=== PATIENT | male | born 1980 | race Caucasian/White ===

== ENCOUNTER 2021-04-11 18:30 | Inpatient (IN) | payer OTHER, MEDICAID, SELFPAY ==
--- NOTE | ~2021-04-11 | XR_ITS ---
XR chest 2V DATE: 04/11/2021 19:12 INDICATION: Lightheadedness. Dehydration. Weakness. TECHNIQUE: PA and lateral views COMPARISON: 08/11/2015 2 view chest FINDINGS: Normal heart size. No hilar or mediastinal enlargement. No pulmonary infiltrate or consolid ation, pleural effusion or pulmonary vascular congestion or pneumothorax. No active cardiopulmonary d isease IMPRESSION: No active cardiopulmonary disease Reviewed, dictated and finalized at location A.
--- NOTE | ~2021-04-11 | US_ITS ---
US renal BI DATE: 04/12/2021 08:21 INDICATION: Acute kidney insufficiency. Right flank pain. TECHNIQUE: Real-time imaging of kidneys and urinary bladder COMPARISON: None FINDINGS: Examination is limited by body habitus. Right kidney measures approximately 11.5 cm length, left kidney 10.2 cm length. No obvious renal mass lesion or hydronephrosis is detected. There is diffuse bladder wall thickening. IMPRESSION: Limited examination; no obvious renal mass lesion or evidence of hydronephrosis Reviewed, dictated and finalized at Location [facility]. Reviewed, dictated and finalized at location A. IMPRESSION: Limited examination; no obvious renal mass lesion or evidence of hy dronephrosis
--- NOTE | ~2021-04-11 | CT_ITS ---
EXAMINATION: CT abdomen pelvis wo con DATE: 04/12/2021 11:55 INDICATION: Right flank pain. TECHNIQUE: Computed tomography (CT) of the abdomen and pelvis was performed without intravenous contr ast. Automated exposure control and iterative reconstruction technique were employed. The dose-length product was 1586.52 mGy-cm. COMPARISON: Ultrasound kidneys 04/12/2021 FINDINGS: The visualized portions of the lung bases demonstrate mild atelectasis. No pleural effusion . The heart size is normal. No pericardial effusion. There is diffuse hepatic steatosis. The gallblad nely is contracted. The spleen, pancreas, adrenal glands, and kidneys are normal. There is no urolithi asis. There are no dilated loops of bowel. The appendix is normal. There are no pathologically enlarg ed lymph nodes. There is no free intraperitoneal fluid. There is mild thoracic spondylosis and modera te lumbar spondylosis. IMPRESSION: 1. No etiology for the patient's symptoms. 2. Diffuse hepatic steatosis. Reviewed, dictated and finalized at location A.
[2021-04-11 18:56] VITALS: BP 154/94; PULSE 85; RESP 16; TEMP 36.2; O2SAT 97
--- NOTE | 2021-04-11 19:00 | ECG_ITS ---
Measurements Intervals [facility] Rate: 81 P: 3 GA: 148 QRS: 43 QRSD: 104 T: 102 QT: 389 QTc: 454 Interpretive Statements SINUS RHYTHM BORDERLINE R WAVE PROGRESSION, ANTERIOR LEADS BORDERLINE T WAVE ABNORMALITY- HIGH LATERAL LEADS BORDERLINE ECG Electronically Signed On 04-11-2021 20:45:14 CDT by Simone Robles D.O.
[2021-04-11 19:16] LABS: Basophils Absolute Auto 0.1 K/mm3 (0.0-0.1); Basophils Percent Auto 0.4 % (0.2-1.2); Eosinophils Absolute Auto 0.1 K/mm3 (0-0.3); Eosinophils Percent Auto 1.2 % (0-4.4); Hematocrit 50.9 % (42.0-52.0); Hemoglobin 16.7 g/dL (14.0-18.0); Immature Granulocyte Absolute 0.04 K/mm3 (0.00-0.031); Immature Granulocyte Percent A 0.4 % (0-0.5); Lymphocytes Absolute Auto 1.92 K/mm3 (0.9-3.2); Lymphocytes Percent Auto 16.9 % (18.3-44.2); Mean Corpuscular HGB Conc 32.8 g/dl (32-36); Mean Corpuscular Hemoglobin 28.4 pg (26-34); Mean Corpuscular Volume 86.6 fl (80-100); Mean Platelet Volume 10.6 fl (7.4-10.4); Monocytes Absolute Auto 1.3 K/mm3 (0.1-0.6); Neutrophils Percent Auto 70.1 % (45.5-73.1); Platelet Count Result 268 k/mm3 (150-375); Red Blood Count 5.88 M/mm3 (4.6-6.20); Red Cell Distribution Width 14.8 % (11.5-14.5); White Blood Count 11.4 K/mm3 (4.5-10.0)
[2021-04-11 19:27] LABS: Alanine Aminotransferase 35 U/L (4-50); Albumin Level 4.9 g/dL (3.5-5.1); Alkaline Phosphatase 109 U/L (38-126); Anion Gap 14 mmol/L (8-16); Aspartate Amino Transferase 41 U/L (17-59); Blood Urea Nitrogen 31 mg/dL (9-20); Calcium 9.9 mg/dL (8.4-10.2); Carbon Dioxide 23 mmol/L (22-30); Chloride 95 mmol/L (98-107); Estimated CRCL calculation 37 ml/min; Estimated Glomerular Filt Rate 16; Glucose 100 mg/dL (65-110); Potassium 3.8 mmol/L (3.4-5.0); Sodium 132 mmol/L (137-145)
[2021-04-11 20:56] LABS: Creatine Kinase 264 U/L (55-170)
[2021-04-11 22:27] VITALS: BP 159/92; PULSE 83; RESP 16; O2SAT 97
[2021-04-11] MEDS: SODIUM CHLORIDE 0.9% IV 1,000 ML 999 ML IV CONT (23:07)
--- NOTE | 2021-04-11 23:12 | PC.NURSE ---
asked pt if he would be able to give us a urine sample. pt states he is unable to go at this time and will try and go after the IV fluids are in. pt refusing straight catheter.
[2021-04-11 23:14] VITALS: BP 157/92; PULSE 85; RESP 22; O2SAT 98
--- NOTE | 2021-04-11 23:18 | ED.GENADULT ---
HPI - General Adult General Chief complaint: Recheck/Abnormal Lab/Rx Stated complaint: lightheaded, cramping Time Seen by Provider: 04/11/21 22:26 History of Present Illness HPI narrative: Patient is a 40-year-old male who presents ER with muscle cramping and lightheadedness. It occurred after working outside for prolonged period and feeling hot. Reports has been making urine looks dark. Had similar symptoms several years ago and was found to be in kidney failure. Reports to his knowledge she has normal renal function and has never seen a political science research assistant. He does have history of rheumatoid arthritis which has been treated with methotrexate injections however he is not taking injection for over 6 months. Related Data Home Medications Medication Instructions Recorded Confirmed No Home Medications 04/11/21 04/11/21 Allergies Allergy/AdvReac Type Severity Reaction Status Date / Time codeine Allergy Intermediate Rash Verified 04/12/21 02:10 Review of Systems Review of Systems: All systems reviewed & are unremarkable except as noted in HPI and below Constitutional: Constitutional: Denies chills, Reports fatigue and Denies fever(s) ENT: Denies nasal congestion and Denies sore throat Cardiovascular: Cardiovascular: Denies chest pain, Denies rapid heart rate and Denies radiating jaw, neck or arm pain Respiratory: Respiratory: Denies cough, Denies dyspnea and Denies wheezing Gastrointestinal: Gastrointestinal: Denies abdominal pain, Denies nausea and Denies vomiting Musculoskeletal: Musculoskeletal: Reports myalgias and Reports muscle cramps Neurologic: Denies syncope, Denies focal weakness and Denies numbness PMFSH Past Medical History Medical History (Updated 04/12/21 @ 05:59 by Getachew Vuong MD) Hypertension Rheumatoid arthritis Surgical History Surgical History (Updated 04/12/21 @ 05:58 by Getachew Vuong MD) No pertinent past surgical history Family History Family History (Updated 04/12/21 @ 01:50 by Radha Foster RN) Mother Diabetes mellitus Congestive heart failure Acute myocardial infarction Father Diabetes mellitus Social History Social History Alcohol intake: current Drinks per week: 1 Substance use: current Substance use type: marijuana Gender identity (if verbalized by the patient): Male Spiritual care concerns: No Exam Narrative: GENERAL: Well-appearing, well-nourished, and in no acute distress. HEAD: Normocephalic, atraumatic. CHEST: Clear to auscultation. No respiratory distress. HEART: Regular rate and rhythm. Normal peripheral pulses. ABDOMEN: Soft, nontender, nondistended. EXTREMITIES: Normal range of motion. No edema. SKIN: Warm, dry, no rash. NEURO: Alert and oriented x3. PSYCH: Normal mood and affect. Course Course Emergency Course: Admit to hospitalist service for hydration and further evaluation of renal failure. Patient's history makes this appear to be acute but there is possibility that he has some chronic disease. Previous creatinine in 2018 was normal. Vital Signs Vital signs: Vital Signs Temperature 97.1 F L 04/11/21 18:56 Pulse Rate 85 04/11/21 18:56 Respiratory Rate 16 04/11/21 18:56 Blood Pressure 154/94 H 04/11/21 18:56 Pulse Oximetry 97 04/11/21 18:56 Temperature 98.6 F 04/12/21 02:13 Pulse Rate 71 04/12/21 02:13 Respiratory Rate 18 04/12/21 02:13 Blood Pressure 161/62 H 04/12/21 02:13 Pulse Oximetry 93 04/12/21 02:13 Medical Decision Making Vital Signs Vital Signs: Vital Signs Temperature 97.1 F L 04/11/21 18:56 Pulse Rate 85 04/11/21 18:56 Respiratory Rate 16 04/11/21 18:56 Blood Pressure 154/94 H 04/11/21 18:56 Pulse Oximetry 97 04/11/21 18:56 Temperature 98.6 F 04/12/21 02:13 Pulse Rate 71 04/12/21 02:13 Respiratory Rate 18 04/12/21 02:13 Blood Pressure 161/62 H 04/12/21 02:13 Pulse Oximetry 93 04/12/21 02:13 Lab Data Result diag
[2021-04-12] VITALS (8 sets, daily range): BP systolic 145–183; BP diastolic 62–92; PULSE 71–76; RESP 18–20; TEMP 36.7–37.2; O2SAT 93–98; BMI 38.0
[2021-04-12 00:26] LABS: Add Urine Microscopic? YES; Appearance Urine Clear (Clear); Bilirubin Urine Negative (Negative); Blood Urine Negative (Negative); Color Urine Yellow (Yellow); Glucose Urine UA Negative (Negative); Ketones Urine Trace mg/dL (Negative); Leukocyte Esterase Ur Negative LEU/UL (Negative); Nitrate Urine Negative (Negative); Protein Urine 1+ mg/dL (Negative); Specific Grav Ur 1.015 (1.001-1.035); Urobilinogen Urine Negative mg/dL (<2.0); WBC Urine 0-3 /hpf
--- NOTE | 2021-04-12 01:09 | PC.NURSE ---
This patient, Brennan Rivera, was admitted to [facility] Surg Room 331-02. Patient/family oriented to hospital policies and general routines including ID bracelet, bed and alarms, visiting hours, pain management, procedures, bathroom and other care routines, personal items, smoking policy, room service/diet, and visiting hours. Information on how to activate the Rapid Response Team has been discussed. Patient/Family are encouraged to report perceived risks to care and to ask questions if they do not understand what they are told or what they should do.
--- NOTE | 2021-04-12 01:23 | ADMGEN ---
This patient, Brennan Rivera, was admitted to [facility] Surg Room 331-02 @0100 Patient/family oriented to hospital policies and general routines including ID bracelet, bed and alarms, visiting hours, pain management, procedures, bathroom and other care routines, personal items, smoking policy, room service/diet, and visiting hours. Information on how to activate the Rapid Response Team has been discussed. Patient/Family are encouraged to report perceived risks to care and to ask questions if they do not understand what they are told or what they should do.
[2021-04-12] MEDS: LACTATED RINGERS 1,000 ML 125 ML IV CONT ×2 (02:03→23:24)
--- NOTE | 2021-04-12 02:43 | PM.IMHP ---
H&P: HPI History of Present Illness Date/Time: 04/12/21 02:43 Chief Complaint: DECREASED URINE OUTPUT Narrative: THIS IS A 40-YEAR-OLD MALE WITH NO SIGNIFICANT PAST MEDICAL HISTORY HE SMOKES 2 PACKS OF CIGARETTES DAILY. PATIENT PRESENTED TO EMERGENCY ROOM DUE TO INCREASED THIRST GOAL PAIN DOWN PLAIN WATER DECREASED URINE OUTPUT AND SINCLAIR YELLOW URINE SOME DISCOMFORT IN THE LOWER ABDOMEN AREA WELL. HE HAS BEEN HIS USUAL STATE OF HEALTH UP UNTIL YESTERDAY IN THE MORNING WHEN THIS ALL STARTED, DENIES ANY FEVERS ANY CHILLS ANY RIGORS ANY NAUSEA, VOMITING DIARRHEA, ABDOMINAL PAIN, SHORTNESS OF BREATH, COUGH SPUTUM PRODUCTION, HEMOPTYSIS, NO RECURRENT SINUS INFECTIONS NO HEMATURIA, NO BACK PAIN. PRELIMINARY WORKUP WAS SIGNIFICANT FOR A CREATININE OF 4.1 A BUN OF 31 AND SODIUM OF 132 AND CHLORIDE OF 95. PATIENT DENIES THE USE OF ANY MEDICATIONS WELL. Review of Systems Review of Systems: INCREASED THIRST DECREASED URINE OUTPUT Constitutional: Constitutional: Denies chills, Denies fatigue, Denies fever(s) and Denies malaise Eyes: Eyes: Denies change in vision ENT: Denies dysphagia, Denies otalgia, Denies epistaxis, Denies nasal congestion, Denies nasal discharge, Denies nasal obstruction and Denies odynophagia Cardiovascular: Cardiovascular: Denies irregular heart rhythm, Denies radiating jaw, neck or arm pain, Denies palpitations, Denies dyspnea and Denies dyspnea on exertion Respiratory: Respiratory: Denies cough Gastrointestinal: Gastrointestinal: Denies abdominal pain, Denies diarrhea, Denies nausea and Denies vomiting Genitourinary: Genitourinary: Denies hematuria and Denies flank pain Comments: DECREASED URINE OUTPUT Musculoskeletal: Musculoskeletal: Denies back pain and Denies muscle cramps Integumentary/Breasts: Skin/Breast: Reports system reviewed and no additional complaints, except as docu Neurologic: Reports system reviewed and no additional complaints, except as documented Psychiatric: Psychiatric: Reports no additional psychiatric complaints Endocrine: Endocrine: Reports polydipsia Hematologic/Lymphatic: Hematologic/Lymphatic: Reports no additional hematologic/lymphatic complaints Allergic/Immunologic: Allergic/Immunologic: Reports no additional allergic/immunologic complaints [facility] Family History Family History (Updated 04/12/21 @ 01:50 by Radha Foster RN) Mother Diabetes mellitus Congestive heart failure Acute myocardial infarction Father Diabetes mellitus Social History Social History Alcohol intake: current Drinks per week: 1 Substance use: current Substance use type: marijuana Gender identity (if verbalized by the patient): Male Spiritual care concerns: No Meds Home Medications and Allergies Home Medications Medication Instructions Recorded Confirmed Type No Home Medications 04/11/21 04/11/21 History Allergies Allergy/AdvReac Type Severity Reaction Status Date / Time codeine Allergy Intermediate Rash Verified 04/12/21 02:10 Vital Signs Vital Signs - 24 hr 04/11/21 18:56 04/11/21 22:27 04/11/21 23:14 Temperature 97.1 F L Pulse Rate 85 83 85 Respiratory Rate 16 16 22 H Blood Pressure 154/94 H 159/92 H 157/92 H Pulse Oximetry 97 97 98 04/12/21 00:53 04/12/21 02:13 Temperature 98.6 F Pulse Rate 76 71 Respiratory Rate 20 18 Blood Pressure 183/92 H 161/62 H Pulse Oximetry 98 93 Exam Narrative: [facility] Const: General: cooperative, comfortable, no acute distress, well developed, alert, awake and other (WELL-APPEARING) Nutritional Appearance: average body habitus Orientation/consciousness: patient oriented x3 HENMT: Head: normal to inspection, normocephalic and atraumatic Ears: hearing grossly normal bilaterally General nose exam: Normal external nose present Face and sinus: normal facial exam Mouth: Yes Normal oral and palatal mucosa present Eyes: General: appearance normal, both eyes and all related structures Al
[2021-04-12 06:41] LABS: Creatinine Urine 89.5 mg/dL
[2021-04-12 06:42] LABS: Sodium Urine Random 7 meq/L
--- NOTE | 2021-04-12 08:01 | PM.IMPN ---
Progress Note: A&P Assessment and Plan (1) MARYAN (acute kidney injury): Code(s): N17.9 - Acute kidney failure, unspecified Status: Acute Assessment and Plan: Likely due to dehydration and working outside. CK normal -continue IV fluids -He has a hx of MARYAN due to dehydration and diuretics in the past -patient is urinating more than he has been outpatient but continues to be dark. He is able to collect and save all of his urine. No need for Dias catheter at this time but will order accurate I&Os. He is able to efficiently measure his urine. -patient has no urinary symptoms or concerns for STIs -UA not suspicious for UTI or renal stone. Urine sodium is low -suspect due to dehydration but patient does have RA, cannot exclude autoimmune disease but appears less likely -he is currently getting a renal ultrasound today, will await results -nephrology has been consulted -recheck bmp at 12 (2) Tobacco dependence: Code(s): F17.200 - Nicotine dependence, unspecified, uncomplicated Status: Acute Assessment and Plan: Nicotine patch as needed (3) Hypertension: Code(s): I10 - Essential (primary) hypertension Status: Acute Assessment and Plan: Patient states he has a history of hypertension but his doctor took him off his medications because it had improved -will monitor trends, may need additional medication -will do hydralazine p.r.n. Time Spent With Patient Time with patient: 25 - 35 minutes Subjective Date/time seen: 04/12/21 08:01 Interval history: Pt is a 40-year-old male here for acute renal failure. Patient was seen today and states he continues to have right flank pain which has actually improved since admission. He is still thirsty but not as thirsty as he was. He is urinating more but states it is still dark. He has no dysuria, hematuria, or concern for STIs. He states that he has been working out in the heat and feels like he may be dehydrated. He says he has a history of renal failure 2 years ago when he was placed on a diuretic. This resolved on its own after stopping the diuretic. He has a history of blood pressure but his doctor said his blood pressure has been better and took him off his blood pressure medications entirely. He also has rheumatoid arthritis which he stopped taking his own medication for unclear reasons. He still has joint pain occasionally. He states he does not do any drugs except occasionally smokes weed and occasionally drinks alcohol but he has not drink alcohol very recently. He has been having chills but no fevers, chest pain, shortness of breath, nausea or vomiting. Review of Systems Review of Systems: All systems reviewed & are unremarkable except as noted in HPI and below Exam Narrative: General: Well developed well nourished patient in NAD HEENT: normocephalic Neck: supple Neuro: Alert and oriented x4 CV:RRR Resp:CTA Abd: Soft, non distended. No pain to palpation. Positive bowel sounds. CVA tenderness to the right flank Extremities: No swelling, erythema, or pain to palpation. Objective Data Vital Signs Vital Signs: Vital Signs - 24 hr 04/11/21 18:56 04/11/21 22:27 04/11/21 23:14 Temperature 97.1 F L Pulse Rate 85 83 85 Respiratory Rate 16 16 22 H Blood Pressure 154/94 H 159/92 H 157/92 H Pulse Oximetry 97 97 98 04/12/21 00:53 04/12/21 02:13 04/12/21 06:00 Temperature 98.6 F 98.1 F Pulse Rate 76 71 74 Respiratory Rate 20 18 18 Blood Pressure 183/92 H 161/62 H 145/71 H Pulse Oximetry 98 93 97 Intake/Output Intake/Output: Intake & Output 04/09/21 04/10/21 04/11/21 04/12/21 23:59 23:59 23:59 23:59 Intake Total 1200 Output Total 400 Balance 800 Meds/Results Medications: Active Medications Generic Name Dose Route Start Last Admin Trade Name Freq PRN Reason Stop Dose Admin Acetaminophen 650 mg 04/11/21 22:38 Acetaminophen 325 Mg Tablet PO Q4H PRN Mild Pa
--- NOTE | 2021-04-12 12:15 | PM.CNNEP ---
Assessment and Plan Assessment and plan (1) MARYAN (acute kidney injury): Code(s): N17.9 - Acute kidney failure, unspecified Status: Acute Assessment and Plan: Brennan has acute kidney injury. He had a renal ultrasound which was unremarkable. His urinalysis shows a little bit of protein but is otherwise bland. Most likely he has dehydration. Will check urine electrolytes. The patient also has rheumatoid arthritis and so could have some collagen vascular disease in the kidneys as he is already has 1 autoimmune disease he is therefore at risk for having a 2nd. Although he does not have much blood in his urine. Rhabdomyolysis could be doing this as well but usually 1 would have blood in the urine. I doubt if he has allergic interstitial nephritis because he is not on any medications at home. Obstruction is always a possibility but this was ruled out by review the ultrasound. Will continue IV fluids for now and repeat a creatinine today and tomorrow. (2) Hypertension: Code(s): I10 - Essential (primary) hypertension Status: Acute Assessment and Plan: His blood pressure is high. He has obesity and sleep apnea and he smokes so 3 risk factors for hypertension exist. I agree with amlodipine for now. Depending on how much protein he has we might want to switch over to an Erasmo inhibitor once his creatinine comes down to normal or at least a baseline.. (3) Tobacco dependence: Code(s): F17.200 - Nicotine dependence, unspecified, uncomplicated Status: Acute Assessment and Plan: I encouraged him to stop smoking. (4) Obstructive sleep apnea: Code(s): G47.33 - Obstructive sleep apnea (adult) (pediatric) Status: Acute Assessment and Plan: The patient has sleep apnea by a prior test. He should see pulmonary as an outpatient. (5) Rheumatoid arthritis: Code(s): M06.9 - Rheumatoid arthritis, unspecified Status: Acute Assessment and Plan: Will check serology. History of Present Illness Reason for Consult Consult date: 04/12/21 Chief Complaint Chief complaint: MARYAN, Dehydration History of Present Illness Narrative: Brennan is a very pleasant 40-year-old gentleman who has obstructive sleep apnea, rheumatoid arthritis, obesity, tobacco use, and a prior history of acute kidney failure. The patient says that he has been eating and drinking okay, however he has been out in the hot sun doing his job and also mowing the lawn yesterday. Yesterday while mowing the lawn he became lightheaded so went to the ER. He was checked in and evaluated. He was found to have high blood pressure. His felt to be mildly dehydrated. His creatinine was elevated. He was given IV fluids and admitted. There were no labs this morning. The patient says he had an episode just like this about 2 years ago. He went to [facility] in [facility]. He received IV fluids and he says his kidney numbers got better. The patient does have rheumatoid arthritis and sees a doctor about this once a year. The doctor does check labs. He does not know if he actually checked a creatinine but he was never told that he had any chronic issues with his kidneys. He had a sleep test done about 2 years ago and they told him he needed a CPAP machine. However there is some issue with his residence and he was unable to get 1. Now he has insurance and he wants to get 1. He smokes about 2 packs a day. He rarely drinks alcohol Review of Systems Constitutional: Constitutional: Reports no additional constitutional complaints Eyes: Eyes: Reports no additional eye complaints ENT: Reports system reviewed and no additional complaints, except as documented Cardiovascular: Cardiovascular: Reports no additional cardiovascular complaints Respiratory: Respiratory: Reports no additional respiratory complaints Gastrointestinal: Gastrointestinal: Reports no additional gastrointestinal complai
[2021-04-12 13:07] LABS: Anion Gap 9 mmol/L (8-16); Blood Urea Nitrogen 31 mg/dL (9-20); Calcium 9.1 mg/dL (8.4-10.2); Carbon Dioxide 29 mmol/L (22-30); Chloride 99 mmol/L (98-107); Estimated CRCL calculation 56 ml/min; Estimated Glomerular Filt Rate 29; Glucose 112 mg/dL (65-110); Sodium 137 mmol/L (137-145)
[2021-04-12 13:08] LABS: Anion Gap 9 mmol/L (8-16); Blood Urea Nitrogen 33 mg/dL (9-20); Carbon Dioxide 30 mmol/L (22-30); Chloride 98 mmol/L (98-107); Creatine Kinase 127 U/L (55-170); Estimated CRCL calculation 56 ml/min; Estimated Glomerular Filt Rate 29; Glucose 103 mg/dL (65-110); Sodium 137 mmol/L (137-145)
[2021-04-12 13:12] LABS: Erythrocyte Sedimentation Rate 18 mm/hr (0-20)
[2021-04-12 13:14] LABS: Complement C3 117 mg/dL (88-165); Rheumatoid Factor 15.9 IU/ML (<12)
[2021-04-12 15:54] LABS: Creatinine Urine 76.3 mg/dL; Total Protein Urine Random 20 mg/dL; Ur Ttl Prot Creatinine Ratio 0.26 mg/mg (0-0.20)
[2021-04-12] MEDS: hydrALAZINE HCL 20 MG/ML VIAL 10 MG IV PUSH (16:09)
[2021-04-12 16:18] LABS: Sodium Urine Random 10 meq/L
[2021-04-13 06:00] VITALS: BP 170/100; PULSE 66; RESP 18; TEMP 36.8; O2SAT 97
[2021-04-13] MEDS: hydrALAZINE HCL 20 MG/ML VIAL 10 MG IV PUSH ×3 (06:18→21:49)
[2021-04-13 06:59] LABS: Hematocrit 46.9 % (42.0-52.0); Hemoglobin 14.8 g/dL (14.0-18.0); Mean Corpuscular HGB Conc 31.6 g/dl (32-36); Mean Corpuscular Hemoglobin 27.5 pg (26-34); Mean Platelet Volume 11.3 fl (7.4-10.4); Platelet Count Result 218 k/mm3 (150-375); Red Blood Count 5.39 M/mm3 (4.6-6.20); Red Cell Distribution Width 14.4 % (11.5-14.5); White Blood Count 6.5 K/mm3 (4.5-10.0)
[2021-04-13 07:18] LABS: Albumin Level 3.6 g/dL (3.5-5.1); Anion Gap 6 mmol/L (8-16); Blood Urea Nitrogen 20 mg/dL (9-20); Calcium 8.9 mg/dL (8.4-10.2); Carbon Dioxide 28 mmol/L (22-30); Chloride 102 mmol/L (98-107); Estimated CRCL calculation 82 ml/min; Estimated Glomerular Filt Rate 45; Glucose 91 mg/dL (65-110); Phosphorus 3.6 mg/dL (2.5-4.5); Sodium 136 mmol/L (137-145)
[2021-04-13 08:00] VITALS: BP 169/81
--- NOTE | 2021-04-13 08:58 | PM.PNNEP ---
Progress Note: A&P Assessment and Plan (1) MARYAN (acute kidney injury): Code(s): N17.9 - Acute kidney failure, unspecified Status: Acute Assessment and Plan: Brennan has acute kidney injury. He had a renal ultrasound which was unremarkable. His urinalysis shows a little bit of protein but is otherwise bland. Urine electrolytes are pre renal Most likely he has dehydration. His creatinine has improved. He does have some proteinuria. This may be from the sleep apnea or hypertension or obesity. He is also getting serology and immunofixation. (2) Hypertension: Code(s): I10 - Essential (primary) hypertension Status: Acute Assessment and Plan: His blood pressure is high. He has obesity and sleep apnea and he smokes so 3 risk factors for hypertension exist. I agree with amlodipine for now. Once the creatinine is down consider adding an ARASELI-inhibitor (3) Tobacco dependence: Code(s): F17.200 - Nicotine dependence, unspecified, uncomplicated Status: Acute Assessment and Plan: I encouraged him to stop smoking. (4) Obstructive sleep apnea: Code(s): G47.33 - Obstructive sleep apnea (adult) (pediatric) Status: Acute Assessment and Plan: The patient has sleep apnea by a prior test. He should see pulmonary as an outpatient. (5) Rheumatoid arthritis: Code(s): M06.9 - Rheumatoid arthritis, unspecified Status: Acute Assessment and Plan: Rheumatoid factor is slightly high. Subjective Date/time seen: 04/13/21 08:58 Interval history: Patient is feeling better. He did not sleep all night could he could not turn the light up. I showed him how. He is eating pretty well. Review of Systems Cardiovascular: Cardiovascular: Reports no additional cardiovascular complaints Respiratory: Respiratory: Reports no additional respiratory complaints Gastrointestinal: Gastrointestinal: Reports no additional gastrointestinal complaints Genitourinary: Genitourinary: Reports no additional male genitourinary complaints Exam Narrative: WDWN in NAD skin no rash head ncat lungs clear cor reg no rub abd BS+ nontender and soft ext no edema. Objective Data Vital Signs Vital Signs: Vital Signs - 24 hr 04/12/21 14:00 04/12/21 16:06 04/12/21 17:15 Temperature 36.7 C Pulse Rate 73 Respiratory Rate 18 Blood Pressure 169/83 H 175/88 H 168/80 H Pulse Oximetry 94 04/12/21 18:01 04/12/21 22:00 04/13/21 06:00 Temperature 37.2 C 36.8 C Pulse Rate 73 66 Respiratory Rate 18 18 Blood Pressure 161/83 H 170/100 H Pulse Oximetry 94 94 97 Intake/Output Intake/Output: Intake & Output 04/10/21 04/11/21 04/12/21 04/13/21 23:59 23:59 23:59 23:59 Intake Total 4930 550 Output Total 2350 Balance 2580 550 Meds/Results Medications: Active Medications Generic Name Dose Route Start Last Admin Trade Name Freq PRN Reason Stop Dose Admin Acetaminophen 650 mg 04/12/21 08:14 Acetaminophen 325 Mg Tablet PO Q4H PRN Pain or Fever Amlodipine Besylate 5 mg 04/13/21 09:00 Amlodipine Besylate 5 Mg Tablet PO QAM LESLI Hydralazine HCl 10 mg 04/12/21 08:10 04/13/21 06:18 Hydralazine Hcl 20 Mg/Ml Vial IV PUSH 10 mg Q8H PRN Administration Blood Pressure - High JON=565 Lactated Ringer's 1,000 mls @ 125 mls/hr 04/11/21 22:45 04/12/21 23:24 Lr - Lactated Ringers Iv IV CONT 125 mls/hr .Q8H LESLI Administration Nicotine 1 patch 04/12/21 07:44 Nicotine (*Pbkc) 21 Mg Patch TRANSDERM QAM PRN smoking cravings Ondansetron HCl 4 mg 04/11/21 22:38 Ondansetron Inj 4 Mg/2 Ml Vial IV PUSH Q4H PRN Nausea Radiology Results: ITS Impressions Chest X-Ray 04/11/21 19:15 IMPRESSION: No active cardiopulmonary disease Renal Ultrasound 04/12/21 09:41 IMPRESSION: Limited examination; no obvious renal mass lesion or evidence of hydronephrosis
[2021-04-13] MEDS: amLODIPine BESYLATE 5 MG TABLET PO (09:11)
[2021-04-13] MEDS: LACTATED RINGERS 1,000 ML 125 ML IV CONT ×2 (10:58→23:03)
--- NOTE | 2021-04-13 12:27 | PM.IMPN ---
Progress Note: A&P Assessment and Plan (1) MARYAN (acute kidney injury): Code(s): N17.9 - Acute kidney failure, unspecified Status: Acute Assessment and Plan: Likely due to dehydration - CK normal -continue IV fluids - further workup pending per Dr. Castillo -He has a hx of MARYAN due to dehydration and diuretics in the past -patient is urinating more than he has been outpatient but continues to be dark. He is able to collect and save all of his urine. No need for Dias catheter at this time - positive 2580 fluid balance yesterday -patient has no urinary symptoms or concerns for STIs -UA not suspicious for UTI or renal stone. Urine sodium is low -suspect due to dehydration but patient does have RA, cannot exclude autoimmune disease but appears less likely (2) Tobacco dependence: Code(s): F17.200 - Nicotine dependence, unspecified, uncomplicated Status: Acute Assessment and Plan: Nicotine patch as needed (3) Hypertension: Code(s): I10 - Essential (primary) hypertension Status: Acute Assessment and Plan: last blood pressure 169/81 - Patient has been running high, I spoke with him about this and we are going to start amlodipine - will likely add Erasmo/ ARB once renal fx has improved -Patient states he has a history of hypertension but his doctor took him off his medications because it had improved -Continue hydralazine p.r.n. (4) Rheumatoid arthritis: Code(s): M06.9 - Rheumatoid arthritis, unspecified Status: Acute Assessment and Plan: Pt has a hx of this but took himself off his medication -will need to follow up with a bottom cager to avoid future destruction of his joints -Rheumatoid factor positive Subjective Date/time seen: 04/13/21 12:27 Interval history: Pt is a 40-year-old male here for acute renal failure. Patient was seen today and is doing okay. He does have some pain to his right flank but other than that, does not have any complaints. He did not sleep well overnight due to the inability to turn off his lights. he denies chest pain, shortness of breath, fevers, chills, headache, double vision or leg swelling. I spoke to him about his blood pressure and the plan for that. Exam Narrative: General: Well developed well nourished patient in NAD HEENT: normocephalic Neck: supple Neuro: Alert and oriented x4 CV:RRR Resp:CTA Abd: Soft, non distended. No pain to palpation. Positive bowel sounds. CVA tenderness to the right flank Extremities: No swelling, erythema, or pain to palpation. Objective Data Vital Signs Vital Signs: Vital Signs - 24 hr 04/12/21 14:00 04/12/21 16:06 04/12/21 17:15 Temperature 98.1 F Pulse Rate 73 Respiratory Rate 18 Blood Pressure 169/83 H 175/88 H 168/80 H Pulse Oximetry 94 04/12/21 18:01 04/12/21 22:00 04/13/21 06:00 Temperature 98.9 F 98.2 F Pulse Rate 73 66 Respiratory Rate 18 18 Blood Pressure 161/83 H 170/100 H Pulse Oximetry 94 94 97 04/13/21 08:00 Temperature Pulse Rate Respiratory Rate Blood Pressure 169/81 H Pulse Oximetry Intake/Output Intake/Output: Intake & Output 04/10/21 04/11/21 04/12/21 04/13/21 23:59 23:59 23:59 23:59 Intake Total 4930 1790 Output Total 2350 Balance 2580 1790 Meds/Results Medications: Active Medications Generic Name Dose Route Start Last Admin Trade Name Freq PRN Reason Stop Dose Admin Acetaminophen 650 mg 04/12/21 08:14 Acetaminophen 325 Mg Tablet PO Q4H PRN Pain or Fever Amlodipine Besylate 5 mg 04/13/21 09:00 04/13/21 09:11 Amlodipine Besylate 5 Mg Tablet PO 5 mg QAM LESLI Administration Hydralazine HCl 10 mg 04/12/21 08:10 04/13/21 06:18 Hydralazine Hcl 20 Mg/Ml Vial IV PUSH 10 mg Q8H PRN Administration Blood Pressure - High XFO=[id number] Lactated Ringer's 1,000 mls @ 125 mls/hr 04/11/21 22:45 04/13/21 10:58 Lr - Lactated Ringers Iv IV CONT
[2021-04-13 14:00] VITALS: BP 172/85; PULSE 69; RESP 18; TEMP 37; O2SAT 95
[2021-04-13 15:59] VITALS: BP 184/95
[2021-04-13 22:00] VITALS: BP 191/107; PULSE 80; RESP 18; TEMP 36.7; O2SAT 99
[2021-04-14] MEDS: hydrALAZINE HCL 20 MG/ML VIAL 10 MG IV PUSH (05:56)
[2021-04-14 06:00] VITALS: BP 180/107; PULSE 90; RESP 18; TEMP 36; O2SAT 98
[2021-04-14 07:35] LABS: Albumin Level 3.8 g/dL (3.5-5.1); Anion Gap 7 mmol/L (8-16); Blood Urea Nitrogen 12 mg/dL (9-20); Calcium 9.1 mg/dL (8.4-10.2); Carbon Dioxide 25 mmol/L (22-30); Chloride 104 mmol/L (98-107); Estimated CRCL calculation 106 ml/min; Estimated Glomerular Filt Rate > 60; Glucose 89 mg/dL (65-110); Potassium 4.5 mmol/L (3.4-5.0); Sodium 136 mmol/L (137-145)
--- NOTE | 2021-04-14 08:23 | PC.NURSE ---
Patient had asymptomatic HTN with SBP in the 180's and 90's. Dr. Victor Manuel chung'd one dose of hydrazine early, bringing SBP down to 160's. A second dose was given after morning VS. BP's still not well controlled though improved with hydralazine.
[2021-04-14] MEDS: lisinopriL 20 MG TABLET PO (09:35)
[2021-04-14] MEDS: amLODIPine BESYLATE 5 MG TABLET PO (09:35)
[2021-04-14 10:52] VITALS: BP 158/87
--- NOTE | 2021-04-14 14:14 | PM.DS ---
DS: Admitting Diagnosis Admitting Diagnosis maryan, uncontrolled htn DS: Discharge Diagnosis Discharge Diagnosis (1) MARYAN (acute kidney injury): Code(s): N17.9 - Acute kidney failure, unspecified Status: Acute Assessment and Plan: Resolved, likely due to dehydration - CK normal - repeat bmp in one week and f/u with Dr. jovel -He has a hx of MARYAN due to dehydration and diuretics in the past -patient has no urinary symptoms or concerns for STIs -UA not suspicious for UTI or renal stone. Urine sodium is low -suspect due to dehydration but patient does have RA, cannot exclude autoimmune disease but appears less likely (2) Tobacco dependence: Code(s): F17.200 - Nicotine dependence, unspecified, uncomplicated Status: Acute Assessment and Plan: educated on smoking cessation (3) Hypertension: Code(s): I10 - Essential (primary) hypertension Status: Acute Assessment and Plan: last blood pressure 158/87, improved with medication changes and stopping ivf. -Was as high as 191/107 with no evidence of end organ damage or symptoms -Pt staretd on amlodapine and lisinopril and plans to f/u with a pcp for recheck and he understands these may need to be adjusted further to prevent kidney and heart failure. -Patient states he has a history of hypertension but his doctor took him off his medications because it had improved (4) Rheumatoid arthritis: Code(s): M06.9 - Rheumatoid arthritis, unspecified Status: Acute Assessment and Plan: Pt has a hx of this but took himself off his medication -will need to follow up with a learning disabilities specialist to avoid future destruction of his joints -Rheumatoid factor positive DS: Summary Hospital Course Hospital Course: DOS 04/14/21 Patient is a 40-year-old male with untreated sleep apnea and rheumatoid arthritis who presented emergency room for also cramping, lightheadedness and decreased urine output. He was found to be in kidney failure with a creatinine of 4.1. UA did not show any sign of infection neither did the abdominal pelvis CT. Patient was admitted to the hospital service and started on IV fluids. He improved gradually with IV fluids for many days and creatinine had normalized the day of discharge. He continued to have uncontrolled hypertension. Patient stated he had a history of this and was taken off his medications. Amlodipine and lisinopril was started and the day of discharge his blood pressure was 158/87. This was down from 190 systolic. He understands that he needs to get his blood pressure under control to avoid strokes, heart disease and kidney disease. He does not have a primary care physician but is going to find 1 so he can follow-up with them to get a recheck. I also recommended that he follow-up with a learning disabilities specialist since he has known rheumatoid arthritis and the sequela of untreated RA can be debilitating. He also needs a sleep study outpatient as he has a history of sleep apnea that is untreated. Day of discharge he was feeling back to his baseline and ready to go. He was educated about the worrisome signs and symptoms to come back to emergency room for and was discharged stable condition Status at Discharge Functional status at discharge: independent ambulation Overall status at discharge: patient is back to baseline Time Spent with Patient Time attestation: Total time spent providing and/or coordinating discharge services:36 min Exam Narrative: General: Well developed well nourished patient in NAD HEENT: normocephalic Neck: supple Neuro: Alert and oriented x4 CV:RRR Resp:CTA Abd: Soft, non distended. No pain to palpation. Positive bowel sounds. CVA tenderness to the right flank Extremities: No swelling, erythema, or pain to palpation. DS: Data Data Completed and Pending Labs on day of discharge: Labs from last 24 hours 04/14/21 04/13/21 06:22 17:54 Sodium 136 L Potassium
[2021-04-16 00:14] LABS: Kappa\\Lambda Light Chains 1.03 (0.26-1.65); Lambda Light Chain 29.4 mg/L (5.7-26.3)
[2021-04-17 12:24] LABS: Complement Total CH50 >60 U/mL (31-60)
[2021-04-17 22:03] LABS: Creat 24 Hr 1.19 g/24 h (0.50-2.15); Measured Kappa Chains 1.05 mg/dL (<2.00); Measured Lambda Chains <1.00 mg/dL (<2.00); Pro/Creat Ratio 174 mg/g creat (<=114); Total Kappa Chains 16.8 mg/24 h
== END 2021-04-14 15:20 | disposition home or self-care (01) | DRG 684 ==
LOC: ANHED 22:46 → ANH3MEDSUR 04-12 06:51
PROVIDERS: Emergency Medicine; Internal Medicine Nephrology; Physician Assistant; Admitting Provider Internal Medicine; Emergency Provider Emergency Medicine; Visit Provider Physician Assistant
DX: N17.9 Acute kidney failure, unspecified (principal); M06.9 Rheumatoid arthritis, unspecified; I10 Essential (primary) hypertension; F12.90 Cannabis use, unspecified, uncomplicated; F17.210 Nicotine dependence, cigarettes, uncomplicated; E86.0 Dehydration; E66.9 Obesity, unspecified; Z68.38 Body mass index [BMI] 38.0-38.9, adult; G47.33 Obstructive sleep apnea (adult) (pediatric)
CPT/HCPCS: 36415; 71046; 74176; 76775; 80048; 80053; 80069; 81001; 82550; 82570; 83883; 84156; 84300; 85025; 85027; 85652; 86038; 86160; 86162; 86334; 86335; 86430; 93005; 96361; 96374; 99285; A9270; G0378; J0360; J7030; J7120

== ENCOUNTER 2022-01-20 18:24 | Observation (INO) | payer OTHER, SELFPAY ==
--- NOTE | ~2022-01-20 | CT_ITS ---
EXAMINATION: CT abdomen pelvis wo con DATE: 01/20/2022 20:09 INDICATION: Right flank pain TECHNIQUE: Computed tomography (CT) of the abdomen and pelvis was performed without intravenous contr ast. The dose-length product (DLP) was 1671.62 mGy-cm. Automated exposure control and iterative recon struction technique were employed. COMPARISON: 04/12/2021 FINDINGS: The lung bases are clear. The heart size is normal. The liver, spleen, pancreas, gallbladde r, and adrenal glands are normal. The kidneys are unremarkable. No stones are identified in the kidne ys, ureters, or bladder. There is no hydronephrosis or hydroureter. No pathologically enlarged abdomi nal or pelvic lymph nodes are identified. There is no free intraperitoneal gas or evidence of bowel o bstruction. There is moderate lumbar spondylosis at L4-5. The appendix is normal. IMPRESSION: 1. No CT correlate for the patient's symptoms. Reviewed, dictated and finalized at location F.
[2022-01-20 18:39] VITALS: BP 125/95; PULSE 86; RESP 18; TEMP 36.5; O2SAT 97
[2022-01-20 18:50] LABS: Basophils Absolute Auto 0.1 K/mm3 (0.0-0.1); Basophils Percent Auto 0.4 % (0.2-1.2); Eosinophils Absolute Auto 0.1 K/mm3 (0-0.3); Eosinophils Percent Auto 0.4 % (0-4.4); Hematocrit 46.9 % (42.0-52.0); Hemoglobin 15.8 g/dL (14.0-18.0); Immature Granulocyte Absolute 0.05 K/mm3 (0.00-0.031); Immature Granulocyte Percent A 0.4 % (0-0.5); Lymphocytes Absolute Auto 1.84 K/mm3 (0.9-3.2); Lymphocytes Percent Auto 13.7 % (18.3-44.2); Mean Corpuscular HGB Conc 33.7 g/dl (32-36); Mean Corpuscular Hemoglobin 28.5 pg (26-34); Mean Corpuscular Volume 84.5 fl (80-100); Mean Platelet Volume 9.9 fl (7.4-10.4); Monocytes Absolute Auto 1.1 K/mm3 (0.1-0.6); Monocytes Percent Auto 8.4 % (2.6-8.5); Neutrophils Absolute Auto 10.3 K/mm3 (1.3-6.7); Neutrophils Percent Auto 76.7 % (45.5-73.1); Platelet Count Result 299 k/mm3 (150-375); Red Blood Count 5.55 M/mm3 (4.6-6.20); Red Cell Distribution Width 14.5 % (11.5-14.5); White Blood Count 13.5 K/mm3 (4.5-10.0)
[2022-01-20 19:04] LABS: Alanine Aminotransferase 31 U/L (6-50); Alkaline Phosphatase 108 U/L (38-126); Anion Gap 13 mmol/L (8-16); Aspartate Amino Transferase 34 U/L (17-59); Bilirubin,Total 1.4 mg/dL (0.2-1.3); Blood Urea Nitrogen 42 mg/dL (9-20); Calcium 9.7 mg/dL (8.4-10.2); Carbon Dioxide 22 mmol/L (22-30); Chloride 99 mmol/L (98-107); Estimated CRCL calculation 39 ml/min; Estimated Glomerular Filt Rate 17; Glucose 94 mg/dL (65-110); Lipase 93 U/L (23-300); Potassium 4.6 mmol/L (3.4-5.0); Sodium 134 mmol/L (137-145)
[2022-01-20 19:10] VITALS: BP 127/67; PULSE 86; RESP 18; TEMP 36.9; O2SAT 98
[2022-01-20 20:12] LABS: Creatine Kinase 146 U/L (55-170)
[2022-01-20] MEDS: SODIUM CHLORIDE 0.9% IV 1,000 ML 999 ML IV CONT ×2 (20:22→22:50)
[2022-01-20 20:38] LABS: Appearance Urine Slightly Cloudy (Clear); Bilirubin Urine 2+ (Negative); Blood Urine Negative (Negative); Color Urine Yellow (Yellow); Glucose Urine UA Negative (Negative); Ketones Urine 1+ mg/dL (Negative); Leukocyte Esterase Ur Negative LEU/UL (Negative); Nitrate Urine Negative (Negative); Protein Urine 2+ mg/dL (Negative); Specific Grav Ur >= 1.030 (1.001-1.035); Urobilinogen Urine 0.2 mg/dL (<2.0); pH Urine 5.5 (5.0-9.0)
[2022-01-20 20:44] LABS: Add Urine Microscopic? YES; Bacteria Urine Trace /hpf; Mucus Urine Heavy /lpf; RBC Urine 0-2 /hpf (0-2); Squamous Epithelial Cell Urine Occasional /hpf (Few)
--- NOTE | 2022-01-20 21:09 | ED.GENADULT ---
HPI - General Adult General Chief complaint: Back Pain/Injury Stated complaint: right flank pain Time Seen by Provider: 01/20/22 19:43 History of Present Illness HPI narrative: Patient is a 41-year-old male who presents ER with concerns for renal failure. Reports similar symptoms about a year ago. Reports today he began feeling excessively thirsty and had low output urine that was dark. He has been having some right flank pain associated with this. No radiation. No nausea or vomiting or sweats. Denies prolonged exposure outside to the heat. Reports he was trying to mow his lawn today when he noticed he is feeling unwell. 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 Patient has history of rheumatoid arthritis was not taking the medication in a year. Related Data Home Medications Medication Instructions Recorded Confirmed No Home Medications 01/21/22 01/21/22 Allergies Allergy/AdvReac Type Severity Reaction Status Date / Time codeine Allergy Intermediate Rash Verified 01/20/22 18:43 Review of Systems Review of Systems: All systems reviewed & are unremarkable except as noted in HPI and below Constitutional: Constitutional: Denies chills, Reports fatigue and Denies fever(s) ENT: Denies nasal congestion and Denies sore throat Cardiovascular: Cardiovascular: Denies chest pain, Denies rapid heart rate and Denies radiating jaw, neck or arm pain Respiratory: Respiratory: Denies cough and Denies dyspnea Gastrointestinal: Gastrointestinal: Denies abdominal pain, Reports diarrhea (X3 today), Denies nausea and Denies vomiting Genitourinary: Genitourinary: Denies hematuria, Reports oliguria and Denies urinary frequency Comments: Flank pain Musculoskeletal: Musculoskeletal: Denies myalgias, Denies arthralgias and Denies joint swelling [facility] Past Medical History Medical History (Updated 01/21/22 @ 06:41 by Getachew Vuong MD) Hypertension Obstructive sleep apnea Rheumatoid arthritis Rheumatoid arthritis Surgical History Surgical History No pertinent past surgical history Family History Family History Mother Diabetes mellitus Congestive heart failure Acute myocardial infarction Father Diabetes mellitus Social History Social History Smoking packs per day: 1 Smoking cigarettes per day: 20.0 Smoking status: Current every day smoker Alcohol intake: never Drinks per week: 1 Substance use: current Substance use type: marijuana Other substance usage details: 1-2 GRAMS PER WEEK Gender identity (if verbalized by the patient): Male Spiritual care concerns: No Exam Narrative: GENERAL: Well-appearing, well-nourished, and in no acute distress. HEAD: Normocephalic, atraumatic. EYES: PERRL and EOMI. ENT: Mucous membranes moist. CHEST: Clear to auscultation. No respiratory distress. HEART: Regular rate and rhythm. Normal peripheral pulses. EXTREMITIES: Normal range of motion. No edema. SKIN: Warm, dry, mild sunburn of the face and arms. NEURO: Alert and oriented x3. PSYCH: Normal mood and affect. Course Course Emergency Course: Admit to hospitalist service. Will give 2 L bolus and then run fluid continuously. Vital Signs Vital signs: Vital Signs Temperature 97.7 F 01/20/22 18:39 Pulse Rate 86 01/20/22 18:39 Respiratory Rate 18 01/20/22 18:39 Blood Pressure 125/95 H 01/20/22 18:39 Pulse Oximetry 97 01/20/22 18:39 Oxygen Delivery Room Air 01/20/22 18:39 Temperature 98.2 F 01/21/22 03:37 Pulse Rate 65 01/21/22 03:37 Respiratory Rate 18 01/21/22 03:37 Blood Pressure 145/75 H 01/21/22 03:37 Pulse Oximetry 93 01/21/22 04:56 Oxygen Delivery Room Air 01/21/22 04:56 Medical Decision Making Vital Signs Vital Signs: Vital Si
[2022-01-20 23:37] VITALS: BP 125/78; PULSE 87; RESP 18; O2SAT 99
--- NOTE | 2022-01-20 23:55 | ADMGEN ---
This patient, Brennan Rivera, was admitted to Medical Room 261-01. Patient/family oriented to hospital policies and general routines including ID bracelet, bed and alarms, visiting hours, pain management, procedures, bathroom and other care routines, personal items, smoking policy, room service/diet, and visiting hours. Information on how to activate the Rapid Response Team has been discussed. Patient/Family are encouraged to report perceived risks to care and to ask questions if they do not understand what they are told or what they should do.
[2022-01-20 23:57] VITALS: BP 150/78; PULSE 74; RESP 22; TEMP 37; O2SAT 94; BMI 39.5
[2022-01-20 23:58] VITALS: BP 150/78; PULSE 74; RESP 22; TEMP 37; O2SAT 94
[2022-01-21] VITALS (9 sets, daily range): BP systolic 142–174; BP diastolic 68–88; PULSE 63–65; RESP 14–20; TEMP 36.3–36.8; O2SAT 93–98
[2022-01-21] MEDS: SODIUM CHLORIDE 0.9% IV 1,000 ML 150 ML IV CONT ×3 (00:08→16:22)
--- NOTE | 2022-01-21 09:08 | PM.IMHP ---
H&P: HPI History of Present Illness Date/Time: 01/21/22 09:08 Chief Complaint: low urine output , dark urine Narrative: 41-year-old male with rheumatoid arthritis, diet-controlled hypertension, morbid obesity, obstructive sleep apnea, and tobacco dependence presents to the hospital with chief complaint of poor urine output despite drinking large quantities of water and dark appearing urine. Patient states that he has had 2 prior episodes of renal failure both of which presented with symptoms like this. While he was out mowing his lawn he realized that he was no longer producing significant amount of urine and sought medical attention. In the ER he is found to be in MARYAN and his admission is recommended for further workup and treatment. 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 Review of Systems Review of Systems: All systems reviewed & are unremarkable except as noted in HPI and below PMFSH Past Medical History Medical History Hypertension Obstructive sleep apnea Rheumatoid arthritis Rheumatoid arthritis Surgical History Surgical History No pertinent past surgical history Family History Family History Mother Diabetes mellitus Congestive heart failure Acute myocardial infarction Father Diabetes mellitus Social History Social History Smoking packs per day: 1 Smoking cigarettes per day: 20.0 Smoking status: Current every day smoker Alcohol intake: never Drinks per week: 1 Substance use: current Substance use type: marijuana Other substance usage details: 1-2 GRAMS PER WEEK Gender identity (if verbalized by the patient): Male Spiritual care concerns: No Meds Home Medications and Allergies Home Medications Medication Instructions Recorded Confirmed Type No Home Medications 01/21/22 01/21/22 History Allergies Allergy/AdvReac Type Severity Reaction Status Date / Time codeine Allergy Intermediate Rash Verified 01/20/22 18:43 Vital Signs Vital Signs - 24 hr 01/20/22 18:39 01/20/22 19:10 01/20/22 23:37 Temperature 97.7 F 98.5 F Pulse Rate 86 86 87 Respiratory Rate 18 18 18 Blood Pressure 125/95 H 127/67 125/78 Pulse Oximetry 97 98 99 Oxygen Delivery Room Air 01/21/22 00:02 01/20/22 23:57 01/20/22 23:58 Temperature 98.6 F 98.6 F Pulse Rate 74 74 Respiratory Rate 22 H 22 H Blood Pressure 150/78 H 150/78 H Pulse Oximetry 94 94 Oxygen Delivery Room Air 01/21/22 03:37 01/21/22 04:56 Temperature 98.2 F Pulse Rate 65 Respiratory Rate 18 Blood Pressure 145/75 H Pulse Oximetry 93 93 Oxygen Delivery Room Air Exam Const: General: comfortable and no acute distress HENMT: General nose exam: Normal nares present Mouth: Yes moist mucous membranes Eyes: General: appearance normal, both eyes and all related structures Neck: Neck: supple and no JVD Resp: Effort & Inspection: normal respiratory effort Auscultation: clear to auscultation bilaterally Cardio: Rate: regular rate Rhythm: regular rhythm GI: Inspection: non-distended GI Palp: Yes Soft to palpation and No Tenderness to palpation present (GI) Auscultation: normal bowel sounds Skin: General skin exam: normal color, no rashes or lesions noted and no erythema Neuro: Speech: normal speech Motor exam (neuro): Normal motor muscle tone present throughout and abnormal movements noted Extrem: General: normal to inspection and no edema Psych: Mental Status: mental status grossly normal Affect: normal affect H&P: Results Labs Labs: Short CBC 01/20/22 Range/Units 18:46 WBC 13.5 H (4.5-10.0) K/mm3 Hgb 15.8 (14.0-18.0) g/d
[2022-01-21 09:58] LABS: Basophils Percent Auto 0.8 % (0.2-1.2); Eosinophils Absolute Auto 0.2 K/mm3 (0-0.3); Hematocrit 44.1 % (42.0-52.0); Immature Granulocyte Absolute 0.01 K/mm3 (0.00-0.031); Immature Granulocyte Percent A 0.2 % (0-0.5); Lymphocytes Absolute Auto 1.41 K/mm3 (0.9-3.2); Lymphocytes Percent Auto 29.6 % (18.3-44.2); Mean Corpuscular HGB Conc 31.7 g/dl (32-36); Mean Corpuscular Hemoglobin 28.1 pg (26-34); Mean Corpuscular Volume 88.6 fl (80-100); Mean Platelet Volume 10.5 fl (7.4-10.4); Monocytes Absolute Auto 0.6 K/mm3 (0.1-0.6); Neutrophils Absolute Auto 2.5 K/mm3 (1.3-6.7); Neutrophils Percent Auto 52.4 % (45.5-73.1); Platelet Count Result 227 k/mm3 (150-375); Red Blood Count 4.98 M/mm3 (4.6-6.20); Red Cell Distribution Width 14.6 % (11.5-14.5); White Blood Count 4.8 K/mm3 (4.5-10.0)
[2022-01-21 10:09] LABS: Alanine Aminotransferase 23 U/L (6-50); Albumin Level 3.9 g/dL (3.5-5.1); Alkaline Phosphatase 79 U/L (38-126); Anion Gap 8 mmol/L (8-16); Aspartate Amino Transferase 24 U/L (17-59); Bilirubin,Total 0.6 mg/dL (0.2-1.3); Blood Urea Nitrogen 42 mg/dL (9-20); Calcium 8.2 mg/dL (8.4-10.2); Carbon Dioxide 25 mmol/L (22-30); Chloride 104 mmol/L (98-107); Estimated CRCL calculation 53 ml/min; Estimated Glomerular Filt Rate 26; Glucose 124 mg/dL (65-110); Magnesium 2.3 mg/dL (1.6-2.3); Phosphorus 4.6 mg/dL (2.5-4.5); Potassium 4.2 mmol/L (3.4-5.0); Sodium 137 mmol/L (137-145)
[2022-01-21 10:13] LABS: Amphetamine Screen Urine Negative (Negative); Barbiturate Screen Urine Negative (Negative); Benzodiazepines Screen Urine Negative (Negative); Cannabinoid Screen Urine Positive (Negative); Cocaine Screen Urine Positive (Negative); Methadone Screen Urine Negative (Negative); Opiate Screen Urine Negative (Negative); Phencyclidine Screen Urine Negative (Negative)
--- NOTE | 2022-01-21 10:37 | PC.NURSE ---
sbp 153, prn hydralazine ordered. Pt refused med and stated that he wanted me to recheck bp. Bp recheck 142/72 so no hydralazibe given
--- NOTE | 2022-01-21 13:28 | PM.CNNEP ---
Assessment and Plan Assessment and plan (1) MARYAN (acute kidney injury): Code(s): N17.9 - Acute kidney failure, unspecified Status: Acute Assessment and Plan: improvement already noted by AM labs suspicion falls on volume depletion given improvement with just IVF resuscitation would hold off on exhaustive work-up unless renal function worsens follow trend of repeat labs and UOP (2) Hypertension: Code(s): I10 - Essential (primary) hypertension Status: Acute Assessment and Plan: reasonable control follow trend of hemodynamics Will continue to follow. History of Present Illness Reason for Consult Consult date: 02/15/22 Reason for consult: acute renal failure Chief Complaint Chief complaint: right flank pain History of Present Illness Narrative: The patient is a 41-year-old male with a past medical history as outlined below who presented to [facility] Emergency room for further evaluation of poor urine output. According to the patient, he has been drinking large quantities of water and only producing very little dark appearing urine. He also reports at least two previous episodes of acute kidney injury/acute renal failure and both of these instances occurred with almost the same presentation. He reports moaning his lawn in the hot weather and when he noted the decline in his urine output, he started increasing his oral fluid intake but became concerned that he was not urinating very well and hence his presentation to the emergency room. Workup and evaluation in the emergency room demonstrated the patient to be hemodynamically stable but routine blood test did indeed demonstrate acute kidney injury/ acute renal failure. Given his previous episodes of acute kidney injury in the past in context with a constellation of symptoms as above, it was recommended hospital admission for IV fluid resuscitation as apparently his acute kidney injury/ acute renal failure in the past seem to resolve with just IV fluid hydration. Renal consultation was requested due to his acute kidney injury/acute renal failure. 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 Currently, at the time my visit, he already states he feels somewhat better and he has noted an increase in his urine output with IV fluids. Review of Systems Review of Systems: As per HPI. [facility] Past Medical History Medical History Hypertension Obstructive sleep apnea Rheumatoid arthritis Rheumatoid arthritis Surgical History Surgical History No pertinent past surgical history Family History Family History Mother Diabetes mellitus Congestive heart failure Acute myocardial infarction Father Diabetes mellitus Social History Social History Smoking packs per day: 1 Smoking cigarettes per day: 20.0 Smoking status: Current every day smoker Alcohol intake: never Drinks per week: 1 Substance use: current Substance use type: marijuana Other substance usage details: 1-2 GRAMS PER WEEK Gender identity (if verbalized by the patient): Male Spiritual care concerns: No Meds Home Medications and Allergies Home Medications Medication Instructions Recorded Confirmed Type No Home Medications 01/21/22 01/21/22 History Allergies Allergy/AdvReac Type Severity Reaction Status Date / Time codeine Allergy I
--- NOTE | 2022-01-21 14:57 | PC.NURSE ---
Dr Enciso notified of pt refusing heparin subq and hydralazine
[2022-01-21 20:11] LABS: Creatinine Urine 45.9 mg/dL; Sodium Urine Random 29 meq/L; Total Protein Urine Random 15 mg/dL; Ur Ttl Prot Creatinine Ratio 0.33 mg/mg (0-0.20)
[2022-01-21 21:14] LABS: Hemoglobin A1C 5.7 % (<5.7)
--- NOTE | 2022-01-21 21:58 | PC.NURSE ---
PT CONTINUES TO REFUSE MEDICATIONS. STATED THE IMPORTANCE OF TAKING THE HEPARIN AND HYDRALAZINE AND PT STILL REFUSED.
[2022-01-22 05:28] VITALS: BP 168/93; PULSE 68; RESP 16; TEMP 36.8; O2SAT 94
[2022-01-22 05:53] LABS: Basophils Percent Auto 0.4 % (0.2-1.2); Eosinophils Absolute Auto 0.3 K/mm3 (0-0.3); Eosinophils Percent Auto 4.2 % (0-4.4); Hematocrit 44.7 % (42.0-52.0); Hemoglobin 14.1 g/dL (14.0-18.0); Immature Granulocyte Absolute 0.02 K/mm3 (0.00-0.031); Immature Granulocyte Percent A 0.3 % (0-0.5); Lymphocytes Absolute Auto 1.74 K/mm3 (0.9-3.2); Lymphocytes Percent Auto 24.5 % (18.3-44.2); Mean Corpuscular HGB Conc 31.5 g/dl (32-36); Mean Corpuscular Hemoglobin 28.2 pg (26-34); Mean Corpuscular Volume 89.4 fl (80-100); Mean Platelet Volume 10.4 fl (7.4-10.4); Monocytes Absolute Auto 0.9 K/mm3 (0.1-0.6); Monocytes Percent Auto 13.1 % (2.6-8.5); Neutrophils Absolute Auto 4.1 K/mm3 (1.3-6.7); Neutrophils Percent Auto 57.5 % (45.5-73.1); Platelet Count Result 235 k/mm3 (150-375); Red Cell Distribution Width 14.4 % (11.5-14.5); White Blood Count 7.1 K/mm3 (4.5-10.0)
[2022-01-22] MEDS: SODIUM CHLORIDE 0.9% IV 1,000 ML 150 ML IV CONT (05:54)
[2022-01-22 06:12] LABS: Albumin Level 3.8 g/dL (3.5-5.1); Anion Gap 3 mmol/L (8-16); Blood Urea Nitrogen 27 mg/dL (9-20); Calcium 8.3 mg/dL (8.4-10.2); Carbon Dioxide 27 mmol/L (22-30); Chloride 110 mmol/L (98-107); Creatine Kinase 55 U/L (55-170); Estimated CRCL calculation 74 ml/min; Estimated Glomerular Filt Rate 39; Glucose 93 mg/dL (65-110); Phosphorus 3.3 mg/dL (2.5-4.5); Potassium 4.6 mmol/L (3.4-5.0); Sodium 140 mmol/L (137-145)
--- NOTE | 2022-01-22 13:48 | PM.DS ---
DS: Admitting Diagnosis Discharge Date 01/22/22 Admitting Diagnosis (1) Obesity (BMI 35.0-39.9 without comorbidity): ?Code(s): E66.9 - Obesity, unspecified ?Status:?Acute (2) MARYAN (acute kidney injury): ?Code(s): N17.9 - Acute kidney failure, unspecified ?Status:?Acute (3) Tobacco dependence: ?Code(s): F17.200 - Nicotine dependence, unspecified, uncomplicated ?Status:?Acute (4) Hypertension: ?Code(s): I10 - Essential (primary) hypertension ?Status:?Acute (5) Obstructive sleep apnea: ?Code(s): G47.33 - Obstructive sleep apnea (adult) (pediatric) ?Status:?Acute (6) Rheumatoid arthritis: ?Code(s): M06.9 - Rheumatoid arthritis, unspecified ?Status:?Acute DS: Summary Hospital Course Reason for hospitalization: low urine output , dark urine Hospital Course: 41 yo M admitted w 3rd? episode of MARYAN in 3 yrs MARYAN HTN RA obesity KALLI Marijuana /Tob use Additional Plan 01/21/22 -admit to med surg -cont home meds -hydralazine for BP PRN -defer further maryan workup to nephro -c/s Nephrology -VTEP heparin 01/22/22 Urinary tox screen is positive for marijuana and cocaine Renal function is improving down trending creatinine currently 1.9 Patient states that he is unable to stay in the hospital due to a new job that he needs to go to an interview for and financial necessity. He is advised that he is still in what we consider renal failure and that he should not leave the hospital. Unfortunately, he is decided to leave against medical advice knowing that he has risk to and worsening renal function. Status at Discharge Functional status at discharge: independent ambulation Time Spent with Patient Time attestation: Total time spent providing and/or coordinating discharge services: Exam Narrative: Const:?? General: comfortab le and no acute di stress agitated HENMT:?? General nose exam: Normal nares pres ent? Mouth: Yes mo ist mucous membran es Eyes:?? General: appearanc e normal, both eye s and all related structures Neck:?? Neck: supple and n o JVD GI:?? Inspection: non-di stended? Skin:?? General skin exam: normal color, no rashes or lesions noted and no eryth willis Neuro:?? Speech: normal spe ech? Motor exam (n euro): Normal brian r muscle tone pres ent throughout and abnormal movement s noted Extrem:?? General: normal to inspection and no edema Psych:?? Patient is agita dannielle but polite DS: Data Data Completed and Pending Labs on day of discharge: Labs from last 24 hours 01/22/22 01/22/22 01/21/22 05:33 05:33 18:57 WBC 7.1 RBC 5.00 Hgb 14.1 Hct 44.7 MCV 89.4 MCH 28.2 MCHC 31.5 L RDW 14.4 Plt Count 235 MPV 10.4 Immature Gran % (Auto) 0.3 Neut % (Auto) 57.5 Lymph % (Auto) 24.5 [place] % (Auto) 13.1 H Eos % (Auto) 4.2 Baso % (Auto) 0.4 Lymph # (Auto) 1.74 [place] # (Auto) 0.9 H Eos # (Auto) 0.3 Baso # (Auto) 0.0 Abs Immat Gran (auto) 0.02 Absolute Neuts (auto) 4.1 Absolute Nucleated RBC 0.0 Nucleated RBC % 0.0 Sodium 140 Potassium 4.6 Chloride 110 H Carbon Dioxide 27 Anion Gap 3 L BUN 27 H D Creatinine 1.90 H Estim Creat Clear Calc 74 Estimated GFR 39 L Glucose 93 Hemoglobin A1c Calcium 8.3 L Phosphorus 3.3 Total C
--- NOTE | 2022-01-22 13:50 | PC.NURSE ---
pt left AMA, reviewed risks of leaving and reviewed current plan of care, pt stated he has a job to get to tomorrow and cannot miss it
[2022-01-25 15:03] LABS: Chloride Rand Ur <20 mmol/L (32-290); Creatinine Random Urine 14 mg/dL (20-320)
== END 2022-01-22 13:50 | disposition left against medical advice (07) ==
LOC: ANHED 19:43 → ANH2MED 01-21 00:35
PROVIDERS: Emergency Medicine; Internal Medicine Nephrology; Admitting Provider Internal Medicine; Emergency Provider Emergency Medicine; Visit Provider Hospitalist
DX: N17.9 Acute kidney failure, unspecified (principal); E86.0 Dehydration; M54.9 Dorsalgia, unspecified; I10 Essential (primary) hypertension; G47.33 Obstructive sleep apnea (adult) (pediatric); F17.210 Nicotine dependence, cigarettes, uncomplicated; M06.9 Rheumatoid arthritis, unspecified; E66.9 Obesity, unspecified; Z68.39 Body mass index [BMI] 39.0-39.9, adult; F12.90 Cannabis use, unspecified, uncomplicated; F14.90 Cocaine use, unspecified, uncomplicated; Z91.19 Patient's noncompliance with other medical treatment and regimen
CPT/HCPCS: 36415; 74176; 80053; 80069; 80307; 81001; 81050; 82436; 82550; 82570; 83036; 83690; 83735; 84100; 84156; 84300; 85025; 87086; 96360; 96361; 96374; 99285; G0378; G0379; J0131; J7030

== ENCOUNTER 2022-04-16 10:37 | Emergency (ER) | payer OTHER, SELFPAY ==
--- NOTE | 2022-04-16 10:39 | ED.SKABFB ---
HPI - Skin/Abscess/Foreign Bdy General Chief complaint: Skin/Abscess/Foreign Body Stated complaint: Right foot toe skin issue Time Seen by Provider: 04/16/22 10:39 Source: patient Mode of arrival: ambulatory Limitations: no limitations History of Present Illness HPI narrative: Brennan Rivera is a 41-year-old male who presents to the clinic today with wound on his right great toe. He noticed he had a wound to the bottom of his right great toe a week ago and has been putting hydrogen peroxide on it but it has not been getting better. The wound has been draining small amounts of blood and clear fluid. He states it is not painful or itchy. He denies injuring it or stepping on anything, but was picking a callus and pulled off some skin. He is up-to-date on his tetanus shot. He denies diabetes, but states he does have numbness and tingling in his feet occasionally. Related Data Allergies Allergy/AdvReac Type Severity Reaction Status Date / Time codeine Allergy Intermediate Rash Verified 04/16/22 10:47 Review of Systems Review of Systems: Pertinent positives per HPI. Patient denies any fever, chills, rash, headache, visual changes, dizziness, cough, runny nose, sore throat, shortness of breath, chest pain, palpitations, nausea, vomiting, diarrhea, constipation, abdominal pain, or any urinary issues. [facility] Past Medical History Medical History Hypertension Obstructive sleep apnea Rheumatoid arthritis Rheumatoid arthritis Surgical History Surgical History No pertinent past surgical history Family History Family History Mother Diabetes mellitus Congestive heart failure Acute myocardial infarction Father Diabetes mellitus Social History Social History Smoking packs per day: 1 Smoking cigarettes per day: 20.0 Smoking status: Current every day smoker Alcohol intake: never Drinks per week: 1 Substance use: current Substance use type: marijuana Other substance usage details: 1-2 GRAMS PER WEEK Gender identity (if verbalized by the patient): Male Spiritual care concerns: No Comments At the time of my signature, I reviewed and agree with the nursing past medical, surgical, social, and family history. There is no relevant family history pertinent to the patient complaint. Exam Narrative: General: Well-developed, well nourished, in no apparent distress Head: Normocephalic, atraumatic. Cardio: Regular rate and rhythm, s1 and s2 normal, no murmur appreciated. Resp: Clear to auscultation bilaterally, no rhonchi, rales, wheezing or rubs. Musculoskeletal: No deformity, non-tender to palpation, grossly normal range of motion, muscle strength strong and equal, peripheral pulse strong, no edema, no cyanosis, normal gait and station Skin: Ulceration to a callus on the bottom of his right great toe, tissue surrounding the ulceration is white and callused with areas of erythema at the tip of the great toe, there is no drainage to the wound but there is a small amount of serous fluid on the patient's sock, no odor Course Course Emergency Course: Portions of this record may have been created with voice recognition software. Level of Care: Express Care Visit Vital Signs Vital signs: Vital Signs Temperature 36.5 C 04/16/22 10:45 Pulse Rate 90 04/16/22 10:45 Respiratory Rate 18 04/16/22 10:45 Blood Pressure 138/94 H 04/16/22 10:45 Pulse Oximetry 95 04/16/22 10:45 Oxygen Delivery Room Air 04/16/22 10:45 Temperature 36.5 C 04/16/22 10:45 Pulse Rate 90 04/16/22 10:45 Respiratory Rate 18 04/16/22 10:45 Blood Pressure 138/94 H 04/16/22 10:45 Pulse Oximetry 95 04/16/22 10:45 Oxygen Delivery Room Air 04/16/22 10:45 Vital signs rev
[2022-04-16 10:45] VITALS: BP 138/94; PULSE 90; RESP 18; TEMP 36.5; O2SAT 95
== END 2022-04-16 11:00 | disposition home or self-care (01) ==
PROVIDERS: Emergency Provider Nurse Practitioner Family
DX: L08.9 Local infection of the skin and subcutaneous tissue, unspecified (principal); F17.210 Nicotine dependence, cigarettes, uncomplicated; I10 Essential (primary) hypertension; G47.33 Obstructive sleep apnea (adult) (pediatric); M06.9 Rheumatoid arthritis, unspecified
CPT/HCPCS: 99213; G0463

== ENCOUNTER 2023-08-31 06:50 | Emergency (ER) | payer OTHER, SELFPAY ==
--- NOTE | ~2023-08-31 | XR_ITS ---
Clinical Indication: Back pain, weakness PA and lateral views of the chest: Comparison: 04/11/2021 Findings: The lungs are clear, without evidence of focal consolidation or pleural effusion. Cardiome diastinal silhouette is within normal limits. Bones and soft tissues are unremarkable. Impression: Normal chest. Reviewed, dictated and finalized at [facility]. R [employer] [facility] Impression: Normal chest.
[2023-08-31 07:09] VITALS: BP 180/122; PULSE 87; RESP 17; TEMP 36.6; O2SAT 96
--- NOTE | 2023-08-31 07:32 | WPDEDEXPGENP ---
HPI - General Ped General Chief complaint: Urogenital-Male Stated complaint: fatigue, back pain Time Seen by Provider: 08/31/23 07:13 Source: patient Mode of arrival: ambulatory Limitations: no limitations Nursing Documentation: reviewed/agree History of Present Illness HPI narrative: 43 years old white male drove himself to the emergency room complaining of trouble urinating, feeling that he need to go and urine output is not enough. Patient had history of kidney injury in the past and is concerned about the possibility of dehydration. Patient also complaining of left neck pain, right lower back pain and stiffness of the lower extremities. 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 He denies any fever, chills, nausea, vomiting, respiratory symptoms, or recent trauma. Patient is healthy otherwise, does not take medicine at home. He smokes cigarette drinks occasionally marijuana occasionally. PATIENT BELIEVES THAT HE IS DEHYDRATED Related Data Allergies Allergy/AdvReac Type Severity Reaction Status Date / Time codeine Allergy Intermediate Rash Verified 08/31/23 07:17 Pediatric Review of Systems All systems ED: reviewed and negative except as stated PMFSH Past Medical History Medical History Hypertension Obstructive sleep apnea Rheumatoid arthritis Rheumatoid arthritis Surgical History Surgical History No pertinent past surgical history Family History Family History Mother Diabetes mellitus Congestive heart failure Acute myocardial infarction Father Diabetes mellitus Social History Social History Smoking packs per day: 1 Smoking cigarettes per day: 20.0 Smoking status: Current every day smoker Alcohol intake: never Drinks per week: 1 Substance use: current Substance use type: marijuana Other substance usage details: 1-2 GRAMS PER WEEK Gender identity (if verbalized by the patient): Male Spiritual care concerns: No Pediatric Exam Narrative: Physical exam: General appearance: Well-developed, well-nourished Skin: Normal color Head: Normocephalic, nontraumatic Eyes: Clear conjunctiva ENT: Oropharynx normal, ears normal, nose normal Neck: Supple, nontender Chest and respiratory: Airway patent, no respiratory distress, no accessory muscle use Heart: Regular rate/rhythm Abdomen: Soft, nontender, no organomegaly, quiet bowel sounds Vascular: Normal peripheral pulses, normal capillary refill. Musculoskeletal: Diffuse muscle tenderness of the upper back bilaterally, lower back bilaterally, no bruises, no rash, no deformity slight limited range of motion all over the back Neurologic: Alert and oriented ?3, [employer]IN[employer] CAPTAIN is normal as tested, no gross motor deficit Course Vital Signs Vital signs: Vital Signs Temperature 36.6 C 08/31/23 07:09 Pulse Rate 87 08/31/23 07:09 Respiratory Rate 17 08/31/23 07:09 Blood Pressure 180/122 H 08/31/23 07:09 Pulse Oximetry 96 08/31/23 07:09 Oxygen Delivery Room Air 08/31/23 07:09 Temperature 36.6 C 08/31/23 07:09 Pulse Rate 93 08/31/23 08:57 Respiratory Rate 15 08/31/23 08:57 Blood Pressure 166/112 H 08/31/23 08:57 Pulse Oximetry 95 08/31/23 08:57 Oxygen Delivery Room Air 08/31/23 07:09 Medical Decision Making [place] Narrative Medical decision making narrative: PATIENT PRESENTS WITH LEFT NECK PAIN RIGHT LOWER BACK PAIN, HAD HISTORY OF KIDNEY INJURY, CONCERN ABOUT THE POSSIBILITY OF KIDNEY DAMAGE AGAIN. BEEN DRINKING LOT OF FLUIDS LATELY
[2023-08-31] MEDS: SODIUM CHLORIDE 0.9% IV 1,000 ML 999 ML IV CONT (07:41)
[2023-08-31 07:43] VITALS: BP 168/126; PULSE 89; RESP 17; O2SAT 94
[2023-08-31 07:47] LABS: Basophils Absolute Auto 0.1 K/mm3 (0.0-0.1); Basophils Percent Auto 0.6 % (0.2-1.2); Eosinophils Absolute Auto 0.3 K/mm3 (0-0.3); Eosinophils Percent Auto 3.5 % (0-4.4); Hematocrit 47.8 % (42.0-52.0); Hemoglobin 14.4 g/dL (14.0-18.0); Immature Granulocyte Absolute 0.02 K/mm3 (0.00-0.031); Immature Granulocyte Percent A 0.2 % (0-0.5); Lymphocytes Absolute Auto 1.27 K/mm3 (0.9-3.2); Lymphocytes Percent Auto 15.3 % (18.3-44.2); Mean Corpuscular HGB Conc 30.1 g/dl (32-36); Mean Corpuscular Hemoglobin 26.9 pg (26-34); Mean Corpuscular Volume 89.3 fl (80-100); Mean Platelet Volume 10.3 fl (7.4-10.4); Monocytes Absolute Auto 0.8 K/mm3 (0.1-0.6); Monocytes Percent Auto 10.1 % (2.6-8.5); Neutrophils Absolute Auto 5.8 K/mm3 (1.3-6.7); Neutrophils Percent Auto 70.3 % (45.5-73.1); Platelet Count Result 285 k/mm3 (150-375); Red Blood Count 5.35 M/mm3 (4.6-6.20); Red Cell Distribution Width 15.1 % (11.5-14.5); White Blood Count 8.3 K/mm3 (4.5-10.0)
[2023-08-31 07:57] LABS: Alanine Aminotransferase 22 U/L (6-50); Albumin Level 3.9 g/dL (3.5-5.1); Alkaline Phosphatase 81 U/L (38-126); Anion Gap 8 mmol/L (8-16); Aspartate Amino Transferase 22 U/L (17-59); Bilirubin,Total 1.1 mg/dL (0.2-1.3); Blood Urea Nitrogen 25 mg/dL (9-20); Carbon Dioxide 27 mmol/L (22-30); Chloride 103 mmol/L (98-107); Estimated CRCL calculation 96 ml/min; Estimated Glomerular Filt Rate 55; Glucose 96 mg/dL (65-110); Potassium 4.5 mmol/L (3.4-5.0); Sodium 138 mmol/L (137-145)
[2023-08-31 08:23] LABS: Influenza A QL RT-PCR Negative (Negative); Influenza B QL RT-PCR Negative (Negative); RSV RNA, RT-PCR Negative (Negative); SARS-CoV-2 RNA PCR Negative (Negative)
[2023-08-31 08:57] VITALS: BP 166/112; PULSE 93; RESP 15; O2SAT 95
[2023-08-31 09:12] LABS: Appearance Urine Clear (Clear); Bacteria Urine None Seen /hpf; Bilirubin Urine Negative (Negative); Blood Urine Negative (Negative); Color Urine Yellow (Yellow); Glucose Urine UA Negative (Negative); Ketones Urine Negative (Negative); Leukocyte Esterase Ur Negative LEU/UL (Negative); Nitrate Urine Negative (Negative); Non Pathogenic Casts 0-2; Protein Urine 2+ mg/dL (Negative); RBC Urine 0-2 /hpf (0-2); Specific Grav Ur 1.015 (1.001-1.035); Squamous Epithelial Cell Urine None seen /hpf (Few); Urobilinogen Urine 0.2 mg/dL (<2.0); WBC Urine 0-5 /hpf; pH Urine 5.5 (5.0-9.0)
[2023-08-31 09:30] LABS: Add Urine Microscopic? YES
== END 2023-08-31 09:55 | disposition home or self-care (01) ==
PROVIDERS: Emergency Provider Emergency Medicine
DX: M54.50 Low back pain, unspecified (principal); Z20.822 Contact with and (suspected) exposure to COVID-19; F17.210 Nicotine dependence, cigarettes, uncomplicated; I10 Essential (primary) hypertension; G47.30 Sleep apnea, unspecified; M06.9 Rheumatoid arthritis, unspecified
CPT/HCPCS: 36415; 71046; 80053; 81001; 85025; 87637; 96360; 99283; J7030

== ENCOUNTER 2023-08-31 16:58 | Emergency (ER) | payer OTHER, SELFPAY ==
[2023-08-31 17:24] VITALS: PULSE 83; RESP 16; TEMP 36.9; O2SAT 95
[2023-08-31 18:23] LABS: Alanine Aminotransferase 23 U/L (6-50); Albumin Level 3.9 g/dL (3.5-5.1); Alkaline Phosphatase 79 U/L (38-126); Anion Gap 7 mmol/L (8-16); Aspartate Amino Transferase 25 U/L (17-59); Bilirubin,Total 0.5 mg/dL (0.2-1.3); Blood Urea Nitrogen 30 mg/dL (9-20); Calcium 8.8 mg/dL (8.4-10.2); Carbon Dioxide 31 mmol/L (22-30); Chloride 104 mmol/L (98-107); Estimated Glomerular Filt Rate 51; Ethanol < 10 mg/dL (<10); Glucose 98 mg/dL (65-110); Potassium 4.6 mmol/L (3.4-5.0); Sodium 142 mmol/L (137-145)
[2023-08-31 18:27] LABS: Basophils Absolute Auto 0.1 K/mm3 (0.0-0.1); Basophils Percent Auto 0.7 % (0.2-1.2); Eosinophils Absolute Auto 0.3 K/mm3 (0-0.3); Eosinophils Percent Auto 3.9 % (0-4.4); Hematocrit 49.5 % (42.0-52.0); Hemoglobin 14.9 g/dL (14.0-18.0); Immature Granulocyte Absolute 0.02 K/mm3 (0.00-0.031); Immature Granulocyte Percent A 0.2 % (0-0.5); Lymphocytes Absolute Auto 1.77 K/mm3 (0.9-3.2); Lymphocytes Percent Auto 20.3 % (18.3-44.2); Mean Corpuscular HGB Conc 30.1 g/dl (32-36); Mean Corpuscular Hemoglobin 26.8 pg (26-34); Mean Corpuscular Volume 89.2 fl (80-100); Mean Platelet Volume 10.5 fl (7.4-10.4); Neutrophils Absolute Auto 5.6 K/mm3 (1.3-6.7); Neutrophils Percent Auto 63.9 % (45.5-73.1); Platelet Count Result 298 k/mm3 (150-375); Red Blood Count 5.55 M/mm3 (4.6-6.20); Red Cell Distribution Width 15.1 % (11.5-14.5); White Blood Count 8.7 K/mm3 (4.5-10.0)
[2023-08-31 18:51] LABS: Influenza A QL RT-PCR Negative (Negative); Influenza B QL RT-PCR Negative (Negative); RSV RNA, RT-PCR Negative (Negative); SARS-CoV-2 RNA PCR Negative (Negative)
--- NOTE | 2023-08-31 19:03 | ED.PSYCH ---
HPI - Psych General Chief Complaint: Psychiatric Symptoms Stated Complaint: anxiety? Time Seen by Provider: 08/31/23 18:11 Source: patient Mode of arrival: ambulatory Limitations: no limitations History of Present Illness HPI Narrative: This is a 43 year old male that presents to the ER for worsening depression. Reports he has had some depression and anxiety that has been building up. Reports he does not feel suicidal, but would not be mad if he was hit by a car. Reports he has no diagnosis of depression or anxiety and does not take any medications. Reports no previous psychiatric hospitalizations. Denies homicidal ideation or hallucinations. Related Data Allergies Allergy/AdvReac Type Severity Reaction Status Date / Time codeine Allergy Intermediate Rash Verified 08/31/23 16:58 Review of Systems Review of Systems: CONSTITUTIONAL: Denies fever PSYCHIATRIC: Reports anxiety and depression. All systems reviewed & are unremarkable except as noted in HPI and below PMFSH Past Medical History Medical History Hypertension Obstructive sleep apnea Rheumatoid arthritis Rheumatoid arthritis Surgical History Surgical History No pertinent past surgical history Family History Family History Mother Diabetes mellitus Congestive heart failure Acute myocardial infarction Father Diabetes mellitus Social History Social History Smoking packs per day: 1 Smoking cigarettes per day: 20.0 Smoking status: Current every day smoker Alcohol intake: never Drinks per week: 1 Substance use: current Substance use type: marijuana Other substance usage details: 1-2 GRAMS PER WEEK Gender identity (if verbalized by the patient): Male Spiritual care concerns: No Exam Narrative: GENERAL: Well-appearing, well-nourished, and in no acute distress. HEAD: Normocephalic, atraumatic. EYES: EOMI. CHEST: No respiratory distress. HEART: Regular rate EXTREMITIES: Normal range of motion. No edema. SKIN: Warm, dry, no rash. NEURO: No focal deficits. Alert and oriented x3. PSYCH: Flat mood and affect Course Course Emergency Course: 19:00 Patient medically cleared for evaluation by crisis Consultations Consultation #1: Patient has been given resources by crisis and has safety plan in place Date: 08/31/23 Vital Signs Vital signs: Vital Signs Temperature 98.5 F 08/31/23 17:24 Pulse Rate 83 08/31/23 17:24 Respiratory Rate 16 08/31/23 17:24 Pulse Oximetry 95 08/31/23 17:24 Oxygen Delivery Room Air 08/31/23 17:24 Temperature 98.5 F 08/31/23 17:24 Pulse Rate 83 08/31/23 17:24 Respiratory Rate 16 08/31/23 17:24 Blood Pressure 144/89 H 08/31/23 19:08 Pulse Oximetry 95 08/31/23 17:24 Oxygen Delivery Room Air 08/31/23 17:24 MDM - Psych MDM Narrative Medical decision making narrative: Patient presents to the emergency department for worsening depression and anxiety. He has no thoughts of harming himself. No previous attempts at self harm. He has protective factors in his son. CBC without concerning findings. Metabolic panel with kidney function that appears to be around his baseline. TSH is normal. Influenza and COVID screens are negative. Drug screen is positive for cocaine. Alcohol level is negative. Patient was medically cleared for evaluation by crisis. Patient has been given resources by crisis and has safety plan in place. He was given warnings to return to the ER Differential Diagnosis Differential diagnosis: Likely suicidal ideation, depression, drug-induced psychotic disorder and acute anxiety Lab Data Attestation: I reviewed the patient's lab results. 08/31/23 18:00 08/31/23 18:00 Labs: Lab Results 08/31/23 08/31/23 Range/U
[2023-08-31 19:08] VITALS: BP 144/89
[2023-08-31 20:09] LABS: Amphetamine Screen Urine Negative (Negative); Barbiturate Screen Urine Negative (Negative); Benzodiazepines Screen Urine Negative (Negative); Cannabinoid Screen Urine Negative (Negative); Cocaine Screen Urine Positive (Negative); Methadone Screen Urine Negative (Negative); Opiate Screen Urine Negative (Negative); Phencyclidine Screen Urine Negative (Negative)
[2023-08-31 21:11] VITALS: BP 142/89; PULSE 82; RESP 16; O2SAT 96
== END 2023-08-31 21:12 | disposition home or self-care (01) ==
PROVIDERS: Emergency Medicine; Emergency Provider Physician Assistant
DX: F32.A Depression, unspecified (principal); I10 Essential (primary) hypertension; G47.30 Sleep apnea, unspecified; M06.9 Rheumatoid arthritis, unspecified; Z20.822 Contact with and (suspected) exposure to COVID-19
CPT/HCPCS: 36415; 71046; 80053; 80307; 81001; 84443; 85025; 87637; 96360; 99284; J7030

== ENCOUNTER 2024-08-24 04:25 | Inpatient (IN) | payer OTHER, SELFPAY ==
[2024-08-24] VITALS (15 sets, daily range): BP systolic 119–185; BP diastolic 86–118; PULSE 90–107; RESP 18–24; TEMP 36.7–37.8; O2SAT 90–99; BMI 40.7
--- NOTE | ~2024-08-24 | XR_ITS ---
CHEST RADIOGRAPH CLINICAL HISTORY: shortness of breath . COMPARISON: 08/28/2024 at 20 2:00 AM TECHNIQUE: Single portable view of the chest. FINDINGS The cardiomediastinal silhouette is unremarkable. Increased interstitial markings are identified bilaterally, findings suggesting mild pulmonary vascul ar congestion. The lungs are otherwise clear. IMPRESSION: Mild pulmonary vascular congestion, without focal infiltrate or effusion. Reviewed, dictated and finalized at location A. ING EDUCATION CONSULTANT
--- NOTE | ~2024-08-24 | CT_ITS ---
T CTA chest abdomen pelvis Ordering provider: Feliberto Pope History: . SOB, HTN . Comparison: None. Technique: CT angiogram chest, abdomen and pelvis was performed following timed intravenous injection of contrast. Thin slice axial images and reformatted coronal images were obtained. Three dimensional reformatted images of the chest were also obtained using a [facility] workstation. Radiation reduction technique utilized. The dose-length product was 2152.98 mGy-cm. 100 mL Omnipaque 350 was given IV. FINDINGS: CHEST: --THORACIC AORTA: Mild atheromatous disease. No aneurysm, dissection or mediastinal hematoma. Ascendi ng aorta measures 4.1 cm. --GREAT VESSELS: Normal as visualized. --PULMONARY ARTERIES: No pulmonary embolus. --VISUALIZED THORACIC INLET: Normal. --MEDIASTINUM: Coronary arteries: Mild atheromatous disease. Heart/other: The heart is moderately enlarged. Lymph nodes: mediastinal lymphadenopathy. The largest lymph node measures 2.3 cm. Right hilar adenop athy measuring 1.9 cm... --LUNGS: Atelectatic changes in the right lung base medially. Nodule seen in the left lower lobe area measurin g 1.3 cm. 3 months follow-up CT is advised. No pulmonary masses. No effusions. No pneumothorax. --MUSCULOSKELETAL: Superficial soft tissues: The superficial soft tissues are normal. Bones: Age appropriate degenerative changes of the spine. ABDOMEN/PELVIS: --MUSCULOSKELETAL: Bones: Age appropriate degenerative changes of the spine. Bilateral sacroiliitis. Bilateral hip osteo arthritic changes. Superficial soft tissues: The superficial soft tissues are normal. --UPPER ABDOMINAL ORGANS: Liver: Normal. Gallbladder: Normal. Spleen: Splenomegaly. Stomach/duodenum: Normal. Pancreas: Normal. Adrenals: Normal. Kidneys: Left kidney lobation. Hypodensity in the right kidney midpole most likely a cyst. Bila teral perinephric fat stranding. --PELVIC ORGANS: The bladder is underfilled with slightly thickened wall. No bladder stones. --BOWEL AND MESENTERY: Colon: No evidence of diverticulitis. Fecal material is seen in the colon suggestive of constipation. Normal appendix. Small Bowel: Normal. No obstruction. Peritoneum/mesentery: No free air or free fluid. No mesenteric lymphadenopathy. --RETROPERITONEUM: No retroperitoneal lymphadenopathy. --ARTERIES: ABDOMINAL AORTA: Mild atheromatous disease. No aneurysm or dissection. The distal abdominal aorta m easures 2.6 cm. RENAL ARTERIES: Normal. CELIAC AXIS: Normal. SMA: Normal. MERI: Normal. ILIAC AND VISUALIZED FEMORAL ARTERIES: Slightly dilated measuring 2 cm bilaterally. MESENTERIC ARTERIES: Normal. IMPRESSION: CHEST: 1. Minimal atelectasis versus pneumonia in the right lung base medially. 2. Nodule in the left lung base measuring 1.2 cm. 3 months follow-up CT is advised. 3. No evidence of aneurysm, dissection or pulmonary embolism. Ascending aorta measures 4.1 cm. 4. Cardiomegaly. 5. Mediastinal lymphadenopathy. ABDOMEN/PELVIS: 1. No evidence of dissection or aneurysm. 2. Slightly dilated common iliac arteries measuring 2 cm bilaterally. Distal aorta measures 2.6 cm. 3. Slight splenomegaly. 4. Constipation. 5. Underfilled urinary bladder with thickened wall. Evaluation for cystitis advised. Reviewed, dictated and finalized at location A. UCT DEVELOPMENT IMPRESSION: CHEST: 1. Minimal atelectasis versus pneumonia in the right lung base medially. 2. Nodule in the left lung base measuring 1.2 cm. 3 months follow-up CT is adv ised. 3. No evidence of aneurysm, dissection or pulmonary embolism. Ascending aorta measures 4.1 cm. 4. Cardiomegaly. 5. Mediastinal lymphadenopathy. ABDOMEN/PELVIS: 1. No evidence of dissection or aneurysm. 2. Slightly dilated common iliac arteries measuring 2 cm bilaterally. Distal a octavia measures 2.6 cm. 3. Slight splenomegaly. 4. Constipation. 5. Underfilled urinary bladder with thickened wall. Evaluation for cystitis ad vised.
--- NOTE | ~2024-08-24 | CT_ITS ---
EXAMINATION: CT brain wo con DATE: 08/28/2024 15:09 INDICATION: Hypertensive urgency. Shortness of breath. TECHNIQUE: Computed tomography (CT) of the head was performed without intravenous contrast. The mA wa s adjusted according to patient size. Iterative reconstruction technique was employed. The dose-lengt h product was 681.00 mGy-cm. COMPARISON: Head CT 12/06/2009 FINDINGS: There is no intracranial hemorrhage, acute infarction, or abnormal intracranial mass lesion . The ventricles are normal in size. There is mucosal thickening in the paranasal sinuses. The orbits are normal. The mastoid air cells are normal. IMPRESSION: 1. Normal brain. Reviewed, dictated and finalized at location A. ISSIONER OF INTERNAL REVENUE IMPRESSION: 1. Normal brain.
--- NOTE | ~2024-08-24 | XR_ITS ---
EXAMINATION: XR toe 1st RT min 2V DATE: 08/24/2024 08:00 INDICATION: Right great toe wound. TECHNIQUE: 4 views of right great toe were obtained. COMPARISON: None. FINDINGS: There is an ulcer at the medial plantar aspect of the great toe. There are erosions of base of first distal phalanx and head of first proximal phalanx with pathologic fractures, consistent wit h osteomyelitis and septic arthritis. There is mild osteoarthritis of first metatarsophalangeal joint . IMPRESSION: 1. Osteomyelitis and septic arthritis at first interphalangeal joint. Reviewed, dictated and finalized at location [] ATION PROTECTION TECHNICIAN
--- NOTE | ~2024-08-24 | XR_ITS ---
XR chest 2V 08/24/2024 08:43 Indication: Hypoxia Procedure: 2 view chest Comparison: 07/01/2024 Findings: Cardiomegaly. No focal air space disease, pulmonary edema, pleural effusion or suspected pn eumothorax. Impression: 1: No acute cardiopulmonary disease. Reviewed, dictated and finalized at location A. ISTICS PROFESSOR Impression: 1: No acute cardiopulmonary disease.
--- NOTE | ~2024-08-24 | CT_ITS ---
EXAMINATION: CTA chest PE protocol DATE: 08/24/2024 10:44 INDICATION: Hypoxia. TECHNIQUE: Computed tomography angiography (CTA) of the chest was performed with 100 mL Omnipaque-350 intravenous contrast timed to evaluate the pulmonary arteries. Coronal maximum intensity projection 3D-reconstructions were created by the technologist. Automated exposure control and iterative reconst ruction technique were employed. The dose-length product was 1213.62 mGy-cm. COMPARISON: CT abdomen and pelvis 01/20/2022 FINDINGS: The lungs demonstrate mild atelectasis. A calcified left lung nodule is consistent with old granulomatous disease. There is mild mediastinal and bilateral hilar lymphadenopathy. Cardiomegaly i s noted. No pericardial effusion. There is bilateral gynecomastia. There is a 1.8 cm nodule in right thyroid lobe. There is no pulmonary embolus. There is mild chronic height loss of many vertebral bodi es. There is mild thoracic spondylosis. IMPRESSION: 1. No pulmonary embolus. Sensitivity is moderately decreased by motion artifact. 2. Mild mediastinal and bilateral hilar lymphadenopathy. The differential diagnosis includes reactive lymphadenopathy (including sarcoid) and less likely malignancy such as lymphoma. 3. Cardiomegaly. 4. Right thyroid nodule. Consider thyroid ultrasound for risk stratification. Reviewed, dictated and finalized at location A. RAFT INSTRUMENT REPAIRER IMPRESSION: 1. No pulmonary embolus. Sensitivity is moderately decreased by motion artifact . 2. Mild mediastinal and bilateral hilar lymphadenopathy. The differential diagn osis includes reactive lymphadenopathy (including sarcoid) and less likely terri gnancy such as lymphoma. 3. Cardiomegaly. 4. Right thyroid nodule. Consider thyroid ultrasound for risk stratification.
--- NOTE | ~2024-08-24 | XR_ITS ---
Portable chest x-ray Comparison: 08/24/2024 Clinical History: Hypertensive urgency Findings: Lungs are clear, without focal consolidation or pleural effusion. Cardiomediastinal silho uette is stable. Bones and soft tissues are unremarkable. Impression: Clear lungs. Reviewed, dictated and finalized at location . NG OR REGISTRY CLERK Impression: Clear lungs.
--- NOTE | 2024-08-24 07:54 | PC.NURSE ---
Patient's oxygen was 83% on room air while he was sleeping. Patient states he does have sleep apnea, but does not wear a cpap at home as prescribed by doctor. patient also states he smoke 2 packs a day . Patient placed on 4L NC and the bed sat up. Patient's oxygen up to 96% while awake and 93% while sleeping.
[2024-08-24 08:01] LABS: Basophils Percent Auto 0.4 % (0.2-1.2); Eosinophils Absolute Auto 0.1 K/mm3 (0-0.3); Eosinophils Percent Auto 1.2 % (0-4.4); Hemoglobin 13.3 g/dL (14.0-18.0); Immature Granulocyte Absolute 0.02 K/mm3 (0.00-0.031); Immature Granulocyte Percent A 0.2 % (0-0.5); Lymphocytes Absolute Auto 1.38 K/mm3 (0.9-3.2); Lymphocytes Percent Auto 14.6 % (18.3-44.2); Mean Corpuscular HGB Conc 30.2 g/dl (32-36); Mean Corpuscular Hemoglobin 25.3 pg (26-34); Mean Corpuscular Volume 83.8 fl (80-100); Mean Platelet Volume 10.6 fl (7.4-10.4); Monocytes Absolute Auto 0.9 K/mm3 (0.1-0.6); Monocytes Percent Auto 9.2 % (2.6-8.5); Neutrophils Absolute Auto 7.1 K/mm3 (1.3-6.7); Neutrophils Percent Auto 74.4 % (45.5-73.1); Platelet Count Result 306 k/mm3 (150-375); Red Blood Count 5.25 M/mm3 (4.6-6.20); Red Cell Distribution Width 15.6 % (11.5-14.5); White Blood Count 9.5 K/mm3 (4.5-10.0)
[2024-08-24 08:08] LABS: Lactic Acid Reflex 1.2 mmol/L (0.7-2.0)
[2024-08-24 08:13] LABS: Alanine Aminotransferase 20 U/L (6-50); Albumin Level 3.8 g/dL (3.5-5.1); Alkaline Phosphatase 90 U/L (38-126); Anion Gap 5 mmol/L (4-12); Aspartate Amino Transferase 19 U/L (17-59); Bilirubin,Total 1.1 mg/dL (0.2-1.3); Blood Urea Nitrogen 27 mg/dL (9-20); Calcium 9.1 mg/dL (8.4-10.2); Carbon Dioxide 27 mmol/L (22-30); Chloride 104 mmol/L (98-107); Estimated CRCL calculation 70 ml/min; Estimated Glomerular Filt Rate 36; Glucose 106 mg/dL (65-110); Potassium 4.4 mmol/L (3.4-5.0); Sodium 136 mmol/L (137-145)
--- NOTE | 2024-08-24 08:13 | ED.EXTPRO ---
HPI - Extremity Problem General Chief complaint: Extremity Problem,Nontraumatic Stated complaint: toe infection Time Seen by Provider: 08/24/24 07:44 Source: patient Mode of arrival: ambulatory Limitations: no limitations History of Present Illness HPI Narrative: Patient presents with complaint of a toe infection of his right great toe for approximately 1 month. He states he was told he had osteomyelitis and received 1 dose of IV antibiotics at an urgent care but did not subsequently follow-up. He states his pain is 4.5/10 in severity. He denies any fevers. No history of diabetes mellitus. He does not wear oxygen at home. He denies taking any pain medicines at home. He does list an allergy to codeine however he states he has successfully received other opiate medications without incident. Related Data Allergies Allergy/AdvReac Type Severity Reaction Status Date / Time codeine Allergy Intermediate Rash Verified 08/24/24 14:18 [facility] Past Medical History Medical History (Updated 08/24/24 @ 14:30 by Kathleen Gandhi APRN) Type II diabetes mellitus CHF (congestive heart failure) Rheumatoid arthritis Obstructive sleep apnea Rheumatoid arthritis Hypertension Surgical History Surgical History No pertinent past surgical history Family History Family History (Updated 08/24/24 @ 14:20 by ZARA Márquez) Mother Acute myocardial infarction Congestive heart failure Other Diabetes mellitus Social History Social History Smoking packs per day: 2 Smoking cigarettes per day: 40.0 Smoking status: Current every day smoker Alcohol intake: never Drinks per week: 1 Substance use: current Substance use type: marijuana Other substance usage details: 1-2 GRAMS PER WEEK Do You Feel Safe in your Home?: Yes Lack of Transportation: No Lack of Food: Never True Current Housing: I Have Housing Concerned About Future Housing: No Difficulty Paying Gas/Electric Bills: No Difficulty Paying for Meds: YES Currently Unemployed: No Education: High School Diploma/GED Difficulty w/ Childcare or Family Care: No Gender identity (if verbalized by the patient): Male Spiritual care concerns: No Exam Narrative: GENERAL: well-nourished, and in no acute distress. HEAD: Normocephalic, atraumatic. EYES: Non injected, non icteric ENT: Nares clear, no rhinorrhea or epistaxis. NECK: Supple. CHEST: Speaking in full sentences. No respiratory distress. Nasal cannula in place HEART: Tachycardic rate and rhythm. ABDOMEN: Obese but Soft, nondistended. EXTREMITIES: Normal range of motion. Erythema and edema of the right great toe with additional erythema, though less appreciable, radiating proximally in a nondescript pattern. Strong palpable DP pulse. SKIN: Warm, dry. Ulcerated lesion/wound at right great toe that is draining. Probes deeply. NEURO: No focal deficits. Alert and oriented x3. Somnolent and sluggish initially but protecting airway and resting comfortably. PSYCH: Congruent mood and affect. Course Vital Signs Vital signs: Vital Signs Temperature 98.8 F 08/24/24 04:29 Pulse Rate 107 H 08/24/24 04:29 Respiratory Rate 18 08/24/24 04:29 Blood Pressure 185/112 H 08/24/24 04:29 Pulse Oximetry 94 08/24/24 04:29 Oxygen Delivery Room Air 08/24/24 04:29 Temperature 99.1 F 08/25/24 03:48 Pulse Rate 108 H 08/25/24 06:00 Respiratory Rate 24 H 08/25/24 04:00 Blood Pressure 150/103 H 08/25/24 03:48 Pulse Oximetry 90 08/25/24 04:00 Oxygen Delivery Nasal Cannula 08/25/24 04:00 Oxygen Flow Rate 2 08/25/24 04:00 MDM - Extremity (Nontraumatic) MDM Narrative Medical decision making narrative: Patient presents with concern for toe infection. He states approximately 1 month ago he was told he had osteomyelitis but he saved 1 dose of what he reports to be IV antibiotics at an urgent care and did not follow-up. In the emergency department he is afebrile with vital signs notable for tachycardia, hypertension, and borderline/hypoxia initially on room air but with improvement on nasal cannula. Wound culture obtained. Patient's creatinine has been variable from between 1 and 2 to 4 thus 2.0 today appears baseline and consistent with CKD. He has an elevated dimer >1 thus cannot apply YEARS criteria and will proceed with CT imaging. This is negative for PE. Patient's chest x-ray is read as no acute cardiopulmonary disease however on my independent interpretation there is cardiomegaly with pulmonary edema and his BNP is elevated suggestive of acute heart failure. Patient is agitated, requesting food stating that he is starving because he has only had M&Ms this morning. I did tell him at this time that he is NPO but as soon as I got a definitive word from surgery regarding the timing of possible intervention I would let him know. I did reiterate the gravity of his condition. Dr. Jernigan is consulted and I did first discuss with GANG PUSHER Leila who came to the ED to evaluate the patient. Broad-spectrum IV antibiotics were initiated and patient will likely go to the operating room tomorrow and thus can eat today and be made NPO at midnight. Patient to be admitted to the on-call hospitalist given his other co-morbidities. Discussed in person with Dr Dunbar and admission orders placed including for echocardiogram. == Critical Care: 1 or more vital organ systems impaired with a probability of life or limb-threatening deterioration in the patient's condition requiring frequent personal assessment and manipulation of the patient's condition. This included time spent evaluating the patient, speaking with patient, reviewing/interpreting laboratory/imaging studies, discussing the case with consultants or admitting teams, retrieving data and reviewing charts, monitoring for decompensation or improvement, documenting the visit, and performing bundled procedures exclusive of separately billed procedures. Differential Diagnosis Differential diagnosis: Likely cellulitis and other (osteomyelitis; diabetic wound, gout; intoxication; metabolic derangements; pneumonia; PE; acute viral syndrome; KALLI) Lab Data Attestation: I reviewed the patient's lab results. 08/25/24 05:05 08/25/24 05:05 Labs: Lab Results 08/24/24 08/24/24 08/24/24 Range/Units 07:50 08:22 08:53 WBC 9.5 (4.5-10.0) K/mm3 RBC 5.25 (4.6-6.20) M/mm3 Hgb 13.3 L (14.0-18.0) g/dL Hct 44.0 (42.0-52.0) % MCV 83.8 (80-100) fl MCH 25.3 L (26-34) pg MCHC 30.2 L (32-36) g/dl RDW 15.6 H (11.5-14.5) % Plt Count 306 (150-375) k/mm3 MPV 10.6 H (7.4-10.4) fl Immature Gran % (Auto) 0.2 (0-0.5) % Neut % (Auto) 74.4 H (45.5-73.1) % Lymph % (Auto) 14.6 L (18.3-44.2) % [place] % (Auto) 9.2 H (2.6-8.5) % Eos % (Auto) 1.2 (0-4.4) % Baso % (Auto) 0.4 (0.2-1.2) % Lymph # (Auto) 1.38 (0.9-3.2) K/mm3 [place] # (Auto) 0.9 H (0.1-0.6) K/mm3 Eos # (Auto) 0.1 (0-0.3) K/mm3 Baso # (Auto) 0.0 (0.0-0.1) K/mm3 Abs Immat Gran (auto) 0.02 (0.00-0.031) K/mm3 Absolute Neuts (auto) 7.1 H (1.3-6.7) K/mm3 Absolute Nucleated RBC 0.000 (0.0-0.012) K/mm3 Nucleated RBC % 0.0 (0.0-0.2) % ESR 57 H (0-20) mm/hr D-Dimer 1.24 H (<0.48) ug/mL Sodium 136 L (137-145) mmol/L Potassium 4.4 (3.4-5.0) mmol/L Chloride 104 (98-107) mmol/L Carbon Dioxide 27 (22-30) mmol/L Anion Gap 5 (4-12) mmol/L BUN 27 H (9-20) mg/dL Creatinine 2.00 H (0.7-1.3) mg/dL Estim Creat Clear Calc 70 ml/min Estimated GFR 36 L (59 - ) Glucose 106 (65-110) mg/dL Lactic Acid 1.2 (0.7-2.0) mmol/L Uric Acid 8.4 (3.5-8.5) mg/dL Calcium 9.1 (8.4-10.2) mg/dL Total Bilirubin 1.1 (0.2-1.3) mg/dL AST 19 (17-59) U/L ALT 20 (6-50) U/L Alkaline Phosphatase 90 (38-126) U/L Troponin I 0.230 H* (0.000-0.034) ng/mL C-Reactive Protein 3.8 H (<1.0) mg/dL NT-Pro-B Natriuret Pep 53642 H (19.9-100) pg/mL Total Protein 7.0 (6.3-8.2) g/dL Albumin 3.8 (3.5-5.1) g/dL Triglycerides 103 (<150) mg/dL Cholesterol 131 (0-200) mg/dL LDL Cholesterol Direct 78 mg/dL HDL Direct 19 mg/dL TSH 0.776 (0.465-4.680) uIU/mL Free T4 1.55 (0.78-2.19) ng/dL Free T3 pg/mL Pending Ethyl Alcohol < 10 (<10) mg/dL Influenza A (RT-PCR) Negative (Negative) Influenza B (RT-PCR) Negative (Negative) RSV (RT-PCR) Negative (Negative) SARS-CoV-2 RNA (RT-PCR) Negative (Negative) ABG Data ABG results: 08/24/24 09:10 Puncture Site Right radial ABG pH 7.362 ABG pCO2 46.5 H ABG pO2 105.0 H ABG PO2/FiO2 Ratio 2.92 ABG HCO3 25.8 ABG O2 Saturation 97.6 ABG O2 Content 18.2 ABG Base Excess 0.0 A-a Gradient 97.7 Oxyhemoglobin 91.8 Total Hemoglobin 14.0 O2 Delivery Device Nasal cannula O2 Liters/Min 4.0 FiO2 36 Attestation: I personally reviewed and interpreted this ABG as follows: Interpretation: Primary respiratory acidosis with secondary metabolic alkalosis Imaging Data Attestation: I personally reviewed and interpreted this imaging study as follows: My impression: on my independent interpretation there is cardiomegaly with pulmonary edema Radiologist's impression: Impressions Toe X-Ray 08/24/24 08:02 IMPRESSION: 1. Osteomyelitis and septic arthritis at first interphalangeal joint. Chest X-Ray 08/24/24 08:47 Impression: 1: No acute cardiopulmonary disease. Chest CTA 08/24/24 10:44 IMPRESSION: 1. No pulmonary embolus. Sensitivity is moderately decreased by motion artifact. 2. Mild mediastinal and bilateral hilar lymphadenopathy. The differential diagnosis includes reactive lymphadenopathy (including sarcoid) and less likely malignancy such as lymphoma. 3. Cardiomegaly. 4. Right thyroid nodule. Consider thyroid ultrasound for risk stratification. ECG Data EKG #1: Attestation EKG: I personally reviewed and interpreted this ECG as follows: ECG completion date: 08/24/24 ECG completion time: 10:28 Interpretation: Normal sinus rhythm at a rate of 86 beats per minute. [place] interval 197. QRS 117. QT/QTC 388/431. Incomplete RBBB given QRS less [id number]; RSR' M-shaped pattern in V1-V3; wide, slurred S wave in lateral leads (I, aVL, V5-6). Left anterior fascicular block with rS complexes in leads II, III, aVF (small R waves, deep S waves), slight qR complexes in lead I , avL (small Q waves and tall R waves) and left axis deviation with Leads II, III and aVF negative and leads I and aVL positive. 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
[2024-08-24 08:56] LABS: CRP 3.8 mg/dL (<1.0)
[2024-08-24 09:07] LABS: Uric Acid 8.4 mg/dL (3.5-8.5)
[2024-08-24 09:07] LABS: Ethanol < 10 mg/dL (<10)
[2024-08-24 09:16] LABS: Alveolar/Arterial O2 Gradient 97.7 mmHg; Fractional Inspired Oxygen 36 %; HCO3 ABG 25.8 mEq/l (22.0-26.0); Oxygen Content ABG 18.2 %vol (16.0-22.0); Oxygen Saturation ABG 97.6 % (95.0-100.0); Oxyhemoglobin 91.8 % THb (90.0-100.0); PCO2 ABG 46.5 mmHg (35.0-45.0); PO2 FiO2 Ratio Arterial Blood 2.92 %; pH ABG 7.362 (7.350-7.450)
[2024-08-24 09:17] LABS: Device NASAL CANNULA; Modified Allen's Test Pass; Site Drawn RIGHT RADIAL
[2024-08-24 09:18] LABS: NT Pro B Type Natriuretic Pept 20500 pg/mL (19.9-100)
[2024-08-24] MEDS: CEFEPIME 1 GM/NS 50 ML 1 GM/50 ML BAG IVPB (09:19)
[2024-08-24] MEDS: HYDROcodone/acetaminophen (*CRX) 5-325 MG TABLET 1 TAB PO (09:20)
[2024-08-24 09:27] LABS: D Dimer 1.24 ug/mL (<0.48); Erythrocyte Sedimentation Rate 57 mm/hr (0-20)
[2024-08-24 09:38] LABS: Influenza A QL RT-PCR Negative (Negative); Influenza B QL RT-PCR Negative (Negative); RSV RNA, RT-PCR Negative (Negative); SARS-CoV-2 RNA PCR Negative (Negative)
[2024-08-24] MEDS: VANCOMYCIN 1,250 MG/NS 250 ML 1,250 MG/250 ML BAG 166.67 MG IVPB ×2 (10:04→11:54)
--- NOTE | 2024-08-24 10:12 | ECG_ITS ---
Test Date: 2024-08-24 10:28:43 Measurements Intervals [place] Rate: 86 P: 43 NV: 197 QRS: -59 QRSD: 117 T: 86 QT: 388 QTc: 465 Interpretive Statements SINUS RHYTHM POSSIBLE LEFT ATRIAL ENLARGEMENT [-0.1mV P WAVE IN V1/V2] INCOMPLETE RIGHT BUNDLE BRANCH BLOCK [90+ ms QRS DURATION, TERMINAL R IN V1/V2, 40+ ms S IN I/aVL/V4/V5/V6] LEFT ANTERIOR FASCICULAR BLOCK [QRS AXIS <= -45, QR IN I, RS IN II] No previous ECG available for comparison Electronically Signed On 08-28-2024 14:20:14 BLOOD [employer]OR UNIT ASSISTANT by Romel Tripp M.D.
--- NOTE | 2024-08-24 10:41 | P.CONGS_ITS ---
Assessment and Plan Assessment and plan (1) Osteomyelitis of great toe of right foot: Code(s): M86.9 - Osteomyelitis, unspecified Status: Acute Assessment and Plan: Patient presents with symptoms of swelling and redness from his right great toe for over a month. He was evaluated in [place] for this same issue about a month ago and refused surgical management at that time. It sounds like he had evidence of osteomyelitis and left without further treatment. He now has evidence of osteomyelitis and septic arthritis of the 1st interphalangeal joint on plain films. Discussed treatment options with long-term IV antibiotics for 6 weeks versus operative management with right 1st toe amputation. We discussed the details, risks, and benefits of both options. The patient requested to have more time to think about his decision and was unable to clarify his wishes. He is mostly concerned with recovery and time off of work unpaid. At this time, we would recommend continuing IV antibiotics and initiating local wound care. This will also allow time for further cardiac workup given his hypoxia and heart failure. I also recommended that he be heel-touch weight bearing when transferring or ambulating. Will continue to follow along. (2) Septic arthritis of interphalangeal joint of toe of right foot: Code(s): M00.9 - Pyogenic arthritis, unspecified Status: Acute Assessment and Plan: Continue IV antibiotics. See plan above. (3) Acute heart failure: Code(s): I50.9 - Heart failure, unspecified Status: Acute Assessment and Plan: Patient has been noncompliant with cardiac treatment for the past year after being diagnosed with heart failure. Now presenting with hypoxia and BNP over 20,000. Further cardiac workup pending, echo ordered. (4) Elevated troponin: Code(s): R79.89 - Other specified abnormal findings of blood chemistry Status: Acute (5) Hypertension: Code(s): I10 - Essential (primary) hypertension Status: Chronic (6) MARYAN (acute kidney injury): Code(s): N17.9 - Acute kidney failure, unspecified Status: Acute Assessment and Plan: Creatinine 2.0 on admission. Could be acute on chronic, but he definitely has had previous episodes of MARYAN and was evaluated by Nephrology. He has multiple risk factors for CKD. Management per Hospitalist. (7) Tobacco dependence: Code(s): F17.200 - Nicotine dependence, unspecified, uncomplicated Status: Chronic Assessment and Plan: Patient admits to being a 2 PPD smoker, encouraged cessation. (8) Obstructive sleep apnea: Code(s): G47.33 - Obstructive sleep apnea (adult) (pediatric) Status: Chronic (9) Obesity, morbid, BMI 40.0-49.9: Code(s): E66.01 - Morbid (severe) obesity due to excess calories Status: Acute Plan I have discussed the patient's case and plan of care with Dr. Jernigan. Thank you for allowing us to see the patient in consultation and we will continue to follow along with you. History of Present Illness Consult details Consult date: 08/24/24 Reason for consult: other (Right great toe infection) Requesting physician: Louise Huerta MD Narrative: This is a 44-year-old male with PMH of hypertension, KALLI, CHF, depression/anxiety, and tobacco abuse, who we have been asked to see in surgical consultation for a right great toe infection. He denies history of diabetes and he does not have an hgb A1C in our records since 2021. He resides locally as well as in [place], where he travels for work, where he has received recent care of his right great toe. He reports having an infection in the same toe about 1 year ago and was treated with antibiotics at [facility]. At that time, he was sent home on oral antibiotics and this improved. He then noticed redness and swelling of his right great toe over a month ago after being on his feet at work in [place]. He went to a hospital there and was given antibiotics and was recommended to have a right great toe amputation at that time. He refused and apparently left the hospital without any further treatment. Since then, he states his toe has been red and swollen. He has a draining wound on the medial aspect of the toe. He states he has put off being seen for this issue further. He came into the ED today for evaluation of the toe infection. Labs show a WBC count of 9.5, lactic acid 1.2, CRP 3.8, BNP 20,500, BUN 27, and creatinine 2.0. In review of his EMR, he has had previous episodes of MARYAN and possibly some chronic renal failure. Toe x-rays show osteomyelitis and septic arthritis at first interphalangeal joint. He is now seen in the ER for surgical evaluation. He was also found to be hypoxic in the ER and is now requiring 4 liters of O2. He does not appear to have labored breathing or respiratory distress on my evaluation. He is undergoing further workup in the ER for the hypoxia. He is a 2 PPD smoker for many years. Denies previous diagnosis of COPD or chronic O2 use. About a year ago however, he was also diagnosed with what sounds like CHF with possible EF of 40% while admitted in [place]. He reports being started on cardiac medications, which he stopped taking for the past year due to the cost. 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 Review of Systems 2 Review of Systems: All systems reviewed & are unremarkable except as noted in HPI and below PMFSH Past Medical History Medical History CHF (congestive heart failure) Rheumatoid arthritis Obstructive sleep apnea Rheumatoid arthritis Hypertension Surgical History Surgical History No pertinent past surgical history Family History Family History Mother Diabetes mellitus Congestive heart failure Acute myocardial infarction Father Diabetes mellitus Social History Social History Smoking packs per day: 1 Smoking cigarettes per day: 20.0 Smoking status: Current every day smoker Alcohol intake: never Drinks per week: 1 Substance use: current Substance use type: marijuana Other substance usage details: 1-2 GRAMS PER WEEK Gender identity (if verbalized by the patient): Male Spiritual care concerns: No Meds Home Medications and Allergies Home Medications ?Medication ?Instructions ?Recorded ?Confirmed ?Type doxycycline hyclate 100 mg capsule 100 mg PO BID 10 days #20 caps 04/16/22 Rx cyclobenzaprine 10 mg tablet 10 mg PO TID PRN muscle spasm #20 08/31/23 Rx tabs Allergies Allergy/AdvReac Type Severity Reaction Status Date / Time codeine Allergy Intermediate Rash Verified 08/24/24 07:20 Vital Signs Vital Signs - 24 hr 08/24/24 04:29 08/24/24 07:46 08/24/24 07:54 Temperature 98.8 F Pulse Rate 107 H 94 Respiratory Rate 18 22 H Blood Pressure 185/112 H 169/108 H Pulse Oximetry 94 98 96 Oxygen Delivery Room Air Nasal Cannula Oxygen Flow Rate 4 08/24/24 08:34 08/24/24 10:02 Temperature Pulse Rate 98 94 Respiratory Rate 18 22 H Blood Pressure 161/101 H 137/96 H Pulse Oximetry 99 97 Oxygen Delivery Oxygen Flow Rate Exam 2 Const: General: comfortable and no acute distress Nutritional Appearance: o bese Orientation/consciousness: patient oriented x3 HENMT: Head: normocephalic and atraumatic Ears: hearing grossly normal bilaterally Eyes: General: appearance normal, both eyes and all related structures P upils: Equal, round and reactive pupils present Neck: Neck: normal visual inspection and full ROM Resp: Effort & Inspection: no respiratory distress Auscultation: clear to auscultation bilaterally Cardio: Rate: regular rate Rhythm: regular rhythm Heart sounds: S1 normal heart sound present and S2 normal heart sound present Peripheral pulses: Peripheral pulses 2+ throughout GI: Inspection: non-distended GI Palp: Yes Soft to palpation, No Tenderness to palpation present (GI) and No Guarding due to palpation present (GI) A uscultation: normal bowel sounds Skin: General skin exam: normal color Neuro: General: moves all extremities and no focal motor deficits Speech: n ormal speech Motor exam (neuro): 5/5 motor strength present throughout Extrem: Right upper extremity: normal to inspection Left upper extremity: n ormal to inspection Left lower extremity: normal to inspection Other: Right great toe with diffuse erythema and edema primarily localized to the toe but with slight extension of mild erythema to the dorsal foot. There is a 1 x 1 cm open wound to the medial aspect of the the great toe that probes to bone at the level of the PIP joint. Slight foul odor and scant cloudy drainage from the wound. He is able to wiggle his toes. Right pedal pulse is strong and palpable. Unable to definitively palpate PT pulse on the right. Psych: Mental Status: mental status grossly normal Attitude: cooperative Insight: Fair insight present (Psych) Judgement: Fair judgement present (Psych) Results Labs 08/24/24 07:50 08/24/24 07:50 Labs: Abnormal lab results 08/24/24 08/24/24 Range/Units 07:50 09:10 Hgb 13.3 L (14.0-18.0) g/dL MCH 25.3 L (26-34) pg MCHC 30.2 L (32-36) g/dl RDW 15.6 H (11.5-14.5) % MPV 10.6 H (7.4-10.4) fl Neut % (Auto) 74.4 H (45.5-73.1) % Lymph % (Auto) 14.6 L (18.3-44.2) % [place] % (Auto) 9.2 H (2.6-8.5) % [place] # (Auto) 0.9 H (0.1-0.6) K/mm3 Absolute Neuts (auto) 7.1 H (1.3-6.7) K/mm3 ESR 57 H (0-20) mm/hr D-Dimer 1.24 H (<0.48) ug/mL ABG pCO2 46.5 H (35.0-45.0) mmHg ABG pO2 105.0 H (80.0-100.0) mmHg Sodium 136 L (137-145) mmol/L BUN 27 H (9-20) mg/dL Creatinine 2.00 H (0.7-1.3) mg/dL Estimated GFR 36 L (59 - ) C-Reactive Protein 3.8 H (<1.0) mg/dL NT-Pro-B Natriuret Pep 48719 H (19.9-100) pg/mL Diabetes panel 08/24/24 Range/Units 07:50 Sodium 136 L (137-145) mmol/L Potassium 4.4 (3.4-5.0) mmol/L Chloride 104 (98-107) mmol/L Carbon Dioxide 27 (22-30) mmol/L BUN 27 H (9-20) mg/dL Creatinine 2.00 H (0.7-1.3) mg/dL Glucose 106 (65-110) mg/dL Calcium 9.1 (8.4-10.2) mg/dL AST 19 (17-59) U/L ALT 20 (6-50) U/L Alkaline Phosphatase 90 (38-126) U/L Total Protein 7.0 (6.3-8.2) g/dL Albumin 3.8 (3.5-5.1) g/dL Calcium panel 08/24/24 Range/Units 07:50 Calcium 9.1 (8.4-10.2) mg/dL Albumin 3.8 (3.5-5.1) g/dL Pituitary panel 08/24/24 Range/Units 07:50 Sodium 136 L (137-145) mmol/L Potassium 4.4 (3.4-5.0) mmol/L Chloride 104 (98-107) mmol/L Carbon Dioxide 27 (22-30) mmol/L BUN 27 H (9-20) mg/dL Creatinine 2.00 H (0.7-1.3) mg/dL Glucose 106 (65-110) mg/dL Calcium 9.1 (8.4-10.2) mg/dL Adrenal panel 08/24/24 Range/Units 07:50 Sodium 136 L (137-145) mmol/L Potassium 4.4 (3.4-5.0) mmol/L Chloride 104 (98-107) mmol/L Carbon Dioxide 27 (22-30) mmol/L BUN 27 H (9-20) mg/dL Creatinine 2.00 H (0.7-1.3) mg/dL Glucose 106 (65-110) mg/dL Calcium 9.1 (8.4-10.2) mg/dL Total Bilirubin 1.1 (0.2-1.3) mg/dL AST 19 (17-59) U/L ALT 20 (6-50) U/L Alkaline Phosphatase 90 (38-126) U/L Total Protein 7.0 (6.3-8.2) g/dL Albumin 3.8 (3.5-5.1) g/dL All other labs normal. Imaging Additional studies: ITS Impressions Toe X-Ray 08/24/24 08:02 IMPRESSION: 1. Osteomyelitis and septic arthritis at first interphalangeal joint. Chest X-Ray 08/24/24 08:47 Impression: 1: No acute cardiopulmonary disease. Chest CTA 08/24/24 10:44 IMPRESSION: 1. No pulmonary embolus. Sensitivity is moderately decreased by motion artifact. 2. Mild mediastinal and bilateral hilar lymphadenopathy. The differential diagnosis includes reactive lymphadenopathy (including sarcoid) and less likely malignancy such as lymphoma. 3. Cardiomegaly. 4. Right thyroid nodule. Consider thyroid ultrasound for risk stratification.
--- NOTE | 2024-08-24 11:35 | PC.NURSE ---
Patient sleeping - having to be encouraged to keep is nasal cannula on when woken. IVF infusing left arm- site without redness or swelling. Patient encouraged to keep O2 sat monitor on. Placed on nuclear monitoring technician.
--- NOTE | 2024-08-24 11:51 | P.HP_ITS ---
H&P: HPI History of Present Illness Date/Time: 08/24/24 11:51 Chief Complaint: right great toe infection Narrative: This is a 44 year old male with a significant past medical history of hypertension, KALLI, CHF, CKD, depression, anxiety, Rheumatid arthritis, tobacco abuse 2-pack-per day who presented for evaluation of his right great toe infection and acute respiratory failure with hypoxia. Patient states that he has had ongoing wound to his right great toe for about a month now. He was initially seen at a hospital in [place] who offered him amputation of the first toe however he refused at that time. He likely had osteomyelitis at that time. At this time, he denies any fever, chills, nausea, vomiting, diarrhea, abdominal pain, chest pain. He reports SOB with exertion. He does not wear any oxygen at baseline. He states that he had an Echo done in [place] which shown 40% EF however he is not taking medications for this or following a heart healthy diet. He denies being diabetic. He states that he can not afford medications and has no medical insurance at this time. 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 Work up in the hospital includes a toe x-ray that shown osteomyelitis and septic arthritis at first IP joint. Chest x-ray was negative. Chest CT was negative for pulmonary embolus, mild mediastinal and bilateral hilar lymphadenopathy, cardiomegaly, right thyroid nodule. Initial labs shown a WBC 9.5, Hgb 13.3, ESR 57, D-dimer 1.24, Na+ 136, creatinine 2.00, eGFR 36, troponin 0.230, CRP 3.8, proBNP 75298. Respiratory panel was negative for Influenza A and B, RSV, COVID. Blood and wound cultures pending. EKG showing NSR with a rate of 87, incomplete right BBB, QTc 465. Patient was given pain medication, Cefepime, and Vancomycin while in the ER. He was then transitioned to Rocephin and Vancomycin considering his MARYAN. General surgery was consulted and patient was given the option of amputation versus keno terminal operator antibiotics. He wants time to consider the options. He is being admitted in this setting for possible surgery and IV antibiotics. Review of Systems Review of Systems: All systems reviewed & are unremarkable except as noted in HPI and below Constitutional: Constitutional: Reports as per HPI and Reports no additional constitutional complaints Eyes: Eyes: Reports as per HPI and Reports no additional eye complaints ENT: Reports system reviewed and no additional complaints, except as documented and Reports as per HPI Cardiovascular: Cardiovascular: Reports as per HPI and Reports no additional cardiovascular complaints Respiratory: Respiratory: Reports as per HPI and Reports no additional respiratory complaints Gastrointestinal: Gastrointestinal: Reports as per HPI and Reports no additional gastrointestinal complaints Genitourinary: Genitourinary: Reports no additional male genitourinary complaints and Reports as per HPI Musculoskeletal: Musculoskeletal: Reports no additional musculoskeletal complaints and Reports as per HPI Integumentary/Breasts: Skin/Breast: Reports system reviewed and no additional complaints, except as docu and Reports as per HPI Neurologic: Reports system reviewed and no additional complaints, except as documented and Reports as per HPI Psychiatric: Psychiatric: Reports no additional psychiatric complaints and Reports as per HPI [facility] Past Medical History Medical History (Updated 08/24/24 @ 14:30 by Kathleen Gandhi APRN) Type II diabetes mellitus CHF (congestive heart failure) Rheumatoid arthritis Obstructive sleep apnea Rheumatoid arthritis Hypertension Surgical History Surgical History No pertinent past surgical history Family History Family History Mother Acute myocardial infarction Congestive heart failure Other Diabetes mellitus Social History Social History Smoking packs per day: 1 Smoking cigarettes per day: 20.0 Smoking status: Current every day smoker Alcohol intake: never Drinks per week: 1 Substance use: current Substance use type: marijuana Other substance usage details: 1-2 GRAMS PER WEEK Gender identity (if verbalized by the patient): Male Spiritual care concerns: No Meds Home Medications and Allergies Home Medications ?Medication ?Instructions ?Recorded ?Confirmed ?Type doxycycline hyclate 100 mg capsule 100 mg PO BID 10 days #20 caps 04/16/22 Rx cyclobenzaprine 10 mg tablet 10 mg PO TID PRN muscle spasm #20 08/31/23 Rx tabs Allergies Allergy/AdvReac Type Severity Reaction Status Date / Time codeine Allergy Intermediate Rash Verified 08/24/24 14:18 Vital Signs Vital Signs - 24 hr 08/24/24 04:29 08/24/24 07:46 08/24/24 07:54 Temperature 98.8 F Pulse Rate 107 H 94 Respiratory Rate 18 22 H Blood Pressure 185/112 H 169/108 H Pulse Oximetry 94 98 96 Oxygen Delivery Room Air Nasal Cannula Oxygen Flow Rate 4 08/24/24 08:34 08/24/24 10:02 08/24/24 11:34 Temperature Pulse Rate 98 94 Respiratory Rate 18 22 H Blood Pressure 161/101 H 137/96 H Pulse Oximetry 99 97 94 Oxygen Delivery Nasal Cannula Oxygen Flow Rate 2 Exam Narrative: General: In no acute distress, well nourished Head: atraumatic, no encephalopathy Eyes: PERRLA, sclera clear ENT: moist mucous membranes, nasal passages clear Neck: supple, no JVD, no adenopathy, trachea midline Cardiac: Normal S1 and S2. RRR, No murmur, gallops or friction rubs, peripheral pulses intact. Respiratory: Lungs course to auscultation, no adventitious lung sounds, currently on room air, non-productive cough, SOB with exertion Gastrointestinal: soft, non-distended, non-tender, normoactive bowel sounds. : voiding without difficulty. Extremities: moves all extremities well, mild edema BLE, good ROM, strength 5/5 Skin: Right great toe with wound that measures 1cm x1cm that probes to the bone at the level of the PIP joint, foul purulent drainage noted. Errythema and swelling noted to the right great toe extending to the ankle. Clean dressing in place. Neuro: Alert and oriented x4, cranial nerves intact, no neuro deficits. Psych: normal mood, normal affect, interactive H&P: Results Labs Labs: Short CBC 08/24/24 Range/Units 07:50 WBC 9.5 (4.5-10.0) K/mm3 Hgb 13.3 L (14.0-18.0) g/dL Hct 44.0 (42.0-52.0) % Plt Count 306 (150-375) k/mm3 BMP 08/24/24 07:50 Sodium 136 L Potassium 4.4 Chloride 104 Carbon Dioxide 27 BUN 27 H Creatinine 2.00 H Glucose 106 Calcium 9.1 Cardiac Enzymes 08/24/24 Range/Units 07:50 Troponin I 0.230 H* (0.000-0.034) ng/mL Liver Function 08/24/24 Range/Units 07:50 Total Bilirubin 1.1 (0.2-1.3) mg/dL AST 19 (17-59) U/L ALT 20 (6-50) U/L Alkaline Phosphatase 90 (38-126) U/L Albumin 3.8 (3.5-5.1) g/dL Imaging toe x-ray: Radiologist's impression: EXAMINATION: XR toe 1st RT min 2V DATE: 08/24/2024 08:00 INDICATION: Right great toe wound. TECHNIQUE: 4 views of right great toe were obtained. COMPARISON: None. FINDINGS: There is an ulcer at the medial plantar aspect of the great toe. There are erosions of base of first distal phalanx and head of first proximal phalanx with pathologic fractures, consistent with osteomyelitis and septic arthritis. There is mild osteoarthritis of first metatarsophalangeal joint. IMPRESSION: 1. Osteomyelitis and septic arthritis at first interphalangeal joint. Reviewed, dictated and finalized at location [] TATION INSPECTOR Please be advised this is a medical document. It is intended for rtbc-se-[id number] communication. It is written in medical language and may contain unfamiliar abbreviations or verbiage. Medical documents are intended to carry relevant information, facts as evident, and the clinical opinion of the practitioner at the time of the encounter. This report may have been done utilizing a voice recognition system. Attempts have been made to correct errors. However, there may be uncorrected grammatical, spelling, and recognition errors present. The file time of this note does not necessarily represent the time the patient was seen. Dictated By: Dhiraj Miranda MD 08/24/24 0802 Signed By: <Electronically signed by Dhiraj Miranda MD in [place]> Chest x-ray: Radiologist's impression: XR chest 2V 08/24/2024 08:43 Indication: Hypoxia Procedure: 2 view chest Comparison: 07/01/2024 Findings: Cardiomegaly. No focal air space disease, pulmonary edema, pleural effusion or suspected pneumothorax. Impression: 1: No acute cardiopulmonary disease. Reviewed, dictated and finalized at location A. TATION INSPECTOR Please be advised this is a medical document. It is intended for [id number] communication. It is written in medical language and may contain unfamiliar abbreviations or verbiage. Medical documents are intended to carry relevant information, facts as evident, and the clinical opinion of the practitioner at the time of the encounter. This report may have been done utilizing a voice recognition system. Attempts have been made to correct errors. However, there may be uncorrected grammatical, spelling, and recognition errors present. The file time of this note does not necessarily represent the time the patient was seen. Dictated By: Corey Randall MD 08/24/24 0847 Signed By: <Electronically signed by Corey Randall MD in [place]> [place] CTA: Radiologist's impression: EXAMINATION: CTA chest PE protocol DATE: 08/24/2024 10:44 INDICATION: Hypoxia. TECHNIQUE: Computed tomography angiography (CTA) of the chest was performed with 100 mL Omnipaque-350 intravenous contrast timed to evaluate the pulmonary arteries. Coronal maximum intensity projection 3D-reconstructions were created by the technologist. Automated exposure control and iterative reconstruction technique were employed. The dose-length product was 1213.62 mGy-cm. COMPARISON: CT abdomen and pelvis 01/20/2022 FINDINGS: The lungs demonstrate mild atelectasis. A calcified left lung nodule is consistent with old granulomatous disease. There is mild mediastinal and bilateral hilar lymphadenopathy. Cardiomegaly is noted. No pericardial effusion. There is bilateral gynecomastia. There is a 1.8 cm nodule in right thyroid lobe. There is no pulmonary embolus. There is mild chronic height loss of many vertebral bodies. There is mild thoracic spondylosis. IMPRESSION: 1. No pulmonary embolus. Sensitivity is moderately decreased by motion artifact. 2. Mild mediastinal and bilateral hilar lymphadenopathy. The differential diagnosis includes reactive lymphadenopathy (including sarcoid) and less likely malignancy such as lymphoma. 3. Cardiomegaly. 4. Right thyroid nodule. Consider thyroid ultrasound for risk stratification. Reviewed, dictated and finalized at location A. TATION INSPECTOR Please be advised this is a medical document. It is intended for [id number]-se-[id number] communication. It is written in medical language and may contain unfamiliar abbreviations or verbiage. Medical documents are intended to carry relevant information, facts as evident, and the clinical opinion of the practitioner at the time of the encounter. This report may have been done utilizing a voice recognition system. Attempts have been made to correct errors. However, there may be uncorrected grammatical, spelling, and recognition errors present. The file time of this note does not necessarily represent the time the patient was seen. Dictated By: Dhiraj Miranda MD 08/24/24 1044 Signed By: <Electronically signed by Dhiraj Miranda MD in [place]> Assessment and Plan Assessment and plan (1) Acute respiratory failure with hypoxia: Code(s): J96.01 - Acute respiratory failure with hypoxia Status: Acute Assessment and Plan: Likely secondary to acute CHF exacerbation due to non adherence to home medications * Currently on 4L NC * Wean for O2 saturation greater than 92% * ? underlying COPD component as he is a 2 pack per day smoker * CXR was negative for any acute cardiopulmonary disease * Respiratory panel was negative for Influenza A and B, RSV, COVID * Chest CTA shown Cardiomegaly * ProBNP 00479 * ABG shown pH 7.362, pCO2 46.5, pO2 105, Bicarb 25.8 on 4L NC (2) Osteomyelitis of great toe of right foot: Code(s): M86.9 - Osteomyelitis, unspecified Status: Acute Assessment and Plan: * Right great toe x-ray showing osteomyelitis and septic arthritis at 1st IP joint * Patient was given vancomycin and cefepime while in the ED, then transition to vancomycin and Rocephin 2 g * General surgery consulted and patient was presented surgical versus nonsurgical treatment. Patient currently wants time to think about his options. * Wound nurse consult * White blood cell count 9.5 on arrival, CRP 3.8, ESR 57--continue to trend * Wound and blood cultures were obtained and pending * New diagnosis of type II DM this admission, Hgb A1C 6.0 (3) Septic arthritis of interphalangeal joint of toe of right foot: Code(s): M00.9 - Pyogenic arthritis, unspecified Status: Acute Assessment and Plan: see above (4) CHF (congestive heart failure): Code(s): I50.9 - Heart failure, unspecified Status: Acute Assessment and Plan: * ProBNP 19113 * Not currently on any medications at home * Cardiology consulted * Will get Echocardiogram today * CXR was negative * CTA of chest shown cardiomegaly (5) Elevated troponin: Code(s): R79.89 - Other specified abnormal findings of blood chemistry Status: Acute Assessment and Plan: * Troponin 0.230>0.216 * Likely demand ischemia * Will get cardiology consult * EKG showing NSR with left atrial enlargement, incomplete right BBB with a rate of 86, QTc 465 (6) Type II diabetes mellitus: Code(s): E11.9 - Type 2 diabetes mellitus without complications Status: Acute Assessment and Plan: New diagnosis * Hgb A1C 6.0 * Blood sugars ranging 93-106 * Accu checks AC/HS * high dose SSI ordered * hypoglycemic protocol in place * Diabetic diet ordered * early childhood special educator consult * Dietitian 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 * eGFR 51-55 baseline * Continue to trend * Avoid nephrotoxic medications and testing with IV contrast (8) Right thyroid nodule: Code(s): E04.1 - Nontoxic single thyroid nodule Status: Acute Assessment and Plan: * Chest CTA shown right thyroid nodule * Will check TSH, Free T3 and Free T4 today * May need thyroid US with biopsy (9) Elevated d-dimer: Code(s): R79.89 - Other specified abnormal findings of blood chemistry Status: Acute Assessment and Plan: * D- dimer 1.24 * CTA of chest was negative for PE, mild mediastinal and bilateral hilar lymphadenopathy, cardiomegaly, right thyroid nodule. * CXR- was negative (10) Hypertension: Code(s): I10 - Essential (primary) hypertension Status: Chronic Assessment and Plan: * Blood pressure ranging 137/96-180/122 * Currently not taking any medications at home * Will start Losartan 50 mg daily (11) Rheumatoid arthritis: Code(s): M06.9 - Rheumatoid arthritis, unspecified Status: Chronic Assessment and Plan: of note * Not on any medications currently (12) Tobacco dependence: Code(s): F17.200 - Nicotine dependence, unspecified, uncomplicated Status: Chronic Assessment and Plan: * Smokes 2 packs per day, current every day user * Educate on smoking cessation * Educate on smoking and delayed wound healing * Nicotine patch ordered Quality VTE Prophylaxis VTE prophylaxis: mechanical ordered Hospitalist MIPS Advance Care Plan I have confirmed that the patient's Advanced Care Plan is present, code status is documented, or surrogate decision maker is listed in patient medical record.: Yes Medication Reconciliation I have utilized all available resources to obtain, update and review the patients current medications (includes all prescriptions, OTC, herbals, cannabis, and nutritional supplements).: Yes
[2024-08-24] MEDS: ASPIRIN 81 MG CHEWABLE TABLET 324 MG PO (11:55)
[2024-08-24 12:12] LABS: Troponin I 0.216 ng/mL (0.000-0.034)
[2024-08-24] MEDS: LOSARTAN POTASSIUM 50 MG TABLET PO (12:45)
[2024-08-24 12:52] LABS: Free T4 Free Thyroxine 1.55 ng/dL (0.78-2.19)
[2024-08-24 12:56] LABS: Cholesterol 131 mg/dL (0-200); HDL Direct 19 mg/dL; Triglycerides 103 mg/dL (<150)
--- NOTE | 2024-08-24 12:57 | PC.NURSE ---
Patient gotten off stretcher without assist-continues to insist that he does not have to urinate. Stretcher traded out for hospital bed-dry dressing applied to left great toe. Patient back to bed without assist -call avila in reach
[2024-08-24 13:07] LABS: LDL Cholesterol Direct 78 mg/dL; Thyroid Stimulating Hormone 0.776 uIU/mL (0.465-4.680)
[2024-08-24] MEDS: cefTRIAXone 2 GM/NS 100 ML 2 GM/100 ML BAG IVPB (13:43)
--- NOTE | 2024-08-24 13:58 | ADMGEN ---
This patient, Brennan Rivera, was admitted to IMU Room 211-01. Patient/family oriented to hospital policies and general routines including ID bracelet, bed and alarms, visiting hours, pain management, procedures, bathroom and other care routines, personal items, smoking policy, room service/diet, and visiting hours. Information on how to activate the Rapid Response Team has been discussed. Patient/Family are encouraged to report perceived risks to care and to ask questions if they do not understand what they are told or what they should do.
[2024-08-24] MEDS: SILVER SULFADIAZINE 1% CR 50 GM JAR (*BKC) 1 APPLIC TOPICAL (14:47)
[2024-08-24] MEDS: FUROSEMIDE INJ 40 MG/4 ML VIAL IV PUSH ×2 (14:47→17:22)
--- NOTE | 2024-08-24 15:07 | PCWOUND ---
WOCN NOTE Received referral for diabetic foot ulcer. Patient already seen by General Surgery and wound care orders have been placed. No need for regasification plant operator to see patient.
[2024-08-24 18:55] LABS: Glucose Point of Care 132 mg/dl (65-105)
[2024-08-24 20:10] LABS: Glucose Point of Care 134 mg/dl (65-105)
[2024-08-25] VITALS (27 sets, daily range): BP systolic 94–164; BP diastolic 62–114; PULSE 68–108; RESP 18–26; TEMP 36.1–37.3; O2SAT 90–100; BMI 40.7
--- NOTE | 2024-08-25 | ECHO_ITS ---
Patient Info Name: Brennan Rivera Age: 44 years : 1980 Gender: Male Ht: 76 in Wt: 343 lbs BSA: 2.95 m2 HR: 108 bpm BP: 150 / 103 mmHg Heart Rhythm: Sinus Rhythm Technical Quality: Fair Exam Date: 08/25/2024 9:36 AM Exam Location: Echo Lab Patient Status: Outpatient Admit Date: 08/24/2024 Staff Ordering Physician: Louise Huerta MD [facility] Resident: Carmelita Forbes RDCS Attending Provider: Jad Dunbar MD Referring Physician: Bradley YOON; Exam Type: CA echo dop color flow w con Study Info Indications - new onset heat failure Contrast/Agitated Saline Contrast/Ag. Saline: Definity Amount: 3.00 ml Administered By: Carmelita Forbes RDCS Existing IV Access: Yes IV Access Condition: patent with no signs of infiltration Summary 1. Left ventricular chamber dimension is enlarged. 2. Left ventricular systolic function is severely reduced, estimated at 25-30%. 3. There is mildly increased left ventricular wall thickness. 4. Left ventricular wall motion shows global hypokinesis. 5. The left ventricular diastolic function is grade II diastolic dysfunction. 6. Right ventricular chamber dimension is normal. 7. Right ventricular systolic function is normal. Left Ventricle Left ventricular chamber dimension is enlarged. Left ventricular systolic function is severely reduced, estimated at 25-30%. There is mildly increased left ventricular wall thickness. Left ventricular wall motion shows global hypokinesis. The left ventricular diastolic function is grade II diastolic dysfunction. Right Ventricle Right ventricular chamber dimension is normal. Right ventricular systolic function is normal. Left Atria Left atrial chamber dimension is enlarged. Right Atria Right atrial chamber dimension is enlarged. Aortic Valve The aortic valve is trileaflet. There is no aortic valve sclerosis. There is no aortic valve stenosis. There is trace aortic valve regurgitation. Pulmonic Valve The pulmonic valve is normal. There is no pulmonic valve stenosis. There is no pulmonic regurgitation. Mitral Valve The mitral valve has normal leaflets. There is no mitral valve stenosis. Mitral regurgitation not seen in the images obtained. Tricuspid Valve The tricuspid valve leaflets are normal. There is no significant tricuspid valve stenosis. Tricuspid regurgitation not seen i the images obtained. Pericardium/Pleural The pericardium appears normal. There is no pericardial effusion. Inferior Vena Cava Normal inferior vena cava with >50% collapse upon inspiration consistent with Empty right atrial pressure, Empty. Aorta The aortic root size at the sinus of Valsalva is normal. The prox ascending aorta size is normal. Left Ventricular Outflow Tract Name Value Normal LVOT 2D LVOT Diameter 2.59 cm LVOT Doppler LVOT Peak Gradient 1 mmHg LVOT Mean Gradient 1 mmHg LVOT VTI 8.95 cm LVOT VTI/AV VTI Ratio 0.49 LVOT Stroke Volume 47.26 ml LVOT CO 4.45 l/min LVOT CI 1.51 L/min/m2 Pulmonic Valve Name Value Normal RVOT Doppler RVOT Peak Gradient 1 mmHg PV Doppler PV Peak Gradient 3 mmHg Mitral Valve Name Value Normal MV Doppler MV Decel Rapides 398.95 cm/s2 MV PHT 0 s MV Area (PHT) 4.41 cm2 4.00-5.00 MV Diastolic Function MV E Peak Velocity 68.66 cm/s MV A Peak Velocity 29.61 cm/s MV E/A 2.32 MV Decel Time 0 s MV Annular TDI MV E/e' (Septal) 13.17 <=8.00 MV E/e' (Lateral) 10.48 <=8.00 MV E/e' (Average) 11.82 Aorta Name Value Normal Ascending Aorta Ao Root Diameter (MM) 4.50 cm Ao Root Diam Index (MM) 1.52 cm/m2 Aortic Valve Name Value Normal AV Doppler AV Peak Velocity 115.72 cm/s AV Peak Gradient 5 mmHg AV Mean Gradient 3 mmHg AV VTI 18.26 cm AV Area (Cont Eq VTI) 2.59 cm2 >=3.00 AV Area (Cont Eq Juan) 2.78 cm2 AV Regurgitation 2D LVOT Area 5.28 cm2 Ventricles Name Value Normal LV Dimensions 2D/MM IVS Diastolic Thickness (2D) 1.15 cm 0.60-1.00 LVID Diastole (2D) 6.53 cm 4.20-5.80 LVIW Diastolic Thickness (2D) 1.24 cm 0.60-1.00 LVID Systole (2D) 5.74 cm 2.50-4.00 LVOT Diameter 2.59 cm LV Mass (2D Cubed) 359.99 g 88.00-224.00 LV Mass Index (2D Cubed) 0.01 g/cm2 0.00-0.01 Relative Wall Thickness (2D) 0.38 LV Fractional Shortening/Ejection Fraction 2D/MM LV Fractional Shortening (2D) 12 % 25-43 LV EF (2D Teicholz) 26 % 52-72 LV Diastolic Volume (4C MOD) 117.52 ml LV EF (4C MOD) 20 % LV Diastolic Volume (2C MOD) 135.86 ml LV EF (2C MOD) 16 % LV Diastolic Volume (BP MOD) 132.31 ml 62.00-150.00 LV Diastolic Volume Index (BP MOD) 0.04 l/m2 0.03-0.07 LV Systolic Volume (BP MOD) 105.67 ml 21.00-61.00 LV Systolic Volume Index (BP MOD) 0.04 l/m2 0.01-0.03 LV EF (BP MOD) 20 % 52-72 LV Diastolic Length (4C) 8.20 cm LV Systolic Length (4C) 8.16 cm LV Stroke Volume (4C MOD) 24.08 ml Atria Name Value Normal LA Dimensions LA Dimension (MM) 5.53 cm 3.00-4.10 LA Volume (4C A-L) 81.40 ml LA Volume (BP A-L) 87.47 ml RA Dimensions RA Area (4C) 22.39 cm2 <=18.00 Report Signatures
[2024-08-25] MEDS: VANCOMYCIN 1,500 MG/NS 500 ML 1,500 MG/500 ML BAG 250 MG IVPB ×2 (04:04→16:09)
[2024-08-25] MEDS: HYDROcodone/acetaminophen (*CRX) 5-325 MG TABLET 1 TAB PO (04:05)
[2024-08-25 05:31] LABS: Basophils Absolute Auto 0.1 K/mm3 (0.0-0.1); Basophils Percent Auto 0.5 % (0.2-1.2); Eosinophils Absolute Auto 0.4 K/mm3 (0-0.3); Eosinophils Percent Auto 4.2 % (0-4.4); Hemoglobin 13.4 g/dL (14.0-18.0); Immature Granulocyte Absolute 0.03 K/mm3 (0.00-0.031); Immature Granulocyte Percent A 0.3 % (0-0.5); Lymphocytes Absolute Auto 0.97 K/mm3 (0.9-3.2); Lymphocytes Percent Auto 10.6 % (18.3-44.2); Mean Corpuscular HGB Conc 30.5 g/dl (32-36); Mean Corpuscular Hemoglobin 25.3 pg (26-34); Mean Corpuscular Volume 83.2 fl (80-100); Mean Platelet Volume 10.4 fl (7.4-10.4); Monocytes Absolute Auto 0.9 K/mm3 (0.1-0.6); Monocytes Percent Auto 10.3 % (2.6-8.5); Neutrophils Absolute Auto 6.7 K/mm3 (1.3-6.7); Neutrophils Percent Auto 74.1 % (45.5-73.1); Platelet Count Result 287 k/mm3 (150-375); Red Blood Count 5.29 M/mm3 (4.6-6.20); Red Cell Distribution Width 15.6 % (11.5-14.5); White Blood Count 9.1 K/mm3 (4.5-10.0)
[2024-08-25 05:44] LABS: Alanine Aminotransferase 22 U/L (6-50); Albumin Level 3.5 g/dL (3.5-5.1); Alkaline Phosphatase 82 U/L (38-126); Anion Gap 1 mmol/L (4-12); Aspartate Amino Transferase 20 U/L (17-59); Bilirubin,Total 0.5 mg/dL (0.2-1.3); Blood Urea Nitrogen 32 mg/dL (9-20); CRP 4.2 mg/dL (<1.0); Calcium 8.4 mg/dL (8.4-10.2); Carbon Dioxide 31 mmol/L (22-30); Chloride 106 mmol/L (98-107); Estimated CRCL calculation 81 ml/min; Estimated Glomerular Filt Rate 44; Glucose 116 mg/dL (65-110); Magnesium 1.9 mg/dL (1.6-2.3); Sodium 138 mmol/L (137-145)
[2024-08-25 08:14] LABS: Glucose Point of Care 131 mg/dl (65-105)
[2024-08-25] MEDS: LOSARTAN POTASSIUM 50 MG TABLET PO (08:55)
[2024-08-25] MEDS: FUROSEMIDE INJ 40 MG/4 ML VIAL IV PUSH ×2 (08:55→16:32)
[2024-08-25 09:37] LABS: Erythrocyte Sedimentation Rate 7 mm/hr (0-20)
[2024-08-25] MEDS: PERFLUTREN LIPID MICROSPHERES 1.5 ML VIAL DILUTED TO 10 ML TOTAL VOLUME IV PUSH (10:03)
[2024-08-25] MEDS: METOPROLOL SUCCINATE EXT REL 50 MG TABCR PO ×2 (11:21→16:32)
[2024-08-25] MEDS: SILVER SULFADIAZINE 1% CR 50 GM JAR (*BKC) 1 APPLIC TOPICAL (11:22)
--- NOTE | 2024-08-25 11:33 | P.PNIM_ITS ---
Progress Note: A&P Assessment and Plan (1) Acute respiratory failure with hypoxia: Code(s): J96.01 - Acute respiratory failure with hypoxia Status: Acute Assessment and Plan: Likely secondary to acute CHF exacerbation due to non adherence to home medications * Currently on 4L NC * Wean for O2 saturation greater than 92% * ? underlying COPD component as he is a 2 pack per day smoker * CXR was negative for any acute cardiopulmonary disease * Respiratory panel was negative for Influenza A and B, RSV, COVID * Chest CTA shown Cardiomegaly * ProBNP * ABG shown pH 7.362, pCO2 46.5, pO2 105, Bicarb 25.8 on 4L NC 08/25 * Currently on room air, in no acute respiratory distress (2) Osteomyelitis of great toe of right foot: Code(s): M86.9 - Osteomyelitis, unspecified Status: Acute Assessment and Plan: * Right great toe x-ray showing osteomyelitis and septic arthritis at 1st IP joint * Patient was given vancomycin and cefepime while in the ED, then transition to vancomycin and Rocephin 2 g * General surgery consulted and patient was presented surgical versus non surgical treatment. Patient currently wants time to think about his options. * Wound nurse consult * White blood cell count 9.5 on arrival, CRP 3.8, ESR 57--continue to trend * Wound and blood cultures were obtained and pending * New diagnosis of type II DM this admission, Hgb A1C 6.0 08/25 * Continue NPO status * Plan for amputation of right great toe today with General surgery * WBC 9.1 * Continue Vancomycin and Ancef (3) Septic arthritis of interphalangeal joint of toe of right foot: Code(s): M00.9 - Pyogenic arthritis, unspecified Status: Acute Assessment and Plan: see above (4) CHF (congestive heart failure): Code(s): I50.9 - Heart failure, unspecified Status: Acute Assessment and Plan: * ProBNP * Not currently on any medications at home * Cardiology consulted * Will get Echocardiogram today * CXR was negative * CTA of chest shown cardiomegaly 08/25 * Echo ordered * Cardiology consulted will await their recommendations considering his medical non-compliance * Continue IV lasix and Losartan (5) Elevated troponin: Code(s): R79.89 - Other specified abnormal findings of blood chemistry Status: Acute Assessment and Plan: * Troponin 0.230>0.216 * Likely demand ischemia * Will get cardiology consult * EKG showing NSR with left atrial enlargement, incomplete right BBB with a rate of 86, QTc 465 (6) Type II diabetes mellitus: Code(s): E11.9 - Type 2 diabetes mellitus without complications Status: Acute Assessment and Plan: New diagnosis * Hgb A1C 6.0 * Blood sugars ranging 93-106 * Accu checks AC/HS * high dose SSI ordered * hypoglycemic protocol in place * Diabetic diet ordered * breastfeeding educator consult * Dietitian 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 * eGFR 51-55 baseline * Continue to trend * Avoid nephrotoxic medications and testing with IV contrast 1/3 * Creatinine 1.70--improving * Continue to trend (8) Right thyroid nodule: Code(s): E04.1 - Nontoxic single thyroid nodule Status: Acute Assessment and Plan: * Chest CTA shown right thyroid nodule * Will check TSH, Free T3 and Free T4 today * May need thyroid US with biopsy on an outpatient basis (9) Elevated d-dimer: Code(s): R79.89 - Other specified abnormal findings of blood chemistry Status: Acute Assessment and Plan: * D- dimer 1.24 * CTA of chest was negative for PE, mild mediastinal and bilateral hilar lymphadenopathy, cardiomegaly, right thyroid nodule. * CXR- was negative (10) Hypertension: Code(s): I10 - Essential (primary) hypertension Status: Chronic Assessment and Plan: * Blood pressure ranging 137/96-180/122 * Currently not taking any medications at home * Continue Losartan 50 mg daily (11) Rheumatoid arthritis: Code(s): M06.9 - Rheumatoid arthritis, unspecified Status: Chronic Assessment and Plan: of note * Not on any medications currently (12) Tobacco dependence: Code(s): F17.200 - Nicotine dependence, unspecified, uncomplicated Status: Chronic Assessment and Plan: * Smokes 2 packs per day, current every day user * Educate on smoking cessation * Educate on smoking and delayed wound healing * Nicotine patch ordered Time Spent With Patient Time with patient: 15 - 25 minutes Subjective Date/time seen: 08/25/24 11:33 Interval history: Interval history: This is a 44 year old male with a significant past medical history of hypertension, KALLI, CHF, CKD, depression, anxiety, Rheumatid arthritis, tobacco abuse 2-pack-per day who presented for evaluation of his right great toe infection and acute respiratory failure with hypoxia. Patient states that he has had ongoing wound to his right great toe for about a month now. He was initially seen at a hospital in [place] who offered him amputation of the first toe however he refused at that time. He likely had osteomyelitis at that time. At this time, he denies any fever, chills, nausea, vomiting, diarrhea, abdominal pain, chest pain. He reports SOB with exertion. He does not wear any oxygen at baseline. He states that he had an Echo done in [place] which shown 40% EF however he is not taking medications for this or following a heart healthy diet. He denies being diabetic. He states that he can not afford medications and has no medical insurance at this time. 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 Work up in the hospital includes a toe x-ray that shown osteomye litis and septic arthritis at first IP joint. Chest x-ray was negative. Chest CT was negative for pulmonary embolus, mild mediastinal and bilateral hilar lymphadenopathy, cardiomegaly, right thyroid nodule. Initial labs shown a WBC 9.5, Hgb 13.3, ESR 57, D-dimer 1.24, Na+ 136, creatinine 2.00, eGFR 36, troponin 0.230, CRP 3.8, proBNP 63055. Respiratory panel was negative for Influenza A and B, RSV, COVID. Blood and wound cultures pending. EKG showing NSR with a rate of 87, incomplete right BBB, QTc 465. Patient was given pain medication, Cefepime, and Vancomycin while in the ER. He was then transitioned to Rocephin and Vancomycin considering his MARYAN. General surgery was consulted and patient was given the option of amputation versus intermodal customer service antibiotics. He wants time to consider the options. He is being admitted in this setting for possible surgery and IV antibiotics. Subjective: Patient denies any new complaints today. Labs reviewed. Review of Systems Review of Systems: All systems reviewed & are unremarkable except as noted in HPI and below Constitutional: Constitutional: Reports as per HPI and Reports no additional constitutional complaints Eyes: Eyes: Reports as per HPI and Reports no additional eye complaints ENT: Reports system reviewed and no additional complaints, except as documented and Reports as per HPI Cardiovascular: Cardiovascular: Reports as per HPI and Reports no additional cardiovascular complaints Respiratory: Respiratory: Reports as per HPI and Reports no additional respiratory complaints Gastrointestinal: Gastrointestinal: Reports as per HPI and Reports no additional gastrointestinal complaints Genitourinary: Genitourinary: Reports no additional male genitourinary complaints and Reports as per HPI Musculoskeletal: Musculoskeletal: Reports no additional musculoskeletal complaints and Reports as per HPI Integumentary/Breasts: Skin/Breast: Reports system reviewed and no additional complaints, except as docu and Reports as per HPI Neurologic: Reports system reviewed and no additional complaints, except as documented and Reports as per HPI Psychiatric: Psychiatric: Reports no additional psychiatric complaints and Reports as per HPI Exam Narrative: General: In no acute distress, well nourished Cardiac: Normal S1 and S2. RRR, No murmur, gallops or friction rubs, peripheral pulses intact. Respiratory: Mild wheezing noted bilaterally, no other adventitious lung sounds, currently on room air, non-productive cough, SOB with exertion Gastrointestinal: soft, non-distended, non-tender, normoactive bowel sounds. : voiding without difficulty. Skin: Right great toe with wound that measures 1cm x1cm that probes to the bone at the level of the PIP joint, foul purulent drainage noted. Erythema and swelling noted to the right great toe extending to the ankle. Clean dressing in place. Neuro: Alert and oriented x4 Objective Data Vital Signs Vital Signs: Vital Signs - 24 hr 08/24/24 11:34 08/24/24 12:02 08/24/24 12:41 Temperature Pulse Rate 90 97 Respiratory Rate 22 H 21 H Blood Pressure 159/118 H Pulse Oximetry 94 Oxygen Delivery Nasal Cannula Oxygen Flow Rate 2 08/24/24 14:16 08/24/24 16:00 08/24/24 16:00 Temperature 98.2 F 98.1 F Pulse Rate 91 92 90 Respiratory Rate 18 20 Blood Pressure 143/86 H 119/86 Pulse Oximetry 96 96 Oxygen Delivery Oxygen Flow Rate 08/24/24 18:00 08/24/24 20:00 08/24/24 20:00 Temperature 100.0 F H Pulse Rate 94 97 98 Respiratory Rate 24 H Blood Pressure 144/98 H Pulse Oximetry 97 Oxygen Delivery Oxygen Flow Rate 08/24/24 20:00 08/24/24 22:00 08/24/24 23:36 Temperature 99.9 F H Pulse Rate 99 96 99 Respiratory Rate 24 H 24 H Blood Pressure 158/96 H Pulse Oximetry 90 90 Oxygen Delivery Room Air Oxygen Flow Rate 08/25/24 00:00 08/25/24 00:00 08/25/24 02:00 Temperature Pulse Rate 99 99 96 Respiratory Rate 24 H Blood Pressure Pulse Oximetry 90 Oxygen Delivery Nasal Cannula Oxygen Flow Rate 2 08/25/24 03:48 08/25/24 03:48 08/25/24 04:00 Temperature 99.1 F Pulse Rate 91 100 Respiratory Rate 26 H Blood Pressure 151/101 H 150/103 H Pulse Oximetry 95 Oxygen Delivery Oxygen Flow Rate 08/25/24 04:00 08/25/24 06:00 08/25/24 07:28 Temperature 97.5 F L Pulse Rate 100 108 H 98 Respiratory Rate 24 H 24 H Blood Pressure 164/105 H Pulse Oximetry 90 96 Oxygen Delivery Nasal Cannula Oxygen Flow Rate 2 08/25/24 11:20 08/25/24 11:21 Temperature 98.0 F Pulse Rate 90 89 Respiratory Rate 24 H Blood Pressure 157/114 H Pulse Oximetry 94 Oxygen Delivery Oxygen Flow Rate Intake/Output Intake/Output: Intake & Output 08/22/24 08/23/24 08/24/24 08/25/24 23:59 23:59 23:59 23:59 Intake Total 2680 1100 Output Total 800 Balance 1880 1100 Meds/Results Medications: Active Medications Generic Name Dose Route Start Last Admin Trade Name Freq PRN Reason Stop Dose Admin Acetaminophen 650 mg 08/24/24 11:29 Acetaminophen 325 Mg Tablet PO Q4H PRN Mild Pain (1-3) or Fever Hydrocodone Bitart/Acetaminophen 1 tab 08/24/24 11:29 08/25/24 04:05 Hydrocodone/Acetaminophen (*Crx) 5-325 Mg Tablet PO 1 tab Q4H PRN Administration Pain Rated 4-6 Dextrose 12.5 gm 08/24/24 14:28 Dextrose 50% 25 Gm/50 Ml Syringe IV PUSH PRN PRN Hypoglycemia Protocol Furosemide 40 mg 08/24/24 14:20 08/25/24 08:55 Furosemide Inj 40 Mg/4 Ml Vial IV PUSH 40 mg BID LESLI Administration Glucagon 1 mg 08/24/24 14:28 Glucagon For Inj 1 Mg Vial IM PRN PRN Hypoglycemia Protocol Glucose 15 gm 08/24/24 14:28 Glucose Oral Gel 15 Gm Of Glucse In 37.5 Gm Tube PO PRN PRN Hypoglycemia Protocol Dextrose 1,000 mls @ 100 mls/hr 08/24/24 14:28 Dextrose 5% 1,000 Ml IVPB PRN PRN Hypoglycemia Protocol Vancomycin HCl 1,500 mg in 500 mls @ 250 mls/hr 08/25/24 16:00 Vancomycin 1,500 Mg/Ns 500 Ml IVPB Q12H LESLI Insulin Aspart 4 - 8 units 08/24/24 17:00 08/25/24 11:18 Insulin Aspart (*Bkc) 100 Units/Ml SUB-Q Not Given TIDWM LESLI Protocol Insulin Aspart 2 - 4 units 08/24/24 21:00 08/24/24 21:13 Insulin Aspart (*Bkc) 100 Units/Ml SUB-Q Not Given HS LESLI Protocol Losartan Potassium 50 mg 08/24/24 12:25 08/25/24 08:55 Losartan Potassium 50 Mg Tablet PO 50 mg DAILY LESLI Administration Metoprolol Succinate 50 mg 08/25/24 09:45 08/25/24 11:21 Metoprolol Succinate Ext Rel 50 Mg Tabcr PO 50 mg BID LESLI Administration Morphine Sulfate 2 mg 08/24/24 12:48 Morphine Sulfate (*Crx) 2 Mg/Ml Inj IV PUSH Q4H PRN Pain Rated 7-10 Nicotine 1 patch 08/25/24 09:00 08/25/24 11:00 Nicotine (*Pbkc) 21 Mg Patch TRANSDERM Not Given DAILY LESLI Ondansetron HCl 4 mg 08/24/24 11:29 Ondansetron Inj 4 Mg/2 Ml Vial IV PUSH Q4H PRN Nausea Perflutren Lipid Microsphere 0 ml 08/24/24 11:29 Perflutren Lipid Microspheres 1.5 Ml Vial Diluted To 10 Ml Total Volume IV PUSH 08/27/24 11:29 ONCE PRN adequate visualization Protocol Silver Sulfadiazine 1 applic 08/24/24 15:00 08/25/24 11:22 Silver Sulfadiazine 1% Cr 50 Gm Jar (*Bkc) TOPICAL 1 applic DAILY LESLI Administration Radiology Results: ITS Impressions Toe X-Ray 08/24/24 08:02 IMPRESSION: 1. Osteomyelitis and septic arthritis at first interphalangeal joint. Chest X-Ray 08/24/24 08:47 Impression: 1: No acute cardiopulmonary disease. Chest CTA 08/24/24 10:44 IMPRESSION: 1. No pulmonary embolus. Sensitivity is moderately decreased by motion artifact. 2. Mild mediastinal and bilateral hilar lymphadenopathy. The differential diagnosis includes reactive lymphadenopathy (including sarcoid) and less likely malignancy such as lymphoma. 3. Cardiomegaly. 4. Right thyroid nodule. Consider thyroid ultrasound for risk stratification. Labs Labs: Laboratory Results - last 24 hr 08/24/24 08/24/24 08/24/24 07:50 11:37 16:23 WBC RBC Hgb Hct MCV MCH MCHC RDW Plt Count MPV Immature Gran % (Auto) Neut % (Auto) Lymph % (Auto) Walker % (Auto) Eos % (Auto) Baso % (Auto) Lymph # (Auto) Walker # (Auto) Eos # (Auto) Baso # (Auto) Abs Immat Gran (auto) Absolute Neuts (auto) Absolute Nucleated RBC Nucleated RBC % ESR Sodium Potassium Chloride Carbon Dioxide Anion Gap BUN Creatinine Estim Creat Clear Calc Estimated GFR Glucose POC Capillary Glucose 132 H Hemoglobin A1c 6.0 H Calcium Magnesium Total Bilirubin AST ALT Alkaline Phosphatase Troponin I 0.216 H* C-Reactive Protein Total Protein Albumin Triglycerides 103 Cholesterol 131 LDL Cholesterol Direct 78 HDL Direct 19 TSH 0.776 Free T4 1.55 08/24/24 08/25/24 08/25/24 19:49 05:05 07:31 WBC 9.1 RBC 5.29 Hgb 13.4 L Hct 44.0 MCV 83.2 MCH 25.3 L MCHC 30.5 L RDW 15.6 H Plt Count 287 MPV 10.4 Immature Gran % (Auto) 0.3 Neut % (Auto) 74.1 H Lymph % (Auto) 10.6 L Walker % (Auto) 10.3 H Eos % (Auto) 4.2 Baso % (Auto) 0.5 Lymph # (Auto) 0.97 Walker # (Auto) 0.9 H Eos # (Auto) 0.4 H Baso # (Auto) 0.1 Abs Immat Gran (auto) 0.03 Absolute Neuts (auto) 6.7 Absolute Nucleated RBC 0.000 Nucleated RBC % 0.0 ESR 7 Sodium 138 Potassium 4.0 Chloride 106 Carbon Dioxide 31 H Anion Gap 1 L BUN 32 H Creatinine 1.70 H Estim Creat Clear Calc 81 Estimated GFR 44 L Glucose 116 H POC Capillary Glucose 134 H 131 H Hemoglobin A1c Calcium 8.4 Magnesium 1.9 Total Bilirubin 0.5 AST 20 ALT 22 Alkaline Phosphatase 82 Troponin I C-Reactive Protein 4.2 H Total Protein 7.0 Albumin 3.5 Triglycerides Cholesterol LDL Cholesterol Direct HDL Direct TSH Free T4 Quality VTE Prophylaxis VTE prophylaxis: mechanical ordered
[2024-08-25 11:52] LABS: Glucose Point of Care 121 mg/dl (65-105)
[2024-08-25 12:20] LABS: Glucose Point of Care 98 mg/dl (65-105)
--- NOTE | 2024-08-25 12:49 | IVDEFINITY ---
Prior to administration of IV Definity the patient was educated on the risks and benefits of the imaging enhancing agent including potential adverse side effects. The patient verbalized understanding. Allergies were verified. No exclusion criteria were identified and at least one of the following inclusion criteria were met: 1) physician request, 2) patient technically difficult to image (per the [place] [employer] of Echocardiography guidelines of two or more segments not discernable within the apical view), or 3) questionable left ventricular function. ?
--- NOTE | 2024-08-25 12:53 | WPDHPUPDATE1 ---
History and Physical Update Update Date/Time: 08/25/24 12:53 History and Physical has been reviewed, including an updated exam of the patient. There are NO changes in the patient's condition. Risks, benefits, and alternatives have been discussed and questions answered. Patient agrees to proceed with procedure. After discussion with patient, including postop care, risk for progression of infection, usually recovery, he agrees to proceed with right great toe amputation.
--- NOTE | 2024-08-25 12:54 | P.PNAN_ITS ---
Anes - Initial Pre Proc Eval Procedure: Operation Date: 08/25/24 14:00 Proposed Procedures p Right Great Toe Amputation - Fredi Jernigan MD Date/Time: 08/25/24 12:54 Surgeon: Stanley Dunbar MD Pre Op Diagnosis: Osteomyelitis/Septic Arthritis/NSTEMI/New Onset He Patient Data Age: 44 Gender: M Height: 1.96 m Weight: 155.9 kg Last Vital Signs Temp 36.1 C L 08/25/24 12:10 Pulse 76 08/25/24 12:10 Resp 20 08/25/24 12:10 BP 156/109 H 08/25/24 12:10 Pulse Ox 93 08/25/24 12:10 O2 Del Method Room Air 08/25/24 12:10 O2 Flow Rate 2 08/25/24 04:00 Allergies Allergy/AdvReac Type Severity Reaction Status Date / Time codeine Allergy Intermediate Rash Verified 08/25/24 12:23 Home Medications ?Medication ?Instructions ?Recorded ?Confirmed ?Type doxycycline hyclate 100 mg capsule 100 mg PO BID 10 days #20 caps 04/16/22 08/24/24 Rx cyclobenzaprine 10 mg tablet 10 mg PO TID PRN muscle spasm #20 08/31/23 08/24/24 Rx tabs Laboratory Tests 08/24/24 08/24/24 08/24/24 07:50 08:22 16:23 WBC RBC Hgb Hct MCV MCH MCHC RDW Plt Count MPV Immature Gran % (Auto) Neut % (Auto) Lymph % (Auto) [place] % (Auto) Eos % (Auto) Baso % (Auto) Lymph # (Auto) [place] # (Auto) Eos # (Auto) Baso # (Auto) Abs Immat Gran (auto) Absolute Neuts (auto) Absolute Nucleated RBC Nucleated RBC % ESR Sodium Potassium Chloride Carbon Dioxide Anion Gap BUN Creatinine Estim Creat Clear Calc Estimated GFR Glucose POC Capillary Glucose 132 H mg/dl (65-105) Calcium Magnesium Total Bilirubin AST ALT Alkaline Phosphatase C-Reactive Protein Total Protein Albumin Triglycerides 103 mg/dL (<150) Cholesterol 131 mg/dL (0-200) LDL Cholesterol Direct 78 mg/dL HDL Direct 19 mg/dL TSH 0.776 uIU/mL (0.465-4.680) Urine Opiates Screen Pending Urine Methadone Screen Pending Ur Barbiturates Screen Pending Ur Phencyclidine Scrn Pending Ur Amphetamine Screen Pending U Benzodiazepines Scrn Pending Urine Cocaine Screen Pending U Cannabinoids Screen Pending 08/24/24 08/25/24 08/25/24 19:49 05:05 07:31 WBC 9.1 K/mm3 (4.5-10.0) RBC 5.29 M/mm3 (4.6-6.20) Hgb 13.4 L g/dL (14.0-18.0) Hct 44.0 % (42.0-52.0) MCV 83.2 fl (80-100) MCH 25.3 L pg (26-34) MCHC 30.5 L g/dl (32-36) RDW 15.6 H % (11.5-14.5) Plt Count 287 k/mm3 (150-375) MPV 10.4 fl (7.4-10.4) Immature Gran % (Auto) 0.3 % (0-0.5) Neut % (Auto) 74.1 H % (45.5-73.1) Lymph % (Auto) 10.6 L % (18.3-44.2) [place] % (Auto) 10.3 H % (2.6-8.5) Eos % (Auto) 4.2 % (0-4.4) Baso % (Auto) 0.5 % (0.2-1.2) Lymph # (Auto) 0.97 K/mm3 (0.9-3.2) [place] # (Auto) 0.9 H K/mm3 (0.1-0.6) Eos # (Auto) 0.4 H K/mm3 (0-0.3) Baso # (Auto) 0.1 K/mm3 (0.0-0.1) Abs Immat Gran (auto) 0.03 K/mm3 (0.00-0.031) Absolute Neuts (auto) 6.7 K/mm3 (1.3-6.7) Absolute Nucleated RBC 0.000 K/mm3 (0.0-0.012) Nucleated RBC % 0.0 % (0.0-0.2) ESR 7 mm/hr (0-20) Sodium 138 mmol/L (137-145) Potassium 4.0 mmol/L (3.4-5.0) Chloride 106 mmol/L (98-107) Carbon Dioxide 31 H mmol/L (22-30) Anion Gap 1 L mmol/L (4-12) BUN 32 H mg/dL (9-20) Creatinine 1.70 H mg/dL (0.7-1.3) Estim Creat Clear Calc 81 ml/min Estimated GFR 44 L (59 - ) Glucose 116 H mg/dL (65-110) POC Capillary Glucose 134 H mg/dl 131 H mg/dl (65-105) (65-105) Calcium 8.4 mg/dL (8.4-10.2) Magnesium 1.9 mg/dL (1.6-2.3) Total Bilirubin 0.5 mg/dL (0.2-1.3) AST 20 U/L (17-59) ALT 22 U/L (6-50) Alkaline Phosphatase 82 U/L (38-126) C-Reactive Protein 4.2 H mg/dL (<1.0) Total Protein 7.0 g/dL (6.3-8.2) Albumin 3.5 g/dL (3.5-5.1) Triglycerides Cholesterol LDL Cholesterol Direct HDL Direct TSH Urine Opiates Screen Urine Methadone Screen Ur Barbiturates Screen Ur Phencyclidine Scrn Ur Amphetamine Screen U Benzodiazepines Scrn Urine Cocaine Screen U Cannabinoids Screen 08/25/24 08/25/24 11:27 12:18 WBC RBC Hgb Hct MCV MCH MCHC RDW Plt Count MPV Immature Gran % (Auto) Neut % (Auto) Lymph % (Auto) [place] % (Auto) Eos % (Auto) Baso % (Auto) Lymph # (Auto) [place] # (Auto) Eos # (Auto) Baso # (Auto) Abs Immat Gran (auto) Absolute Neuts (auto) Absolute Nucleated RBC Nucleated RBC % ESR Sodium Potassium Chloride Carbon Dioxide Anion Gap BUN Creatinine Estim Creat Clear Calc Estimated GFR Glucose POC Capillary Glucose 121 H mg/dl 98 mg/dl (65-105) (65-105) Calcium Magnesium Total Bilirubin AST ALT Alkaline Phosphatase C-Reactive Protein Total Protein Albumin Triglycerides Cholesterol LDL Cholesterol Direct HDL Direct TSH Urine Opiates Screen Urine Methadone Screen Ur Barbiturates Screen Ur Phencyclidine Scrn Ur Amphetamine Screen U Benzodiazepines Scrn Urine Cocaine Screen U Cannabinoids Screen Patient hx anesthesia problems: none Family hx anesthesia problems: none Results Review: All pre-operative results and documents have been reviewed as part of the pre- operative evaluation. REPLACED BY [facility] Past Medical History Medical History (Updated 08/25/24 @ 13:00 by Sandoval Monte DO) Type II diabetes mellitus CHF (congestive heart failure) EF 40% Rheumatoid arthritis Obstructive sleep apnea Rheumatoid arthritis Hypertension Surgical History Surgical History No pertinent past surgical history Family History Family History (Updated 08/24/24 @ 14:20 by ZARA Márquez) Mother Acute myocardial infarction Congestive heart failure Other Diabetes mellitus Social History Social History Smoking packs per day: 2 Smoking cigarettes per day: 40.0 Smoking status: Current every day smoker Alcohol intake: never Drinks per week: 1 Substance use: current Substance use type: marijuana Other substance usage details: 1-2 GRAMS PER WEEK Do You Feel Safe in your Home?: Yes Lack of Transportation: No Lack of Food: Never True Current Housing: I Have Housing Concerned About Future Housing: No Difficulty Paying Gas/Electric Bills: No Difficulty Paying for Meds: YES Currently Unemployed: No Education: High School Diploma/GED Difficulty w/ Childcare or Family Care: No Gender identity (if verbalized by the patient): Male Spiritual care concerns: No Anes - Eval Final PreProcedure Day of Procedure 08/25/24 12:54 Patient weight: morbidly obese Heart: regular rate and rhythm Lungs: clear to auscultation Airway: Mallampati scale class III Neurological: alert and oriented Last oral intake: >/= 8 hours ASA classification: IV Emergent: yes Anesthetic plan: proceed Anesthesia type and monitoring: general LMA and standard monitoring Results Review: All pre-operative results and documents have been reviewed as part of the pre- operative evaluation. Informed Consent: The patient's anesthetic plan and its attendant risks and benefits were dis cussed with the patient/family/POA. Questions were solicited and answers provided to the satisfaction of the patient/family/POA.
[2024-08-25] MEDS: LACTATED RINGERS 1,000 ML 30 ML IV CONT ×2 (13:02→14:28)
[2024-08-25] MEDS: ceFAZolin 3 GM/D5W 100 ML 100 ML IVPB (13:13)
[2024-08-25] MEDS: LIDOCAINE 1% LOCAL INJ 20 ML VIAL 10 ML INFILTRATE (13:50)
--- NOTE | 2024-08-25 13:52 | SUR.OPER ---
Aerobic, anaerobic and gram stain of right great toe sent with CALLIE Peters and received by Danny.
[2024-08-25 14:34] LABS: Glucose Point of Care 106 mg/dl (65-105)
--- NOTE | 2024-08-25 14:45 | W.PM.PROC2 ---
Procedure Note - Detailed Date of Procedure 08/25/24 Pre-op Diagnosis Osteomyelitis right great toe Post-op Diagnosis Same Procedure Performed Right 1st toe transmetatarsal amputation Surgeon Fredi Jernigan MD Loss Prevention Officer Carrie Funez [facility] Anesthesia General (LMA) and Local Indications Patient has a draining ulcer at the interphalangeal joint anteromedially on his right great toe. This ulcer is draining purulent fluid and probes to bone. Plain films are also consistent with osteomyelitis of the interphalangeal joint. After discussion, patient has agreed to proceed today with right great toe amputation. Findings Arthritic right great toe with ulcer and purulence as described above. Blood supply appeared to be quite good. Description of Procedure Patient was is marked in the preoperative holding area. He was taken to the operating room and induced into general anesthesia per LMA. The right lower leg including the foot and toes were prepped and draped. I used a culture swab and acquired purulent fluid from the toe ulcer to send for Gram stain, aerobic and anaerobic culture. I infiltrated local using a proximal digital block on the great toe. I then made an anterior posterior for proximal flap incision that extended medially towards the distal metatarsal. Cautery was used for hemostasis. Sharp dissection was used to carry through the tendinous structure was and down to the metatarsal phalangeal joint. I then used a periosteal elevator and some additional sharp dissection to free the proximal phalanx and remainder of the great toe. This was set off as a specimen. Cautery was used for hemostasis. I then extended the medial incision a bit more proximal. We used the periosteal elevator to expose the distal metatarsal. I used a bone cutter to divide the distal metatarsal from the shaft. Once this was removed, I used cautery to achieve good hemostasis of the wound. We then irrigated the wound thoroughly with saline. I trimmed some of the skin edges and removed some additional tendinous structures particularly in the posterior flap. Both the great toe and the distal metatarsal were sent as 1 specimen. I then closed the amputation wound with interrupted 3-0 Vicryl suture. The sutures were started in the depth of the wound and proceeded to superficial subcutaneous and some subcuticular interrupted suture. The skin was loosely closed in this fashion. We then cleaned the foot and dressed the wound with Xeroform gauze, fluffs, and Kerlix roll. Patient was then awakened and taken to recovery in good condition. Sponge and needle counts were correct x2. Estimated Blood Loss -30 Urine Output 800 Drains No Packing No Pathology Yes (Right great toe with distal metatarsal) Complications None Condition Stable Disposition PACU [facility] Billing Surgery - Charge Forward: Surgery Billing (Right great toe transmetatarsal amputation)
--- NOTE | 2024-08-25 14:55 | P.PNGS_ITS ---
Progress Note: A&P Assessment and Plan (1) Osteomyelitis of great toe of right foot: Code(s): M86.9 - Osteomyelitis, unspecified Status: Acute Assessment and Plan: After lengthy discussion, patient has decided that he would prefer to go ahead with right great toe amputation. This is primarily to treat the infection and avoid more proximal spread of the infection to his foot and lower leg. I discussed the procedure with him including the length of the surgery, the length of recovery, the time off work, the general activity after surgery. All questions were answered. He wishes to proceed. (2) Tobacco dependence: Code(s): F17.200 - Nicotine dependence, unspecified, uncomplicated Status: Chronic Assessment and Plan: Increases surgical risk of infection and poor healing Subjective Subjective Date/Time Seen: 08/25/24 14:55 Patient reports: no new complaints, voiding w/o difficulty and afebrile Review of Systems Review of Systems: All systems reviewed & are unremarkable except as noted in HPI and below (HPI) Exam Const: General: alert, awake, anxious, poor hygiene and obese Extrem: Right lower extremity: foot (Interphalangeal ulcer right great toe, probes to bone) Details: edema, vascular exam Details: dorsalis pedis pulse present, posterior tibial pulse present and normal capillary refill and other (Purulent fluid draining right great toe ulcer); no tenderness, no ecchymosis and no crepitus Objective Data Vital Signs Vital Signs: Vital Signs - 24 hr 08/24/24 16:00 08/24/24 16:00 08/24/24 18:00 Temperature 36.7 C Pulse Rate 92 90 94 Respiratory Rate 20 Blood Pressure 119/86 Pulse Oximetry 96 Oxygen Delivery Oxygen Flow Rate 08/24/24 20:00 08/24/24 20:00 08/24/24 20:00 Temperature 37.8 C H Pulse Rate 97 98 99 Respiratory Rate 24 H 24 H Blood Pressure 144/98 H Pulse Oximetry 97 90 Oxygen Delivery Room Air Oxygen Flow Rate 08/24/24 22:00 08/24/24 23:36 08/25/24 00:00 Temperature 37.7 C H Pulse Rate 96 99 99 Respiratory Rate 24 H Blood Pressure 158/96 H Pulse Oximetry 90 Oxygen Delivery Oxygen Flow Rate 08/25/24 00:00 08/25/24 02:00 08/25/24 03:48 Temperature 37.3 C Pulse Rate 99 96 91 Respiratory Rate 24 H 26 H Blood Pressure 151/101 H Pulse Oximetry 90 95 Oxygen Delivery Nasal Cannula Oxygen Flow Rate 2 08/25/24 03:48 08/25/24 04:00 08/25/24 04:00 Temperature Pulse Rate 100 100 Respiratory Rate 24 H Blood Pressure 150/103 H Pulse Oximetry 90 Oxygen Delivery Nasal Cannula Oxygen Flow Rate 2 08/25/24 06:00 08/25/24 07:28 08/25/24 11:20 Temperature 36.4 C L 36.7 C Pulse Rate 108 H 98 90 Respiratory Rate 24 H 24 H Blood Pressure 164/105 H 157/114 H Pulse Oximetry 96 94 Oxygen Delivery Oxygen Flow Rate 08/25/24 11:21 08/25/24 12:10 08/25/24 14:28 Temperature 36.1 C L 36.4 C L Pulse Rate 89 76 68 Respiratory Rate 20 19 Blood Pressure 156/109 H 94/62 L Pulse Oximetry 93 95 Oxygen Delivery Room Air Simple Face Mask Oxygen Flow Rate 8 08/25/24 14:43 08/25/24 14:45 Temperature Pulse Rate 81 81 Respiratory Rate 18 19 Blood Pressure 127/82 129/83 Pulse Oximetry 95 95 Oxygen Delivery Simple Face Mask Simple Face Mask Oxygen Flow Rate 8 8 Intake/Output Intake/Output: Intake & Output 08/22/24 08/23/24 08/24/24 08/25/24 23:59 23:59 23:59 23:59 Intake Total 2680 1143 Output Total 800 800 Balance 1880 343 Meds/Results Medications: Active Medications Generic Name Dose Route Start Last Admin Trade Name Freq PRN Reason Stop Dose Admin Acetaminophen 500 mg 08/25/24 14:48 Acetaminophen 500 Mg Tablet PO Q6H PRN Pain Rated 1-3 Hydrocodone Bitart/Acetaminophen 1 tab 08/25/24 14:48 Hydrocodone/Acetaminophen (*Crx) 7.5-325 Mg Tablet PO Q4H PRN Pain Rated 7-10 Dextrose 12.5 gm 08/24/24 14:28 Dextrose 50% 25 Gm/50 Ml Syringe IV PUSH PRN PRN Hypoglycemia Protocol Enoxaparin Sodium 40 mg 08/26/24 09:00 Enoxaparin 40 Mg/0.4 Ml Syringe SUB-Q DAILY L[facility] Furosemide 40 mg 08/24/24 14:20 08/25/24 08:55 Furosemide Inj 40 Mg/4 Ml Vial IV PUSH 40 mg BID LESLI Administration Glucagon 1 mg 08/24/24 14:28 Glucagon For Inj 1 Mg Vial IM PRN PRN Hypoglycemia Protocol Glucose 15 gm 08/24/24 14:28 Glucose Oral Gel 15 Gm Of Glucse In 37.5 Gm Tube PO PRN PRN Hypoglycemia Protocol Dextrose 1,000 mls @ 100 mls/hr 08/24/24 14:28 Dextrose 5% 1,000 Ml IVPB PRN PRN Hypoglycemia Protocol Vancomycin HCl 1,500 mg in 500 mls @ 250 mls/hr 08/25/24 16:00 Vancomycin 1,500 Mg/Ns 500 Ml IVPB Q12H [facility] Lactated Ringer's 1,000 mls @ 100 mls/hr 08/25/24 14:48 Lr - Lactated Ringers Iv IV CONT 08/26/24 00:47 .Q10H ONE Cefepime HCl 2 gm in 50 mls @ 100 mls/hr 08/25/24 17:00 Maxipime 2 Gm/Ns 50 Ml IVPB Q12H [facility] Insulin Aspart 4 - 8 units 08/24/24 17:00 08/25/24 11:18 Insulin Aspart (*Bkc) 100 Units/Ml SUB-Q Not Given TIDWM [facility] Protocol Insulin Aspart 2 - 4 units 08/24/24 21:00 08/24/24 21:13 Insulin Aspart (*Bkc) 100 Units/Ml SUB-Q Not Given HS [facility] Protocol Losartan Potassium 50 mg 08/24/24 12:25 08/25/24 08:55 Losartan Potassium 50 Mg Tablet PO 50 mg DAILY L[facility] Administration Metoprolol Succinate 50 mg 08/25/24 09:45 08/25/24 11:21 Metoprolol Succinate Ext Rel 50 Mg Tabcr PO 50 mg BID [facility] Administration Morphine Sulfate 1 mg 08/25/24 14:48 Morphine Sulfate (*Crx) 2 Mg/Ml Inj IV PUSH Q2H PRN Breakthrough Pain Rated 4-6 or NPO Morphine Sulfate 2 mg 08/25/24 14:48 Morphine Sulfate (*Crx) 2 Mg/Ml Inj IV PUSH Q2H PRN Breakthrough Pain Rated 7-10 or NPO Naloxone HCl 0.1 mg 08/25/24 14:48 Naloxone Hcl 0.4 Mg/Ml Vial IV PUSH Q2M PRN Opiate Reversal Nicotine 1 patch 08/25/24 09:00 08/25/24 11:00 Nicotine (*Pbkc) 21 Mg Patch TRANSDERM Not Given DAILY [facility] Oxycodone/Acetaminophen 1 tablet 08/25/24 14:48 Oxycodone/Acetaminophen (*Crx) 5-325 Mg Tablet PO Q4H PRN Pain Rated 4-6 Potassium Chloride 20 meq 08/25/24 14:48 Potassium Chloride 20 Meq Er Tablet PO 08/25/24 14:49 ONCE ONE Potassium Chloride 20 meq 08/26/24 08:00 Potassium Chloride 20 Meq Er Tablet PO DAILY@0800 [facility] Radiology Results: ITS Impressions Toe X-Ray 08/24/24 08:02 IMPRESSION: 1. Osteomyelitis and septic arthritis at first interphalangeal joint. Chest X-Ray 08/24/24 08:47 Impression: 1: No acute cardiopulmonary disease. Chest CTA 08/24/24 10:44 IMPRESSION: 1. No pulmonary embolus. Sensitivity is moderately decreased by motion artifact. 2. Mild mediastinal and bilateral hilar lymphadenopathy. The differential diagnosis includes reactive lymphadenopathy (including sarcoid) and less likely malignancy such as lymphoma. 3. Cardiomegaly. 4. Right thyroid nodule. Consider thyroid ultrasound for risk stratification. Labs Labs: Laboratory Results - last 24 hr 08/24/24 08/24/24 08/25/24 16:23 19:49 05:05 WBC 9.1 RBC 5.29 Hgb 13.4 L Hct 44.0 MCV 83.2 MCH 25.3 L MCHC 30.5 L RDW 15.6 H Plt Count 287 MPV 10.4 Immature Gran % (Auto) 0.3 Neut % (Auto) 74.1 H Lymph % (Auto) 10.6 L [place] % (Auto) 10.3 H Eos % (Auto) 4.2 Baso % (Auto) 0.5 Lymph # (Auto) 0.97 [place] # (Auto) 0.9 H Eos # (Auto) 0.4 H Baso # (Auto) 0.1 Abs Immat Gran (auto) 0.03 Absolute Neuts (auto) 6.7 Absolute Nucleated RBC 0.000 Nucleated RBC % 0.0 ESR 7 Sodium 138 Potassium 4.0 Chloride 106 Carbon Dioxide 31 H Anion Gap 1 L BUN 32 H Creatinine 1.70 H Estim Creat Clear Calc 81 Estimated GFR 44 L Glucose 116 H POC Capillary Glucose 132 H 134 H Calcium 8.4 Magnesium 1.9 Total Bilirubin 0.5 AST 20 ALT 22 Alkaline Phosphatase 82 C-Reactive Protein 4.2 H Total Protein 7.0 Albumin 3.5 08/25/24 08/25/24 08/25/24 07:31 11:27 12:18 WBC RBC Hgb Hct MCV MCH MCHC RDW Plt Count MPV Immature Gran % (Auto) Neut % (Auto) Lymph % (Auto) [place] % (Auto) Eos % (Auto) Baso % (Auto) Lymph # (Auto) [place] # (Auto) Eos # (Auto) Baso # (Auto) Abs Immat Gran (auto) Absolute Neuts (auto) Absolute Nucleated RBC Nucleated RBC % ESR Sodium Potassium Chloride Carbon Dioxide Anion Gap BUN Creatinine Estim Creat Clear Calc Estimated GFR Glucose POC Capillary Glucose 131 H 121 H 98 Calcium Magnesium Total Bilirubin AST ALT Alkaline Phosphatase C-Reactive Protein Total Protein Albumin 08/25/24 14:32 WBC RBC Hgb Hct MCV MCH MCHC RDW Plt Count MPV Immature Gran % (Auto) Neut % (Auto) Lymph % (Auto) [place] % (Auto) Eos % (Auto) Baso % (Auto) Lymph # (Auto) [place] # (Auto) Eos # (Auto) Baso # (Auto) Abs Immat Gran (auto) Absolute Neuts (auto) Absolute Nucleated RBC Nucleated RBC % ESR Sodium Potassium Chloride Carbon Dioxide Anion Gap BUN Creatinine Estim Creat Clear Calc Estimated GFR Glucose POC Capillary Glucose 106 H Calcium Magnesium Total Bilirubin AST ALT Alkaline Phosphatase C-Reactive Protein Total Protein Albumin
[2024-08-25] MEDS: CEFEPIME 2 GM/NS 50 ML 2 GM/50 ML BAG IVPB (16:32)
[2024-08-25 16:36] LABS: Glucose Point of Care 134 mg/dl (65-105)
[2024-08-25 16:36] LABS: Glucose Point of Care < 20 mg/dl (65-105)
[2024-08-25] MEDS: POTASSIUM CHLORIDE 20 MEQ ER TABLET PO (16:36)
--- NOTE | 2024-08-25 16:36 | P.CONCA_ITS ---
Assessment and Plan Assessment and plan (1) Osteomyelitis of great toe of right foot: Code(s): M86.9 - Osteomyelitis, unspecified Status: Acute (2) CHF (congestive heart failure): Code(s): I50.9 - Heart failure, unspecified Status: Acute (3) CKD (chronic kidney disease): Code(s): N18.9 - Chronic kidney disease, unspecified Status: Acute Plan 1. Acute on chronic systolic heart failure 2. Hypertension 3. Right osteomyelitis 4. Preop evaluation -will diurese him with Lasix 40 mg b.i.d. -start him on Toprol-XL and losartan. Other medications like carvedilol or ARNI/SGLT2 inhibitors may have a higher co-pay so will not keep him on them -MRA to be added later renal function and potassium levels are low -his RCRI score is 2 which places him at moderate risk for low risk surgery. The amputation to be done under spinal regional anesthesia as well -continue aspirin and statin -echo to evaluate LV function -discussed ischemic evaluation with him, he would prefer to be on guideline directed medical therapy for 3 months and repeat echo and have Bc to low then he will consider ischemic evaluation History of Present Illness History of Present Illness Consult date/time: 08/25/24 16:36 Requesting physician: Louise Huerta MD Reason For Visit: Osteomyelitis/Septic Arthritis/NSTEMI/New Onset He Narrative: This is a 44 year old male with a significant past medical history of hypertension, KALLI, CHF, CKD, depression, anxiety, Rheumatid arthritis, tobacco abuse 2-pack-per day who presented for evaluation of his right great toe infection and acute respiratory failure with hypoxia. Was diagnosed to have systolic heart failure with EF of 40% in [place]. Apparently no ischemic evaluation was done at that time. Did not take guideline directed medical therapy for heart failure because of cost issues. 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 Denies any chest pain occasional shortness of breath on doing this able to do more than 4 Mets Does have dyspnea on moderate to severe exertion would occasionally EKG shows normal sinus rhythm, right bundle branch block Worsening renal function for the past several months current creatinine of 2 Elevated proBNP around 20,000 His positive more than 3 L since admission Review of Systems 2 Review of Systems: All systems reviewed & are unremarkable except as noted in HPI and below (HPI) Constitutional: Constitutional: Reports as per HPI and Reports no additional constitutional complaints Eyes: Eyes: Reports as per HPI and Reports no additional eye complaints ENT: Reports system reviewed and no additional complaints, except as documented and Reports as per HPI Cardiovascular: Cardiovascular: Reports as per HPI and Reports no additional cardiovascular complaints Respiratory: Respiratory: Reports as per HPI and Reports no additional respiratory complaints Gastrointestinal: Gastrointestinal: Reports as per HPI and Reports no additional gastrointestinal complaints Genitourinary: Genitourinary: Reports no additional male genitourinary complaints and Reports as per HPI Musculoskeletal: Musculoskeletal: Reports no additional musculoskeletal complaints and Reports as per HPI Integumentary/Breasts: Skin/Breast: Reports system reviewed and no additional complaints, except as docu and Reports as per HPI Neurologic: Reports system reviewed and no additional complaints, except as documented and Reports as per HPI Psychiatric: Psychiatric: Reports no additional psychiatric complaints and Reports as per HPI [facility] Past Medical History Medical History (Updated 08/25/24 @ 13:00 by Sandoval Monte DO) Type II diabetes mellitus CHF (congestive heart failure) EF 40% Rheumatoid arthritis Obstructive sleep apnea Rheumatoid arthritis Hypertension Surgical History Surgical History No pertinent past surgical history Family History Family History (Updated 08/24/24 @ 14:20 by ZARA Márquez) Mother Acute myocardial infarction Congestive heart failure Other Diabetes mellitus Social History Social History Smoking packs per day: 2 Smoking cigarettes per day: 40.0 Smoking status: Current every day smoker Alcohol intake: never Drinks per week: 1 Substance use: current Substance use type: marijuana Other substance usage details: 1-2 GRAMS PER WEEK Do You Feel Safe in your Home?: Yes Lack of Transportation: No Lack of Food: Never True Current Housing: I Have Housing Concerned About Future Housing: No Difficulty Paying Gas/Electric Bills: No Difficulty Paying for Meds: YES Currently Unemployed: No Education: High School Diploma/GED Difficulty w/ Childcare or Family Care: No Gender identity (if verbalized by the patient): Male Spiritual care concerns: No Meds Home Medications and Allergies Home Medications ?Medication ?Instructions ?Recorded ?Confirmed ?Type doxycycline hyclate 100 mg capsule 100 mg PO BID 10 days #20 caps 04/16/22 08/24/24 Rx cyclobenzaprine 10 mg tablet 10 mg PO TID PRN muscle spasm #20 08/31/23 08/24/24 Rx tabs Allergies Allergy/AdvReac Type Severity Reaction Status Date / Time codeine Allergy Intermediate Rash Verified 08/25/24 12:23 Vital Signs Vital Signs - 24 hr 08/24/24 18:00 08/24/24 20:00 08/24/24 20:00 Temperature 37.8 C H Pulse Rate 94 97 98 Respiratory Rate 24 H Blood Pressure 144/98 H Pulse Oximetry 97 Oxygen Delivery Oxygen Flow Rate 08/24/24 20:00 08/24/24 22:00 08/24/24 23:36 Temperature 37.7 C H Pulse Rate 99 96 99 Respiratory Rate 24 H 24 H Blood Pressure 158/96 H Pulse Oximetry 90 90 Oxygen Delivery Room Air Oxygen Flow Rate 08/25/24 00:00 08/25/24 00:00 08/25/24 02:00 Temperature Pulse Rate 99 99 96 Respiratory Rate 24 H Blood Pressure Pulse Oximetry 90 Oxygen Delivery Nasal Cannula Oxygen Flow Rate 2 08/25/24 03:48 08/25/24 03:48 08/25/24 04:00 Temperature 37.3 C Pulse Rate 91 100 Respiratory Rate 26 H Blood Pressure 151/101 H 150/103 H Pulse Oximetry 95 Oxygen Delivery Oxygen Flow Rate 08/25/24 04:00 08/25/24 06:00 08/25/24 07:28 Temperature 36.4 C L Pulse Rate 100 108 H 98 Respiratory Rate 24 H 24 H Blood Pressure 164/105 H Pulse Oximetry 90 96 Oxygen Delivery Nasal Cannula Oxygen Flow Rate 2 08/25/24 11:20 08/25/24 11:21 08/25/24 12:10 Temperature 36.7 C 36.1 C L Pulse Rate 90 89 76 Respiratory Rate 24 H 20 Blood Pressure 157/114 H 156/109 H Pulse Oximetry 94 93 Oxygen Delivery Room Air Oxygen Flow Rate 08/25/24 14:28 08/25/24 14:43 08/25/24 14:45 Temperature 36.4 C L Pulse Rate 68 81 81 Respiratory Rate 19 18 19 Blood Pressure 94/62 L 127/82 129/83 Pulse Oximetry 95 95 95 Oxygen Delivery Simple Face Mask Simple Face Mask Simple Face Mask Oxygen Flow Rate 8 8 8 08/25/24 15:00 08/25/24 15:12 08/25/24 15:15 Temperature Pulse Rate 76 72 Respiratory Rate 19 19 Blood Pressure 135/85 148/102 H Pulse Oximetry 99 95 99 Oxygen Delivery Simple Face Mask Nasal Cannula Nasal Cannula Oxygen Flow Rate 8 4 4 08/25/24 15:30 08/25/24 15:45 Temperature Pulse Rate 70 71 Respiratory Rate 19 19 Blood Pressure 145/106 H 132/99 H Pulse Oximetry 99 99 Oxygen Delivery Nasal Cannula Nasal Cannula Oxygen Flow Rate 3 3 Exam 2 Narrative: General: In no acute distress, well nourished Cardiac: Normal S1 and S2. RRR, No murmur, gallops or friction rubs, peripheral pulses intact. Respiratory: Mild wheezing noted bilaterally, no other adventitious lung sounds, currently on room air, non-productive cough, SOB with exertion Gastrointestinal: soft, non-distended, non-tender, normoactive bowel sounds. : voiding without difficulty. Skin: Right great toe with wound that measures 1cm x1cm that probes to the bone at the level of the PIP joint, foul purulent drainage noted. Erythema and swelling noted to the right great toe extending to the ankle. Clean dressing in place. Neuro: Alert and oriented x4 Const: General: comfortable, no acute distress, alert, awake, anxious, poor hygiene and obese Nutritional Appearance: obese Orientation/consciousness: patient oriented x3 HENMT: Head: normocephalic and atraumatic Ears: hearing grossly normal bilaterally Eyes: General: appearance normal, both eyes and all related structures P upils: Equal, round and reactive pupils present Neck: Neck: normal visual inspection and full ROM Resp: Effort & Inspection: no respiratory distress Auscultation: clear to auscultation bilaterally Cardio: Rate: regular rate Rhythm: regular rhythm Heart sounds: S1 normal heart sound present and S2 normal heart sound present Peripheral pulses: Peripheral pulses 2+ throughout GI: Inspection: non-distended Auscultation: normal bowel sounds Skin: General skin exam: normal color Neuro: General: patient oriented x3, moves all extremities and no focal motor deficits Cranial nerves: Yes Equal, round and reactive pupils present S peech: normal speech Motor exam (neuro): 5/5 motor strength present throughout Extrem: Right upper extremity: normal to inspection Left upper extremity: n ormal to inspection Right lower extremity: foot (Interphalangeal ulcer right great toe, probes to bone) Details: edema, vascular exam Details: dorsalis pedis pulse present, posterior tibial pulse present and normal capillary refill and other (Purulent fluid draining right great toe ulcer); no tenderness, no ecchymosis and no crepitus Left lower extremity: normal to inspection O ther: Right great toe with diffuse erythema and edema primarily localized to the toe but with slight extension of mild erythema to the dorsal foot. There is a 1 x 1 cm open wound to the medial aspect of the the great toe that probes to bone at the level of the PIP joint. Slight foul odor and scant cloudy drainage from the wound. He is able to wiggle his toes. Right pedal pulse is strong and palpable. Unable to definitively palpate PT pulse on the right. Psych: Mental Status: mental status grossly normal Attitude: cooperative Insight: Fair insight present (Psych) Judgement: Fair judgement present (Psych) Results Labs and Meds 08/25/24 05:05 08/25/24 05:05 Lab results: Cardiac Enzymes 08/25/24 Range/Units 05:05 AST 20 (17-59) U/L CBC 08/25/24 Range/Units 05:05 WBC 9.1 (4.5-10.0) K/mm3 RBC 5.29 (4.6-6.20) M/mm3 Hgb 13.4 L (14.0-18.0) g/dL Hct 44.0 (42.0-52.0) % Plt Count 287 (150-375) k/mm3 Lymph # (Auto) 0.97 (0.9-3.2) K/mm3 Garvin # (Auto) 0.9 H (0.1-0.6) K/mm3 Eos # (Auto) 0.4 H (0-0.3) K/mm3 Baso # (Auto) 0.1 (0.0-0.1) K/mm3 Comprehensive Metabolic Panel 08/25/24 Range/Units 05:05 Sodium 138 (137-145) mmol/L Potassium 4.0 (3.4-5.0) mmol/L Chloride 106 (98-107) mmol/L Carbon Dioxide 31 H (22-30) mmol/L BUN 32 H (9-20) mg/dL Creatinine 1.70 H (0.7-1.3) mg/dL Glucose 116 H (65-110) mg/dL Calcium 8.4 (8.4-10.2) mg/dL AST 20 (17-59) U/L ALT 22 (6-50) U/L Alkaline Phosphatase 82 (38-126) U/L Total Protein 7.0 (6.3-8.2) g/dL Albumin 3.5 (3.5-5.1) g/dL Intake and Output 08/25/24 08/25/24 08/25/24 07:59 15:59 23:59 Intake Total 1100 93 Output Total 800 Balance 1100 -707 Intake: IV 93 Lactated Ringers 1,000 ml @ 30 93 mls/hr IV CONT .Q24H [facility] Rx#: [id number] Oral 1100 Output: Urine 800 Other: Est. Blood Loss Amount -30 Patient Weight 08/25/24 23:59 Weight 155.9 kg
[2024-08-25 20:42] LABS: Glucose Point of Care 214 mg/dl (65-105)
[2024-08-25] MEDS: INSULIN ASPART (*BKC) 100 UNITS/ML SUB-Q (21:06)
[2024-08-25] MEDS: HYDROcodone/acetaminophen (*CRX) 7.5-325 MG TABLET 1 TAB PO (21:06)
[2024-08-26] VITALS (14 sets, daily range): BP systolic 124–144; BP diastolic 71–92; PULSE 71–83; RESP 17–24; TEMP 36.4–36.9; O2SAT 90–97; BMI 40.7
[2024-08-26 03:03] LABS: Basophils Percent Auto 0.3 % (0.2-1.2); Hematocrit 44.2 % (42.0-52.0); Hemoglobin 13.3 g/dL (14.0-18.0); Immature Granulocyte Absolute 0.02 K/mm3 (0.00-0.031); Immature Granulocyte Percent A 0.3 % (0-0.5); Lymphocytes Percent Auto 6.5 % (18.3-44.2); Mean Corpuscular HGB Conc 30.1 g/dl (32-36); Mean Corpuscular Hemoglobin 25.3 pg (26-34); Mean Platelet Volume 10.6 fl (7.4-10.4); Monocytes Absolute Auto 0.4 K/mm3 (0.1-0.6); Monocytes Percent Auto 5.8 % (2.6-8.5); Neutrophils Absolute Auto 6.7 K/mm3 (1.3-6.7); Neutrophils Percent Auto 87.1 % (45.5-73.1); Platelet Count Result 291 k/mm3 (150-375); Red Blood Count 5.26 M/mm3 (4.6-6.20); Red Cell Distribution Width 15.3 % (11.5-14.5); White Blood Count 7.7 K/mm3 (4.5-10.0)
[2024-08-26 03:22] LABS: Vancomycin Trough 16.8 ug/mL (10.0-20.0)
[2024-08-26 03:26] LABS: Alanine Aminotransferase 19 U/L (6-50); Albumin Level 3.3 g/dL (3.5-5.1); Alkaline Phosphatase 75 U/L (38-126); Anion Gap 0 mmol/L (4-12); Aspartate Amino Transferase 19 U/L (17-59); Bilirubin,Total 0.5 mg/dL (0.2-1.3); Blood Urea Nitrogen 29 mg/dL (9-20); CRP 3.7 mg/dL (<1.0); Calcium 8.1 mg/dL (8.4-10.2); Carbon Dioxide 33 mmol/L (22-30); Chloride 102 mmol/L (98-107); Estimated CRCL calculation 92 ml/min; Estimated Glomerular Filt Rate 51; Glucose 146 mg/dL (65-110); Potassium 4.5 mmol/L (3.4-5.0); Sodium 135 mmol/L (137-145)
[2024-08-26 03:28] LABS: T3 Free 3.5 pg/mL (2.3-4.2)
[2024-08-26 03:53] LABS: Erythrocyte Sedimentation Rate 13 mm/hr (0-20)
[2024-08-26] MEDS: VANCOMYCIN 1,500 MG/NS 500 ML 1,500 MG/500 ML BAG 250 MG IVPB (05:10)
[2024-08-26] MEDS: CEFEPIME 2 GM/NS 50 ML 2 GM/50 ML BAG IVPB ×2 (07:12→17:20)
[2024-08-26 08:02] LABS: Glucose Point of Care 194 mg/dl (65-105)
--- NOTE | 2024-08-26 09:46 | P.PNIM_ITS ---
Progress Note: A&P Assessment and Plan (1) Acute respiratory failure with hypoxia: Code(s): J96.01 - Acute respiratory failure with hypoxia Status: Acute Assessment and Plan: Likely secondary to acute CHF exacerbation due to non adherence to home medications * Currently on 4L NC * Wean for O2 saturation greater than 92% * Probable underlying COPD component as he is a 2 pack per day smoker * CXR was negative for any acute cardiopulmonary disease * Respiratory panel was negative for Influenza A and B, RSV, COVID * Chest CTA shown Cardiomegaly * ProBNP * ABG shown pH 7.362, pCO2 46.5, pO2 105, Bicarb 25.8 on 4L NC 08/25 * Requiring CPAP at night due to desaturation, apnea link ordered for 08/26/24 PM. (2) Osteomyelitis of great toe of right foot: Code(s): M86.9 - Osteomyelitis, unspecified Status: Acute Assessment and Plan: * Right great toe x-ray showing osteomyelitis and septic arthritis at 1st IP joint * Patient was given vancomycin and cefepime while in the ED, then transition to vancomycin and Rocephin 2 g * General surgery consulted and patient was presented surgical versus nonsurgical treatment. Patient currently wants time to think about his options. * Wound nurse consult * White blood cell count 9.5 on arrival, CRP 3.8, ESR 57--continue to trend * Wound and blood cultures were obtained and pending * New diagnosis of type II DM this admission, Hgb A1C 6.0 08/25 * Continue NPO status * 08/25/2024 amputation of right great toe * WBC 9.1 * Continue Vancomycin * 08/26/2024 ordered PT/OT (3) Septic arthritis of interphalangeal joint of toe of right foot: Code(s): M00.9 - Pyogenic arthritis, unspecified Status: Acute Assessment and Plan: see above (4) CHF (congestive heart failure): Code(s): I50.9 - Heart failure, unspecified Status: Acute Assessment and Plan: * ProBNP * Not currently on any medications at home * Cardiology consulted * Echo 08/25/2024 * CXR was negative * CTA of chest shown cardiomegaly * Cardiology consulted * Continue IV lasix and Losartan (5) Elevated troponin: Code(s): R79.89 - Other specified abnormal findings of blood chemistry Status: Acute Assessment and Plan: * Troponin 0.230>0.216 * Likely demand ischemia * Will get cardiology consult * EKG showing NSR with left atrial enlargement, incomplete right BBB with a rate of 86, QTc 465 (6) Type II diabetes mellitus: Code(s): E11.9 - Type 2 diabetes mellitus without complications Status: Acute Assessment and Plan: New diagnosis * Hgb A1C 6.0 * Blood sugars ranging 146-214, depending upon snack intake * Accu checks AC/HS * high dose SSI * hypoglycemic protocol * Diabetic diet * 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 * eGFR 51-55 baseline * Continue to trend * Avoid nephrotoxic medications and testing with IV contrast / * 08/26/2024 1.5 * Continue to trend (8) Right thyroid nodule: Code(s): E04.1 - Nontoxic single thyroid nodule Status: Acute Assessment and Plan: * Chest CTA shown right thyroid nodule * Thyroid panel WNL * May need thyroid US with biopsy on an outpatient basis (9) Elevated d-dimer: Code(s): R79.89 - Other specified abnormal findings of blood chemistry Status: Acute Assessment and Plan: * D- dimer 1.24 * CTA of chest was negative for PE, mild mediastinal and bilateral hilar lymphadenopathy, cardiomegaly, right thyroid nodule. * CXR- was negative (10) Hypertension: Code(s): I10 - Essential (primary) hypertension Status: Chronic Assessment and Plan: * Blood pressure 08/26 126/80 * Continue Losartan (11) Rheumatoid arthritis: Code(s): M06.9 - Rheumatoid arthritis, unspecified Status: Chronic Assessment and Plan: * By hx * No obvious signs on exam (12) Tobacco dependence: Code(s): F17.200 - Nicotine dependence, unspecified, uncomplicated Status: Chronic Assessment and Plan: * Smokes 2 packs per day, current every day user * Educate on smoking cessation * Educated 08/26/2024 on smoking and delayed wound healing, premature * Nicotine patch ordered Subjective Date/time seen: 08/26/24 09:46 Interval history: Minimal pain at surgical site of left great toe amputation from 08/25. No chest pain or shortness of breath. Appetite is great. No GI or complaints. Review of Systems Review of Systems: All systems reviewed & are unremarkable except as noted in HPI and below Exam Narrative: HEENT: PERRL, sclerae nonicteric, pharyngeal mucosa pink and intact NECK: No JVD CHEST: Coarse breath sounds without crackles or wheezes. Normal effort. HEART: NL S1/S2, regular, no murmur ABDOMEN: BS+, soft, nontender, no mass, no bruits EXTREMITIES: No cyanosis, edema, or clubbing. Right foot heavily bandaged. NEUROLOGIC: CN intact and symmetric to inspection. MUSCULOSKELETAL: Tone and strength symmetric. PSYCH: Alert. Oriented to person, place, and time. Anxious. Irritable. Objective Data Vital Signs Vital Signs: Vital Signs - 24 hr 08/25/24 10:00 08/25/24 11:20 08/25/24 11:21 Temperature 98.0 F Pulse Rate 79 90 89 Respiratory Rate 24 H Blood Pressure 157/114 H Pulse Oximetry 94 Oxygen Delivery Oxygen Flow Rate 08/25/24 12:10 08/25/24 14:28 08/25/24 14:43 Temperature 97 F L 97.5 F L Pulse Rate 76 68 81 Respiratory Rate 20 19 18 Blood Pressure 156/109 H 94/62 L 127/82 Pulse Oximetry 93 95 95 Oxygen Delivery Room Air Simple Face Mask Simple Face Mask Oxygen Flow Rate 8 8 08/25/24 14:45 08/25/24 15:00 08/25/24 15:12 Temperature Pulse Rate 81 76 Respiratory Rate 19 19 Blood Pressure 129/83 135/85 Pulse Oximetry 95 99 95 Oxygen Delivery Simple Face Mask Simple Face Mask Nasal Cannula Oxygen Flow Rate 8 8 4 08/25/24 15:15 08/25/24 15:30 08/25/24 15:45 Temperature Pulse Rate 72 70 71 Respiratory Rate 19 19 19 Blood Pressure 148/102 H 145/106 H 132/99 H Pulse Oximetry 99 99 99 Oxygen Delivery Nasal Cannula Nasal Cannula Nasal Cannula Oxygen Flow Rate 4 3 3 08/25/24 16:00 08/25/24 16:00 08/25/24 16:32 Temperature 97.5 F L Pulse Rate 69 73 71 Respiratory Rate 20 Blood Pressure 145/100 H Pulse Oximetry 97 Oxygen Delivery Oxygen Flow Rate 08/25/24 16:33 08/25/24 18:00 08/25/24 19:47 Temperature 97.4 F L 98.2 F Pulse Rate 73 72 92 Respiratory Rate 20 20 Blood Pressure 137/101 H 131/82 Pulse Oximetry 100 97 Oxygen Delivery Oxygen Flow Rate 08/25/24 20:00 08/25/24 20:00 08/25/24 22:00 Temperature Pulse Rate 72 77 Respiratory Rate Blood Pressure Pulse Oximetry 97 Oxygen Delivery Nasal Cannula Oxygen Flow Rate 4 08/25/24 22:45 08/26/24 00:00 08/26/24 00:00 Temperature 98.5 F Pulse Rate 71 78 Respiratory Rate 18 20 Blood Pressure 144/89 H Pulse Oximetry 92 90 Oxygen Delivery Autopap CPAP Oxygen Flow Rate 08/26/24 00:00 08/26/24 02:00 08/26/24 04:00 Temperature Pulse Rate 74 72 83 Respiratory Rate Blood Pressure Pulse Oximetry Oxygen Delivery Oxygen Flow Rate 08/26/24 04:00 08/26/24 04:00 08/26/24 06:00 Temperature 98.2 F Pulse Rate 75 80 Respiratory Rate 22 H Blood Pressure 138/74 Pulse Oximetry 95 95 Oxygen Delivery Nasal Cannula Oxygen Flow Rate 2 08/26/24 08:00 08/26/24 08:33 Temperature 97.9 F Pulse Rate 75 Respiratory Rate 24 H 18 Blood Pressure 126/80 Pulse Oximetry 94 Oxygen Delivery Autopap Oxygen Flow Rate Intake/Output Intake/Output: Intake & Output 08/23/24 08/24/24 08/25/24 08/26/24 23:59 23:59 23:59 23:59 Intake Total 2680 2533 2780 Output Total 800 1100 700 Balance 1880 1433 2080 Meds/Results Medications: Active Medications Generic Name Dose Route Start Last Admin Trade Name Freq PRN Reason Stop Dose Admin Acetaminophen 500 mg 08/25/24 14:48 Acetaminophen 500 Mg Tablet PO Q6H PRN Pain Rated 1-3 Hydrocodone Bitart/Acetaminophen 1 tab 08/25/24 14:48 08/25/24 21:06 Hydrocodone/Acetaminophen (*Crx) 7.5-325 Mg Tablet PO 1 tab Q4H PRN Administration Pain Rated 7-10 Dextrose 12.5 gm 08/24/24 14:28 Dextrose 50% 25 Gm/50 Ml Syringe IV PUSH PRN PRN Hypoglycemia Protocol Enoxaparin Sodium 40 mg 08/26/24 09:00 Enoxaparin 40 Mg/0.4 Ml Syringe SUB-Q DAILY [facility] Furosemide 40 mg 08/24/24 14:20 08/25/24 16:32 Furosemide Inj 40 Mg/4 Ml Vial IV PUSH 40 mg BID [facility] Administration Glucagon 1 mg 08/24/24 14:28 Glucagon For Inj 1 Mg Vial IM PRN PRN Hypoglycemia Protocol Glucose 15 gm 08/24/24 14:28 Glucose Oral Gel 15 Gm Of Glucse In 37.5 Gm Tube PO PRN PRN Hypoglycemia Protocol Dextrose 1,000 mls @ 100 mls/hr 08/24/24 14:28 Dextrose 5% 1,000 Ml IVPB PRN PRN Hypoglycemia Protocol Vancomycin HCl 1,500 mg in 500 mls @ 250 mls/hr 08/25/24 16:00 08/26/24 07:10 Vancomycin 1,500 Mg/Ns 500 Ml IVPB Infused Q12H [facility] Infusion Cefepime HCl 2 gm in 50 mls @ 100 mls/hr 08/25/24 17:00 08/26/24 07:12 Maxipime 2 Gm/Ns 50 Ml IVPB 100 mls/hr Q12H [facility] Administration Insulin Aspart 4 - 8 units 08/24/24 17:00 08/26/24 08:22 Insulin Aspart (*Bkc) 100 Units/Ml SUB-Q Not Given TIDWM [facility] Protocol Insulin Aspart 2 - 4 units 08/24/24 21:00 08/25/24 21:06 Insulin Aspart (*Bkc) 100 Units/Ml SUB-Q 2 units HS [facility] Administration Protocol Losartan Potassium 50 mg 08/24/24 12:25 08/25/24 08:55 Losartan Potassium 50 Mg Tablet PO 50 mg DAILY [facility] Administration Metoprolol Succinate 50 mg 08/25/24 09:45 08/25/24 16:32 Metoprolol Succinate Ext Rel 50 Mg Tabcr PO 50 mg BID [facility] Administration Morphine Sulfate 1 mg 08/25/24 14:48 Morphine Sulfate (*Crx) 2 Mg/Ml Inj IV PUSH Q2H PRN Breakthrough Pain Rated 4-6 or NPO Morphine Sulfate 2 mg 08/25/24 14:48 Morphine Sulfate (*Crx) 2 Mg/Ml Inj IV PUSH Q2H PRN Breakthrough Pain Rated 7-10 or NPO Naloxone HCl 0.1 mg 08/25/24 14:48 Naloxone Hcl 0.4 Mg/Ml Vial IV PUSH Q2M PRN Opiate Reversal Nicotine 1 patch 08/25/24 09:00 08/25/24 11:00 Nicotine (*Pbkc) 21 Mg Patch TRANSDERM Not Given DAILY [facility] Oxycodone/Acetaminophen 1 tablet 08/25/24 14:48 Oxycodone/Acetaminophen (*Crx) 5-325 Mg Tablet PO Q4H PRN Pain Rated 4-6 Potassium Chloride 20 meq 08/26/24 08:00 Potassium Chloride 20 Meq Er Tablet PO DAILY@0800 [facility] Radiology Results: ITS Impressions Toe X-Ray 08/24/24 08:02 IMPRESSION: 1. Osteomyelitis and septic arthritis at first interphalangeal joint. Chest X-Ray 08/24/24 08:47 Impression: 1: No acute cardiopulmonary disease. Chest CTA 08/24/24 10:44 IMPRESSION: 1. No pulmonary embolus. Sensitivity is moderately decreased by motion artifact. 2. Mild mediastinal and bilateral hilar lymphadenopathy. The differential diagnosis includes reactive lymphadenopathy (including sarcoid) and less likely malignancy such as lymphoma. 3. Cardiomegaly. 4. Right thyroid nodule. Consider thyroid ultrasound for risk stratification. Labs Labs: Laboratory Results - last 24 hr 08/24/24 08/24/24 08/25/24 07:50 08:22 11:27 WBC RBC Hgb Hct MCV MCH MCHC RDW Plt Count MPV Immature Gran % (Auto) Neut % (Auto) Lymph % (Auto) [place] % (Auto) Eos % (Auto) Baso % (Auto) Lymph # (Auto) [place] # (Auto) Eos # (Auto) Baso # (Auto) Abs Immat Gran (auto) Absolute Neuts (auto) Absolute Nucleated RBC Nucleated RBC % ESR Sodium Potassium Chloride Carbon Dioxide Anion Gap BUN Creatinine Estim Creat Clear Calc Estimated GFR Glucose POC Capillary Glucose 121 H Calcium Total Bilirubin AST ALT Alkaline Phosphatase C-Reactive Protein Total Protein Albumin Free T3 pg/mL 3.5 Vancomycin Trough Urine Opiates Screen Cancelled Urine Methadone Screen Cancelled Ur Barbiturates Screen Cancelled Ur Phencyclidine Scrn Cancelled Ur Amphetamine Screen Cancelled U Benzodiazepines Scrn Cancelled Urine Cocaine Screen Cancelled U Cannabinoids Screen Cancelled 08/25/24 08/25/24 08/25/24 12:18 14:32 16:14 WBC RBC Hgb Hct MCV MCH MCHC RDW Plt Count MPV Immature Gran % (Auto) Neut % (Auto) Lymph % (Auto) [place] % (Auto) Eos % (Auto) Baso % (Auto) Lymph # (Auto) [place] # (Auto) Eos # (Auto) Baso # (Auto) Abs Immat Gran (auto) Absolute Neuts (auto) Absolute Nucleated RBC Nucleated RBC % ESR Sodium Potassium Chloride Carbon Dioxide Anion Gap BUN Creatinine Estim Creat Clear Calc Estimated GFR Glucose POC Capillary Glucose 98 106 H < 20 L* Calcium Total Bilirubin AST ALT Alkaline Phosphatase C-Reactive Protein Total Protein Albumin Free T3 pg/mL Vancomycin Trough Urine Opiates Screen Urine Methadone Screen Ur Barbiturates Screen Ur Phencyclidine Scrn Ur Amphetamine Screen U Benzodiazepines Scrn Urine Cocaine Screen U Cannabinoids Screen 08/25/24 08/25/24 08/26/24 16:16 19:51 02:59 WBC 7.7 RBC 5.26 Hgb 13.3 L Hct 44.2 MCV 84.0 MCH 25.3 L MCHC 30.1 L RDW 15.3 H Plt Count 291 MPV 10.6 H Immature Gran % (Auto) 0.3 Neut % (Auto) 87.1 H Lymph % (Auto) 6.5 L [place] % (Auto) 5.8 Eos % (Auto) 0.0 Baso % (Auto) 0.3 Lymph # (Auto) 0.50 L [place] # (Auto) 0.4 Eos # (Auto) 0.0 Baso # (Auto) 0.0 Abs Immat Gran (auto) 0.02 Absolute Neuts (auto) 6.7 Absolute Nucleated RBC 0.000 Nucleated RBC % 0.0 ESR 13 Sodium 135 L Potassium 4.5 Chloride 102 Carbon Dioxide 33 H Anion Gap 0 L BUN 29 H Creatinine 1.50 H Estim Creat Clear Calc 92 Estimated GFR 51 L Glucose 146 H POC Capillary Glucose 134 H 214 H Calcium 8.1 L Total Bilirubin 0.5 AST 19 ALT 19 Alkaline Phosphatase 75 C-Reactive Protein 3.7 H Total Protein 7.0 Albumin 3.3 L Free T3 pg/mL Vancomycin Trough 16.8 Urine Opiates Screen Urine Methadone Screen Ur Barbiturates Screen Ur Phencyclidine Scrn Ur Amphetamine Screen U Benzodiazepines Scrn Urine Cocaine Screen U Cannabinoids Screen 08/26/24 07:42 WBC RBC Hgb Hct MCV MCH MCHC RDW Plt Count MPV Immature Gran % (Auto) Neut % (Auto) Lymph % (Auto) [place] % (Auto) Eos % (Auto) Baso % (Auto) Lymph # (Auto) [place] # (Auto) Eos # (Auto) Baso # (Auto) Abs Immat Gran (auto) Absolute Neuts (auto) Absolute Nucleated RBC Nucleated RBC % ESR Sodium Potassium Chloride Carbon Dioxide Anion Gap BUN Creatinine Estim Creat Clear Calc Estimated GFR Glucose POC Capillary Glucose 194 H Calcium Total Bilirubin AST ALT Alkaline Phosphatase C-Reactive Protein Total Protein Albumin Free T3 pg/mL Vancomycin Trough Urine Opiates Screen Urine Methadone Screen Ur Barbiturates Screen Ur Phencyclidine Scrn Ur Amphetamine Screen U Benzodiazepines Scrn Urine Cocaine Screen U Cannabinoids Screen
[2024-08-26] MEDS: POTASSIUM CHLORIDE 20 MEQ ER TABLET PO (09:48)
[2024-08-26] MEDS: NICOTINE (*PBKC) 21 MG PATCH 1 PATCH TRANSDERM (09:48)
[2024-08-26] MEDS: ENOXAPARIN 40 MG/0.4 ML SYRINGE SUB-Q (09:48)
[2024-08-26] MEDS: METOPROLOL SUCCINATE EXT REL 50 MG TABCR PO ×2 (09:49→17:20)
[2024-08-26] MEDS: FUROSEMIDE INJ 40 MG/4 ML VIAL IV PUSH ×2 (09:49→17:21)
[2024-08-26] MEDS: LOSARTAN POTASSIUM 50 MG TABLET PO (09:49)
--- NOTE | 2024-08-26 11:21 | P.PNGS_ITS ---
Progress Note: A&P Assessment and Plan (1) Osteomyelitis of great toe of right foot: Code(s): M86.9 - Osteomyelitis, unspecified Status: Acute Assessment and Plan: s/p amputation, cont local wound care and abx, heel touch walking Subjective Subjective Date/Time Seen: 08/26/24 11:21 Interval history: feels ok, no c/o Review of Systems Review of Systems: All systems reviewed & are unremarkable except as noted in HPI and below Exam Const: General: cooperative, comfortable, no acute distress and obese Resp: Auscultation: clear to auscultation bilaterally Cardio: Rate: regular rate Rhythm: regular rhythm GI: Inspection: normal to inspection Extrem: Other: R 1st toe amp site - C/D/I Objective Data Vital Signs Vital Signs: Vital Signs - 24 hr 08/25/24 12:10 08/25/24 14:28 08/25/24 14:43 Temperature 36.1 C L 36.4 C L Pulse Rate 76 68 81 Respiratory Rate 20 19 18 Blood Pressure 156/109 H 94/62 L 127/82 Pulse Oximetry 93 95 95 Oxygen Delivery Room Air Simple Face Mask Simple Face Mask Oxygen Flow Rate 8 8 08/25/24 14:45 08/25/24 15:00 08/25/24 15:12 Temperature Pulse Rate 81 76 Respiratory Rate 19 19 Blood Pressure 129/83 135/85 Pulse Oximetry 95 99 95 Oxygen Delivery Simple Face Mask Simple Face Mask Nasal Cannula Oxygen Flow Rate 8 8 4 08/25/24 15:15 08/25/24 15:30 08/25/24 15:45 Temperature Pulse Rate 72 70 71 Respiratory Rate 19 19 19 Blood Pressure 148/102 H 145/106 H 132/99 H Pulse Oximetry 99 99 99 Oxygen Delivery Nasal Cannula Nasal Cannula Nasal Cannula Oxygen Flow Rate 4 3 3 08/25/24 16:00 08/25/24 16:00 08/25/24 16:32 Temperature 36.4 C L Pulse Rate 69 73 71 Respiratory Rate 20 Blood Pressure 145/100 H Pulse Oximetry 97 Oxygen Delivery Oxygen Flow Rate 08/25/24 16:33 08/25/24 18:00 08/25/24 19:47 Temperature 36.3 C L 36.8 C Pulse Rate 73 72 92 Respiratory Rate 20 20 Blood Pressure 137/101 H 131/82 Pulse Oximetry 100 97 Oxygen Delivery Oxygen Flow Rate 08/25/24 20:00 08/25/24 20:00 08/25/24 22:00 Temperature Pulse Rate 72 77 Respiratory Rate Blood Pressure Pulse Oximetry 97 Oxygen Delivery Nasal Cannula Oxygen Flow Rate 4 08/25/24 22:45 08/26/24 00:00 08/26/24 00:00 Temperature 36.9 C Pulse Rate 71 78 Respiratory Rate 18 20 Blood Pressure 144/89 H Pulse Oximetry 92 90 Oxygen Delivery Autopap CPAP Oxygen Flow Rate 08/26/24 00:00 08/26/24 02:00 08/26/24 04:00 Temperature Pulse Rate 74 72 83 Respiratory Rate Blood Pressure Pulse Oximetry Oxygen Delivery Oxygen Flow Rate 08/26/24 04:00 08/26/24 04:00 08/26/24 06:00 Temperature 36.8 C Pulse Rate 75 80 Respiratory Rate 22 H Blood Pressure 138/74 Pulse Oximetry 95 95 Oxygen Delivery Nasal Cannula Oxygen Flow Rate 2 08/26/24 08:00 08/26/24 08:33 08/26/24 09:49 Temperature 36.6 C Pulse Rate 75 71 Respiratory Rate 24 H 18 Blood Pressure 126/80 Pulse Oximetry 94 Oxygen Delivery Autopap Oxygen Flow Rate Intake/Output Intake/Output: Intake & Output 08/23/24 08/24/24 08/25/24 08/26/24 23:59 23:59 23:59 23:59 Intake Total 2680 2533 2780 Output Total 800 1100 700 Balance 1880 1433 2080 Meds/Results Medications: Active Medications Generic Name Dose Route Start Last Admin Trade Name Freq PRN Reason Stop Dose Admin Acetaminophen 500 mg 08/25/24 14:48 Acetaminophen 500 Mg Tablet PO Q6H PRN Pain Rated 1-3 Hydrocodone Bitart/Acetaminophen 1 tab 08/25/24 14:48 08/25/24 21:06 Hydrocodone/Acetaminophen (*Crx) 7.5-325 Mg Tablet PO 1 tab Q4H PRN Administration Pain Rated 7-10 Dextrose 12.5 gm 08/24/24 14:28 Dextrose 50% 25 Gm/50 Ml Syringe IV PUSH PRN PRN Hypoglycemia Protocol Enoxaparin Sodium 40 mg 08/26/24 09:00 08/26/24 09:48 Enoxaparin 40 Mg/0.4 Ml Syringe SUB-Q 40 mg DAILY [facility] Administration Furosemide 40 mg 08/24/24 14:20 08/26/24 09:49 Furosemide Inj 40 Mg/4 Ml Vial IV PUSH 40 mg BID [facility] Administration Glucagon 1 mg 08/24/24 14:28 Glucagon For Inj 1 Mg Vial IM PRN PRN Hypoglycemia Protocol Glucose 15 gm 08/24/24 14:28 Glucose Oral Gel 15 Gm Of Glucse In 37.5 Gm Tube PO PRN PRN Hypoglycemia Protocol Dextrose 1,000 mls @ 100 mls/hr 08/24/24 14:28 Dextrose 5% 1,000 Ml IVPB PRN PRN Hypoglycemia Protocol Vancomycin HCl 1,500 mg in 500 mls @ 250 mls/hr 08/25/24 16:00 08/26/24 07:10 Vancomycin 1,500 Mg/Ns 500 Ml IVPB Infused Q12H [facility] Infusion Cefepime HCl 2 gm in 50 mls @ 100 mls/hr 08/25/24 17:00 08/26/24 07:12 Maxipime 2 Gm/Ns 50 Ml IVPB 100 mls/hr Q12H [facility] Administration Insulin Aspart 4 - 8 units 08/24/24 17:00 08/26/24 08:22 Insulin Aspart (*Bkc) 100 Units/Ml SUB-Q Not Given TIDWM [facility] Protocol Insulin Aspart 2 - 4 units 08/24/24 21:00 08/25/24 21:06 Insulin Aspart (*Bkc) 100 Units/Ml SUB-Q 2 units HS [facility] Administration Protocol Losartan Potassium 50 mg 08/24/24 12:25 08/26/24 09:49 Losartan Potassium 50 Mg Tablet PO 50 mg DAILY [facility] Administration Metoprolol Succinate 50 mg 08/25/24 09:45 08/26/24 09:49 Metoprolol Succinate Ext Rel 50 Mg Tabcr PO 50 mg BID [facility] Administration Morphine Sulfate 1 mg 08/25/24 14:48 Morphine Sulfate (*Crx) 2 Mg/Ml Inj IV PUSH Q2H PRN Breakthrough Pain Rated 4-6 or NPO Morphine Sulfate 2 mg 08/25/24 14:48 Morphine Sulfate (*Crx) 2 Mg/Ml Inj IV PUSH Q2H PRN Breakthrough Pain Rated 7-10 or NPO Naloxone HCl 0.1 mg 08/25/24 14:48 Naloxone Hcl 0.4 Mg/Ml Vial IV PUSH Q2M PRN Opiate Reversal Nicotine 1 patch 08/25/24 09:00 08/26/24 09:48 Nicotine (*Pbkc) 21 Mg Patch TRANSDERM 1 patch DAILY [facility] Administration Oxycodone/Acetaminophen 1 tablet 08/25/24 14:48 Oxycodone/Acetaminophen (*Crx) 5-325 Mg Tablet PO Q4H PRN Pain Rated 4-6 Potassium Chloride 20 meq 08/26/24 08:00 08/26/24 09:48 Potassium Chloride 20 Meq Er Tablet PO 20 meq DAILY@0800 [facility] Administration Radiology Results: ITS Impressions Toe X-Ray 08/24/24 08:02 IMPRESSION: 1. Osteomyelitis and septic arthritis at first interphalangeal joint. Chest X-Ray 08/24/24 08:47 Impression: 1: No acute cardiopulmonary disease. Chest CTA 08/24/24 10:44 IMPRESSION: 1. No pulmonary embolus. Sensitivity is moderately decreased by motion artifact. 2. Mild mediastinal and bilateral hilar lymphadenopathy. The differential diagnosis includes reactive lymphadenopathy (including sarcoid) and less likely malignancy such as lymphoma. 3. Cardiomegaly. 4. Right thyroid nodule. Consider thyroid ultrasound for risk stratification. Labs Labs: Laboratory Results - last 24 hr 08/24/24 08/24/24 08/25/24 07:50 08:22 11:27 WBC RBC Hgb Hct MCV MCH MCHC RDW Plt Count MPV Immature Gran % (Auto) Neut % (Auto) Lymph % (Auto) [place] % (Auto) Eos % (Auto) Baso % (Auto) Lymph # (Auto) [place] # (Auto) Eos # (Auto) Baso # (Auto) Abs Immat Gran (auto) Absolute Neuts (auto) Absolute Nucleated RBC Nucleated RBC % ESR Sodium Potassium Chloride Carbon Dioxide Anion Gap BUN Creatinine Estim Creat Clear Calc Estimated GFR Glucose POC Capillary Glucose 121 H Calcium Total Bilirubin AST ALT Alkaline Phosphatase C-Reactive Protein Total Protein Albumin Free T3 pg/mL 3.5 Vancomycin Trough Urine Opiates Screen Cancelled Urine Methadone Screen Cancelled Ur Barbiturates Screen Cancelled Ur Phencyclidine Scrn Cancelled Ur Amphetamine Screen Cancelled U Benzodiazepines Scrn Cancelled Urine Cocaine Screen Cancelled U Cannabinoids Screen Cancelled 08/25/24 08/25/24 08/25/24 12:18 14:32 16:14 WBC RBC Hgb Hct MCV MCH MCHC RDW Plt Count MPV Immature Gran % (Auto) Neut % (Auto) Lymph % (Auto) [place] % (Auto) Eos % (Auto) Baso % (Auto) Lymph # (Auto) [place] # (Auto) Eos # (Auto) Baso # (Auto) Abs Immat Gran (auto) Absolute Neuts (auto) Absolute Nucleated RBC Nucleated RBC % ESR Sodium Potassium Chloride Carbon Dioxide Anion Gap BUN Creatinine Estim Creat Clear Calc Estimated GFR Glucose POC Capillary Glucose 98 106 H < 20 L* Calcium Total Bilirubin AST ALT Alkaline Phosphatase C-Reactive Protein Total Protein Albumin Free T3 pg/mL Vancomycin Trough Urine Opiates Screen Urine Methadone Screen Ur Barbiturates Screen Ur Phencyclidine Scrn Ur Amphetamine Screen U Benzodiazepines Scrn Urine Cocaine Screen U Cannabinoids Screen 08/25/24 08/25/24 08/26/24 16:16 19:51 02:59 WBC 7.7 RBC 5.26 Hgb 13.3 L Hct 44.2 MCV 84.0 MCH 25.3 L MCHC 30.1 L RDW 15.3 H Plt Count 291 MPV 10.6 H Immature Gran % (Auto) 0.3 Neut % (Auto) 87.1 H Lymph % (Auto) 6.5 L [place] % (Auto) 5.8 Eos % (Auto) 0.0 Baso % (Auto) 0.3 Lymph # (Auto) 0.50 L [place] # (Auto) 0.4 Eos # (Auto) 0.0 Baso # (Auto) 0.0 Abs Immat Gran (auto) 0.02 Absolute Neuts (auto) 6.7 Absolute Nucleated RBC 0.000 Nucleated RBC % 0.0 ESR 13 Sodium 135 L Potassium 4.5 Chloride 102 Carbon Dioxide 33 H Anion Gap 0 L BUN 29 H Creatinine 1.50 H Estim Creat Clear Calc 92 Estimated GFR 51 L Glucose 146 H POC Capillary Glucose 134 H 214 H Calcium 8.1 L Total Bilirubin 0.5 AST 19 ALT 19 Alkaline Phosphatase 75 C-Reactive Protein 3.7 H Total Protein 7.0 Albumin 3.3 L Free T3 pg/mL Vancomycin Trough 16.8 Urine Opiates Screen Urine Methadone Screen Ur Barbiturates Screen Ur Phencyclidine Scrn Ur Amphetamine Screen U Benzodiazepines Scrn Urine Cocaine Screen U Cannabinoids Screen 08/26/24 07:42 WBC RBC Hgb Hct MCV MCH MCHC RDW Plt Count MPV Immature Gran % (Auto) Neut % (Auto) Lymph % (Auto) [place] % (Auto) Eos % (Auto) Baso % (Auto) Lymph # (Auto) [place] # (Auto) Eos # (Auto) Baso # (Auto) Abs Immat Gran (auto) Absolute Neuts (auto) Absolute Nucleated RBC Nucleated RBC % ESR Sodium Potassium Chloride Carbon Dioxide Anion Gap BUN Creatinine Estim Creat Clear Calc Estimated GFR Glucose POC Capillary Glucose 194 H Calcium Total Bilirubin AST ALT Alkaline Phosphatase C-Reactive Protein Total Protein Albumin Free T3 pg/mL Vancomycin Trough Urine Opiates Screen Urine Methadone Screen Ur Barbiturates Screen Ur Phencyclidine Scrn Ur Amphetamine Screen U Benzodiazepines Scrn Urine Cocaine Screen U Cannabinoids Screen
[2024-08-26 12:13] LABS: Glucose Point of Care 182 mg/dl (65-105)
[2024-08-26] MEDS: HYDROcodone/acetaminophen (*CRX) 7.5-325 MG TABLET 1 TAB PO (15:10)
[2024-08-26 17:00] LABS: Glucose Point of Care > 500 mg/dl (65-105)
[2024-08-26] MEDS: VANCOMYCIN 1,500 MG/NS 500 ML 1,500 MG/500 ML BAG 150 MG IVPB (17:19)
--- NOTE | 2024-08-26 17:44 | PM.PNCARD ---
Progress Note: A&P Assessment and Plan (1) Osteomyelitis of great toe of right foot: Code(s): M86.9 - Osteomyelitis, unspecified Status: Acute (2) CHF (congestive heart failure): Code(s): I50.9 - Heart failure, unspecified Status: Acute (3) CKD (chronic kidney disease): Code(s): N18.9 - Chronic kidney disease, unspecified Status: Acute Plan 1. Acute on chronic systolic heart failure 2. Hypertension 3. Right osteomyelitis 4. Preop evaluation 5. CKD 3 -continue Toprol-XL and losartan. Other medications like carvedilol or ARNI/SGLT2 inhibitors may have a higher co-pay so will not keep him on them -MRA to be added later renal function and potassium levels are low -continue aspirin and statin -echo to evaluate LV function -discussed ischemic evaluation with him, he would prefer to be on guideline directed medical therapy for 3 months and repeat echo and decide on ischemic evaluation Subjective Date/time seen: 08/26/24 17:44 Interval history: Underwent amputation of the left great toe No chest pain or shortness of breath Exam Narrative: General: In no acute distress, well nourished Cardiac: Normal S1 and S2. RRR, No murmur, gallops or friction rubs, peripheral pulses intact. Respiratory: Mild wheezing noted bilaterally, no other adventitious lung sounds, currently on room air, non-productive cough, SOB with exertion Gastrointestinal: soft, non-distended, non-tender, normoactive bowel sounds. : voiding without difficulty. Skin: Right great toe with wound that measures 1cm x1cm that probes to the bone at the level of the PIP joint, foul purulent drainage noted. Erythema and swelling noted to the right great toe extending to the ankle. Clean dressing in place. Neuro: Alert and oriented x4 Const: General: comfortable, no acute distress, alert, awake, anxious, poor hygiene and obese Nutritional Appearance: obese Orientation/consciousness: patient oriented x3 HENMT: Head: normocephalic and atraumatic Ears: hearing grossly normal bilaterally Eyes: General: appearance normal, both eyes and all related structures Pupils: Equal, round and reactive pupils present Neck: Neck: normal visual inspection and full ROM Resp: Effort & Inspection: no respiratory distress Auscultation: clear to auscultation bilaterally Cardio: Rate: regular rate Rhythm: regular rhythm Heart sounds: S1 normal heart sound present and S2 normal heart sound present Peripheral pulses: Peripheral pulses 2+ throughout GI: Inspection: non-distended Auscultation: normal bowel sounds Skin: General skin exam: normal color Neuro: General: patient oriented x3, moves all extremities and no focal motor deficits Cranial nerves: Yes Equal, round and reactive pupils present Speech: normal speech Motor exam (neuro): 5/5 motor strength present throughout Extrem: Right upper extremity: normal to inspection Left upper extremity: normal to inspection Right lower extremity: foot (Interphalangeal ulcer right great toe, probes to bone) Details: edema, vascular exam Details: dorsalis pedis pulse present, posterior tibial pulse present and normal capillary refill and other (Purulent fluid draining right great toe ulcer); no tenderness, no ecchymosis and no crepitus Left lower extremity: normal to inspection Other: Right great toe with diffuse erythema and edema primarily localized to the toe but with slight extension of mild erythema to the dorsal foot. There is a 1 x 1 cm open wound to the medial aspect of the the great toe that probes to bone at the level of the PIP joint. Slight foul odor and scant cloudy drainage from the wound. He is able to wiggle his toes. Right pedal pulse is strong and palpable. Unable to definitively palpate PT pulse on the right. Psych: Mental Status: mental status grossly normal Attitude: cooperative Insight: Fair insight present (Psych) Judgement: Fair judgement present (Psych) Objective Data Vital Signs Vital Signs: Vital Signs - 24 hr 08/25/24 18:00 08/25/24 19:47 08/25/24 20:00 Temperature 36.8 C Pulse Rate 72 92 Respiratory Rate 20 Blood Pressure 131/82 Pulse Oximetry 97 97 Oxygen Delivery Nasal Cannula Oxygen Flow Rate 4 08/25/24 20:00 08/25/24 22:00 08/25/24 22:45 Temperature Pulse Rate 72 77 71 Respiratory Rate 18 Blood Pressure Pulse Oximetry 92 Oxygen Delivery Autopap Oxygen Flow Rate 08/26/24 00:00 08/26/24 00:00 08/26/24 00:00 Temperature 36.9 C Pulse Rate 78 74 Respiratory Rate 20 Blood Pressure 144/89 H Pulse Oximetry 90 Oxygen Delivery CPAP Oxygen Flow Rate 08/26/24 02:00 08/26/24 04:00 08/26/24 04:00 Temperature 36.8 C Pulse Rate 72 83 75 Respiratory Rate 22 H Blood Pressure 138/74 Pulse Oximetry 95 Oxygen Delivery Oxygen Flow Rate 08/26/24 04:00 08/26/24 06:00 08/26/24 08:00 Temperature 36.6 C Pulse Rate 80 75 Respiratory Rate 24 H Blood Pressure 126/80 Pulse Oximetry 95 94 Oxygen Delivery Nasal Cannula Oxygen Flow Rate 2 08/26/24 08:00 08/26/24 08:33 08/26/24 09:49 Temperature Pulse Rate 72 71 Respiratory Rate 18 Blood Pressure Pulse Oximetry Oxygen Delivery Autopap Oxygen Flow Rate 08/26/24 10:00 08/26/24 11:10 08/26/24 11:23 Temperature 36.7 C Pulse Rate 80 72 Respiratory Rate 22 H Blood Pressure 130/92 H Pulse Oximetry 97 Oxygen Delivery Nasal Cannula Oxygen Flow Rate 3 08/26/24 15:20 08/26/24 17:20 Temperature Pulse Rate 76 Respiratory Rate Blood Pressure Pulse Oximetry Oxygen Delivery Room Air Oxygen Flow Rate Intake/Output Intake/Output: Intake & Output 08/23/24 08/24/24 08/25/24 08/26/24 23:59 23:59 23:59 23:59 Intake Total 2680 2533 3070 Output Total 800 1100 700 Balance 1880 1433 2370 Meds/Results Medications: Active Medications Generic Name Dose Route Start Last Admin Trade Name Freq PRN Reason Stop Dose Admin Acetaminophen 500 mg 08/25/24 14:48 Acetaminophen 500 Mg Tablet PO Q6H PRN Pain Rated 1-3 Hydrocodone Bitart/Acetaminophen 1 tab 08/25/24 14:48 08/26/24 15:10 Hydrocodone/Acetaminophen (*Crx) 7.5-325 Mg Tablet PO 1 tab Q4H PRN Administration Pain Rated 7-10 Dextrose 12.5 gm 08/24/24 14:28 Dextrose 50% 25 Gm/50 Ml Syringe IV PUSH PRN PRN Hypoglycemia Protocol Enoxaparin Sodium 40 mg 08/26/24 09:00 08/26/24 09:48 Enoxaparin 40 Mg/0.4 Ml Syringe SUB-Q 40 mg DAILY [facility] Administration Furosemide 40 mg 08/24/24 14:20 08/26/24 17:21 Furosemide Inj 40 Mg/4 Ml Vial IV PUSH 40 mg BID [facility] Administration Glucagon 1 mg 08/24/24 14:28 Glucagon For Inj 1 Mg Vial IM PRN PRN Hypoglycemia Protocol Glucose 15 gm 08/24/24 14:28 Glucose Oral Gel 15 Gm Of Glucse In 37.5 Gm Tube PO PRN PRN Hypoglycemia Protocol Dextrose 1,000 mls @ 100 mls/hr 08/24/24 14:28 Dextrose 5% 1,000 Ml IVPB PRN PRN Hypoglycemia Protocol Vancomycin HCl 1,500 mg in 500 mls @ 250 mls/hr 08/25/24 16:00 08/26/24 17:19 Vancomycin 1,500 Mg/Ns 500 Ml IVPB 150 mls/hr Q12H [facility] Administration Cefepime HCl 2 gm in 50 mls @ 100 mls/hr 08/25/24 17:00 08/26/24 17:20 Maxipime 2 Gm/Ns 50 Ml IVPB 100 mls/hr Q12H [facility] Administration Insulin Aspart 4 - 8 units 08/24/24 17:00 08/26/24 13:12 Insulin Aspart (*Bkc) 100 Units/Ml SUB-Q Not Given TIDWM [facility] Protocol Insulin Aspart 2 - 4 units 08/24/24 21:00 08/25/24 21:06 Insulin Aspart (*Bkc) 100 Units/Ml SUB-Q 2 units HS [facility] Administration Protocol Losartan Potassium 50 mg 08/24/24 12:25 08/26/24 09:49 Losartan Potassium 50 Mg Tablet PO 50 mg DAILY [facility] Administration Metoprolol Succinate 50 mg 08/25/24 09:45 08/26/24 17:20 Metoprolol Succinate Ext Rel 50 Mg Tabcr PO 50 mg BID [facility] Administration Morphine Sulfate 1 mg 08/25/24 14:48 Morphine Sulfate (*Crx) 2 Mg/Ml Inj IV PUSH Q2H PRN Breakthrough Pain Rated 4-6 or NPO Morphine Sulfate 2 mg 08/25/24 14:48 Morphine Sulfate (*Crx) 2 Mg/Ml Inj IV PUSH Q2H PRN Breakthrough Pain Rated 7-10 or NPO Naloxone HCl 0.1 mg 08/25/24 14:48 Naloxone Hcl 0.4 Mg/Ml Vial IV PUSH Q2M PRN Opiate Reversal Nicotine 1 patch 08/25/24 09:00 08/26/24 09:48 Nicotine (*Pbkc) 21 Mg Patch TRANSDERM 1 patch DAILY [facility] Administration Oxycodone/Acetaminophen 1 tablet 08/25/24 14:48 Oxycodone/Acetaminophen (*Crx) 5-325 Mg Tablet PO Q4H PRN Pain Rated 4-6 Potassium Chloride 20 meq 08/26/24 08:00 08/26/24 09:48 Potassium Chloride 20 Meq Er Tablet PO 20 meq DAILY@0800 [facility] Administration Radiology Results: ITS Impressions Toe X-Ray 08/24/24 08:02 IMPRESSION: 1. Osteomyelitis and septic arthritis at first interphalangeal joint. Chest X-Ray 08/24/24 08:47 Impression: 1: No acute cardiopulmonary disease. Chest CTA 08/24/24 10:44 IMPRESSION: 1. No pulmonary embolus. Sensitivity is moderately decreased by motion artifact. 2. Mild mediastinal and bilateral hilar lymphadenopathy. The differential diagnosis includes reactive lymphadenopathy (including sarcoid) and less likely malignancy such as lymphoma. 3. Cardiomegaly. 4. Right thyroid nodule. Consider thyroid ultrasound for risk stratification. Labs Labs: Laboratory Results - last 24 hr 08/24/24 08/24/24 08/25/24 07:50 08:22 19:51 WBC RBC Hgb Hct MCV MCH MCHC RDW Plt Count MPV Immature Gran % (Auto) Neut % (Auto) Lymph % (Auto) Dickinson % (Auto) Eos % (Auto) Baso % (Auto) Lymph # (Auto) Dickinson # (Auto) Eos # (Auto) Baso # (Auto) Abs Immat Gran (auto) Absolute Neuts (auto) Absolute Nucleated RBC Nucleated RBC % ESR Sodium Potassium Chloride Carbon Dioxide Anion Gap BUN Creatinine Estim Creat Clear Calc Estimated GFR Glucose POC Capillary Glucose 214 H Calcium Total Bilirubin AST ALT Alkaline Phosphatase C-Reactive Protein Total Protein Albumin Free T3 pg/mL 3.5 Vancomycin Trough Urine Opiates Screen Cancelled Urine Methadone Screen Cancelled Ur Barbiturates Screen Cancelled Ur Phencyclidine Scrn Cancelled Ur Amphetamine Screen Cancelled U Benzodiazepines Scrn Cancelled Urine Cocaine Screen Cancelled U Cannabinoids Screen Cancelled 08/26/24 08/26/24 08/26/24 02:59 07:42 11:29 WBC 7.7 RBC 5.26 Hgb 13.3 L Hct 44.2 MCV 84.0 MCH 25.3 L MCHC 30.1 L RDW 15.3 H Plt Count 291 MPV 10.6 H Immature Gran % (Auto) 0.3 Neut % (Auto) 87.1 H Lymph % (Auto) 6.5 L Dickinson % (Auto) 5.8 Eos % (Auto) 0.0 Baso % (Auto) 0.3 Lymph # (Auto) 0.50 L Dickinson # (Auto) 0.4 Eos # (Auto) 0.0 Baso # (Auto) 0.0 Abs Immat Gran (auto) 0.02 Absolute Neuts (auto) 6.7 Absolute Nucleated RBC 0.000 Nucleated RBC % 0.0 ESR 13 Sodium 135 L Potassium 4.5 Chloride 102 Carbon Dioxide 33 H Anion Gap 0 L BUN 29 H Creatinine 1.50 H Estim Creat Clear Calc 92 Estimated GFR 51 L Glucose 146 H POC Capillary Glucose 194 H 182 H Calcium 8.1 L Total Bilirubin 0.5 AST 19 ALT 19 Alkaline Phosphatase 75 C-Reactive Protein 3.7 H Total Protein 7.0 Albumin 3.3 L Free T3 pg/mL Vancomycin Trough 16.8 Urine Opiates Screen Urine Methadone Screen Ur Barbiturates Screen Ur Phencyclidine Scrn Ur Amphetamine Screen U Benzodiazepines Scrn Urine Cocaine Screen U Cannabinoids Screen 08/26/24 16:56 WBC RBC Hgb Hct MCV MCH MCHC RDW Plt Count MPV Immature Gran % (Auto) Neut % (Auto) Lymph % (Auto) Dickinson % (Auto) Eos % (Auto) Baso % (Auto) Lymph # (Auto) Dickinson # (Auto) Eos # (Auto) Baso # (Auto) Abs Immat Gran (auto) Absolute Neuts (auto) Absolute Nucleated RBC Nucleated RBC % ESR Sodium Potassium Chloride Carbon Dioxide Anion Gap BUN Creatinine Estim Creat Clear Calc Estimated GFR Glucose POC Capillary Glucose > 500 H* Calcium Total Bilirubin AST ALT Alkaline Phosphatase C-Reactive Protein Total Protein Albumin Free T3 pg/mL Vancomycin Trough Urine Opiates Screen Urine Methadone Screen Ur Barbiturates Screen Ur Phencyclidine Scrn Ur Amphetamine Screen U Benzodiazepines Scrn Urine Cocaine Screen U Cannabinoids Screen
[2024-08-26 20:02] LABS: Glucose Point of Care 160 mg/dl (65-105)
[2024-08-27] MEDS: VANCOMYCIN 1,500 MG/NS 500 ML 1,500 MG/500 ML BAG 150 MG IVPB ×2 (04:07→16:40)
[2024-08-27 05:17] VITALS: BP 125/84; PULSE 70; RESP 20; TEMP 36.5; O2SAT 94
[2024-08-27] MEDS: CEFEPIME 2 GM/NS 50 ML 2 GM/50 ML BAG IVPB ×2 (06:12→16:40)
--- NOTE | 2024-08-27 06:27 | PCRCNOTE ---
Pt did not complete APNEA link because Pt did not want to wear the CPAP mask.
[2024-08-27] MEDS: oxyCODONE/ACETAMINOPHEN (*CRX) 5-325 MG TABLET 1 TABLET PO (07:49)
[2024-08-27] MEDS: POTASSIUM CHLORIDE 20 MEQ ER TABLET PO (07:50)
[2024-08-27 08:02] LABS: Glucose Point of Care 120 mg/dl (65-105)
[2024-08-27 08:32] LABS: Basophils Absolute Auto 0.1 K/mm3 (0.0-0.1); Basophils Percent Auto 0.6 % (0.2-1.2); Eosinophils Absolute Auto 0.4 K/mm3 (0-0.3); Eosinophils Percent Auto 3.1 % (0-4.4); Hematocrit 50.9 % (42.0-52.0); Hemoglobin 14.7 g/dL (14.0-18.0); Immature Granulocyte Absolute 0.06 K/mm3 (0.00-0.031); Immature Granulocyte Percent A 0.5 % (0-0.5); Lymphocytes Absolute Auto 1.62 K/mm3 (0.9-3.2); Lymphocytes Percent Auto 14.2 % (18.3-44.2); Mean Corpuscular HGB Conc 28.9 g/dl (32-36); Mean Corpuscular Hemoglobin 24.9 pg (26-34); Mean Corpuscular Volume 86.1 fl (80-100); Mean Platelet Volume 11.1 fl (7.4-10.4); Monocytes Absolute Auto 1.2 K/mm3 (0.1-0.6); Monocytes Percent Auto 10.2 % (2.6-8.5); Neutrophils Absolute Auto 8.1 K/mm3 (1.3-6.7); Neutrophils Percent Auto 71.4 % (45.5-73.1); Platelet Count Result 376 k/mm3 (150-375); Red Blood Count 5.91 M/mm3 (4.6-6.20); Red Cell Distribution Width 16.9 % (11.5-14.5); White Blood Count 11.4 K/mm3 (4.5-10.0)
--- NOTE | 2024-08-27 08:34 | PM.IMPN ---
Progress Note: A&P Assessment and Plan (1) Acute respiratory failure with hypoxia: Code(s): J96.01 - Acute respiratory failure with hypoxia Status: Acute Assessment and Plan: Likely secondary to acute CHF exacerbation due to non adherence to home medications Currently on 4L NC Wean for O2 saturation greater than 92% Probable underlying COPD component as he is a 2 pack per day smoker CXR was negative for any acute cardiopulmonary disease Respiratory panel was negative for Influenza A and B, RSV, COVID Chest CTA shown Cardiomegaly ProBNP ABG shown pH 7.362, pCO2 46.5, pO2 105, Bicarb 25.8 on 4L NC 08/25 Requiring CPAP at night due to desaturation, apnea link ordered for 08/26/24 PM. (2) Osteomyelitis of great toe of right foot: Code(s): M86.9 - Osteomyelitis, unspecified Status: Acute Assessment and Plan: Right great toe x-ray showing osteomyelitis and septic arthritis at 1st IP joint Patient was given vancomycin and cefepime while in the ED, then transition to vancomycin and Rocephin 2 g Status post right toe amputation Wound nurse consult White blood cell count 9.5 on arrival, CRP 3.8, ESR 57--continue to trend Wound and blood cultures were obtained and pending New diagnosis of pre diabetes this admission, Hgb A1C 6.0 08/25/2024 amputation of right great toe Continue Vancomycin 08/26/2024 ordered PT/OT (3) Septic arthritis of interphalangeal joint of toe of right foot: Code(s): M00.9 - Pyogenic arthritis, unspecified Status: Acute Assessment and Plan: see above (4) CHF (congestive heart failure): Code(s): I50.9 - Heart failure, unspecified Status: Acute Assessment and Plan: ProBNP Not currently on any medications at home Cardiology consulted Echo 08/25/2024 CXR was negative CTA of chest shown cardiomegaly Cardiology consulted Continue IV lasix and Losartan (5) Elevated troponin: Code(s): R79.89 - Other specified abnormal findings of blood chemistry Status: Acute Assessment and Plan: Troponin 0.230>0.216 Likely demand ischemia Will get cardiology consult EKG showing NSR with left atrial enlargement, incomplete right BBB with a rate of 86, QTc 465 (6) Type II diabetes mellitus: Code(s): E11.9 - Type 2 diabetes mellitus without complications Status: Acute Assessment and Plan: New diagnosis of prediabetes Hgb A1C 6.0 Blood sugars ranging 146-214, depending upon snack intake Accu checks AC/HS high dose SSI hypoglycemic protocol Diabetic diet clinical staff educator Dietitian consult (7) Acute kidney injury superimposed on chronic kidney disease: Code(s): N17.9 - Acute kidney failure, unspecified; N18.9 - Chronic kidney disease, unspecified Status: Acute Assessment and Plan: Presenting Creatinine 2.00, eGFR 36 Baseline creatinine appears to be 1.4-1.5 according to our records. eGFR 51-55 baseline Continue to trend Avoid nephrotoxic medications and testing with IV contrast 08/2508/26/2024 1.5 Continue to trend (8) Right thyroid nodule: Code(s): E04.1 - Nontoxic single thyroid nodule Status: Acute Assessment and Plan: Chest CTA shown right thyroid nodule Thyroid panel WNL May need thyroid US with biopsy on an outpatient basis (9) Elevated d-dimer: Code(s): R79.89 - Other specified abnormal findings of blood chemistry Status: Acute Assessment and Plan: D- dimer 1.24 CTA of chest was negative for PE, mild mediastinal and bilateral hilar lymphadenopathy, cardiomegaly, right thyroid nodule. CXR- was negative (10) Hypertension: Code(s): I10 - Essential (primary) hypertension Status: Chronic Assessment and Plan: Blood pressure 08/26 126/80 Continue Losartan (11) Rheumatoid arthritis: Code(s): M06.9 - Rheumatoid arthritis, unspecified Status: Chronic Assessment and Plan: By hx No obvious signs on exam (12) Tobacco dependence: Code(s): F17.200 - Nicotine dependence, unspecified, uncomplicated Status: Chronic Assessment and Plan: Smokes 2 packs per day, current every day user Educate on smoking cessation Educated 08/26/2024 on smoking and delayed wound healing, premature Nicotine patch ordered Subjective Date/time seen: 08/27/24 08:34 Interval history: Patient had a right toe amputation 0 1/0 3. Currently patient is seen by Cardiology for CHF. Echocardiogram shows left ventricular ejection fraction 25-30%. Patient is currently on losartan 50 mg p.o. q.d., furosemide 40 mg IV b.i.d., metoprolol 50 mg p.o. b.i.d., potassium 20 mEq p.o. daily. Patient HbA1c 6 which indicates prediabetes. Off note: Patient reports he was diagnosed CHF last year. He went to hospital in [place] due to extreme tiredness. He was diagnosed with low EF but reports never underwent cath and was only given medication for CHF and discharged . Review of Systems Review of Systems: All systems reviewed & are unremarkable except as noted in HPI and below Constitutional: Constitutional: Reports as per HPI and Reports no additional constitutional complaints Eyes: Eyes: Reports as per HPI and Reports no additional eye complaints ENT: Reports system reviewed and no additional complaints, except as documented and Reports as per HPI Cardiovascular: Cardiovascular: Reports as per HPI and Reports no additional cardiovascular complaints Respiratory: Respiratory: Reports as per HPI and Reports no additional respiratory complaints Gastrointestinal: Gastrointestinal: Reports as per HPI and Reports no additional gastrointestinal complaints Genitourinary: Genitourinary: Reports no additional male genitourinary complaints and Reports as per HPI Musculoskeletal: Musculoskeletal: Reports no additional musculoskeletal complaints and Reports as per HPI Integumentary/Breasts: Skin/Breast: Reports system reviewed and no additional complaints, except as docu and Reports as per HPI Neurologic: Reports system reviewed and no additional complaints, except as documented and Reports as per HPI Psychiatric: Psychiatric: Reports no additional psychiatric complaints and Reports as per HPI Exam Narrative: HEENT: PERRL, sclerae nonicteric, pharyngeal mucosa pink and intact NECK: No JVD CHEST: Coarse breath sounds without crackles or wheezes. Normal effort. HEART: NL S1/S2, regular, no murmur ABDOMEN: BS+, soft, nontender, no mass, no bruits EXTREMITIES: No cyanosis, edema, or clubbing. Right foot heavily bandaged. NEUROLOGIC: CN intact and symmetric to inspection. MUSCULOSKELETAL: Tone and strength symmetric. PSYCH: Alert. Oriented to person, place, and time. Anxious. Irritable. Objective Data Vital Signs Vital Signs: Vital Signs - 24 hr 08/26/24 09:49 08/26/24 10:00 08/26/24 11:10 Temperature Pulse Rate 71 80 Respiratory Rate Blood Pressure Pulse Oximetry Oxygen Delivery Nasal Cannula Oxygen Flow Rate 3 08/26/24 11:23 08/26/24 15:20 08/26/24 17:20 Temperature 98.1 F Pulse Rate 72 76 Respiratory Rate 22 H Blood Pressure 130/92 H Pulse Oximetry 97 Oxygen Delivery Room Air Oxygen Flow Rate 08/26/24 18:33 08/26/24 20:00 08/26/24 20:08 Temperature 97.5 F L 97.9 F Pulse Rate 78 73 78 Respiratory Rate 17 22 H 18 Blood Pressure 124/71 126/78 Pulse Oximetry 94 97 93 Oxygen Delivery Autopap Oxygen Flow Rate 08/26/24 21:13 08/27/24 05:17 Temperature 97.7 F Pulse Rate 73 70 Respiratory Rate 22 H 20 Blood Pressure 125/84 Pulse Oximetry 97 94 Oxygen Delivery Autopap Oxygen Flow Rate Intake/Output Intake/Output: Intake & Output 08/24/24 08/25/24 08/26/24 08/27/24 23:59 23:59 23:59 23:59 Intake Total 2680 2533 4300 980 Output Total 800 1100 700 Balance 1880 1433 3600 980 Meds/Results Medications: Active Medications Generic Name Dose Route Start Last Admin Trade Name Freq PRN Reason Stop Dose Admin Acetaminophen 500 mg 08/25/24 14:48 Acetaminophen 500 Mg Tablet PO Q6H PRN Pain Rated 1-3 Hydrocodone Bitart/Acetaminophen 1 tab 08/25/24 14:48 08/26/24 15:10 Hydrocodone/Acetaminophen (*Crx) 7.5-325 Mg Tablet PO 1 tab Q4H PRN Administration Pain Rated 7-10 Dextrose 12.5 gm 08/24/24 14:28 Dextrose 50% 25 Gm/50 Ml Syringe IV PUSH PRN PRN Hypoglycemia Protocol Enoxaparin Sodium 40 mg 08/26/24 09:00 08/26/24 09:48 Enoxaparin 40 Mg/0.4 Ml Syringe SUB-Q 40 mg DAILY [facility] Administration Furosemide 40 mg 08/24/24 14:20 08/26/24 17:21 Furosemide Inj 40 Mg/4 Ml Vial IV PUSH 40 mg BID [facility] Administration Glucagon 1 mg 08/24/24 14:28 Glucagon For Inj 1 Mg Vial IM PRN PRN Hypoglycemia Protocol Glucose 15 gm 08/24/24 14:28 Glucose Oral Gel 15 Gm Of Glucse In 37.5 Gm Tube PO PRN PRN Hypoglycemia Protocol Dextrose 1,000 mls @ 100 mls/hr 08/24/24 14:28 Dextrose 5% 1,000 Ml IVPB PRN PRN Hypoglycemia Protocol Vancomycin HCl 1,500 mg in 500 mls @ 250 mls/hr 08/25/24 16:00 08/27/24 06:07 Vancomycin 1,500 Mg/Ns 500 Ml IVPB Infused Q12H [facility] Infusion Cefepime HCl 2 gm in 50 mls @ 100 mls/hr 08/25/24 17:00 08/27/24 06:12 Maxipime 2 Gm/Ns 50 Ml IVPB 100 mls/hr Q12H [facility] Administration Insulin Aspart 4 - 8 units 08/24/24 17:00 08/26/24 20:14 Insulin Aspart (*Bkc) 100 Units/Ml SUB-Q Not Given TIDWM [facility] Protocol Insulin Aspart 2 - 4 units 08/24/24 21:00 08/26/24 21:33 Insulin Aspart (*Bkc) 100 Units/Ml SUB-Q Not Given HS [facility] Protocol Losartan Potassium 50 mg 08/24/24 12:25 08/26/24 09:49 Losartan Potassium 50 Mg Tablet PO 50 mg DAILY [facility] Administration Metoprolol Succinate 50 mg 08/25/24 09:45 08/26/24 17:20 Metoprolol Succinate Ext Rel 50 Mg Tabcr PO 50 mg BID [facility] Administration Morphine Sulfate 1 mg 08/25/24 14:48 Morphine Sulfate (*Crx) 2 Mg/Ml Inj IV PUSH Q2H PRN Breakthrough Pain Rated 4-6 or NPO Morphine Sulfate 2 mg 08/25/24 14:48 Morphine Sulfate (*Crx) 2 Mg/Ml Inj IV PUSH Q2H PRN Breakthrough Pain Rated 7-10 or NPO Naloxone HCl 0.1 mg 08/25/24 14:48 Naloxone Hcl 0.4 Mg/Ml Vial IV PUSH Q2M PRN Opiate Reversal Nicotine 1 patch 08/25/24 09:00 08/26/24 09:48 Nicotine (*Pbkc) 21 Mg Patch TRANSDERM 1 patch DAILY [facility] Administration Oxycodone/Acetaminophen 1 tablet 08/25/24 14:48 08/27/24 07:49 Oxycodone/Acetaminophen (*Crx) 5-325 Mg Tablet PO 1 tablet Q4H PRN Administration Pain Rated 4-6 Potassium Chloride 20 meq 08/26/24 08:00 08/27/24 07:50 Potassium Chloride 20 Meq Er Tablet PO 20 meq DAILY@0800 [facility] Administration Radiology Results: ITS Impressions Toe X-Ray 08/24/24 08:02 IMPRESSION: 1. Osteomyelitis and septic arthritis at first interphalangeal joint. Chest X-Ray 08/24/24 08:47 Impression: 1: No acute cardiopulmonary disease. Chest CTA 08/24/24 10:44 IMPRESSION: 1. No pulmonary embolus. Sensitivity is moderately decreased by motion artifact. 2. Mild mediastinal and bilateral hilar lymphadenopathy. The differential diagnosis includes reactive lymphadenopathy (including sarcoid) and less likely malignancy such as lymphoma. 3. Cardiomegaly. 4. Right thyroid nodule. Consider thyroid ultrasound for risk stratification. Labs Labs: Laboratory Results - last 24 hr 08/26/24 08/26/24 08/26/24 11:29 16:56 19:19 POC Capillary Glucose 182 H > 500 H* 160 H 08/27/24 07:58 POC Capillary Glucose 120 H Quality VTE Prophylaxis VTE prophylaxis: mechanical ordered Hospitalist MIPS Advance Care Plan I have confirmed that the patient's Advanced Care Plan is present, code status is documented, or surrogate decision maker is listed in patient medical record.: Yes Medication Reconciliation I have utilized all available resources to obtain, update and review the patients current medications (includes all prescriptions, OTC, herbals, cannabis, and nutritional supplements).: Yes
[2024-08-27 08:49] LABS: Alanine Aminotransferase 22 U/L (6-50); Albumin Level 3.9 g/dL (3.5-5.1); Alkaline Phosphatase 82 U/L (38-126); Anion Gap 2 mmol/L (4-12); Aspartate Amino Transferase 21 U/L (17-59); Bilirubin,Total 0.5 mg/dL (0.2-1.3); Blood Urea Nitrogen 29 mg/dL (9-20); Calcium 8.7 mg/dL (8.4-10.2); Carbon Dioxide 35 mmol/L (22-30); Chloride 103 mmol/L (98-107); Estimated CRCL calculation 82 ml/min; Estimated Glomerular Filt Rate 44; Glucose 102 mg/dL (65-110); Sodium 140 mmol/L (137-145)
[2024-08-27 08:51] VITALS: PULSE 90
[2024-08-27 08:51] LABS: CRP 2.1 mg/dL (<1.0)
[2024-08-27] MEDS: METOPROLOL SUCCINATE EXT REL 50 MG TABCR PO ×2 (08:51→16:41)
[2024-08-27] MEDS: FUROSEMIDE INJ 40 MG/4 ML VIAL IV PUSH ×2 (08:51→16:41)
[2024-08-27] MEDS: LOSARTAN POTASSIUM 50 MG TABLET PO (08:51)
[2024-08-27] MEDS: NICOTINE (*PBKC) 21 MG PATCH 1 PATCH TRANSDERM (08:53)
[2024-08-27] MEDS: ENOXAPARIN 40 MG/0.4 ML SYRINGE SUB-Q (08:53)
[2024-08-27 09:45] LABS: Erythrocyte Sedimentation Rate 1 mm/hr (0-20)
--- NOTE | 2024-08-27 10:45 | PCPTNOTE ---
attempted to see, but patient reports he wants to wait until he sees the surgeon later today to look at the dressing, PT states that is fine, but reminded patient when he walks to as patient states always lead with the R LE to help prevent going off heal and putting weight through the forefoot.
[2024-08-27 11:46] LABS: Glucose Point of Care 244 mg/dl (65-105)
--- NOTE | 2024-08-27 12:09 | PM.PNGS ---
Progress Note: A&P Assessment and Plan (1) Osteomyelitis of great toe of right foot: Code(s): M86.9 - Osteomyelitis, unspecified Status: Acute Assessment and Plan: doing well, cont routine postop care, local wound care and abx, heel touch wt bearing to RLE Subjective Subjective Date/Time Seen: 08/27/24 12:09 Interval history: feels ok, no acute issues Review of Systems Review of Systems: All systems reviewed & are unremarkable except as noted in HPI and below Exam Const: General: cooperative, comfortable and no acute distress GI: Inspection: normal to inspection Extrem: Other: R first toe - incision looks good, no s/s infection Objective Data Vital Signs Vital Signs: Vital Signs - 24 hr 08/26/24 15:20 08/26/24 17:20 08/26/24 18:33 Temperature 36.4 C L Pulse Rate 76 78 Respiratory Rate 17 Blood Pressure 124/71 Pulse Oximetry 94 Oxygen Delivery Room Air 08/26/24 20:00 08/26/24 20:08 08/26/24 21:13 Temperature 36.6 C Pulse Rate 73 78 73 Respiratory Rate 22 H 18 22 H Blood Pressure 126/78 Pulse Oximetry 97 93 97 Oxygen Delivery Autopap Autopap 08/27/24 05:17 08/27/24 08:00 08/27/24 08:51 Temperature 36.5 C Pulse Rate 70 90 Respiratory Rate 20 Blood Pressure 125/84 Pulse Oximetry 94 Oxygen Delivery Room Air Intake/Output Intake/Output: Intake & Output 08/24/24 08/25/24 08/26/24 08/27/24 23:59 23:59 23:59 23:59 Intake Total 2680 2533 4300 1580 Output Total 800 1100 700 Balance 1880 1433 3600 1580 Meds/Results Medications: Active Medications Generic Name Dose Route Start Last Admin Trade Name Freq PRN Reason Stop Dose Admin Acetaminophen 500 mg 08/25/24 14:48 Acetaminophen 500 Mg Tablet PO Q6H PRN Pain Rated 1-3 Hydrocodone Bitart/Acetaminophen 1 tab 08/25/24 14:48 08/26/24 15:10 Hydrocodone/Acetaminophen (*Crx) 7.5-325 Mg Tablet PO 1 tab Q4H PRN Administration Pain Rated 7-10 Dextrose 12.5 gm 08/24/24 14:28 Dextrose 50% 25 Gm/50 Ml Syringe IV PUSH PRN PRN Hypoglycemia Protocol Enoxaparin Sodium 40 mg 08/26/24 09:00 08/27/24 08:53 Enoxaparin 40 Mg/0.4 Ml Syringe SUB-Q 40 mg DAILY LESLI Administration Furosemide 40 mg 08/24/24 14:20 08/27/24 08:51 Furosemide Inj 40 Mg/4 Ml Vial IV PUSH 40 mg BID LESLI Administration Glucagon 1 mg 08/24/24 14:28 Glucagon For Inj 1 Mg Vial IM PRN PRN Hypoglycemia Protocol Glucose 15 gm 08/24/24 14:28 Glucose Oral Gel 15 Gm Of Glucse In 37.5 Gm Tube PO PRN PRN Hypoglycemia Protocol Dextrose 1,000 mls @ 100 mls/hr 08/24/24 14:28 Dextrose 5% 1,000 Ml IVPB PRN PRN Hypoglycemia Protocol Vancomycin HCl 1,500 mg in 500 mls @ 250 mls/hr 08/25/24 16:00 08/27/24 06:07 Vancomycin 1,500 Mg/Ns 500 Ml IVPB Infused Q12H [facility] Infusion Cefepime HCl 2 gm in 50 mls @ 100 mls/hr 08/25/24 17:00 08/27/24 06:12 Maxipime 2 Gm/Ns 50 Ml IVPB 100 mls/hr Q12H [facility] Administration Insulin Aspart 4 - 8 units 08/24/24 17:00 08/27/24 08:53 Insulin Aspart (*Bkc) 100 Units/Ml SUB-Q Not Given TIDWM [facility] Protocol Insulin Aspart 2 - 4 units 08/24/24 21:00 08/26/24 21:33 Insulin Aspart (*Bkc) 100 Units/Ml SUB-Q Not Given HS [facility] Protocol Losartan Potassium 50 mg 08/24/24 12:25 08/27/24 08:51 Losartan Potassium 50 Mg Tablet PO 50 mg DAILY LESLI Administration Metoprolol Succinate 50 mg 08/25/24 09:45 08/27/24 08:51 Metoprolol Succinate Ext Rel 50 Mg Tabcr PO 50 mg BID LESLI Administration Morphine Sulfate 1 mg 08/25/24 14:48 Morphine Sulfate (*Crx) 2 Mg/Ml Inj IV PUSH Q2H PRN Breakthrough Pain Rated 4-6 or NPO Morphine Sulfate 2 mg 08/25/24 14:48 Morphine Sulfate (*Crx) 2 Mg/Ml Inj IV PUSH Q2H PRN Breakthrough Pain Rated 7-10 or NPO Naloxone HCl 0.1 mg 08/25/24 14:48 Naloxone Hcl 0.4 Mg/Ml Vial IV PUSH Q2M PRN Opiate Reversal Nicotine 1 patch 08/25/24 09:00 08/27/24 08:53 Nicotine (*Pbkc) 21 Mg Patch TRANSDERM 1 patch DAILY LESLI Administration Oxycodone/Acetaminophen 1 tablet 08/25/24 14:48 08/27/24 07:49 Oxycodone/Acetaminophen (*Crx) 5-325 Mg Tablet PO 1 tablet Q4H PRN Administration Pain Rated 4-6 Spironolactone 12.5 mg 08/28/24 09:00 Spironolactone 12.5 Mg Tablet PO QAM [facility] Radiology Results: ITS Impressions Toe X-Ray 08/24/24 08:02 IMPRESSION: 1. Osteomyelitis and septic arthritis at first interphalangeal joint. Chest X-Ray 08/24/24 08:47 Impression: 1: No acute cardiopulmonary disease. Chest CTA 08/24/24 10:44 IMPRESSION: 1. No pulmonary embolus. Sensitivity is moderately decreased by motion artifact. 2. Mild mediastinal and bilateral hilar lymphadenopathy. The differential diagnosis includes reactive lymphadenopathy (including sarcoid) and less likely malignancy such as lymphoma. 3. Cardiomegaly. 4. Right thyroid nodule. Consider thyroid ultrasound for risk stratification. Labs Labs: Laboratory Results - last 24 hr 08/26/24 08/26/24 08/26/24 11:29 16:56 19:19 WBC RBC Hgb Hct MCV MCH MCHC RDW Plt Count MPV Immature Gran % (Auto) Neut % (Auto) Lymph % (Auto) [place] % (Auto) Eos % (Auto) Baso % (Auto) Lymph # (Auto) [place] # (Auto) Eos # (Auto) Baso # (Auto) Abs Immat Gran (auto) Absolute Neuts (auto) Absolute Nucleated RBC Nucleated RBC % ESR Sodium Potassium Chloride Carbon Dioxide Anion Gap BUN Creatinine Estim Creat Clear Calc Estimated GFR Glucose POC Capillary Glucose 182 H > 500 H* 160 H Calcium Total Bilirubin AST ALT Alkaline Phosphatase C-Reactive Protein Total Protein Albumin 08/27/24 08/27/24 08/27/24 07:44 07:58 11:42 WBC 11.4 H RBC 5.91 Hgb 14.7 Hct 50.9 MCV 86.1 MCH 24.9 L MCHC 28.9 L RDW 16.9 H Plt Count 376 H MPV 11.1 H Immature Gran % (Auto) 0.5 Neut % (Auto) 71.4 Lymph % (Auto) 14.2 L [place] % (Auto) 10.2 H Eos % (Auto) 3.1 Baso % (Auto) 0.6 Lymph # (Auto) 1.62 [place] # (Auto) 1.2 H Eos # (Auto) 0.4 H Baso # (Auto) 0.1 Abs Immat Gran (auto) 0.06 H Absolute Neuts (auto) 8.1 H Absolute Nucleated RBC 0.000 Nucleated RBC % 0.0 ESR 1 Sodium 140 Potassium 5.0 Chloride 103 Carbon Dioxide 35 H Anion Gap 2 L BUN 29 H Creatinine 1.70 H Estim Creat Clear Calc 82 Estimated GFR 44 L Glucose 102 POC Capillary Glucose 120 H 244 H Calcium 8.7 Total Bilirubin 0.5 AST 21 ALT 22 Alkaline Phosphatase 82 C-Reactive Protein 2.1 H Total Protein 8.0 Albumin 3.9
[2024-08-27] MEDS: INSULIN ASPART (*BKC) 100 UNITS/ML SUB-Q (12:32)
[2024-08-27 14:00] VITALS: BP 149/91; PULSE 76; RESP 19; TEMP 36.3; O2SAT 93
[2024-08-27 16:41] VITALS: PULSE 89
[2024-08-27 17:04] LABS: Glucose Point of Care 102 mg/dl (65-105)
--- NOTE | 2024-08-27 19:56 | P.PNCA_ITS ---
Progress Note: A&P Assessment and Plan (1) Osteomyelitis of great toe of right foot: Code(s): M86.9 - Osteomyelitis, unspecified Status: Acute (2) CHF (congestive heart failure): Code(s): I50.9 - Heart failure, unspecified Status: Acute (3) CKD (chronic kidney disease): Code(s): N18.9 - Chronic kidney disease, unspecified Status: Acute Plan 1. Acute on chronic systolic heart failure 2. Hypertension 3. Right osteomyelitis 4. Preop evaluation 5. CKD 3 -continue Toprol-XL and losartan. Spironolactone was added yesterday -continue to new to monitor renal function and potassium -continue aspirin and statin -discussed ischemic evaluation again with him he wants to get it done. Will discuss tomorrow with the on-call call manager to take minimal 3 images. Or we can get it done if LV systolic function remains impaired even after 3 months of guideline directed medical therapy -[facility] on discharge Subjective Date/time seen: 08/27/24 19:56 Interval history: No acute events overnight Echo shows EF 20-25% Review of Systems Review of Systems: All systems reviewed & are unremarkable except as noted in HPI and below (HPI) Constitutional: Constitutional: Reports as per HPI and Reports no additional constitutional complaints Eyes: Eyes: Reports as per HPI and Reports no additional eye complaints ENT: Reports system reviewed and no additional complaints, except as documented and Reports as per HPI Cardiovascular: Cardiovascular: Reports as per HPI and Reports no additional cardiovascular complaints Respiratory: Respiratory: Reports as per HPI and Reports no additional respiratory complaints Gastrointestinal: Gastrointestinal: Reports as per HPI and Reports no additional gastrointestinal complaints Genitourinary: Genitourinary: Reports no additional male genitourinary complaints and Reports as per HPI Musculoskeletal: Musculoskeletal: Reports no additional musculoskeletal complaints and Reports as per HPI Integumentary/Breasts: Skin/Breast: Reports system reviewed and no additional complaints, except as docu and Reports as per HPI Neurologic: Reports system reviewed and no additional complaints, except as documented and Reports as per HPI Psychiatric: Psychiatric: Reports no additional psychiatric complaints and Reports as per HPI Exam Narrative: General: In no acute distress, well nourished Cardiac: Normal S1 and S2. RRR, No murmur, gallops or friction rubs, peripheral pulses intact. Respiratory: Mild wheezing noted bilaterally, no other adventitious lung sounds, currently on room air, non-productive cough, SOB with exertion Gastrointestinal: soft, non-distended, non-tender, normoactive bowel sounds. : voiding without difficulty. Skin: Right great toe with wound that measures 1cm x1cm that probes to the bone at the level of the PIP joint, foul purulent drainage noted. Erythema and swelling noted to the right great toe extending to the ankle. Clean dressing in place. Neuro: Alert and oriented x4 Const: General: comfortable, no acute distress, alert, awake, anxious, poor hygiene and obese Nutritional Appearance: obese Orientation/consciousness: patient oriented x3 HENMT: Head: normocephalic and atraumatic Ears: hearing grossly normal bilaterally Eyes: General: appearance normal, both eyes and all related structures Pupils: Equal, round and reactive pupils present Neck: Neck: normal visual inspection and full ROM Resp: Effort & Inspection: no respiratory distress Auscultation: clear to auscultation bilaterally Cardio: Rate: regular rate Rhythm: regular rhythm Heart sounds: S1 normal heart sound present and S2 normal heart sound present Peripheral pulses: Peripheral pulses 2+ throughout GI: Inspection: non-distended Auscultation: normal bowel sounds Skin: General skin exam: normal color Neuro: General: patient oriented x3, moves all extremities and no focal motor deficits Cranial nerves: Yes Equal, round and reactive pupils present Speech: normal speech Motor exam (neuro): 5/5 motor strength present throughout Extrem: Right upper extremity: normal to inspection Left upper extremity: normal to inspection Right lower extremity: foot (Interphalangeal ulcer right great toe, probes to bone) Details: edema, vascular exam Details: dorsalis pedis pulse present, posterior tibial pulse present and normal capillary refill and other (Purulent fluid draining right great toe ulcer); no tenderness, no ecchymosis and no crepitus Left lower extremity: normal to inspection Other: Right great toe with diffuse erythema and edema primarily localized to the toe but with slight extension of mild erythema to the dorsal foot. There is a 1 x 1 cm open wound to the medial aspect of the the great toe that probes to bone at the level of the PIP joint. Slight foul odor and scant cloudy drainage from the wound. He is able to wiggle his toes. Right pedal pulse is strong and palpable. Unable to definitively palpate PT pulse on the right. Psych: Mental Status: mental status grossly normal Attitude: cooperative Insight: Fair insight present (Psych) Judgement: Fair judgement present (Psych) Objective Data Vital Signs Vital Signs: Vital Signs - 24 hr 08/26/24 20:00 08/26/24 20:08 08/26/24 21:13 Temperature 36.6 C Pulse Rate 73 78 73 Respiratory Rate 22 H 18 22 H Blood Pressure 126/78 Pulse Oximetry 97 93 97 Oxygen Delivery Autopap Autopap 08/27/24 05:17 08/27/24 08:00 08/27/24 08:51 Temperature 36.5 C Pulse Rate 70 90 Respiratory Rate 20 Blood Pressure 125/84 Pulse Oximetry 94 Oxygen Delivery Room Air 08/27/24 14:00 08/27/24 16:41 Temperature 36.3 C L Pulse Rate 76 89 Respiratory Rate 19 Blood Pressure 149/91 H Pulse Oximetry 93 Oxygen Delivery Intake/Output Intake/Output: Intake & Output 08/24/24 08/25/24 08/26/24 08/27/24 23:59 23:59 23:59 23:59 Intake Total 2680 2533 4300 3754 Output Total 800 1100 700 Balance 1880 1433 3600 3754 Meds/Results Medications: Active Medications Generic Name Dose Route Start Last Admin Trade Name Freq PRN Reason Stop Dose Admin Acetaminophen 500 mg 08/25/24 14:48 Acetaminophen 500 Mg Tablet PO Q6H PRN Pain Rated 1-3 Hydrocodone Bitart/Acetaminophen 1 tab 08/25/24 14:48 08/26/24 15:10 Hydrocodone/Acetaminophen (*Crx) 7.5-325 Mg Tablet PO 1 tab Q4H PRN Administration Pain Rated 7-10 Dextrose 12.5 gm 08/24/24 14:28 Dextrose 50% 25 Gm/50 Ml Syringe IV PUSH PRN PRN Hypoglycemia Protocol Enoxaparin Sodium 40 mg 08/26/24 09:00 08/27/24 08:53 Enoxaparin 40 Mg/0.4 Ml Syringe SUB-Q 40 mg DAILY LESLI Administration Glucagon 1 mg 08/24/24 14:28 Glucagon For Inj 1 Mg Vial IM PRN PRN Hypoglycemia Protocol Glucose 15 gm 08/24/24 14:28 Glucose Oral Gel 15 Gm Of Glucse In 37.5 Gm Tube PO PRN PRN Hypoglycemia Protocol Dextrose 1,000 mls @ 100 mls/hr 08/24/24 14:28 Dextrose 5% 1,000 Ml IVPB PRN PRN Hypoglycemia Protocol Vancomycin HCl 1,500 mg in 500 mls @ 250 mls/hr 08/25/24 16:00 08/27/24 16:40 Vancomycin 1,500 Mg/Ns 500 Ml IVPB 150 mls/hr Q12H [facility] Administration Cefepime HCl 2 gm in 50 mls @ 100 mls/hr 08/25/24 17:00 08/27/24 16:40 Maxipime 2 Gm/Ns 50 Ml IVPB 100 mls/hr Q12H [facility] Administration Insulin Aspart 4 - 8 units 08/24/24 17:00 08/27/24 17:38 Insulin Aspart (*Bkc) 100 Units/Ml SUB-Q Not Given TIDWM [facility] Protocol Insulin Aspart 2 - 4 units 08/24/24 21:00 08/26/24 21:33 Insulin Aspart (*Bkc) 100 Units/Ml SUB-Q Not Given HS [facility] Protocol Losartan Potassium 50 mg 08/24/24 12:25 08/27/24 08:51 Losartan Potassium 50 Mg Tablet PO 50 mg DAILY LESLI Administration Metoprolol Succinate 50 mg 08/25/24 09:45 08/27/24 16:41 Metoprolol Succinate Ext Rel 50 Mg Tabcr PO 50 mg BID LESLI Administration Morphine Sulfate 1 mg 08/25/24 14:48 Morphine Sulfate (*Crx) 2 Mg/Ml Inj IV PUSH Q2H PRN Breakthrough Pain Rated 4-6 or NPO Morphine Sulfate 2 mg 08/25/24 14:48 Morphine Sulfate (*Crx) 2 Mg/Ml Inj IV PUSH Q2H PRN Breakthrough Pain Rated 7-10 or NPO Naloxone HCl 0.1 mg 08/25/24 14:48 Naloxone Hcl 0.4 Mg/Ml Vial IV PUSH Q2M PRN Opiate Reversal Nicotine 1 patch 08/25/24 09:00 08/27/24 08:53 Nicotine (*Pbkc) 21 Mg Patch TRANSDERM 1 patch DAILY LESLI Administration Oxycodone/Acetaminophen 1 tablet 08/25/24 14:48 08/27/24 07:49 Oxycodone/Acetaminophen (*Crx) 5-325 Mg Tablet PO 1 tablet Q4H PRN Administration Pain Rated 4-6 Spironolactone 12.5 mg 08/28/24 09:00 Spironolactone 12.5 Mg Tablet PO [facility] Radiology Results: ITS Impressions Toe X-Ray 08/24/24 08:02 IMPRESSION: 1. Osteomyelitis and septic arthritis at first interphalangeal joint. Chest X-Ray 08/24/24 08:47 Impression: 1: No acute cardiopulmonary disease. Chest CTA 08/24/24 10:44 IMPRESSION: 1. No pulmonary embolus. Sensitivity is moderately decreased by motion artifact. 2. Mild mediastinal and bilateral hilar lymphadenopathy. The differential diagnosis includes reactive lymphadenopathy (including sarcoid) and less likely malignancy such as lymphoma. 3. Cardiomegaly. 4. Right thyroid nodule. Consider thyroid ultrasound for risk stratification. Labs Labs: Laboratory Results - last 24 hr 08/26/24 08/27/24 08/27/24 19:19 07:44 07:58 WBC 11.4 H RBC 5.91 Hgb 14.7 Hct 50.9 MCV 86.1 MCH 24.9 L MCHC 28.9 L RDW 16.9 H Plt Count 376 H MPV 11.1 H Immature Gran % (Auto) 0.5 Neut % (Auto) 71.4 Lymph % (Auto) 14.2 L [place] % (Auto) 10.2 H Eos % (Auto) 3.1 Baso % (Auto) 0.6 Lymph # (Auto) 1.62 [place] # (Auto) 1.2 H Eos # (Auto) 0.4 H Baso # (Auto) 0.1 Abs Immat Gran (auto) 0.06 H Absolute Neuts (auto) 8.1 H Absolute Nucleated RBC 0.000 Nucleated RBC % 0.0 ESR 1 Sodium 140 Potassium 5.0 Chloride 103 Carbon Dioxide 35 H Anion Gap 2 L BUN 29 H Creatinine 1.70 H Estim Creat Clear Calc 82 Estimated GFR 44 L Glucose 102 POC Capillary Glucose 160 H 120 H Calcium 8.7 Total Bilirubin 0.5 AST 21 ALT 22 Alkaline Phosphatase 82 C-Reactive Protein 2.1 H Total Protein 8.0 Albumin 3.9 08/27/24 08/27/24 11:42 17:01 WBC RBC Hgb Hct MCV MCH MCHC RDW Plt Count MPV Immature Gran % (Auto) Neut % (Auto) Lymph % (Auto) [place] % (Auto) Eos % (Auto) Baso % (Auto) Lymph # (Auto) [place] # (Auto) Eos # (Auto) Baso # (Auto) Abs Immat Gran (auto) Absolute Neuts (auto) Absolute Nucleated RBC Nucleated RBC % ESR Sodium Potassium Chloride Carbon Dioxide Anion Gap BUN Creatinine Estim Creat Clear Calc Estimated GFR Glucose POC Capillary Glucose 244 H 102 Calcium Total Bilirubin AST ALT Alkaline Phosphatase C-Reactive Protein Total Protein Albumin
[2024-08-27 20:03] VITALS: BP 144/102; PULSE 75; RESP 22; TEMP 36.2; O2SAT 96
[2024-08-27 20:50] VITALS: PULSE 89; RESP 19; O2SAT 93
[2024-08-27 21:19] LABS: Glucose Point of Care 163 mg/dl (65-105)
[2024-08-28] VITALS (22 sets, daily range): BP systolic 131–262; BP diastolic 74–142; PULSE 84–116; RESP 20–40; TEMP 36.6–38.8; O2SAT 86–95
--- NOTE | 2024-08-28 00:25 | PCRCNOTE ---
Therapist carefully explained Apnea link test to patient. Pt still refused Apnea link. Pt very restless tonight and not getting much sleep anyway.
[2024-08-28] MEDS: VANCOMYCIN 1,500 MG/NS 500 ML 1,500 MG/500 ML BAG 150 MG IVPB (04:01)
[2024-08-28] MEDS: CEFEPIME 2 GM/NS 50 ML 2 GM/50 ML BAG IVPB ×2 (05:14→16:40)
[2024-08-28] MEDS: MORPHINE SULFATE (*CRX) 2 MG/ML INJ IV PUSH (05:48)
--- NOTE | 2024-08-28 06:25 | ECG_ITS ---
Test Date: 2024-08-28 06:48:40 Measurements Intervals [place] Rate: 86 P: 53 LA: 194 QRS: -53 QRSD: 109 T: 89 QT: 381 QTc: 457 Interpretive Statements SINUS RHYTHM POSSIBLE LEFT ATRIAL ENLARGEMENT [-0.1mV P-WAVE IN V1/V2] LEFT AXIS DEVIATION [QRS AXIS < -30] Compared to ECG 08/24/2024 10:28:43 Incomplete right bundle-branch block no longer present Electronically Signed On 08-30-2024 16:52:07 NAMED ACCOUNT EXECUTIVE by Ibeth Cardenas M.D.
[2024-08-28] MEDS: METOPROLOL TARTRATE INJ 5 MG/5 ML VIAL IV PUSH (06:34)
--- NOTE | 2024-08-28 07:03 | PC.NURSE ---
patient was complaining of not feeling well so a new set of vitals were taken at 0628hrs revealing a blood pressure of 210/ [address] Lucero the mailroom personnel was then notified of the situation and orders for a STAT EKG, chest x-ray, and one time dose of Metoprolol 5mg IV were received and implemented. A blood pressure reassess was taken at 0658 and the blood pressure was 220/110. Day shift nurse, and hospitalist were notified of the situation.
[2024-08-28] MEDS: hydrALAZINE HCL 20 MG/ML VIAL 10 MG IV PUSH ×2 (07:14→14:24)
[2024-08-28 08:22] LABS: Glucose Point of Care 121 mg/dl (65-105)
[2024-08-28] MEDS: NICOTINE (*PBKC) 21 MG PATCH 1 PATCH TRANSDERM (09:03)
[2024-08-28] MEDS: LOSARTAN POTASSIUM 50 MG TABLET PO (09:05)
[2024-08-28] MEDS: METOPROLOL SUCCINATE EXT REL 50 MG TABCR PO (09:05)
[2024-08-28] MEDS: SPIRONOLACTONE 12.5 MG TABLET PO (09:19)
--- NOTE | 2024-08-28 09:39 | P.PNIM_ITS ---
Progress Note: A&P Assessment and Plan (1) Acute respiratory failure with hypoxia: Code(s): J96.01 - Acute respiratory failure with hypoxia Status: Acute Assessment and Plan: Likely secondary to acute CHF exacerbation due to non adherence to home medications * Currently on 4L NC * Wean for O2 saturation greater than 92% * Probable underlying COPD component as he is a 2 pack per day smoker * CXR was negative for any acute cardiopulmonary disease * Respiratory panel was negative for Influenza A and B, RSV, COVID * Chest CTA shown Cardiomegaly * ProBNP * ABG shown pH 7.362, pCO2 46.5, pO2 105, Bicarb 25.8 on 4L NC 08/25 * Requiring CPAP at night due to desaturation, apnea link ordered for 08/26/24 PM. (2) Osteomyelitis of great toe of right foot: Code(s): M86.9 - Osteomyelitis, unspecified Status: Acute Assessment and Plan: * Right great toe x-ray showing osteomyelitis and septic arthritis at 1st IP joint * Patient was given vancomycin and cefepime while in the ED, then transition to vancomycin and Rocephin 2 g * Status post right toe amputation * Wound nurse consult * White blood cell count 9.5 on arrival, CRP 3.8, ESR 57--continue to trend * Wound and blood cultures were obtained and pending * New diagnosis of pre diabetes this admission, Hgb A1C 6.0 * 08/26/2024 ordered PT/OT * Reviewed wound culture. * His WBC has been increased to 11.4. Patient will receive last dose of cefepime tonight. * Discontinued vancomycin. Patient will start Levaquin and Augmentin for 2 weeks until . * Patient underwent right toe amputation on 08/25. (3) Septic arthritis of interphalangeal joint of toe of right foot: Code(s): M00.9 - Pyogenic arthritis, unspecified Status: Acute Assessment and Plan: see above (4) CHF (congestive heart failure): Code(s): I50.9 - Heart failure, unspecified Status: Acute Assessment and Plan: * ProBNP * Not currently on any medications at home * Cardiology consulted * Echo 08/25/2024 * CXR was negative * CTA of chest shown cardiomegaly * Cardiology consulted * Continue IV lasix and Losartan * Patient will go cardiac catheterization today. (5) Elevated troponin: Code(s): R79.89 - Other specified abnormal findings of blood chemistry Status: Acute Assessment and Plan: * Troponin 0.230>0.216 * Likely demand ischemia * Patient will go cardiac catheterization today. * EKG showing NSR with left atrial enlargement, incomplete right BBB with a rate of 86, QTc 465 (6) Type II diabetes mellitus: Code(s): E11.9 - Type 2 diabetes mellitus without complications Status: Acute Assessment and Plan: New diagnosis of prediabetes * Hgb A1C 6.0 * Blood sugars ranging 146-214, depending upon snack intake * Accu checks AC/HS * high dose SSI * hypoglycemic protocol * Diabetic diet * breastfeeding educator * Dietitian 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 * eGFR 51-55 baseline * Continue to trend * Avoid nephrotoxic medications and testing with IV contrast / * 08/26/2024 1.5 * Continue to trend (8) Right thyroid nodule: Code(s): E04.1 - Nontoxic single thyroid nodule Status: Acute Assessment and Plan: * Chest CTA shown right thyroid nodule * Thyroid panel WNL * May need thyroid US with biopsy on an outpatient basis (9) Elevated d-dimer: Code(s): R79.89 - Other specified abnormal findings of blood chemistry Status: Acute Assessment and Plan: * D- dimer 1.24 * CTA of chest was negative for PE, mild mediastinal and bilateral hilar lymphadenopathy, cardiomegaly, right thyroid nodule. * CXR- was negative (10) Hypertension: Code(s): I10 - Essential (primary) hypertension Status: Chronic Assessment and Plan: * Blood pressure 08/26 126/80 * Continue Losartan (11) Rheumatoid arthritis: Code(s): M06.9 - Rheumatoid arthritis, unspecified Status: Chronic Assessment and Plan: * By hx * No obvious signs on exam (12) Tobacco dependence: Code(s): F17.200 - Nicotine dependence, unspecified, uncomplicated Status: Chronic Assessment and Plan: * Smokes 2 packs per day, current every day user * Educate on smoking cessation * Educated 08/26/2024 on smoking and delayed wound healing, premature * Nicotine patch ordered (13) Hypertensive emergency: Code(s): I16.1 - Hypertensive emergency Status: Acute Assessment and Plan: 08/28/2024 Rapid Response at 14.15: This morning, before I arrived at the hospital, the patient had elevated blood pressure and was given hydralazine 10 mg. During my evaluation in the rounds, the patient was resting well without any shortness of breath, pain, or palpitation. As per nursing, his blood pressure was around the 180's, and after receiving morning HTN medications, it was in the 150's. The rapid response was called at 2.15 p.m. due to his blood pressure of 256/122; hydralazine 10 mg was given . During evaluation, the patient was restless and had labored breathing but denied any pain at his amputation site. After giving hydralazine, his blood pressure was 210/110. Since dropping blood pressure by more than 30% can induce possibility of stroke; I spoke to Dr. Navarro. The patient was given 1.25 mg of Vasotec. Again, around 4.15 patients' blood pressure was 262/142. I talked to Dr. Navarro, who accepts ICU admission and advised me to notify cardiology. Spoke to Cardiology with Jennifer Lopez and notified the events. The patient will be transferred to ICU. Ordered CT chest abdomen pelvis:CHEST: 1. Minimal atelectasis versus pneumonia in the right lung base medially. 2. Nodule in the left lung base measuring 1.2 cm. 3 months follow-up CT is advised. 3. No evidence of aneurysm, dissection or pulmonary embolism. Ascending aorta measures 4.1 cm. 4. Cardiomegaly. 5. Mediastinal lymphadenopathy. ABDOMEN/PELVIS: 1. No evidence of dissection or aneurysm. 2. Slightly dilated common iliac arteries measuring 2 cm bilaterally. Distal aorta measures 2.6 cm. 3. Slight splenomegaly. 4. Constipation. 5. Underfilled urinary bladder with thickened wall. Evaluation for cystitis advised. CT brain: No abnormality EKG shows sinus tachycardia, possible left atrial enlargement, LAD Troponin:0.116 Subjective Date/time seen: 08/28/24 09:39 Interval history: Reviewed wound culture. His WBC has been increased to 11.4. Patient will receive last dose of cefepime tonight. Discontinued vancomycin. Patient will start Levaquin and Augmentin for 2 weeks until . Patient underwent right toe amputation on 08/25. Patient will go cardiac catheterization today. Patient had a right toe amputation 0 10 3. Currently patient is seen by Cardiology for CHF. Echocardiogram shows left ventricular ejection fraction 25- 30%. Patient is currently on losartan 50 mg p.o. q.d., furosemide 40 mg IV b.i.d., metoprolol 50 mg p.o. b.i.d., potassium 20 mEq p.o. daily. Patient HbA1c 6 which indicates prediabetes. Off note: Patient reports he was diagnosed CHF last year. He went to hospital in [place] due to extreme tiredness. He was diagnosed with low EF but reports never underwent cath and was only given medication for CHF and discharged . Rapid Response at 14.15: This morning, before I arrived at the hospital, the patient had elevated blood pressure and was given hydralazine 10 mg. During my evaluation in the rounds, the patient was resting well without any shortness of breath, pain, or palpitation. As per nursing, his blood pressure was around the 180's, and after receiving morning HTN medications, it was in the 150's. The rapid response was called at 2.15 p.m. due to his blood pressure of 256/122; hydralazine 10 mg was given . During evaluation, the patient was restless and had labored breathing but denied any pain at his amputation site. After giving hydralazine, his blood pressure was 210/110. Since dropping blood pressure by more than 30% can induce possibility of stroke; I spoke to Dr. Navarro. The patient was given 1.25 mg of Vasotec. Again, around 4.15 patients' blood pressure was 262/142. I talked to Dr. Navarro, who accepts ICU admission and advised me to notify cardiology. Spoke to Cardiology with Jennifer Lopez and notified the events. The patient will be transferred to ICU. Ordered CT chest abdomen pelvis:CHEST: 1. Minimal atelectasis versus pneumonia in the right lung base medially. 2. Nodule in the left lung base measuring 1.2 cm. 3 months follow-up CT is advised. 3. No evidence of aneurysm, dissection or pulmonary embolism. Ascending aorta measures 4.1 cm. 4. Cardiomegaly. 5. Mediastinal lymphadenopathy. ABDOMEN/PELVIS: 1. No evidence of dissection or aneurysm. 2. Slightly dilated common iliac arteries measuring 2 cm bilaterally. Distal aorta measures 2.6 cm. 3. Slight splenomegaly. 4. Constipation. 5. Underfilled urinary bladder with thickened wall. Evaluation for cystitis advised. CT brain: No abnormality EKG shows sinus tachycardia, possible left atrial enlargement, LAD Troponin:0.116 Review of Systems Review of Systems: All systems reviewed & are unremarkable except as noted in HPI and below Constitutional: Constitutional: Reports as per HPI and Reports no additional constitutional complaints Eyes: Eyes: Reports as per HPI and Reports no additional eye complaints ENT: Reports system reviewed and no additional complaints, except as documented and Reports as per HPI Cardiovascular: Cardiovascular: Reports as per HPI and Reports no additional cardiovascular complaints Respiratory: Respiratory: Reports as per HPI and Reports no additional respiratory complaints Gastrointestinal: Gastrointestinal: Reports as per HPI and Reports no additional gastrointestinal complaints Genitourinary: Genitourinary: Reports no additional male genitourinary com plaints and Reports as per HPI Musculoskeletal: Musculoskeletal: Reports no additional musculoskeletal complaints and Reports as per HPI Integumentary/Breasts: Skin/Breast: Reports system reviewed and no additional complaints, except as docu and Reports as per HPI Neurologic: Reports system reviewed and no additional complaints, except as documented and Reports as per HPI Psychiatric: Psychiatric: Reports no additional psychiatric complaints and Reports as per HPI Exam Narrative: HEENT: PERRL, sclerae nonicteric, pharyngeal mucosa pink and intact NECK: No JVD CHEST: Coarse breath sounds without crackles or wheezes. Normal effort. HEART: NL S1/S2, regular, no murmur ABDOMEN: BS+, soft, nontender, no mass, no bruits EXTREMITIES: No cyanosis, edema, or clubbing. Right foot heavily bandaged. NEUROLOGIC: CN intact and symmetric to inspection. MUSCULOSKELETAL: Tone and strength symmetric. PSYCH: Alert. Oriented to person, place, and time. Anxious. Irritable. Objective Data Vital Signs Vital Signs: Vital Signs - 24 hr 08/27/24 14:00 08/27/24 16:41 08/27/24 20:03 Temperature 97.3 F L 97.2 F L Pulse Rate 76 89 75 Respiratory Rate 19 22 H Blood Pressure 149/91 H 144/102 H Pulse Oximetry 93 96 Oxygen Delivery 08/27/24 20:50 08/28/24 05:39 08/28/24 06:28 Temperature 97.9 F Pulse Rate 89 87 Respiratory Rate 19 22 H Blood Pressure 195/105 H 210/110 H Pulse Oximetry 93 91 Oxygen Delivery Room Air 08/28/24 06:34 08/28/24 07:00 08/28/24 09:05 Temperature Pulse Rate 84 92 Respiratory Rate Blood Pressure 220/110 H Pulse Oximetry Oxygen Delivery Intake/Output Intake/Output: Intake & Output 08/25/24 08/26/24 08/27/24 08/28/24 23:59 23:59 23:59 23:59 Intake Total 2533 4300 4304 318 Output Total 1100 700 Balance 1433 3600 4304 318 Meds/Results Medications: Active Medications Generic Name Dose Route Start Last Admin Trade Name Freq PRN Reason Stop Dose Admin Acetaminophen 500 mg 08/25/24 14:48 Acetaminophen 500 Mg Tablet PO Q6H PRN Pain Rated 1-3 Hydrocodone Bitart/Acetaminophen 1 tab 08/25/24 14:48 08/26/24 15:10 Hydrocodone/Acetaminophen (*Crx) 7.5-325 Mg Tablet PO 1 tab Q4H PRN Administration Pain Rated 7-10 Amoxicillin/Clavulanate Potassium 1 tablet 08/29/24 08:00 Amoxicillin/Clavulanate K 875-125 Mg Tab PO 09/09/24 21:01 Q12HR LESLI Dextrose 12.5 gm 08/24/24 14:28 Dextrose 50% 25 Gm/50 Ml Syringe IV PUSH PRN PRN Hypoglycemia Protocol Enoxaparin Sodium 40 mg 08/26/24 09:00 08/28/24 09:19 Enoxaparin 40 Mg/0.4 Ml Syringe SUB-Q Not Given DAILY LESLI Glucagon 1 mg 08/24/24 14:28 Glucagon For Inj 1 Mg Vial IM PRN PRN Hypoglycemia Protocol Glucose 15 gm 08/24/24 14:28 Glucose Oral Gel 15 Gm Of Glucse In 37.5 Gm Tube PO PRN PRN Hypoglycemia Protocol Hydralazine HCl 10 mg 08/28/24 07:05 08/28/24 07:14 Hydralazine Hcl 20 Mg/Ml Vial IV PUSH 10 mg Q8H PRN Administration Blood Pressure - High Dextrose 1,000 mls @ 100 mls/hr 08/24/24 14:28 Dextrose 5% 1,000 Ml IVPB PRN PRN Hypoglycemia Protocol Cefepime HCl 2 gm in 50 mls @ 100 mls/hr 08/25/24 17:00 08/28/24 05:14 Maxipime 2 Gm/Ns 50 Ml IVPB 08/28/24 23:59 100 mls/hr Q12H LESLI Administration Insulin Aspart 4 - 8 units 08/24/24 17:00 08/28/24 09:10 Insulin Aspart (*Bkc) 100 Units/Ml SUB-Q Not Given TIDWM [facility] Protocol Insulin Aspart 2 - 4 units 08/24/24 21:00 08/27/24 21:53 Insulin Aspart (*Bkc) 100 Units/Ml SUB-Q Not Given HS [facility] Protocol Levofloxacin 750 mg 08/29/24 09:00 Levofloxacin 750 Mg Tablet PO 09/08/24 23:59 DAILY LESLI Losartan Potassium 50 mg 08/24/24 12:25 08/28/24 09:05 Losartan Potassium 50 Mg Tablet PO 50 mg DAILY LESLI Administration Metoprolol Succinate 50 mg 08/25/24 09:45 08/28/24 09:05 Metoprolol Succinate Ext Rel 50 Mg Tabcr PO 50 mg BID LESLI Administration Morphine Sulfate 1 mg 08/25/24 14:48 Morphine Sulfate (*Crx) 2 Mg/Ml Inj IV PUSH Q2H PRN Breakthrough Pain Rated 4-6 or NPO Morphine Sulfate 2 mg 08/25/24 14:48 08/28/24 05:48 Morphine Sulfate (*Crx) 2 Mg/Ml Inj IV PUSH 2 mg Q2H PRN Administration Breakthrough Pain Rated 7-10 or NPO Naloxone HCl 0.1 mg 08/25/24 14:48 Naloxone Hcl 0.4 Mg/Ml Vial IV PUSH Q2M PRN Opiate Reversal Nicotine 1 patch 08/25/24 09:00 08/28/24 09:03 Nicotine (*Pbkc) 21 Mg Patch TRANSDERM 1 patch DAILY LESLI Administration Oxycodone/Acetaminophen 1 tablet 08/25/24 14:48 08/27/24 07:49 Oxycodone/Acetaminophen (*Crx) 5-325 Mg Tablet PO 1 tablet Q4H PRN Administration Pain Rated 4-6 Spironolactone 12.5 mg 08/28/24 09:00 08/28/24 09:19 Spironolactone 12.5 Mg Tablet PO 12.5 mg QAM LESLI Administration Radiology Results: ITS Impressions Toe X-Ray 08/24/24 08:02 IMPRESSION: 1. Osteomyelitis and septic arthritis at first interphalangeal joint. Chest CTA 08/24/24 10:44 IMPRESSION: 1. No pulmonary embolus. Sensitivity is moderately decreased by motion artifact. 2. Mild mediastinal and bilateral hilar lymphadenopathy. The differential diagnosis includes reactive lymphadenopathy (including sarcoid) and less likely malignancy such as lymphoma. 3. Cardiomegaly. 4. Right thyroid nodule. Consider thyroid ultrasound for risk stratification. Chest X-Ray 08/28/24 06:49 Impression: Clear lungs. Labs Labs: Laboratory Results - last 24 hr 08/27/24 08/27/24 08/27/24 07:44 11:42 17:01 ESR 1 POC Capillary Glucose 244 H 102 08/27/24 08/28/24 20:12 08:19 ESR POC Capillary Glucose 163 H 121 H Quality VTE Prophylaxis VTE prophylaxis: mechanical ordered Hospitalist [facility] Advance Care Plan I have confirmed that the patient's Advanced Care Plan is present, code status is documented, or surrogate decision maker is listed in patient medical record.: Yes Medication Reconciliation I have utilized all available resources to obtain, update and review the patients current medications (includes all prescriptions, OTC, herbals, cannabis, and nutritional supplements).: Yes
--- NOTE | 2024-08-28 09:42 | PCPTNOTE ---
Patient declined PT stating he was not having a good day today. Patient states I am all over the place today. I cant breath well and having a bad day. SPO2:97% on room air and HR:93bpm. RN aware of patient's c/o SOB. PT will continue to follow per plan of care.
--- NOTE | 2024-08-28 10:31 | P.PNCA_ITS ---
Progress Note: A&P Assessment and Plan (1) Osteomyelitis of great toe of right foot: Code(s): M86.9 - Osteomyelitis, unspecified Status: Acute (2) CHF (congestive heart failure): Code(s): I50.9 - Heart failure, unspecified Status: Acute (3) CKD (chronic kidney disease): Code(s): N18.9 - Chronic kidney disease, unspecified Status: Acute Plan 1. Acute on chronic systolic heart failure 2. Hypertension 3. Right osteomyelitis 4. Preop evaluation 5. CKD 3 -continue Toprol-XL and losartan. Spironolactone was added yesterday -continue to new to monitor renal function and potassium -continue aspirin and statin -discussed ischemic evaluation again with him he wants to get it done. Will discuss tomorrow with the on-call appeals nurse to take minimal 3 images. Or we can get it done if LV systolic function remains impaired even after 3 months of guideline directed medical therapy -[facility] on discharge Subjective Date/time seen: 08/28/24 10:31 Interval history: No acute events overnight Echo shows EF 20-25% Date of service 08/28/2024: He feels okay today and does not have any specific complaints. He denies any chest pain patients. He does have shortness of breath which is chronic. Review of Systems Review of Systems: All systems reviewed & are unremarkable except as noted in HPI and below (HPI) Constitutional: Constitutional: Reports as per HPI and Reports no additional constitutional complaints Eyes: Eyes: Reports as per HPI and Reports no additional eye complaints ENT: Reports system reviewed and no additional complaints, except as documented and Reports as per HPI Cardiovascular: Cardiovascular: Reports as per HPI and Reports no additional cardiovascular complaints Respiratory: Respiratory: Reports as per HPI and Reports no additional respiratory complaints Gastrointestinal: Gastrointestinal: Reports as per HPI and Reports no additional gastrointestinal complaints Genitourinary: Genitourinary: Reports no additional male genitourinary complaints and Reports as per HPI Musculoskeletal: Musculoskeletal: Reports no additional musculoskeletal complaints and Reports as per HPI Integumentary/Breasts: Skin/Breast: Reports system reviewed and no additional complaints, except as docu and Reports as per HPI Neurologic: Reports system reviewed and no additional complaints, except as documented and Reports as per HPI Psychiatric: Psychiatric: Reports no additional psychiatric complaints and Reports as per HPI Exam Narrative: General: In no acute distress, well nourished Cardiac: Normal S1 and S2. RRR, No murmur, gallops or friction rubs, peripheral pulses intact. Respiratory: Mild wheezing noted bilaterally, no other adventitious lung sounds, currently on room air, non-productive cough, SOB with exertion Gastrointestinal: soft, non-distended, non-tender, normoactive bowel sounds. : voiding without difficulty. Skin: Right great toe with wound that measures 1cm x1cm that probes to the bone at the level of the PIP joint, foul purulent drainage noted. Erythema and swel ling noted to the right great toe extending to the ankle. Clean dressing in place. Neuro: Alert and oriented x4 Const: General: comfortable, no acute distress, alert, awake, anxious, poor hygiene and obese Nutritional Appearance: obese Orientation/consciousness: patient oriented x3 HENMT: Head: normocephalic and atraumatic Ears: hearing grossly normal bilaterally Eyes: General: appearance normal, both eyes and all related structures Pupils: Equal, round and reactive pupils present Neck: Neck: normal visual inspection and full ROM Resp: Effort & Inspection: no respiratory distress Auscultation: clear to auscultation bilaterally Cardio: Rate: regular rate Rhythm: regular rhythm Heart sounds: S1 normal heart sound present and S2 normal heart sound present Peripheral pulses: Peripheral pulses 2+ throughout GI: Inspection: non-distended Auscultation: normal bowel sounds Skin: General skin exam: normal color Neuro: General: patient oriented x3, moves all extremities and no focal motor deficits Cranial nerves: Yes Equal, round and reactive pupils present Speech: normal speech Motor exam (neuro): 5/5 motor strength present throughout Extrem: Right upper extremity: normal to inspection Left upper extremity: normal to inspection Right lower extremity: foot (Interphalangeal ulcer right great toe, probes to bone) Details: edema, vascular exam Details: dorsalis pedis pulse present, posterior tibial pulse present and normal capillary refill and other (Purulent fluid draining right great toe ulcer); no tenderness, no ecchymosis and no crepitus Left lower extremity: normal to inspection Other: Right great toe with diffuse erythema and edema primarily localized to the toe but with slight extension of mild erythema to the dorsal foot. There is a 1 x 1 cm open wound to the medial aspect of the the great toe that probes to bone at the level of the PIP joint. Slight foul odor and scant cloudy drainage from the wound. He is able to wiggle his toes. Right pedal pulse is strong and palpable. Unable to definitively palpate PT pulse on the right. Psych: Mental Status: mental status grossly normal Attitude: cooperative Insight: Fair insight present (Psych) Judgement: Fair judgement present (Psych) Objective Data Vital Signs Vital Signs: Vital Signs - 24 hr 08/27/24 14:00 08/27/24 16:41 08/27/24 20:03 Temperature 36.3 C L 36.2 C L Pulse Rate 76 89 75 Respiratory Rate 19 22 H Blood Pressure 149/91 H 144/102 H Pulse Oximetry 93 96 Oxygen Delivery 08/27/24 20:50 08/28/24 05:39 08/28/24 06:28 Temperature 36.6 C Pulse Rate 89 87 Respiratory Rate 19 22 H Blood Pressure 195/105 H 210/110 H Pulse Oximetry 93 91 Oxygen Delivery Room Air 08/28/24 06:34 08/28/24 07:00 08/28/24 07:45 Temperature Pulse Rate 84 Respiratory Rate Blood Pressure 220/110 H 179/92 H Pulse Oximetry Oxygen Delivery 08/28/24 09:05 Temperature Pulse Rate 92 Respiratory Rate Blood Pressure Pulse Oximetry Oxygen Delivery Intake/Output Intake/Output: Intake & Output 08/25/24 08/26/24 08/27/24 08/28/24 23:59 23:59 23:59 23:59 Intake Total 2533 4300 4304 318 Output Total 1100 700 Balance 1433 3600 4304 318 Meds/Results Medications: Active Medications Generic Name Dose Route Start Last Admin Trade Name Freq PRN Reason Stop Dose Admin Acetaminophen 500 mg 08/25/24 14:48 Acetaminophen 500 Mg Tablet PO Q6H PRN Pain Rated 1-3 Hydrocodone Bitart/Acetaminophen 1 tab 08/25/24 14:48 08/26/24 15:10 Hydrocodone/Acetaminophen (*Crx) 7.5-325 Mg Tablet PO 1 tab Q4H PRN Administration Pain Rated 7-10 Amoxicillin/Clavulanate Potassium 1 tablet 08/29/24 08:00 Amoxicillin/Clavulanate K 875-125 Mg Tab PO 09/09/24 21:01 Q12HR LESLI Dextrose 12.5 gm 08/24/24 14:28 Dextrose 50% 25 Gm/50 Ml Syringe IV PUSH PRN PRN Hypoglycemia Protocol Enoxaparin Sodium 40 mg 08/26/24 09:00 08/28/24 09:19 Enoxaparin 40 Mg/0.4 Ml Syringe SUB-Q Not Given DAILY LESLI Glucagon 1 mg 08/24/24 14:28 Glucagon For Inj 1 Mg Vial IM PRN PRN Hypoglycemia Protocol Glucose 15 gm 08/24/24 14:28 Glucose Oral Gel 15 Gm Of Glucse In 37.5 Gm Tube PO PRN PRN Hypoglycemia Protocol Hydralazine HCl 10 mg 08/28/24 07:05 08/28/24 07:14 Hydralazine Hcl 20 Mg/Ml Vial IV PUSH 10 mg Q8H PRN Administration Blood Pressure - High Dextrose 1,000 mls @ 100 mls/hr 08/24/24 14:28 Dextrose 5% 1,000 Ml IVPB PRN PRN Hypoglycemia Protocol Cefepime HCl 2 gm in 50 mls @ 100 mls/hr 08/25/24 17:00 08/28/24 05:14 Maxipime 2 Gm/Ns 50 Ml IVPB 08/28/24 23:59 100 mls/hr Q12H LESLI Administration Insulin Aspart 4 - 8 units 08/24/24 17:00 08/28/24 09:10 Insulin Aspart (*Bkc) 100 Units/Ml SUB-Q Not Given TIDWM [facility] Protocol Insulin Aspart 2 - 4 units 08/24/24 21:00 08/27/24 21:53 Insulin Aspart (*Bkc) 100 Units/Ml SUB-Q Not Given HS [facility] Protocol Levofloxacin 750 mg 08/29/24 09:00 Levofloxacin 750 Mg Tablet PO 09/08/24 23:59 DAILY LESLI Losartan Potassium 50 mg 08/24/24 12:25 08/28/24 09:05 Losartan Potassium 50 Mg Tablet PO 50 mg DAILY LESLI Administration Metoprolol Succinate 50 mg 08/25/24 09:45 08/28/24 09:05 Metoprolol Succinate Ext Rel 50 Mg Tabcr PO 50 mg BID LESLI Administration Morphine Sulfate 1 mg 08/25/24 14:48 Morphine Sulfate (*Crx) 2 Mg/Ml Inj IV PUSH Q2H PRN Breakthrough Pain Rated 4-6 or NPO Morphine Sulfate 2 mg 08/25/24 14:48 08/28/24 05:48 Morphine Sulfate (*Crx) 2 Mg/Ml Inj IV PUSH 2 mg Q2H PRN Administration Breakthrough Pain Rated 7-10 or NPO Naloxone HCl 0.1 mg 08/25/24 14:48 Naloxone Hcl 0.4 Mg/Ml Vial IV PUSH Q2M PRN Opiate Reversal Nicotine 1 patch 08/25/24 09:00 08/28/24 09:03 Nicotine (*Pbkc) 21 Mg Patch TRANSDERM 1 patch DAILY LESLI Administration Oxycodone/Acetaminophen 1 tablet 08/25/24 14:48 08/27/24 07:49 Oxycodone/Acetaminophen (*Crx) 5-325 Mg Tablet PO 1 tablet Q4H PRN Administration Pain Rated 4-6 Spironolactone 12.5 mg 08/28/24 09:00 08/28/24 09:19 Spironolactone 12.5 Mg Tablet PO 12.5 mg QAM LESLI Administration Radiology Results: ITS Impressions Toe X-Ray 08/24/24 08:02 IMPRESSION: 1. Osteomyelitis and septic arthritis at first interphalangeal joint. Chest CTA 08/24/24 10:44 IMPRESSION: 1. No pulmonary embolus. Sensitivity is moderately decreased by motion artifact. 2. Mild mediastinal and bilateral hilar lymphadenopathy. The differential diagnosis includes reactive lymphadenopathy (including sarcoid) and less likely malignancy such as lymphoma. 3. Cardiomegaly. 4. Right thyroid nodule. Consider thyroid ultrasound for risk stratification. Chest X-Ray 08/28/24 06:49 Impression: Clear lungs. Labs Labs: Laboratory Results - last 24 hr 08/27/24 08/27/24 08/27/24 11:42 17:01 20:12 POC Capillary Glucose 244 H 102 163 H 08/28/24 08:19 POC Capillary Glucose 121 H Quality VTE Prophylaxis VTE prophylaxis: mechanical ordered
[2024-08-28 10:47] LABS: Basophils Absolute Auto 0.1 K/mm3 (0.0-0.1); Basophils Percent Auto 0.5 % (0.2-1.2); Eosinophils Absolute Auto 0.2 K/mm3 (0-0.3); Eosinophils Percent Auto 1.5 % (0-4.4); Hematocrit 46.2 % (42.0-52.0); Hemoglobin 13.8 g/dL (14.0-18.0); Immature Granulocyte Absolute 0.03 K/mm3 (0.00-0.031); Immature Granulocyte Percent A 0.3 % (0-0.5); Lymphocytes Absolute Auto 0.66 K/mm3 (0.9-3.2); Mean Corpuscular HGB Conc 29.9 g/dl (32-36); Mean Corpuscular Hemoglobin 24.9 pg (26-34); Mean Corpuscular Volume 83.2 fl (80-100); Mean Platelet Volume 10.8 fl (7.4-10.4); Monocytes Absolute Auto 0.8 K/mm3 (0.1-0.6); Monocytes Percent Auto 7.3 % (2.6-8.5); Neutrophils Absolute Auto 9.2 K/mm3 (1.3-6.7); Neutrophils Percent Auto 84.4 % (45.5-73.1); Platelet Count Result 314 k/mm3 (150-375); Red Blood Count 5.55 M/mm3 (4.6-6.20); Red Cell Distribution Width 15.9 % (11.5-14.5); White Blood Count 10.9 K/mm3 (4.5-10.0)
[2024-08-28 11:08] LABS: Anisocytosis 1+; Hypochromasia 1+; Ovalocytes 1+; Platelet Estimate Adequate (Adequate)
[2024-08-28 11:09] LABS: Schistocytes None Seen
[2024-08-28 11:10] LABS: Alanine Aminotransferase 35 U/L (6-50); Albumin Level 3.7 g/dL (3.5-5.1); Alkaline Phosphatase 93 U/L (38-126); Anion Gap 3 mmol/L (4-12); Aspartate Amino Transferase 26 U/L (17-59); Bilirubin,Total 0.9 mg/dL (0.2-1.3); Blood Urea Nitrogen 21 mg/dL (9-20); CRP 2.3 mg/dL (<1.0); Calcium 9.1 mg/dL (8.4-10.2); Carbon Dioxide 33 mmol/L (22-30); Chloride 101 mmol/L (98-107); Estimated CRCL calculation 117 ml/min; Estimated Glomerular Filt Rate > 60; Glucose 109 mg/dL (65-110); Potassium 4.6 mmol/L (3.4-5.0); Sodium 137 mmol/L (137-145)
--- NOTE | 2024-08-28 11:21 | P.PNGS_ITS ---
Progress Note: A&P Assessment and Plan (1) Osteomyelitis of great toe of right foot: Code(s): M86.9 - Osteomyelitis, unspecified Status: Acute Assessment and Plan: Looks as though the right transmetatarsal amputation is healing nicely. Skin around the amputation needs to be washed and cleaned. And Xeroform gauze over incision to dressings of fluffs and Kerlix roll daily. Wound cultures show this to be a polymicrobial infection including MSSA, strep, Pseudomonas. Will DC vancomycin and start clindamycin. Continue cefepime Subjective Subjective Date/Time Seen: 08/28/24 11:21 Post Op day: 3 Patient reports: no new complaints and pain is less Interval history: Patient reports anxiety regarding cardiovascular testing he is to have today. No complaints or problems regarding his right great toe amputation. Exam Const: General: alert, awake, anxious and obese Extrem: Right lower extremity: foot (Toe amputation wound is pink and healthy, slight drainage but healing) Details: normal capillary refill, tenderness (Slight tenderness) and edema; no unusual warmth and no crepitus Objective Data Vital Signs Vital Signs: Vital Signs - 24 hr 08/27/24 14:00 08/27/24 16:41 08/27/24 20:03 Temperature 36.3 C L 36.2 C L Pulse Rate 76 89 75 Respiratory Rate 19 22 H Blood Pressure 149/91 H 144/102 H Pulse Oximetry 93 96 Oxygen Delivery 08/27/24 20:50 08/28/24 05:39 08/28/24 06:28 Temperature 36.6 C Pulse Rate 89 87 Respiratory Rate 19 22 H Blood Pressure 195/105 H 210/110 H Pulse Oximetry 93 91 Oxygen Delivery Room Air 08/28/24 06:34 08/28/24 07:00 08/28/24 07:45 Temperature Pulse Rate 84 Respiratory Rate Blood Pressure 220/110 H 179/92 H Pulse Oximetry Oxygen Delivery 08/28/24 09:05 Temperature Pulse Rate 92 Respiratory Rate Blood Pressure Pulse Oximetry Oxygen Delivery Intake/Output Intake/Output: Intake & Output 08/25/24 08/26/24 08/27/24 08/28/24 23:59 23:59 23:59 23:59 Intake Total 2533 4300 4304 318 Output Total 1100 700 Balance 1433 3600 4304 318 Meds/Results Medications: Active Medications Generic Name Dose Route Start Last Admin Trade Name Freq PRN Reason Stop Dose Admin Acetaminophen 500 mg 08/25/24 14:48 Acetaminophen 500 Mg Tablet PO Q6H PRN Pain Rated 1-3 Hydrocodone Bitart/Acetaminophen 1 tab 08/25/24 14:48 08/26/24 15:10 Hydrocodone/Acetaminophen (*Crx) 7.5-325 Mg Tablet PO 1 tab Q4H PRN Administration Pain Rated 7-10 Amoxicillin/Clavulanate Potassium 1 tablet 08/29/24 08:00 Amoxicillin/Clavulanate K 875-125 Mg Tab PO 09/09/24 21:01 Q12HR LESLI Dextrose 12.5 gm 08/24/24 14:28 Dextrose 50% 25 Gm/50 Ml Syringe IV PUSH PRN PRN Hypoglycemia Protocol Enoxaparin Sodium 40 mg 08/26/24 09:00 08/28/24 09:19 Enoxaparin 40 Mg/0.4 Ml Syringe SUB-Q Not Given DAILY LESLI Glucagon 1 mg 08/24/24 14:28 Glucagon For Inj 1 Mg Vial IM PRN PRN Hypoglycemia Protocol Glucose 15 gm 08/24/24 14:28 Glucose Oral Gel 15 Gm Of Glucse In 37.5 Gm Tube PO PRN PRN Hypoglycemia Protocol Hydralazine HCl 10 mg 08/28/24 07:05 08/28/24 07:14 Hydralazine Hcl 20 Mg/Ml Vial IV PUSH 10 mg Q8H PRN Administration Blood Pressure - High Dextrose 1,000 mls @ 100 mls/hr 08/24/24 14:28 Dextrose 5% 1,000 Ml IVPB PRN PRN Hypoglycemia Protocol Cefepime HCl 2 gm in 50 mls @ 100 mls/hr 08/25/24 17:00 08/28/24 05:14 Maxipime 2 Gm/Ns 50 Ml IVPB 08/28/24 23:59 100 mls/hr Q12H LESLI Administration Insulin Aspart 4 - 8 units 08/24/24 17:00 08/28/24 09:10 Insulin Aspart (*Bkc) 100 Units/Ml SUB-Q Not Given TIDWM LESLI Protocol Insulin Aspart 2 - 4 units 08/24/24 21:00 08/27/24 21:53 Insulin Aspart (*Bkc) 100 Units/Ml SUB-Q Not Given HS LESLI Protocol Levofloxacin 750 mg 08/29/24 09:00 Levofloxacin 750 Mg Tablet PO 09/08/24 23:59 DAILY LESLI Losartan Potassium 50 mg 08/24/24 12:25 08/28/24 09:05 Losartan Potassium 50 Mg Tablet PO 50 mg DAILY LESLI Administration Metoprolol Succinate 50 mg 08/25/24 09:45 08/28/24 09:05 Metoprolol Succinate Ext Rel 50 Mg Tabcr PO 50 mg BID LESLI Administration Morphine Sulfate 1 mg 08/25/24 14:48 Morphine Sulfate (*Crx) 2 Mg/Ml Inj IV PUSH Q2H PRN Breakthrough Pain Rated 4-6 or NPO Morphine Sulfate 2 mg 08/25/24 14:48 08/28/24 05:48 Morphine Sulfate (*Crx) 2 Mg/Ml Inj IV PUSH 2 mg Q2H PRN Administration Breakthrough Pain Rated 7-10 or NPO Naloxone HCl 0.1 mg 08/25/24 14:48 Naloxone Hcl 0.4 Mg/Ml Vial IV PUSH Q2M PRN Opiate Reversal Nicotine 1 patch 08/25/24 09:00 08/28/24 09:03 Nicotine (*Pbkc) 21 Mg Patch TRANSDERM 1 patch DAILY LESLI Administration Oxycodone/Acetaminophen 1 tablet 08/25/24 14:48 08/27/24 07:49 Oxycodone/Acetaminophen (*Crx) 5-325 Mg Tablet PO 1 tablet Q4H PRN Administration Pain Rated 4-6 Spironolactone 12.5 mg 08/28/24 09:00 08/28/24 09:19 Spironolactone 12.5 Mg Tablet PO 12.5 mg QAM LESLI Administration Radiology Results: ITS Impressions Toe X-Ray 08/24/24 08:02 IMPRESSION: 1. Osteomyelitis and septic arthritis at first interphalangeal joint. Chest CTA 08/24/24 10:44 IMPRESSION: 1. No pulmonary embolus. Sensitivity is moderately decreased by motion artifact. 2. Mild mediastinal and bilateral hilar lymphadenopathy. The differential diagnosis includes reactive lymphadenopathy (including sarcoid) and less likely malignancy such as lymphoma. 3. Cardiomegaly. 4. Right thyroid nodule. Consider thyroid ultrasound for risk stratification. Chest X-Ray 08/28/24 06:49 Impression: Clear lungs. Labs Labs: Laboratory Results - last 24 hr 01/05/25 01/05/25 01/05/25 11:42 17:01 20:12 WBC RBC Hgb Hct MCV MCH MCHC RDW Plt Count MPV Immature Gran % (Auto) Neut % (Auto) Lymph % (Auto) [place] % (Auto) Eos % (Auto) Baso % (Auto) Lymph # (Auto) [place] # (Auto) Eos # (Auto) Baso # (Auto) Abs Immat Gran (auto) Absolute Neuts (auto) Absolute Nucleated RBC Nucleated RBC % Platelet Estimate Hypochromasia Anisocytosis Ovalocytes Schistocytes Sodium Potassium Chloride Carbon Dioxide Anion Gap BUN Creatinine Estim Creat Clear Calc Estimated GFR Glucose POC Capillary Glucose 244 H 102 163 H Calcium Total Bilirubin AST ALT Alkaline Phosphatase C-Reactive Protein Total Protein Albumin 08/28/24 08/28/24 08:19 10:15 WBC 10.9 H RBC 5.55 Hgb 13.8 L Hct 46.2 MCV 83.2 MCH 24.9 L MCHC 29.9 L RDW 15.9 H Plt Count 314 MPV 10.8 H Immature Gran % (Auto) 0.3 Neut % (Auto) 84.4 H Lymph % (Auto) 6.0 L [place] % (Auto) 7.3 Eos % (Auto) 1.5 Baso % (Auto) 0.5 Lymph # (Auto) 0.66 L [place] # (Auto) 0.8 H Eos # (Auto) 0.2 Baso # (Auto) 0.1 Abs Immat Gran (auto) 0.03 Absolute Neuts (auto) 9.2 H Absolute Nucleated RBC 0.000 Nucleated RBC % 0.0 Platelet Estimate Adequate Hypochromasia 1+ Anisocytosis 1+ Ovalocytes 1+ Schistocytes None seen Sodium 137 Potassium 4.6 Chloride 101 Carbon Dioxide 33 H Anion Gap 3 L BUN 21 H Creatinine 1.16 Estim Creat Clear Calc 117 Estimated GFR > 60 Glucose 109 POC Capillary Glucose 121 H Calcium 9.1 Total Bilirubin 0.9 AST 26 ALT 35 Alkaline Phosphatase 93 C-Reactive Protein 2.3 H Total Protein 7.0 Albumin 3.7
[2024-08-28 11:38] LABS: Erythrocyte Sedimentation Rate 16 mm/hr (0-20)
[2024-08-28 12:48] LABS: Glucose Point of Care 116 mg/dl (65-105)
[2024-08-28] MEDS: CLINDAMYCIN HCL 150 MG CAP 300 MG PO (12:49)
--- NOTE | 2024-08-28 14:08 | PCOTNOTE ---
Patient unable to be seen at this time. Per RN , Patient havign high blood pressure and low O2 sats at this time. Patient had a Rapid Response called.
[2024-08-28 14:32] LABS: Glucose Point of Care 186 mg/dl (65-105)
[2024-08-28 14:35] LABS: Alveolar/Arterial O2 Gradient 87.1 mmHg; Fractional Inspired Oxygen 28 %; HCO3 ABG 23.5 mEq/l (22.0-26.0); Oxygen Content ABG 19.2 %vol (16.0-22.0); Oxygen Saturation ABG 95.1 % (95.0-100.0); Oxyhemoglobin 93.6 % THb (90.0-100.0); PCO2 ABG 34.8 mmHg (35.0-45.0); PO2 ABG 71.5 mmHg (80.0-100.0); PO2 FiO2 Ratio Arterial Blood 2.55 %; Total Hemoglobin 14.6 g/dL (12.0-18.0); pH ABG 7.447 (7.350-7.450)
[2024-08-28 14:37] LABS: Device NASAL CANNULA; Modified Allen's Test Pass; Site Drawn RIGHT RADIAL
--- NOTE | 2024-08-28 14:52 | ECG_ITS ---
Test Date: 2024-08-28 15:19:26 Measurements Intervals [place] Rate: 101 P: 54 WI: 172 QRS: -65 QRSD: 109 T: 99 QT: 339 QTc: 440 Interpretive Statements SINUS TACHYCARDIA POSSIBLE LEFT ATRIAL ENLARGEMENT [-0.1mV P-WAVE IN V1/V2] LEFT AXIS DEVIATION [QRS AXIS < -30] Compared to ECG 08/28/2024 06:48:40 NO SIGNIFICANT CHANGES Electronically Signed On 08-30-2024 17:04:09 COMMUNITY WORKER by Ibeth Cardenas M.D.
[2024-08-28] MEDS: ENALAPRILAT 1.25 MG/ML VIAL IV PUSH (15:34)
[2024-08-28 15:48] LABS: Anion Gap 6 mmol/L (4-12); Blood Urea Nitrogen 20 mg/dL (9-20); Carbon Dioxide 31 mmol/L (22-30); Chloride 97 mmol/L (98-107); Estimated CRCL calculation 123 ml/min; Estimated Glomerular Filt Rate > 60; Glucose 134 mg/dL (65-110); Potassium 4.6 mmol/L (3.4-5.0); Sodium 134 mmol/L (137-145)
[2024-08-28 16:06] LABS: Troponin I 0.116 ng/mL (0.000-0.034)
--- NOTE | 2024-08-28 17:00 | PC.NURSE ---
Pt. received into ICU 11.
[2024-08-28] MEDS: SACUBITRIL/VALSARTAN 24-26 MG TABLET 1 TAB PO (17:09)
[2024-08-28] MEDS: LORazepam INJ (*CRX) 2 MG/ML VIAL 0.5 MG IV PUSH (17:09)
[2024-08-28] MEDS: amLODIPine BESYLATE 5 MG TABLET PO (17:09)
[2024-08-28] MEDS: ACETAMINOPHEN 500 MG TABLET PO (18:32)
[2024-08-28] MEDS: FUROSEMIDE INJ 40 MG/4 ML VIAL IV PUSH (19:06)
--- NOTE | 2024-08-28 19:06 | PC.NURSE ---
Pt. has been very uncooperative since transfer down to ICU 11. He has to repetitively be told to keep his oxygen on. He keeps saying I can't do this, I'm going home, I'm so uncomfortable, I'm tired. Dr. Pope has been to the bedside twice to talk to him about complying with his treatment.
[2024-08-28] MEDS: dexmedeTOMIDine 400 MCG/100 ML 400 MCG/100 ML BAG 7.8 MCG IV CONT (19:39)
[2024-08-28] MEDS: SODIUM CHLORIDE 0.9% IVPB (19:48)
[2024-08-28] MEDS: DEXMEDETOMIDINE IVPB (19:48)
--- NOTE | 2024-08-28 19:50 | PC.NURSE ---
Addendum entered by Felix Israel RN 08/28/24 22:16: Patient requesting this approximately 2150 with myself, Nirmala Noriega RN (warehouse material handler) Dr. Lucero and Bobby Costa RN at [facility]. Original Note: Patient wanting to Leave AMA. Patient asked all orientation questions, he is Alert and Oriented x4 at this time. Patient made aware of potential life threatening events that may occur with leaving against medical advice; which include but not limited to . Patient states if it's my last day on earth so be it. Hydrometallurgical Engineer Linda Noriega RN and Dr. Lucero notified, whom are at which at bedside with Dr. Lucero also evaluating him. Currently patient is alert and oriented x4.
--- NOTE | 2024-08-28 21:51 | PC.NURSE ---
2145: Patient agitated and asking to leave AMA. RN discussed risks with patient. Patient AOx4. RN paused precedex and notified and Felix, UNL.
--- NOTE | 2024-08-28 22:00 | PC.NURSE ---
0: RN back to bedside with and Felix, charge nurse. Patient continues to insist on going home despite being warned of the potentially fatal consequences. Patient stated, I don't care. If this is my last day, it's my last day. AMA paperwork signed, all medical devices removed. Patient escorted out by security.
--- NOTE | 2024-08-28 22:02 | PM.EVENT ---
Event Note Event Note Event Note: 08/28/2024 at 21:40 Patient was admitted for osteomyelitis and septic arthritis of the right great toe on 08/24/2024 and had amputation of the toe on the 3rd and had sepsis secondary to be osteomyelitis with cultures growing out Pseudomonas, Staph aureus and group B strep as well as on identified organism. His blood cultures have been negative to date. He initially had fevers on the day of admission but had not had recurrent fevers until today around 14:30. In the early childhood education coordinator hours I had been called because the patient had suddenly spiked blood pressures up into the 200s. Previously had blood pressures had been in the 140 range. Patient was given a dose of Lopressor and review blood pressures were improved but still elevated and the patient received a dose of azo tach blood pressures were still elevated. The patient was subsequently transferred to the ICU. Somewhere in this transition the patient developed increasing oxygen requirement a stat chest x-ray performed around 18:00 which demonstrated new pulmonary edema compared to the x-ray from the morning. The patient had also had a CTA of the chest abdomen pelvis earlier in the day that had been negative as well as a CT of the brain. CT of brain was also negative for acute process. After he had been in the ICU patient's respiratory status had declined and the patient was started on Airvo and due to agitation and irritation the patient was replaced on Precedex. Initially after Precedex bolus the patient had calmed and was still slightly more cooperative with interventions. Throughout the whole process the patient remained alert oriented x4 but was belligerent with staff. He stated that he ?felt like he was part of a sinus experience?. Despite multiple conversations with multiple bedside nurses, ICU charge nurse, myself and the subwarehouse supervisor the patient remained adamant that he no longer wanted to be in the hospital. He stated that he wanted to go home. He stated ?if I so be it?. When asked if the patient had a ride home the patient stated that he had his truck in the parking lot. I did advise the patient that it was not a good idea for him to drive with low oxygen saturations which he is most certainly going to have since he does not have any available portable oxygen. Patient is not on oxygen prior to admission. I told him that he could kill someone else if he was not concerned for his own health and he states that he does not care what happens. He does not think that he will have a problem driving home. The patient was adamant that he wanted to get up to urinate and that he could not urinate. However, the patient's catheter was empty draws at bedside any had 1 L of urine output. Despite multiple discussions the patient remained insistent that he was going to go home. The patient is of sound mind and is capable of sound decision making however he has been informed that he has poor judgment and he still chooses to make this decision. The patient does have insight as to the consequences of his decision however bad that decision is. The patient has left hospital against medical advice Patient has sepsis could be due to new onset pneumonia versus bacteremia or worsening infection in his foot. The patient is aware that he needs to stay for antibiotic therapy but he refuses to do so at this time. Even if I would provide antibiotic therapy for patient leaving AMA he is not willing to stay to receive paperwork for such things. 35 minutes was spent in direct patient care and review of the patient's chart. Due to a high probability of clinically significant, life threatening deterioration, the patient required my highest level of preparedness to intervene emergently and I personally spent this critical care time directly and personally managing the patient. This critical care time included obtaining a history; examining the patient; pulse oximetry; ordering and review of studies; arranging urgent treatment with development of a management plan; evaluation of patient's response to treatment; frequent reassessment; and discussions with other providers. It was exclusive of separately billable procedures and treating other patients and teaching time. Please see Assessment and Plan section and the rest of the note for further information on patient assessment and treatment.
--- NOTE | 2024-08-28 22:32 | PC.NURSE ---
I confirmed that this patient is of sound decision making with Dr. Lucero and Felix Israel RN/ Bobby Costa RN. I discussed this patient with Ubaldo Storey, field administrator, and confirmed that the patient is able to leave of his own volition, given the information I provided her. The patient was escorted out by Gage stanley, Isabelle Torres- [facility], and myself. Patient remained A&O X4. Patient entered his vehicle and drove away. EAND alerted to his departure in an attempt to ensure his safe trip home.
[2024-08-28 22:46] LABS: Glucose Point of Care 135 mg/dl (65-105)
--- OUTSIDE RECORDS SUMMARY | 2024-08-30 23:13 | XMS_ITS | Clinical Summary ---
Author Organization [facility] Address [facility] [place] [address] [place] [address] Care Team Providers Care Layout Inspector Name Role Phone None, Provider MD Primary Care Provider Unavaila ble Allergies Active Allergy Reactions Criticality Noted Date Comments Codeine Rash Low 04/05/2018 Medications folic acid 1 MG tablet Take 1 mg by mouth daily. Active loratadine 10 MG tablet Take 10 mg by mouth daily. Active amlodipine 5 MG tablet Take 1 tablet (5 mg total) by mouth daily. 30 tablet 03/11/2019 Active Active Problems Problem Noted Date Diagnosed Date MARYAN (acute kidney injury) 03/09/2019 HTN (hypertension) 03/09/2019 [facility]oid [facility] ([facility] 9 Encounters Date Type Department Care Team Description 08/01/2024 9:47 AM GRINDER DRESSER - 08/01/2024 10:41 AM [facility] Emergency [facility] [place] [address] Hipolito Adan NP Foot Pain; Toe Pain Discharge Disposition: Left Against Medical Advice 08/01/2024 Travel from Last 3 Months Family History Medical History Relation Comments Diabetes Mother Heart Disease Mother Hypertension Mother Relation Status Comments Mother Social History Tobacco Use Types Packs/Day Years Used Date Smoking Tobacco: Every Day Cigarettes 0.5 10 Smokeless Tobacco: Never Tobacco Cessation:Ready to Q uit: No; Counseling Given: No Alcohol Use Standard Drinks/Week Comments No 0 (1 standard drink = 0.6 oz pur e alcohol) AUDIT-C Answer Date Recorded Frequency of Alcohol Consumption Never 05/18/2018 Average Number of Drinks Not on file 018 Frequency of Binge Drinking Not on file 04/24 Sex and Gender Information Value Date Recorded Sex Assigned at Not on file Legal Sex Male 8:33 PM CDT Gender Identity Not on file Sexual Orientation Not on file Last Filed Vital Signs Vital Sign Reading Time Taken Comments Blood Pressure 169/99 08/01/2024 9:02 AM GRINDER DRESSER Pulse 104 08/01/2024 9:02 AM GRINDER DRESSER Temperature 37.1 ??C (98.7 ??F) 08/01/2024 9:02 AM CS T Respiratory Rate 18 08/01/2024 9:02 AM GRINDER DRESSER Oxygen Saturation 94% 08/01/2024 9:02 AM GRINDER DRESSER Inhaled Oxygen Concentration - - Weight 157.4 kg (347 lb 0.1 oz) 08/01/2024 9:02 AM GRINDER DRESSER Height 195.6 cm (6' 5 ) 08/01/2024 9:02 AM GRINDER DRESSER Body Mass Index 41.15 08/01/2024 9:02 AM GRINDER DRESSER Plan of Treatment Health Maintenance Due Date Last Done Comments Colorectal Cancer Screening Colonoscopy (10 Years) 1979 Annual Physical 1982 Pneumococcal Vaccine: Pediat rics (0 to 5 Years) and At-Risk Patients (6 to 64 Years) (1 of 2 - PCV) 1985 Hepatitis C 1997 DTaP, Tdap and Td Vaccines ( 1 - Tdap) 1998 Hepatitis B Vaccines (1 of 3 - 19+ 3-dose series) 1998 COVID-19 Vaccine ( - 2023-2 5 season) 2024 Influenza Adult (#1) 2024 06/17/2018 HPV Vaccines Aged Out No longer eligi ble based on patient's age to complete this topic Meningococcal Vaccine Aged Out No monroe sharon eligible based on patient's age to complete this topic RSV Immunizations Under 20 Months Aged Out No longer eligible based on patient's age to complete this topic Procedures Procedure Name Priority Date/Time Associated Diagnosis Comments XR CHEST PORTABLE STAT 08/01/2024 10: 05 AM GRINDER DRESSER XR FOOT RT 3V STAT 08/01/2024 10:05 AM GRINDER DRESSER from Last 3 Months Results * XR CHEST PORTABLE (08/01/2024 10:05 AM GRINDER DRESSER) Anatomical Region Laterality Modality Chest Radiographic Martha ging 08/01/2024 10:1 5 AM GRINDER DRESSER Impressions 08/01/2024 10:17 AM GRINDER DRESSER IMPRESSION: 1. Findings which may represent early congestive heart failure, fluid overload in the appropriate clinical setting, with mild cardiomegaly, central pulmonary vascular enlargement and vascular venous congestion. 2. Equivocal small layering effusions versus a overlapping soft tissue prominence. Ordered By: HIPOLITO ADAN Interpreted By: Lesli Nascimento MD, 08/01/2024 10:15 AM Narrative 08/01/2024 10:17 AM GRINDER DRESSER [address] [address] Examination: Chest x-ray 1 view Exam date/time: 08/01/2024 9:42 AM Reason For Exam: ??44 male. Lobe oxygen saturation ? Comparison: Chest x-ray 03/09/2019 Technique: Portable AP upright ??view of the chest Mild cardiomegaly. Normal position of the trachea. Hilar mediastinal contours are within normal limits. There is a mild central bronchovascular prominence with central pulmonary arterial enlargement possible mild vascular venous congestion. No consolidation, or pneumothorax. Small layering effusions and may be present versus a overlapping soft tissue prominence. Unremarkable upper abdomen Procedure Note Lesli Nascimento MD - 08/01/[address] [id number] Examination: Chest x-ray 1 view Exam date/time: 08/01/2024 9:42 AM Reason For Exam: 44 male. Lobe oxygen saturation Comparison: Chest x-ray 03/09/2019 Technique: Portable AP upright view of the chest Mild cardiomegaly. Normal position of the trachea. Hilar mediastinalcontours are within normal limits. There is a mild central bronchovascular prominence with central pulmonaryarterial enlargement possible mild vascular venous congestion. Noconsolidation, or pneumothorax. Small layering effusions and may be present versus a overlapping softtissue prominence. Unremarkable upper abdomen IMPRESSION: 1. Findings which may represent early congestive heart failure, fluidoverload in the appropriate clinical setting, with mild cardiomegaly,central pulmonary vascular enlargement and vascular venous congestion. 2. Equivocal small layering effusions versus a overlapping soft tissueprominence. Ordered By: HIPOLITO ADAN Interpreted By: Lesli Nascimento MD, 08/01/2024 10:15 AM us Hipolito Adan [employer] Final Result * XR FOOT RT 3V (08/01/2024 10:05 AM GRINDER DRESSER) Anatomical Region Laterality Modality Foot Radiographic Martha ging 08/01/2024 10:1 5 AM GRINDER DRESSER Impressions 08/01/2024 10:22 AM GRINDER DRESSER =====IMPRESSION:===== ?? Cortical destruction of the proximal and distal phalanges of the great toe about the interphalangeal joint in close proximity to suspected wound. Findings are highly suspicious for osteomyelitis. Correlate clinically. Ordered By: HIPOLITO ADAN Interpreted By: Michael Brooks MD, 08/01/2024 10:15 AM Narrative 08/01/2024 10:22 AM GRINDER DRESSER [address] [address] EXAMINATION: Right foot 2views EXAM DATE/TIME: 08/01/2024 9:41 AM REASON FOR EXAM: ??great toe wound, concern for osteomyelitis ? COMPARISON: 06/21/2018 TECHNIQUE: AP, and lateral views of the right foot were obtained. FINDINGS: Soft tissue wound in the medial right great toe is seen. The associated osseous structures including the proximal and distal phalanges show bony destruction with cortical erosion. There is involvement of the interphalangeal joint noted. Findings are highly suspicious for osteomyelitis. Ununited fracture proximal fourth metatarsal is suspected. Spurring in the midfoot is noted consistent with osteoarthritis. Spurring the distal tibia is noted. Procedure Note Michael Brooks MD - 08/01/[address] [address] EXAMINATION: Right foot 2views EXAM DATE/TIME: 08/01/2024 9:41 AM REASON FOR EXAM: great toe wound, concern for osteomyelitis COMPARISON: 06/21/2018 TECHNIQUE: AP, and lateral views of the right foot were obtained. FINDINGS: Soft tissue wound in the medial right great toe is seen. Theassociated osseous structures including the proximal and distal phalangesshow bony destruction with cortical erosion. There is involvement of theinterphalangeal joint noted. Findings are highly suspicious forosteomyelitis. Ununited fracture proximal fourth metatarsal is suspected. Spurring in themidfoot is noted consistent with osteoarthritis. Spurring the distal tibiais noted. =====IMPRESSION:===== Cortical destruction of the proximal and distal phalanges of the great toeabout the interphalangeal joint in close proximity to suspected wound.Findings are highly suspicious for osteomyelitis. Correlate clinically. Ordered By: HIPOLITO ADAN Interpreted By: Michael Brooks MD, 08/01/2024 10:15 AM Hipolito Adan [employer] Final Result from Last 3 Months Insurance [employer] Advance Directives * Full Code (Latest Code Status on File) Date Activated Date Inactivated Comments 03/09/2019 1:22 PM 03/11/2019 11:37 AM Care Teams Layout Inspector Relationship Specialty Start Date End Date None, Provider, MD PCP - General UNKNOWN PHYSICIAN SPECIALTY 08/01/24
--- OUTSIDE RECORDS SUMMARY | 2024-08-30 23:13 | XMS_ITS | Encounter Summary ---
Author Organization [facility] Address [address] [place] [address]. [place], [place] [id number] [place] [id number] Care Team Providers Care Board Of Directors Name Role Phone None, Provider MD Primary Care Provider Unavaila ble Reason for Visit * Reason Comments Foot Pain Toe Pain Encounter Details Date Type Department Care Team (Late st Contact Info) Description 08/01/2024 9:47 AM CLEANER ASSISTANT - 08/01/2024 10:41 AM CLEANER ASSISTANT Emergency [facility] [place] [address] Hipolito Adan, ANAND [address] [place] [id number] Foot Pain; Toe Pain Discharge Disposition: Left Against Medical Advice Social History Tobacco Use Types Packs/Day Years Used Date Smoking Tobacco: Every Day Cigarettes 0.5 10 Smokeless Tobacco: Never Alcohol Use Standard Drinks/Week Comments No 0 [...] on file Sexual Orientation Not on file documented as of this encounter Last Filed Vital Signs Vital Sign Reading Time Taken Comments Blood Pressure 169/99 08/01/2024 9:02 AM CLEANER ASSISTANT Pulse 104 08/01/2024 9:02 AM CLEANER ASSISTANT Temperature 37.1 ??C (98.7 ??F) 08/01/2024 9:02 AM CS T Respiratory Rate 18 08/01/2024 9:02 AM CLEANER ASSISTANT Oxygen Saturation 94% 08/01/2024 9:02 AM CLEANER ASSISTANT Inhaled Oxygen Concentration - - Weight 157.4 kg (347 lb 0.1 oz) 08/01/2024 9:02 AM CLEANER ASSISTANT Height 195.6 cm (6' 5 ) 08/01/2024 9:02 AM CLEANER ASSISTANT Body Mass Index 41.15 08/01/2024 9:02 AM CLEANER ASSISTANT documented in this encounter Functional Status * RETIRED Are you deaf or do you have serious difficulty hearing Answer Date of Assessment Author Status No 03/09/2019 3:52 PM CDT Activ e * RETIRED Are you blind or do you have serious difficulty seeing, even when wearing glasses? Answer Date of Assessment Author Status No 03/09/2019 3:52 PM CDT Activ e * Do you have serious difficulty walking or climbing stairs? Answer Date of Assessment Author Status No 03/09/2019 3:52 PM CDT Bailey Osman RN Active * Do you have difficulty dressing or bathing? Answer Date of Assessment Author Status No 03/09/2019 3:52 PM CDT Bailey Osman RN Active * Because of a physical, mental, or emotional condition, do you have difficulty doing errands alone such as visiting a doctor's office or shopping? Answer Date of Assessment Author Status No 03/09/2019 3:52 PM ALBAT Bailey Osman RN Active documented as of this encounter Mental Status * Because of a physical, mental, or emotional condition, do you have serious difficulty concentrating, remembering, or making decisions? Answer Entry Date Author Status No 03/09/2019 3:52 PM Baliey Gonzalez RN Active documented in this encounter Medications at Time of Discharge amlodipine 5 MG tablet Take 1 tablet (5 mg total) by mouth daily. 30 tablet 03/11/2019 folic acid 1 MG tablet Take 1 mg by mouth daily. loratadine 10 MG tablet Take 10 mg by mouth daily. documented as of this encounter ED Notes * Hipolito Adan NP - 08/01/2024 10:41 AM CST Images from the original note were not included. ER/CC Encounter Chief Complaint Chief Complaint Patient presents with Foot Pain Toe Pain History of Present Illness Patient ambulatory to the emergency room with complaints of a toe wound. Patient states that he wasrecently at outside emergency room and signed out AGAINST MEDICAL ADVICE due to wait time. States that he has a wound that is draining to the great toe on his right foot. Patient requesting antibiotics. States that toe is minimally painful, but is concerned for infection. Denies history of diabetes. Foot Pain Associated symptoms: no rash Knee Pain Medical History ALLERGIES: Review of patient's allergies indicates: Allergen Reactions Codeine Rash MEDICATIONS: Prior to Admission medications Medication Sig Start Date End Date Taking? Authorizing Provider amlodipine 5 MG tablet Take 1 tablet (5 mg total) by mouth daily. 03/11/19 Meghana Deluca, folic acid 1 MG tablet Take 1 mg by mouth daily. Doc [facility] loratadine 10 MG tablet Take 10 mg by mouth daily. Doc [facility] PAST MEDICAL HISTORY: Past Medical History: Diagnosis Date Arthritis HTN (hypertension) 03/09/2019 Hypertension Rheumatoid arthritis ([facility]) 03/09/2019 PAST SURGICAL HISTORY: History reviewed. No pertinent surgical history. FAMILY HISTORY: Family History Problem Relation Name Age of Onset Heart Disease Mother Hypertension Mother Diabetes Mother SOCIAL HISTORY: Social History Tobacco Use Smoking status: Every Day Current packs/day: 0.50 Average packs/day: 0.5 packs/day for 10.0 years (5.0 ttl pk-yrs) Types: Cigarettes Smokeless tobacco: Never Substance Use Topics Alcohol use: No Drug use: No Review of Systems Review of Systems Skin: Positive for wound. Negative for color change, pallor and rash. All other systems reviewed and are negative. Physical Exam Filed Vitals: 08/01/24 0902 BP: (!) 169/99 Pulse: (!) 104 Resp: 18 Temp: 98.7 ??F (37.1 ??C) TempSrc: Oral SpO2: 94% Weight: (!) 157.4 kg (347 lb 0.1 oz) Height: 1.956 m (6' 5 ) Physical Exam Vitals and nursing note reviewed. Constitutional: General: He is not in acute distress. Appearance: He is ill-appearing. He is not toxic-appearing. HENT: Head: Normocephalic and atraumatic. Right Ear: External ear normal. Left Ear: External ear normal. Nose: Nose normal. Mouth/Throat: Mouth: Mucous membranes are moist. Eyes: Extraocular Movements: Extraocular movements intact. Pupils: Pupils are equal, round, and reactive to light. Cardiovascular: Rate and Rhythm: Normal rate. Heart sounds: No murmur heard. Pulmonary: Effort: Pulmonary effort is normal. No respiratory distress. Breath sounds: No stridor. Wheezing present. No rhonchi or rales. Chest: Chest wall: No tenderness. Abdominal: General: There is no distension. Palpations: Abdomen is soft. There is no mass. Tenderness: There is no abdominal tenderness. There is no right CVA tenderness, left CVA tendernessor guarding. Musculoskeletal: General: No swelling, tenderness, deformity or signs of injury. Normal range of motion. Cervical back: Normal range of motion and neck supple. Right lower leg: No edema. Left lower leg: Edema present. Feet: Skin: General: Skin is warm and dry. Capillary Refill: Capillary refill takes less than 2 seconds. Coloration: Skin is not jaundiced or pale. Findings: Erythema and wound present. No bruising, lesion or rash. Neurological: General: No focal deficit present. Mental Status: He is alert and oriented to person, place, and time. Psychiatric: Behavior: Behavior normal. Diagnostic Studies / Procedures ELECTROCARDIOGRAMS: No results found for this visit on 08/01/24. LABORATORY STUDIES: No results found for this visit on 08/01/24. IMAGING STUDIES XR CHEST PORTABLE Final Result by User, [id number] (08/01 1018) [address] [address] Examination: Chest x-ray 1 view Exam date/time: [...] overlapping soft tissue prominence. Unremarkable upper abdomen IMPRESSION: 1. Findings which may represent early congestive heart failure, fluid overload in the appropriate clinical setting, with mild cardiomegaly, central pulmonary vascular enlargement and vascular venous congestion. 2. Equivocal small layering effusions versus a overlapping soft tissue prominence. Ordered By: HIPOLITO ADAN Interpreted By: Lesli Nascimento MD, 08/01/2024 10:15 AM XR FOOT RT 3V Final Result by User, [id number] (08/01 1023) [facility] [address] [place], [place] [address] EXAMINATION: Right foot 2views EXAM DATE/TIME: 08/01/2024 [...] osteoarthritis. Spurring the distal tibia is noted. =====IMPRESSION:===== Cortical destruction of the proximal and distal phalanges of the great toe about the interphalangeal joint in close proximity to suspected wound. Findings are highly suspicious for osteomyelitis. Correlate clinically. Ordered By: HIPOLITO ADAN Interpreted By: Mcihael Brooks MD, 08/01/2024 10:15 AM ED Course / Medical Decision Making MDM Number of Diagnoses or Management Options Diagnosis management comments: While triaging patient, patient noted to be in the low 90s with oxygen saturation. Great toe noted to have wound with purulent drainage. Patient aware that I am suspicious for osteomyelitis. Also has edema of lower extremity with lower oxygen saturations. Patient aware that I have recommended chest x-ray, foot x-ray, serum lab work for further evaluation. Based on presenting signs and symptoms patient aware that he will likely be admitted to the hospital. Patient states that he is comfortable with this plan has no questions or concerns. He is aware thatwe will attempt to get room as soon as possible Per nursing staff shortly after discussion with this provider patient seen walking out of emergencyroom. Waiting room area and bathroom searched and patient has been called x 3. It appears that patient has eloped from the emergency room. Patient did not provide reason for to this provider on why he was going to leave. Unable to discuss AMA or further recommendations for admission. Patient will be marked as eloped from the emergency room. Amount and/or Complexity of Data Reviewed Clinical lab tests: ordered Tests in the radiology section of CPT??: ordered Risk of Complications, Morbidity, and/or Mortality Presenting problems: moderate Diagnostic procedures: moderate General comments: Patient progress undetermined as he has eloped from the emergency room Medications - No data to display Clinical Impression None Discharge Medication List as of 08/01/2024 11:01 AM Disposition: Eloped Follow-Up: No follow-up provider specified. Hipolito Adan NP 08/01/2024 Hipolito Adan NP 08/01/24 [id number] Cosigned by Anju Sheikh MD at 08/02/2024 6:09 AM CLEANER ASSISTANT NER ASSISTANT NER ASSISTANT * Chilango Guerra RN - 08/01/2024 10:21 AM CST Pt seen walking in the ED parking lot away from building. NER ASSISTANT * Chilango Guerra RN - 08/01/2024 10:20 AM CST Pt walked out of room to go speak with his son in the waiting room. NER ASSISTANT * Chilango Guerra RN - 08/01/2024 10:16 AM CST Pt found in the parking lot. Pt stated that he was at his car and had to smoke a cigarette. Pt educated on not leaving the building and that there is no smoking on hospital property. NER ASSISTANT * Isabella Grant RN - 08/01/2024 9:02 AM CST Pt presents to the ER with c/o whole in right big toe, under toe. Pt stated has a hx of this before. NER ASSISTANT documented in this encounter Plan of Treatment Not on file documented as of this encounter Procedures Procedure Name Priority Date/Time Associated Diagnosis Comments XR CHEST PORTABLE STAT 08/01/2024 10: 05 AM CLEANER ASSISTANT XR FOOT RT 3V STAT 08/01/2024 10:05 AM CLEANER ASSISTANT documented in this encounter Results * XR CHEST PORTABLE (08/01/2024 10:05 AM CLEANER ASSISTANT) Anatomical Region Laterality Modality Chest Radiographic Martha ging 08/01/2024 10:1 5 AM CLEANER ASSISTANT Impressions 08/01/2024 10:17 AM CLEANER ASSISTANT IMPRESSION: 1. Findings which may represent early congestive heart failure, fluid overload in the appropriate clinical setting, with mild cardiomegaly, central pulmonary vascular enlargement and vascular venous congestion. 2. Equivocal small layering effusions versus a overlapping soft tissue prominence. Ordered By: HIPOLITO ADAN Interpreted By: Lesli Nascimento MD, 08/01/2024 10:15 AM Narrative 08/01/2024 10:17 AM CLEANER ASSISTANT [address] [address] Examination: Chest x-ray 1 view Exam date/time: [...] Procedure Note Lesli Nascimento MD - 08/01/2024 [facility] [address] [place], [place] [address] Examination: Chest x-ray 1 view Exam date/time: [...] MD, 08/01/2024 10:15 AM us Hipolito Adan [employer] Final Result * XR FOOT RT 3V (08/01/2024 10:05 AM CLEANER ASSISTANT) Anatomical Region Laterality Modality Foot Radiographic Martha ging 08/01/2024 10:1 5 AM CLEANER ASSISTANT Impressions 08/01/2024 10:22 AM CLEANER ASSISTANT =====IMPRESSION:===== ?? Cortical destruction of the proximal and distal phalanges of the great toe about the interphalangeal joint in close proximity to suspected wound. Findings are highly suspicious for osteomyelitis. Correlate clinically. Ordered By: HIPOLITO ADAN Interpreted By: Michael Brooks MD, 08/01/2024 10:15 AM Narrative 08/01/2024 10:22 AM CLEANER ASSISTANT [address] [address] EXAMINATION: Right foot 2views EXAM DATE/TIME: 08/01/2024 [...] Procedure Note Michael Brooks MD - 08/01/[address] [address] EXAMINATION: Right foot 2views EXAM DATE/TIME: 08/01/2024 [...] By: Michael Brooks MD, 08/01/2024 10:15 AM us Hipolito Adan [employer] Final Result documented in this encounter Visit Diagnoses Not on filedocumented in this encounter Care Teams Board Of Directors Relationship Specialty Start Date End Date None, Provider, PCP - General UNKNOWN PHYSICIAN SPECIALTY 08/01/24 documented as of this encounter
--- OUTSIDE RECORDS SUMMARY | 2024-08-30 23:13 | XMS_ITS | Encounter Summary ---
Author Organization [facility] Address [address] [place] [address]. [place], [place] [id number] [place] [id number] Care Team Providers Care Electronic Test Technician Name Role Phone None, Provider MD Primary Care Provider Unavaila ble Reason for Visit * Reason Comments Chest Pain Leg Swelling Knee Pain Hip Pain Encounter Details Date Type Department Care Team (Late st Contact Info) Description 06/03/2018 9:29 PM CDT - 06/03/2018 11:43 PM CDT Emergency [facility] Emergency [address] [place] [address] Lorri Sánchez, DO [address] [place], [place] [id number] Chest Pain; Leg Swelling; Knee Pain; Hip Pain Discharge Disposition: Home or Self Care (Routine Discharge) Social History Tobacco Use Types Packs/Day Years Used Date Smoking Tobacco: Every Day Cigarettes 1 10 Smokeless Tobacco: Never Alcohol Use Standard [...] Sign Reading Time Taken Comments Blood Pressure 143/77 06/03/2018 10:24 PM CDT Pulse 87 06/03/2018 10:24 PM CDT Temperature 36.5 ??C (97.7 ??F) 06/03/2018 9:26 PM CD T Respiratory Rate 24 06/03/2018 10:2 4 PM CDT Oxygen Saturation 95% 06/03/2018 10: 24 PM CDT Inhaled Oxygen Concentration - - Weight 158.2 kg (348 lb 12.3 oz) 06/03/2018 9:26 PM CDT Height 195.6 cm (6' 5.01 ) 06/03/2018 9:26 PM CD T Body Mass Index 41.35 06/03/2018 9:26 PM CDT documented in this encounter Discharge Instructions * Discharge Instructions* Kirstin Tom MD - 06/03/2018 10:56 PM CDT Please use Lidocaine patches for pain relief of your rib cage. You may also use Tylenol or ibuprofen. Please wear compression stockings to help with the edema. * Attachments The following attachments cannot be sent through Care Everywhere. * CHEST PAIN THAT IS NOT CAUSED BY THE HEART DISCHARGE INSTRUCTIONS (BANGLADESHI) * DEPENDENT EDEMA DISCHARGE INSTRUCTIONS (BANGLADESHI) documented in this encounter Medications at Time of Discharge amlodipine 10 MG tablet Take 10 mg by mouth daily. 01/25/2019 lisinopril 20 MG tablet Take 20 mg by mouth daily. 01/25/2019 documented as of this encounter ED Notes * Kirstin Tom MD - 06/03/2018 9:41 PM CDT Emergency Department Note Chief Complaint Chief Complaint Patient presents with ??? Chest Pain ??? Leg Swelling ??? Knee Pain ??? Hip Pain History of Present Illness Patient is a 37-year-old male that presents the emergency department with multiple complaints. His primary concern is right rib pain which is been ongoing since last weekend when he attempted to slide while camping and landed on his right side. He is concerned about the possibility of breaking a rib. He has had some associated shortness of breath and pain with deep inspiration. He is also complaining of progressive bilateral leg swelling over the last several weeks. He notes it is worse at the end of the day. He has been standing more at work recently and thinks this may be related to it. He has no history of kidney disease, congestive heart failure, or clotting disorders. He has no other sy mptoms at this time. Medical History ALLERGIES: Allergies Allergen Reactions ??? Codeine Rash MEDICATIONS: Prior to Admission medications Medication Sig Start Date End Date Taking? Authorizing Provider amlodipine 10 MG tablet Take 10 mg by mouth daily. Yes Doc Abstract lisinopril 20 MG tablet Take 20 mg by mouth daily. Yes Doc Abstract PAST MEDICAL HISTORY: Past Medical History: Diagnosis Date ??? Hypertension PAST SURGICAL HISTORY: No past surgical history on file. FAMILY HISTORY: Family History Problem Relation Age of Onset ??? Heart Disease Mother ??? Hypertension Mother ??? Diabetes Mother SOCIAL HISTORY: Social History Tobacco Use ??? Smoking status: Current Every Day Smoker Packs/day: 1.00 Years: 10.00 Pack years: 10.00 Types: Cigarettes ??? Smokeless tobacco: Never Used Substance Use Topics ??? Alcohol use: No Frequency: Never ??? Drug use: No Review of Systems Review of Systems General: No fevers or chills Head: No head injury Neck: No neck pain Eyes: No vision changes, discharge, or pain Ears: No pain Mouth/Throat: No mouth or throat pain Respiratory: As in HPI Cardiac: As in HPI Abdomen: No abdominal pain Genitourinary: No dysuria or hematuria Neuro: No headaches, no numbness/tingling Musculoskeletal: As in HPI Immune System: no recurrent infections, not immunocompromised Heme: No bleeding disorders, bleeding tendency, or bruising tendency Physical Exam Filed Vitals: 06/03/18 2126 06/03/18 2224 BP: 165/86 143/77 Pulse: 84 87 Resp: 24 24 Temp: 97.7 ??F (36.5 ??C) TempSrc: Oral SpO2: 96% 95% Weight: (!) 158.2 kg (348 lb 12.3 oz) Height: 6' 5.01 (1.956 m) Physical Exam General: Well appearing, no apparent distress Skin: No rashes, no lacerations, warm, dry, normal color for ethnicity, no diaphoresis Head: normocephalic, atraumatic Eyes: pupils equally and reactive to light, conjunctiva clear, no scleral inflammation or icterus, extraocular movements intact Ears: Normal external ear, normal gross hearing Nose: No congestion, patent nares Mouth: Moist mucous membranes, no tonsillar exudates, no palatal petechiae, no erythema Neck: no lymphadenopathy, full range of motion Chest/respiratory: Symmetric expansion, right sided chest wall tenderness, no respiratory distress,lungs clear to auscultation bilaterally without wheezes, rhonchi, or rales, no pleural rubs, no digital clubbing Cardiac: Regular rate and rhythm without murmurs, rubs, or gallops, capillary refill less than 2 seconds, no cyanosis Pulses: Equal radial pulses bilaterally, equal dorsalis pedis pulses bilaterally Gastrointestinal: Non-distended, normal bowel sounds, no hypertympany to percussion, nontender without guarding or rebound, no palpable masses Genitourinary: No costovertebral angle tenderness, genital exam deferred Musculoskeletal: No deformities, normal gait, strength intact, full range of motion, no tenderness,1+ pitting edema bilaterally Neurologic: sensation equal and intact in bilateral upper and lower extremities, CN II-XII intact, symmetric facial movements Psych: Appropriate mood and affect, no depressive symptoms Diagnostic Studies / Procedures ELECTROCARDIOGRAMS: No results found for this visit on 06/03/18. LABORATORY STUDIES: Results for orders placed or performed during the hospital encounter of 06/03/18 CBC W/DIFF AUTOMATED Result Value Ref Range WBC 10.7 4.0 - 10.8 x10'3/uL RBC 4.75 4.50 - 6.10 x10'6/uL HGB 13.5 13.0 - 18.0 G/DL HCT 40.7 37.0 - 52.0 % MCV 85.7 78.0 - 100.0 FL MCH 28.4 27.0 - 31.0 PG MCHC 33.2 33.0 - 36.0 G/DL RDW 13.7 11.5 - 14.5 % PLT 294 150 - 350 x10'3/uL MPV 9.5 7.4 - 10.4 FL ABS. NEUTROPHILS TOTAL 6.78 1.60 - 8.30 x10'3/uL ABS. LYMPHOCYTES 2.31 0.80 - 4.70 x10'3/uL ABS. MONOCYTES 1.20 0.00 - 1.50 x10'3/uL ABS. EOSINOPHILS 0.34 0.00 - 0.40 x10'3/uL ABS. BASOPHILS 0.04 0.00 - 0.20 x10'3/uL ABS. IMMATURE GRANULOCYTES 0.02 0.00 - 0.03 x10'3/uL ABS. NUCLEATED RBC'S 0.00 0.0 x10'3/uL COMPREHENSIVE METABOLIC PANEL Result Value Ref Range SODIUM 140 136 - 145 MMOL/L POTASSIUM 4.5 3.5 - 5.1 MMOL/L CHLORIDE 105 98 - 107 MMOL/L CO2 29.0 21.0 - 32.0 MMOL/L GLUCOSE 86 74 - 106 MG/DL BUN 17 7 - 18 MG/DL CREATININE 0.88 0.70 - 1.30 MG/DL CALCIUM 9.2 8.4 - 10.5 MG/DL TOTAL BILIRUBIN 0.4 0.2 - 1.0 MG/DL ALK PHOS 93 45 - 115 U/L AST 16 15 - 37 U/L ALT 37 16 - 61 U/L TOTAL PROTEIN 7.4 6.4 - 8.2 G/DL ALBUMIN 3.7 3.4 - 5.0 G/DL ANION GAP 6.0 MMOL/L OSMOLALITY (CALC) 291 MOSM/KG eGFR Non-Afr. Amer. >90 >90 ML/MIN/1.73 M2 eGFR Afr. Amer. >90 >90 ML/MIN/1.73 M2 GFR NOTES THE ESTIMATED GFR IS CALCULATED USING THE 2009 CKD-EPI EQUATION. THE FOLLOWING CATEGORIES FOR GRADING RENAL FUNCTION ARE RECOMMENDED BY THE INTERNATIONAL SOCIETY OF NEPHROLOGY (KDIGO 2012 CLINICAL PRACTICE GUIDELINE). PRO-BRAIN NATRIURETIC PEPTIDE Result Value Ref Range Pro-B TYPE NATRIURETIC PEPTIDE 74 <125 PG/ML TROPONIN, QUANT Result Value Ref Range TROPONIN I <0.015 <0.045 ng/mL. IMAGING STUDIES XR CHEST PA+LAT Final Result by User, [id number] (06/03 2201) EXAMINATION: CHEST X-RAY TWO VIEWS EXAM TIME: 2150 hours. COMPARISON: None available HISTORY: Chest pain and dyspnea. Bilateral lower extremity swelling. FINDINGS: PA and lateral views of the chest are submitted for evaluation. The heart is within normal limits in size. Pulmonary vascularity is within normal limits. The lungs are well expanded without focal airspace consolidation. No pleural effusions. No pneumothorax. IMPRESSION: No acute cardiopulmonary disease. Interpreted By: Ketty Burton MD, 06/03/2018 9:59 PM ED Course / Medical Decision Making Staffed with Dr. Sánchez Negative cardiac workup. Dependent edema likely the cause of lower extremity swelling and joint pain. Patient will use compression stockings to help with this and elevate the legs at night. Will use lidocaine patches here and [id number] lidocaine patches at home for additional pain relief. Patient requests no narcotics. Modified Dent Heart Score History: Chest discomfort 0-1 symptoms - 0 pt ECG: Normal EKG 0 pts New Ischemic changes -- Ischemic ST segment depression >1mm (2pts) ` -- New Ischemic T wave inversions >2mm --Transient ST elevation / ST elevation Non-specific changes -- repolarization abnormalities (1Pts) -- non-specific ST elevation changes -- pacemaker rhythms -- digoxin effect, LVH, bundle branch blocks AGE: < 45 Years - 0 pts RISK FACTORS: Obesity (BMI >30), Current/Recent smoker (<90d) and Hypertension > 3 risk factors - 2 pts TROPONIN: negative - 0 pt TOTAL SCORE: 2 > 7 ~ HIGH RISK ~ Ischemic EKG or +Troponin Or Highly/Moderately Suspicious Chest pain 4-6 ~ Intermediate Risk ~ Observation status 0-3 ~ Low Risk ~ consider Outpatient Evaluation Medications lidocaine (LIDODERM) 5 % patch 1 patch (not administered) ketorolac (TORADOL) injection 15 mg (15 mg Intravenous Given 06/03/182221) Clinical Impression Chest wall pain (Primary) Dependent edema Current Discharge Medication List Disposition: Discharge Follow up: [facility] [address] [place] [address] Please follow up here if you are unable to get into Dr. Baca's office. Milli Baca MD [address] [address] Call in 3 days Please follow up with Dr. Baca to establish care with a primary care physician. KIRSTIN TOM MD 06/03/2018 Cosigned by Lorri Sánchez DO at 06/06/2018 7:00 PM CDT Associated attestation - Lorri Sánchez DO - 06/06/2018 7:00 PM CDT Teaching Physician - I, LORRI SÁNCHEZ DO, performed a History and Physical examination of thepatient and discussed the management with the resident. I reviewed the Resident's note and agree with the findings and plan of care, except as I have documented. * Caridad Desir RN - 06/03/2018 9:23 PM CDT Patient arrives ambulatory to triage with multiple complaints. Patient states he has right sided chest pain and thinks he may have broken a rib. Patient also complaints of bilateral hip pain, knee pain, and leg swelling. documented in this encounter Plan of Treatment Not on file documented as of this encounter Procedures Procedure Name Priority Date/Time Associated Diagnosis Comments PRO-BRAIN NATRIURETIC PEPTIDE STAT 06/03/2018 10:11 PM CDT COMPREHENSIVE METABOLIC PANEL STAT 06/03/2018 10:11 PM CDT CBC W/DIFF AUTOMATED STAT 06/03/2018 10:11 PM CDT TROPONIN, QUANT STAT 06/03/2018 10:11 PM CDT ECG 12-LEAD STAT 06/03/2018 10:07 PM CDT XR CHEST PA+LAT STAT 06/03/2018 9:56 PM CDT documented in this encounter Results * TROPONIN, QUANT (06/03/2018 10:11 PM CDT) TROPONIN I <0.015 <0.045 ng/mL. 06/03/2018 10:48 PM CDT [facility] 06/03/2018 10:1 1 PM CDT us Kirstin Tom MD LABORATORY Final Result [facility] [address] [place] [address], [id number] * PRO-BRAIN NATRIURETIC PEPTIDE (06/03/2018 10:11 PM CDT) PRO-B TYPE NATRIURETIC PEPTIDE 74 <125 PG/ML 06/03/2018 10:48 PM CDT [facility] Comment: AGE INDEPENDENT: <300 PG/ML HAS A 99% NEGATIVE PREDICTIVE VALUE FOR EXCLUDING ACUTE CHF <50 YEARS: >450 PG/ML IS CONSISTENT WITH ACUTE CHF 50-75 YEARS: >900 PG/ML IS CONSISTENT WITH ACUTE CHF >75 YEARS: >1800 PG/ML IS CONSISTENT WITH ACUTE CHF IN PATIENTS WITH RENAL INSUFFICIENCY (GFR <60), >1200 PG/ML YIELDS A DIAGNOSTIC SENSITIVITY AND SPECIFICITY OF 89% AND 72% FOR ACUTE CHF. 06/03/2018 10:1 1 PM CDT us Kirstin Tom MD LABORATORY Final Result [facility] [address] [place] [address], [id number] * COMPREHENSIVE METABOLIC PANEL (06/03/2018 10:11 PM CDT) Pathologist [facility] SODIUM S/P/B 140 136 - 145 MMOL/L 06/03/2018 10:48 PM CDT [facility] POTASSIUM S/P/B 4.5 3.5 - 5.1 MMOL/L 06/03/2018 10:48 PM CDT [facility] CHLORIDE S/P/B 105 98 - 107 MMOL/L 06/03/2018 10:48 PM CDT [facility] CO2 29.0 21.0 - 32.0 MMOL/L 06/03/2018 10:48 PM CDT [facility] GLUCOSE 86 74 - 106 MG/DL 06/03/2018 10:48 PM CDT [facility] BUN 17 7 - 18 MG/DL 06/03/2018 10:48 PM CDT [facility] CREATININE S/P/B 0.88 0.70 - 1.30 MG/DL 06/03/2018 10:48 PM CDT [facility] CALCIUM S/P/B 9.2 8.4 - 10.5 MG/DL 06/03/2018 10:48 PM T [facility] BILIRUBIN TOTAL S/P/B 0.4 0.2 - 1.0 MG/DL 06/03/2018 10:48 PM T [facility] ALKALINE PHOSPHATASE S/P/B 93 45 - 115 U/L 06/03/2018 10:48 PM CDT [facility] AST 16 15 - 37 U/L 06/03/2018 10:48 PM T [facility] ALT 37 16 - 61 U/L 06/03/2018 10:48 PM T [facility] TOTAL PROTEIN S/P/B 7.4 6.4 - 8.2 G/DL 06/03/2018 10:48 PM T [facility] ALBUMIN S/P/B 3.7 3.4 - 5.0 G/DL 06/03/2018 10:48 PM T [facility] ANION GAP 6.0 MMOL/L 06/03/2018 10:48 PM T [facility] Comment:REFERENCE RANGE NOT ESTABLISHED OSMOLALITY (CALC) 291 MOSM/KG 06/03/2018 10:48 PM [facility] Comment:REFERENCE RANGE NOT ESTABLISHED EGFR NON-AFR. AMER. >90 >90 ML/MIN/1 .73 M2 06/03/2018 10:48 PM T [facility] EGFR AFR. AMER. >90 >90 ML/MIN/1 .73 M2 06/03/2018 10:48 PM [facility] GFR NOTES THE ESTIMATED GFR IS CALCULATED USING THE 2009 CKD-EPI EQUATION. THE FOLLOWING CATEGORIES FOR GRADING RENAL FUNCTION ARE RECOMMENDED BY THE INTERNATIONAL SOCIETY OF NEPHROLOGY (KDIGO 2012 CLINICAL PRACTICE GUIDELINE). 06/03/2018 10:48 PM T [facility] Comment: G1,NORMAL OR HIGH: >89 ml/min/1.73 m2 G2,MILDLY DECREASED: 60-89 ml/min/1.73 m2 G3A,MILDLY TO MODERATELY DECREASED: 45-59 ml/min/1.73 m2 G3B,MODERATELY TO SEVERELY DECREASED: 30-44 ml/min/1.73 m2 G4,SEVERELY DECREASED: 15-29 ml/min/1.73 m2 G5,KIDNEY FAILURE: <15 ml/min/1.73 m2 06/03/2018 10:1 1 PM CDT us Kirstin Tom MD LABORATORY Final Result [facility] [address] [place] [address], [place] [phone] * CBC W/DIFF AUTOMATED (06/03/2018 10:11 PM CDT) WBC 10.7 4.0 - 10.8 x10'3/uL 06/03/2018 10:20 PM CDT [facility] RBC 4.75 4.50 - 6.10 x10'6/uL 06/03/2018 10:20 PM CDT [facility] HGB 13.5 13.0 - 18.0 G/DL 06/03/2018 10:20 PM CDT [facility] HCT 40.7 37.0 - 52.0 % 06/03/2018 10:20 PM CDT [facility] MCV 85.7 78.0 - 100.0 FL 06/03/2018 10:20 PM CDT [facility] MCH 28.4 27.0 - 31.0 PG 06/03/2018 10:20 PM CDT [facility] MCHC 33.2 33.0 - 36.0 G/DL 06/03/2018 10:20 PM CDT [facility] RDW 13.7 11.5 - 14.5 % 06/03/2018 10:20 PM CDT [facility] PLT 294 150 - 350 x10'3/uL 06/03/2018 10:20 PM CDT [facility] MPV 9.5 7.4 - 10.4 FL 06/03/2018 10:20 PM CDT [facility] ABS. NEUTROPHILS TOTAL 6.78 1.60 - 8.30 x10'3/uL 06/03/2018 10:20 PM CDT [facility] ABS. LYMPHOCYTES 2.31 0.80 - 4.70 x10'3/uL 06/03/2018 10:20 PM CDT [facility] ABS. MONOCYTES 1.20 0.00 - 1.50 x10'3/uL 06/03/2018 10:20 PM CDT [facility] ABS. EOSINOPHILS 0.34 0.00 - 0.40 x10'3/uL 06/03/2018 10:20 PM CDT [facility] ABS. BASOPHILS 0.04 0.00 - 0.20 x10'3/uL 06/03/2018 10:20 PM CDT [facility] ABS. IMMATURE GRANULOCYTES 0.02 0.00 - 0.03 x10'3/uL 06/03/2018 10:20 PM CDT [facility] ABS. NUCLEATED RBC'S 0.00 0.0 x10'3/uL 06/03/2018 10:20 PM CDT [facility] 06/03/2018 10:1 1 PM CDT Kirstin Tom MD LABORATORY Final Result Performing Organization Address City/State/[facility] Co de Phone Number [facility] [address] [place] [address], [phone] * ECG 12 lead (06/03/2018 10:07 PM CDT) 06/03/2018 10:0 7 PM CDT Narrative [facility] - 06/04/2018 8:50 PM CDT ?SJS-ED ? Test Date: ?2018-06-03 Pat Name: ? YAKOV DOYLE ? Department: ?? 70 ? Room: ? EXAM AA Gender: ? Male ? Director Of In Service Education: ?? APEDEN : ?1980 ? Requested By: KIRSTIN TOM Order Number: [id number] ? Reading MD: ?? Kolton Olivier ? Measurements Intervals ?[place] ? Rate: ? 90 ? P: ?22 [place]: ? 175 ?QRS: ?35 QRSD: ? 107 ?T: ?77 QT: ? 350 ? QTc: ?429 ? Interpretive Statements SINUS RHYTHM POSSIBLE INFERIOR MYOCARDIAL INFARCTION , PROBABLY OLD [30 ms Q WAVE IN II/aVF] Procedure Note Kolton Olivier MD - 06/04/2018 SJS-ED Test Date: 2018-06-03 Pat Name: YAKOV DOYLE Department: 70 Room: EXAM AA Gender: Male Director Of In Service Education: BONI : 1980 Requested By: KIRSTIN TOM Order Number: [id number] Reading MD: Kolton Olivier Measurements Intervals [place] Rate: 90 P: 22 [place]: 175 QRS: 35 QRSD: 107 T: 77 QT: 350 QTc: 429 Interpretive Statements SINUS RHYTHM POSSIBLE INFERIOR MYOCARDIAL INFARCTION , PROBABLY OLD [30 ms Q WAVE IN II/aVF] us Kirstin Tom MD ECG ORDERABLES Final Result [facility] * XR CHEST PA+LAT (06/03/2018 9:56 PM CDT) Anatomical Region Laterality Modality Chest Radiographic Martha ging 06/03/2018 9:59 PM CDT Narrative 06/03/2018 9:59 PM CDT EXAMINATION: CHEST X-RAY TWO VIEWS EXAM TIME: 2150 hours. COMPARISON: None available HISTORY: Chest pain and dyspnea. ??Bilateral lower extremity swelling. FINDINGS: PA and lateral views of the chest are submitted for evaluation. The heart is within normal limits in size. Pulmonary vascularity is within normal limits. The lungs are well expanded without focal airspace consolidation. No pleural effusions. No pneumothorax. IMPRESSION: No acute cardiopulmonary disease. Interpreted By: Ketty Burton MD, 06/03/2018 9:59 PM Procedure Note Lauro Burton MD - 06/03/2018 EXAMINATION: CHEST X-RAY TWO VIEWS EXAM TIME: 2150 hours. COMPARISON: None available HISTORY: Chest pain and dyspnea. Bilateral lower extremity swelling. FINDINGS: PA and lateral views of the chest are submitted for evaluation. The heartis within normal limits in size. Pulmonary vascularity is within normallimits. The lungs are well expanded without focal airspace consolidation.No pleural effusions. No pneumothorax. IMPRESSION: No acute cardiopulmonary disease. Interpreted By: Ketty Burton MD, 06/03/2018 9:59 PM Kirstin Tom MD GENERAL IMAGING Final Result documented in this encounter Visit Diagnoses Diagnosis Chest wall pain- Primary Painful respiration Dependent edema Edema documented in this encounter Administered Medications Inactive Administered Medications - up to 3 most recent administrations Medication Order MAR Action Action Date Dose Rate Site furosemide (LASIX) tablet 40 mg 40 mg, Oral, Once, 1 dose, On Wed06/03/18 at 2315 Given 06/03/2018 11:19 PM CDT 40 mg ketorolac (TORADOL) injection 15 mg 15 mg, Intravenous, Once, 1 dose, On Wed06/03/18 at 2200, For IV administration, give over 15 seconds. Given 06/03/2018 10:22 PM CDT 15 mg lidocaine (LIDODERM) 5 % patch 1 patch 1 patch, Transdermal, Administer over 12 Hours, Once, 1 dose, On Wed06/03/18 at 2300 Patch Applied 06/03/2018 11:19 PM CDT 1 patch Other documented in this encounter Active and Recently Administered Medications Times are shown in CDT. Scheduled Medication Order 06/01/2018 06/02/2018 06/03/2018 furosemide (LASIX) tablet 40 mg (COMPLETED) 40 mg, Oral, Once, 1 dose, On Wed06/03/18 at 2315 2319 (Given - Provid er: Francois Hankins, ZARA) ketorolac (TORADOL) injection 15 mg (COMPLETED) 15 mg, Intravenous, Once, 1 dose, On Wed06/03/18 at 2200, For IV administration, give over 15 seconds. 2222 (Given - Provid er: Lala Sylvester RN) lidocaine (LIDODERM) 5 % patch 1 patch 1 patch, Transdermal, Administer over 12 Hours, Once, 1 dose, On Wed06/03/18 at 2300 2319 (Patch Applied - Provider: Francois Hankins RN)2343 (Due: Patch Removed - Provider: Automatic Discharge Provider - Comment: Time automatically adjusted from order being discontinued) documented in this encounter Care Teams Electronic Test Technician Relationship Specialty Start Date End Date None, Provider, PCP - General 05/18/18 03/08/19 documented as of this encounter
--- OUTSIDE RECORDS SUMMARY | 2024-08-30 23:13 | XMS_ITS | Encounter Summary ---
Author Organization [facility] Address [address] [place] [address]. [place], [place] [id number] [place] [id number] Care Team Providers Care Franchise Business Consultant Name Role Phone None, Provider MD Primary Care Provider Unavaila ble Reason for Visit * Reason Comments Blood Pressure Check Encounter Details Date Type Department Care Team (Late st Contact Info) Description 01/25/2019 8:01 AM CDT - 01/25/2019 10:[address] [facility] Emergency [address] [place] [address] John Harris MD [address] [place] [address] [phone] Blood Pressure Check Discharge Disposition: Home or Self Care (Routine [...] Sign Reading Time Taken Comments Blood Pressure 165/84 01/25/2019 9:24 AM CDT Pulse 88 01/25/2019 9:24 AM CDT Temperature 36.7 ??C (98 ??F) 01/25/2019 9:24 AM CDT Respiratory Rate 16 01/25/2019 9:24 AM CDT Oxygen Saturation 97% 01/25/2019 9:24 AM CDT Inhaled Oxygen Concentration - - Weight 171.9 kg (378 lb 15.5 oz) 01/25/2019 7:59 AM CDT Height 195.6 cm (6' 5 ) 01/25/2019 7:59 AM CDT Body Mass Index 44.94 01/25/2019 7:59 AM CDT documented in this encounter Discharge Instructions * Discharge Instructions* Ashok Caceres MD - 01/25/2019 9:50 AM CDT Take your medications as prescribed. Return to the ED with any new or worsening symptoms. Your blood sugar was slightly elevated in the ED. Follow up with your PCP or with the provided follow up * Attachments The following attachments cannot be sent through Care Everywhere. * High Blood Pressure Discharge Instructions ([place]) documented in this encounter Medications at Time of Discharge amlodipine 10 MG tablet Take 1 tablet (10 mg total) by mouth daily. 90 tablet 3 01/25/2019 03/09/2019 lisinopril 20 MG tablet Take 1 tablet (20 mg total) by mouth daily. 90 tablet 3 01/25/2019 01/27/2019 documented as of this encounter ED Notes * Ashok Caceres MD - 01/25/2019 8:15 AM CDT ED NOTE Chief Complaint Chief Complaint Patient presents with ??? Blood Pressure Check History of Present Illness 38 yo male with a history of hypertension who has not taken his medication presents emergency department with pounding in his head. Patient reports that he woke up feeling like this today. He has nothad his BP medications since Sep. He denies other symptoms. He does not have chest pain or shortness of breath. Laying down makes his symptoms better. He has mild resolution of symptoms since this AM. Medical History ALLERGIES: Allergies Allergen Reactions ??? Codeine Rash MEDICATIONS: Prior to Admission medications Medication Sig Start Date End Date Taking? Authorizing Provider amlodipine 10 MG tablet Take 1 tablet (10 mg total) by mouth daily. 01/25/19 01/25/20 Yes Ashok Caceres MD lisinopril 20 MG tablet Take 1 tablet (20 mg total) by mouth daily. 01/25/19 01/25/20 Yes Ashok Caceres MD PAST MEDICAL HISTORY: Past Medical History: Diagnosis Date ??? Arthritis ??? Hypertension PAST SURGICAL HISTORY: History reviewed. No pertinent surgical history. FAMILY HISTORY: Family History Problem Relation Name Age of Onset ??? Heart Disease Mother ??? Hypertension Mother ??? Diabetes Mother SOCIAL HISTORY: Social History Tobacco Use ??? Smoking status: Current Every Day Smoker Packs/day: 0.50 Years: 10.00 Pack years: 5.00 Types: Cigarettes ??? Smokeless tobacco: Never Used Substance Use Topics ??? Alcohol use: No Frequency: Never ??? Drug use: No Review of Systems Review of Systems Constitutional: Negative for diaphoresis and fever. HENT: Negative for rhinorrhea and sore throat. Eyes: Negative for visual disturbance. Respiratory: Negative for cough and shortness of breath. Cardiovascular: Negative for chest pain. Gastrointestinal: Negative for abdominal pain, diarrhea, nausea and vomiting. Endocrine: Negative for polydipsia and polyuria. Genitourinary: Negative for dysuria and frequency. Skin: Negative for color change. Neurological: Positive for headaches. Negative for syncope. Psychiatric/Behavioral: Negative for confusion. Physical Exam Filed Vitals: 01/25/19 0759 01/25/19 0924 BP: (!) 174/92 165/84 Pulse: 93 88 Resp: 18 16 Temp: 98 ??F (36.7 ??C) 98 ??F (36.7 ??C) TempSrc: Oral Oral SpO2: 96% 97% Weight: (!) 171.9 kg (378 lb 15.5 oz) Height: 6' 5 (1.956 m) Physical Exam Constitutional: He is oriented to person, place, and time. He appears well- developed and well-nourished. HENT: Head: Normocephalic and atraumatic. Eyes: Conjunctivae and EOM are normal. Pupils are equal, round, and reactive to light. Neck: Normal range of motion. Neck supple. Cardiovascular: Normal rate, regular rhythm, normal heart sounds and intact distal pulses. Exam reveals no gallop and no friction rub. No murmur heard. Pulmonary/Chest: Effort normal and breath sounds normal. No respiratory distress. He has no wheezes. Abdominal: Soft. Bowel sounds are normal. He exhibits no distension. There is no tenderness. There is no rebound. Musculoskeletal: Normal range of motion. Neurological: He is alert and oriented to person, place, and time. Skin: Skin is warm and dry. Psychiatric: Judgment normal. Nursing note and vitals reviewed. Diagnostic Studies / Procedures ORDERS Orders Placed This Encounter ??? BASIC METABOLIC PANEL Standing Status: Standing Number of Occurrences: 1 ??? CBC W/DIFF AUTOMATED Standing Status: Standing Number of Occurrences: 1 ??? TROPONIN, QUANT Standing Status: Standing Number of Occurrences: 1 ??? Insert peripheral IV Standing Status: Standing Number of Occurrences: 1 ??? DISCONTD: labetalol (TRANDATE) injection 20 mg ??? DISCONTD: amlodipine (NORVASC) tablet 10 mg ??? lisinopril (PRINIVIL,ZESTRIL) tablet 20 mg ??? amlodipine (NORVASC) tablet 10 mg ??? amlodipine 10 MG tablet Sig: Take 1 tablet (10 mg total) by mouth daily. Dispense: 90 tablet Refill: 3 ??? lisinopril 20 MG tablet Sig: Take 1 tablet (20 mg total) by mouth daily. Dispense: 90 tablet Refill: 3 ??? 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1980 Requested By: ASHOK CACERES Order Number: [id number] Reading MD: Measurements Intervals [place] Rate: 78 P: 12 CT: 164 QRS: 51 QRSD: 106 T: 95 QT: 355 QTc: 405 Interpretive Statements SINUS RHYTHM PROBABLE INFERIOR MYOCARDIAL INFARCTION , OF INDETERMINATE AGE [35 ms Q WAVE IN II/aVF] LABORATORY STUDIES: Results for orders placed or performed during the hospital encounter of 01/25/19 BASIC METABOLIC PANEL Result Value Ref Range SODIUM 141 136 - 145 MMOL/L POTASSIUM 3.8 3.5 - 5.1 MMOL/L CHLORIDE 109 (H) 98 - 107 MMOL/L CO2 27.6 21.0 - 32.0 MMOL/L GLUCOSE 156 (H) 74 - 106 MG/DL BUN 13 7 - 18 MG/DL CREATININE 1.09 0.70 - 1.30 MG/DL CALCIUM 8.3 (L) 8.5 - 10.1 MG/DL ANION GAP 4.4 (L) 5.0 - 15.0 MMOL/L OSMOLALITY (CALC) 295 MOSM/KG eGFR Non-Afr. Amer. 85 (L) >90 ML/MIN/1.73 M2 eGFR Afr. Amer. >90 >90 ML/MIN/1.73 M2 GFR NOTES THE ESTIMATED GFR IS CALCULATED USING THE 2009 CKD-EPI EQUATION. THE FOLLOWING CATEGORIES FOR GRADING RENAL FUNCTION ARE RECOMMENDED BY THE INTERNATIONAL SOCIETY OF NEPHROLOGY (KDIGO 2012 CLINICAL PRACTICE GUIDELINE). CBC W/DIFF AUTOMATED Result Value Ref Range WBC 9.1 4.0 - 10.8 x10'3/uL RBC 5.15 4.50 - 6.10 x10'6/uL HGB 14.4 13.0 - 18.0 G/DL HCT 44.6 37.0 - 52.0 % MCV 86.6 78.0 - 100.0 FL MCH 28.0 27.0 - 31.0 PG MCHC 32.3 (L) 33.0 - 36.0 G/DL RDW 14.7 (H) 11.5 - 14.5 % PLT 243 150 - 350 x10'3/uL MPV 9.9 7.4 - 10.4 FL ABS. NEUTROPHILS TOTAL 6.03 1.60 - 8.30 x10'3/uL ABS. LYMPHOCYTES 1.98 0.80 - 4.70 x10'3/uL ABS. MONOCYTES 0.66 0.00 - 1.50 x10'3/uL ABS. EOSINOPHILS 0.38 0.00 - 0.40 x10'3/uL ABS. BASOPHILS 0.05 0.00 - 0.20 x10'3/uL ABS. IMMATURE GRANULOCYTES 0.02 0.00 - 0.03 x10'3/uL ABS. NUCLEATED RBC'S 0.00 0.0 x10'3/uL TROPONIN, QUANT Result Value Ref Range TROPONIN I 0.033 <0.045 ng/mL. IMAGING STUDIES No orders to display ED Course / Medical Decision Making 38 yo M presents to the ED with Blood Pressure Check All critical Diagnosis considered and evaluated for Orders and interpretations as above. Symptoms managed with amlodipine and lisonpril. Patients symptoms were Improved. Evaluation significant for HTN and hyperglycemia. Patient will be discharged. Staffed with Dr. Harris ED Course as of Jan 25 946 Wed Jan 25, 2019 0907 CREATININE: 1.09 [CP] ED Course User Index [CP] Ashok Caceres MD Clinical Impression Hypertension (Primary) Current Discharge Medication List START taking these medications Details amlodipine 10 MG tablet Take 1 tablet (10 mg total) by mouth daily. Qty: 90 tablet, Refills: 3 Class: Print Pharmacy: [address] (Ph #: [phone]) lisinopril 20 MG tablet Take 1 tablet (20 mg total) by mouth daily. Qty: 90 tablet, Refills: 3 Class: Print Pharmacy: [address] (Ph #: [phone]) Disposition: Discharge Follow-Up: Michael Hurtado MD [address] [place] [phone] For HTN follow up Ashok Caceres MD Cosigned by John Harris MD at 01/31/2019 9:09 AM CDT Associated attestation - John Harris MD - 01/31/2019 9:09 AM CDT Teaching Physician - I, JOHN HARRIS MD, performed a History and Physical examination of the patient and discussed the management with the resident. I reviewed the Resident's note and agree with the findings and plan of care, except as I have documented. * Lia Mendoza, RN - 01/25/2019 8:15 AM CDT Pt states he took bp meds in the past, but has not been on the for a while and now his bp is elevated. Pt denies sx with his high bp, but states he can hear his heart beating in his ears. * Kayla Salazar RN - 01/25/2019 7:57 AM CDT Ambulatory to triage with c/o high blood pressure pt reports has been off his blood pressure medssince Sep. Pt reports was unable to find PMD where he was and has since relocated. documented in this encounter Plan of Treatment Not on file documented as of this encounter Procedures Procedure Name Priority Date/Time Associated Diagnosis Comments ECG 12-LEAD STAT 01/25/2019 8:40 AM CDT BASIC METABOLIC PANEL STAT 01/25/2019 8:28 AM CDT CBC W/DIFF AUTOMATED STAT 01/25/2019 8:28 AM CDT TROPONIN, QUANT STAT 01/25/2019 8:28 AM CDT documented in this encounter Results * ECG 12 lead (01/25/2019 8:40 AM CDT) 01/25/2019 8:40 AM CDT Narrative [facility] - 01/25/2019 3:07 PM CDT ?SJS-ED ? Test Date: ?2019-01-25 Pat Name: ? YAKOV WYKOFF ? Department: ? Room: ? [id number] Gender: ? Male ? 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 [employer] : ?1980 ? Requested By: ASHOK PINGEL Order Number: [id number] ? Reading MD: ?? Chicho Adame ? Measurements Intervals ?[place] ? Rate: ? 78 ? P: ?12 CT: ? 164 ?QRS: ?51 QRSD: ? 106 ?T: ?95 QT: ? 355 ? QTc: ?405 ? 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 01/25/2019 9:[address] [facility] 01/25/2019 8:28 AM CDT Ashok Caceres MD LABORATORY Final Result Performing Organization Address [facility] Co de Phone Number [facility] [address] [place] [address], [phone] * (ABNORMAL) CBC W/DIFF AUTOMATED (01/25/2019 8:28 AM CDT) WBC 9.1 4.0 - 10.8 x10'3/uL 01/25/2019 8:[address] [facility] RBC 5.15 4.50 - 6.10 x10'6/uL 01/25/2019 8:[address] [facility] HGB 14.4 13.0 - 18.0 G/DL 01/25/2019 8:[address] [facility] HCT 44.6 37.0 - 52.0 % 01/25/2019 8:[address] [facility] MCV 86.6 78.0 - 100.0 FL 01/25/2019 8:[address] [facility] MCH 28.0 27.0 - 31.0 PG 01/25/2019 8:[address] [facility] MCHC 32.3(L) 33.0 - 36.0 G/DL 01/25/2019 8:[address] [facility] RDW 14.7(H) 11.5 - 14.5 % 01/25/2019 8:[address] [facility] PLT 243 150 - 350 x10'3/uL 01/25/2019 8:[address] [facility] MPV 9.9 7.4 - 10.4 FL 01/25/2019 8:[address] [facility] ABS. NEUTROPHILS TOTAL 6.03 1.60 - 8.30 x10'3/uL 01/25/2019 8:[address] [facility] ABS. LYMPHOCYTES 1.98 0.80 - 4.70 x10'3/uL 01/25/2019 8:[address] [facility] ABS. MONOCYTES 0.66 0.00 - 1.50 x10'3/uL 01/25/2019 8:[address] [facility] ABS. EOSINOPHILS 0.38 0.00 - 0.40 x10'3/uL 01/25/2019 8:[address] [facility] ABS. BASOPHILS 0.05 0.00 - 0.20 x10'3/uL 01/25/2019 8:[address] [facility] ABS. IMMATURE GRANULOCYTES 0.02 0.00 - 0.03 x10'3/uL 01/25/2019 8:[address] [facility] ABS. NUCLEATED RBC'S 0.00 0.0 x10'3/uL 01/25/2019 8:[address] [facility] 01/25/2019 8:28 AM CDT Ashok Caceres MD LABORATORY Final Result [facility] [address] [place] [address], [phone] * (ABNORMAL) BASIC METABOLIC PANEL (01/25/2019 8:28 AM CDT) SODIUM S/P/B 141 136 - 145 MMOL/L 01/25/2019 9:[address] [facility] POTASSIUM S/P/B 3.8 3.5 - 5.1 MMOL/L 01/25/2019 9:[address] [facility] CHLORIDE S/P/B 109(H) 98 - 107 MMOL/L 01/25/2019 9:[address] [facility] CO2 27.6 21.0 - 32.0 MMOL/L 01/25/2019 9:[address] [facility] GLUCOSE 156(H) 74 - 106 MG/DL 01/25/2019 9:[address] [facility] BUN 13 7 - 18 MG/DL 01/25/2019 9:[address] [facility] CREATININE S/P/B 1.09 0.70 - 1.30 MG/DL 01/25/2019 9:[address] [facility] CALCIUM S/P/B 8.3(L) 8.5 - 10.1 MG/DL 01/25/2019 9:[address] [facility] ANION GAP 4.4(L) 5.0 - 15.0 MMOL/L 01/25/2019 9:[address] [facility] Comment:REFERENCE RANGE NOT ESTABLISHED OSMOLALITY (CALC) 295 MOSM/KG 01/25/2019 9:[address] [facility] Comment:REFERENCE RANGE NOT ESTABLISHED EGFR NON-AFR. AMER. 85(L) >90 ML/MIN/1 .73 M2 01/25/2019 9:[address] [facility] EGFR AFR. AMER. >90 >90 ML/MIN/1 .73 M2 01/25/2019 9:[address] [facility] GFR NOTES THE ESTIMATED GFR IS CALCULATED USING THE 2009 CKD-EPI EQUATION. THE FOLLOWING CATEGORIES FOR GRADING RENAL FUNCTION ARE RECOMMENDED BY THE INTERNATIONAL SOCIETY OF NEPHROLOGY (KDIGO 2012 CLINICAL PRACTICE GUIDELINE). 01/25/2019 9:[address] [facility] Comment: G1,NORMAL OR HIGH: >89 ml/min/1.73 m2 G2,MILDLY DECREASED: 60-89 ml/min/1.73 m2 G3A,MILDLY TO MODERATELY DECREASED: 45-59 ml/min/1.73 m2 G3B,MODERATELY TO SEVERELY DECREASED: 30-44 ml/min/1.73 m2 G4,SEVERELY DECREASED: 15-29 ml/min/1.73 m2 G5,KIDNEY FAILURE: <15 ml/min/1.73 m2 01/25/2019 8:28 AM CDT Ashok Caceres MD LABORATORY Final Result [facility] [address] [place] [address], [phone] documented in this encounter Visit Diagnoses Diagnosis Hypertension- Primary Unspecified essential hypertension documented in this encounter Administered Medications Inactive Administered Medications - up to 3 most recent administrations Medication Order MAR Action Action Date Dose Rate Site amlodipine (NORVASC) tablet 10 mg 10 mg, Oral, Once, 1 dose, On Wed01/25/19 at 0845 Given 01/25/2019 8:34 AM CDT 10 mg lisinopril (PRINIVIL,ZESTRIL) tablet 20 mg 20 mg, Oral, Once, 1 dose, On Wed01/25/19 at 0930 Given 01/25/2019 10:08 AM CDT 20 mg documented in this encounter Active and Recently Administered Medications Times are shown in CDT. Scheduled Medication Order 01/23/2019 01/24/2019 01/25/2019 amlodipine (NORVASC) tablet 10 mg (COMPLETED) 10 mg, Oral, Once, 1 dose, On Wed01/25/19 at 0845 0834 (Given - Provid er: Lia Mendoza RN) lisinopril (PRINIVIL,ZESTRIL) tablet 20 mg (COMPLETED) 20 mg, Oral, Once, 1 dose, On Wed01/25/19 at 0930 1008 (Given - Provid er: Lia Mendoza RN) documented in this encounter Care Teams Franchise Business Consultant Relationship Specialty Start Date End Date None, Provider, PCP - General 05/18/18 03/08/19 documented as of this encounter
--- OUTSIDE RECORDS SUMMARY | 2024-08-30 23:13 | XMS_ITS | Encounter Summary ---
Author Organization [facility] Address [id number]. [place], [place] [id number] [place] [id number] Care Team Providers Care Interactive Project Manager Name Role Phone None, Provider MD Primary Care Provider Unavaila ble Reason for Visit * Reason Comments Knee Pain YIMI knee pain Cold Ear Problem Ear ache Hand Pain swelling in hands Swelling swelling in ankles a nd feet Encounter Details Date Type Department Care Team (Late st Contact Info) Description 05/18/2018 8:01 AM CDT - 05/18/2018 12:51 PM CDT Emergency [facility] Emergency [address] [place] [address] Greg Carranza MD [address] [place] [id number] Knee Pain (YIMI knee pain ); Cold; Ear Problem (Ear ache ); Hand Pain (swelling in hands ); Swelling (swelling in ankles and feet ) Discharge Disposition: Home or Self Care (Routine Discharge) Social History Tobacco Use Types Packs/Day Years Used Date Smoking Tobacco: Every Day Cigarettes 1 10 Smokeless Tobacco: Never Tobacco Cessation:Ready to [...] Sign Reading Time Taken Comments Blood Pressure 141/72 05/18/2018 11:03 AM CDT Pulse 80 05/18/2018 11:03 AM CDT Temperature 36.8 ??C (98.2 ??F) 05/18/2018 7:58 AM CD T Respiratory Rate 18 05/18/2018 11:03 AM CDT Oxygen Saturation 97% 05/18/2018 7:58 AM CDT Inhaled Oxygen Concentration - - Weight 152 kg (335 lb 1.6 oz) 05/18/2018 7:58 AM CDT Height 182.9 cm (6') 05/18/2018 7:58 AM CDT Body Mass Index 45.45 05/18/2018 7:58 AM CDT documented in this encounter Discharge Instructions * Discharge Instructions* Greg Carranza MD - 05/18/2018 12:44 PM CDT Return to the Emergency Department with any worsening or recurrent symptoms or any other concerns. If you do not have a primary physician please follow up with the physician listed. Thank you for choosing [facility]. It has been a privilege to care for you. * Attachments The following attachments cannot be sent through Care Everywhere. * SINUSITIS IN ADULTS (IRANIAN) * JOINT PAIN (IRANIAN) documented in this encounter Medications at Time of Discharge amlodipine 10 MG tablet Take 10 mg by mouth daily. 01/25/2019 amoxicillin-clavu lanate (AUGMENTIN) 875-125 MG tablet Take 1 tablet (875 mg total) by mouth 2 (two) times daily for 10 days. 20 tablet 05/18/2018 05/28/2018 lisinopril 20 MG tablet Take 20 mg by mouth daily. 01/25/2019 meloxicam (MOBIC) 15 MG tablet Take 1 tablet (15 mg total) by mouth daily for 15 days. PRN pain 15 tablet 05/18/2018 06/02/2018 documented as of this encounter ED Notes * Greg Carranza MD - 05/18/2018 8:32 AM CDT ED NOTE Chief Complaint Chief Complaint Patient presents with ??? Knee Pain YIMI knee pain ??? Cold ??? Ear Problem Ear ache ??? Hand Pain swelling in hands ??? Swelling swelling in ankles and feet History of Present Illness 37-year-old male complaining of bilateral wrist, knee and ankle pain. Also complaining of swelling in his hands and his feet. This been going on for about a month. No redness or fevers. No recent travel. No camping or tick bites. No chest pain or shortness of breath. Never had anything like this before. He is currently in rehab for cocaine and marijuana abuse. No history of IV drug use. He also complains of sinus pain, nasal congestion and ear pain especially on the left. This is been going on several days. No cough. Medical History ALLERGIES: Allergies Allergen Reactions ??? Codeine Rash MEDICATIONS: Prior to Admission medications Medication Sig Start Date End Date Taking? Authorizing Provider amlodipine 10 MG tablet Take 10 mg by mouth daily. Yes Doc Abstract amoxicillin-clavulanate (AUGMENTIN) 875-125 MG tablet Take 1 tablet (875 mg total) by mouth 2 (two)times daily for 10 days. 05/18/18 05/28/18 Yes Greg Carranza MD lisinopril 20 MG tablet Take 20 mg by mouth daily. Yes Doc Abstract meloxicam (MOBIC) 15 MG tablet Take 1 tablet (15 mg total) by mouth daily for 15 days. PRN pain 05/18/18 06/02/18 Yes Greg Carranza MD PAST MEDICAL HISTORY: Past Medical History: [...] Systems Review of Systems Constitutional: Negative for fatigue and fever. HENT: Positive for congestion, ear pain and sinus pain. Negative for sore throat and trouble swallowing. Eyes: Negative for pain and discharge. Respiratory: Negative for cough, chest tightness and shortness of breath. Cardiovascular: Negative for chest pain and leg swelling. Gastrointestinal: Negative for abdominal distention, abdominal pain, blood in stool, constipation, diarrhea, nausea and vomiting. Endocrine: Negative for polydipsia and polyphagia. Genitourinary: Negative for difficulty urinating, dysuria and frequency. Musculoskeletal: Positive for arthralgias and joint swelling. Negative for back pain, myalgias and neck pain. Skin: Negative for rash. Neurological: Negative for dizziness, speech difficulty, weakness, numbness and headaches. Psychiatric/Behavioral: Negative for behavioral problems. Physical Exam Filed Vitals: 05/18/18 0758 05/18/18 1103 BP: 170/73 141/72 Pulse: 90 80 Resp: 20 18 Temp: 98.2 ??F (36.8 ??C) TempSrc: Oral SpO2: 97% Weight: (!) 152 kg (335 lb 1.6 oz) Height: 6' (1.829 m) Physical Exam Constitutional: He is oriented to person, place, and time. He appears well- developed and well-nourished. HENT: Head: Normocephalic. Nose: Nose normal. Eyes: Conjunctivae are normal. Neck: Normal range of motion. Neck supple. Cardiovascular: Normal rate, regular rhythm, normal heart sounds and intact distal pulses. Pulmonary/Chest: Effort normal and breath sounds normal. Abdominal: Soft. Bowel sounds are normal. There is no tenderness. There is no rebound and no guarding. Musculoskeletal: Normal range of motion. He exhibits edema and tenderness. He exhibits no deformity. Trace edema in bilateral hands and feet. Painful range of motion of the wrist, knees and ankles. Nopain to palpation. No erythema. No significant joint swelling. No warmth of the joints. Neurological: He is alert and oriented to person, place, and time. No cranial nerve deficit. Coordination normal. Skin: Skin is warm and dry. No rash noted. Psychiatric: He has a normal mood and affect. His behavior is normal. Thought content normal. Diagnostic Studies / Procedures ELECTROCARDIOGRAMS: No results found for this visit on 05/18/18. LABORATORY STUDIES: Results for orders placed or performed during the hospital encounter of 05/18/18 CBC W/DIFF AUTOMATED Result Value Ref Range WBC 10.4 4.0 - 10.8 x10'3/uL RBC 4.73 4.50 - 6.10 x10'6/uL HGB 13.2 13.0 - 18.0 G/DL HCT 40.8 37.0 - 52.0 % MCV 86.3 78.0 - 100.0 FL MCH 27.9 27.0 - 31.0 PG MCHC 32.4 (L) 33.0 - 36.0 G/DL RDW 13.5 11.5 - 14.5 % PLT 239 150 - 350 x10'3/uL MPV 9.9 7.4 - 10.4 FL ABS. NEUTROPHILS TOTAL 7.97 1.60 - 8.30 x10'3/uL ABS. LYMPHOCYTES 1.30 0.80 - 4.70 x10'3/uL ABS. MONOCYTES 0.76 0.00 - 1.50 x10'3/uL ABS. EOSINOPHILS 0.27 0.00 - 0.40 x10'3/uL ABS. BASOPHILS 0.04 0.00 - 0.20 x10'3/uL ABS. IMMATURE GRANULOCYTES 0.04 (H) 0.00 - 0.03 x10'3/uL ABS. NUCLEATED RBC'S 0.00 0.0 x10'3/uL BASIC METABOLIC PANEL Result Value Ref Range SODIUM 137 136 - 145 MMOL/L POTASSIUM 3.9 3.5 - 5.1 MMOL/L CHLORIDE 103 98 - 107 MMOL/L CO2 25.8 21.0 - 32.0 MMOL/L GLUCOSE 175 (H) 74 - 106 MG/DL BUN 14 7 - 18 MG/DL CREATININE 0.78 0.70 - 1.30 MG/DL CALCIUM 8.6 8.4 - 10.5 MG/DL ANION GAP 8.2 MMOL/L OSMOLALITY (CALC) 289 MOSM/KG eGFR Non-Afr. Amer. >90 >90 ML/MIN/1.73 M2 eGFR Afr. Amer. >90 >90 ML/MIN/1.73 M2 HEPATIC FUNCTION PANEL Result Value Ref Range TOTAL BILIRUBIN 0.3 0.2 - 1.0 MG/DL DIRECT BILIRUBIN 0.1 0.0 - 0.2 MG/DL ALK PHOS 89 45 - 115 U/L AST 14 (L) 15 - 37 U/L ALT 29 16 - 61 U/L TOTAL PROTEIN 6.8 6.4 - 8.2 G/DL ALBUMIN 3.3 (L) 3.4 - 5.0 G/DL URINALYSIS Result Value Ref Range COLOR YELLOW TRANSPARENCY CLEAR Specific [place] (U) 1.017 1.002 - 1.035 U PH 7.0 5 - 8 PROTEIN, URINE NEGATIVE NEGATIVE URINE GLUCOSE NEGATIVE NEGATIVE MG/DL U KETONES NEGATIVE NEGATIVE Urine Bilirubin NEGATIVE NEGATIVE BLOOD NEGATIVE NEGATIVE NITRITES NEGATIVE NEGATIVE UROBILINOGEN NORMAL 0 - 1 EU/DL LEUKOCYTE ESTERASE NEGATIVE NEGATIVE RBC/HPF <1 0 - 3 /HPF WBC/HPF <1 0 - 6 /HPF BACTERIA (URINE) NONE /HPF HYALINE CASTS 3 IMAGING STUDIES No orders to display ED Course / Medical Decision Making ED Course as of May 18 1419WedMay 18, 2018 1143 Patient feeling little better. Labs unremarkable. Discussed results with him. He does not havea primary care doctor. I will have our [facility] liaison come talk with him about follow-up. [JS] 1145 Will treat for sinusitis as well. [JS] ED Course User Index [JS] Greg Carranza MD Medications ibuprofen (MOTRIN) tablet 800 mg (800 mg Oral Given 05/18/18 1101) Clinical Impression Arthralgia of wrist (Primary) Arthralgia of both ankles Sinusitis Discharge Medication List as of 05/18/2018 12:47 PM START taking these medications Details amoxicillin-clavulanate (AUGMENTIN) 875-125 MG tablet Take 1 tablet (875 mg total) by mouth 2 (two)times daily for 10 days., Starting Wed05/18/2018, Until 05/28/2018, Print Class: Print Pharmacy: [address] (Ph #: [phone]) meloxicam (MOBIC) 15 MG tablet Take 1 tablet (15 mg total) by mouth daily for 15 days. PRN pain, Starting Wed05/18/2018, Until Radha 06/02/2018, Print Class: Print Pharmacy: [address] (Ph #: [phone]) Disposition: Discharge Follow-Up: [facility] [address] [facility] [address] In 3 days GREG CARRANZA MD 05/18/2018 Greg Carranza MD 05/18/18 1419 * Roderick Gil RN - 05/18/2018 7:51 AM CDT Pt arrives pov with the complaints of having leg swelling, ankle and knee pain YIMI. Pt states that he also has a cold and thinks he may have an ear infection. Pt also states that he has been having hand swelling documented in this encounter Plan of Treatment Not on file documented as of this encounter Procedures Procedure Name Priority Date/Time Associated Diagnosis Comments URINALYSIS Nurse Collected Priority 05/18/2018 10:52 AM CDT BASIC METABOLIC PANEL STAT 05/18/2018 9:04 AM CDT HEPATIC FUNCTION PANEL STAT 05/18/2018 9:04 AM CDT CBC W/DIFF AUTOMATED STAT 05/18/2018 9:04 AM CDT documented in this encounter Results * URINALYSIS (05/18/2018 10:52 AM CDT) COLOR (U) YELLOW 05/18/2018 11:38 AM CDT [facility] TRANSPARENCY CLEAR 05/18/2018 11:38 AM CDT [facility] SPECIFIC GRAVITY (U) 1.017 1.002 - 1.035 05/18/2018 11:38 AM CDT [facility] U PH 7.0 5 - 8 05/18/2018 11:38 AM CDT [facility] PROTEIN (U) NEGATIVE NEGATIVE 05/18/2018 11:38 AM CDT [facility] URINE GLUCOSE NEGATIVE NEGATIVE MG/DL 05/18/2018 11:38 AM CDT [facility] KETONES MG/DL (U) NEGATIVE NEGATIVE 05/18/2018 11:38 AM CDT [facility] BILIRUBIN (U) NEGATIVE NEGATIVE 05/18/2018 11:38 AM CDT [facility] BLOOD (U) NEGATIVE NEGATIVE 05/18/2018 11:38 AM CDT [facility] NITRITES NEGATIVE NEGATIVE 05/18/2018 11:38 AM CDT [facility] UROBILINOGEN NORMAL 0 - 1 EU/DL 05/18/2018 11:38 AM CDT [facility] LEUKOCYTES (U) NEGATIVE NEGATIVE 05/18/2018 11:38 AM CDT [facility] RBC/HPF <1 0 - 3 /HPF 05/18/2018 11:38 AM CDT [facility] WBC/HPF <1 0 - 6 /HPF 05/18/2018 11:38 AM CDT [facility] BACTERIA (U) NONE /HPF 05/18/2018 11:38 AM CDT [facility] HYALINE CASTS 3 05/18/2018 11:38 AM CDT [facility] URINE SPECIMEN OBTAINED BY CLEAN CATCH PROCEDURE / Unknown 05/18/2018 10:52 AM CDT us Greg Carranza MD URINE ORDERABLES Final Result [facility] [address] [place] [address], [phone] * (ABNORMAL) HEPATIC FUNCTION PANEL (05/18/2018 9:04 AM CDT) BILIRUBIN TOTAL S/P/B 0.3 0.2 - 1.0 MG/DL 05/18/2018 9:38 AM CDT [facility] BILIRUBIN DIRECT S/P/B 0.1 0.0 - 0.2 MG/DL 05/18/2018 9:38 AM CDT [facility] ALKALINE PHOSPHATASE S/P/B 89 45 - 115 U/L 05/18/2018 9:38 AM CDT [facility] AST 14(L) 15 - 37 U/L 05/18/2018 9:38 AM CDT [facility] ALT 29 16 - 61 U/L 05/18/2018 9:38 AM CDT [facility] TOTAL PROTEIN S/P/B 6.8 6.4 - 8.2 G/DL 05/18/2018 9:38 AM CDT [facility] ALBUMIN S/P/B 3.3(L) 3.4 - 5.0 G/DL 05/18/2018 9:38 AM CDT [facility] 05/18/2018 9:04 AM CDT us Greg Carranza MD LABORATORY Final Result [facility] [address] [place] [address], [id number] * (ABNORMAL) BASIC METABOLIC PANEL (05/18/2018 9:04 AM CDT) SODIUM S/P/B 137 136 - 145 MMOL/L 05/18/2018 9:38 AM CDT [facility] POTASSIUM S/P/B 3.9 3.5 - 5.1 MMOL/L 05/18/2018 9:38 AM CDT [facility] CHLORIDE S/P/B 103 98 - 107 MMOL/L 05/18/2018 9:38 AM CDT [facility] CO2 25.8 21.0 - 32.0 MMOL/L 05/18/2018 9:38 AM CDT [facility] GLUCOSE 175(H) 74 - 106 MG/DL 05/18/2018 9:38 AM CDT [facility] BUN 14 7 - 18 MG/DL 05/18/2018 9:38 AM CDT [facility] CREATININE S/P/B 0.78 0.70 - 1.30 MG/DL 05/18/2018 9:38 AM CDT [facility] CALCIUM S/P/B 8.6 8.4 - 10.5 MG/DL 05/18/2018 9:38 AM CDT [facility] ANION GAP 8.2 MMOL/L 05/18/2018 9:38 AM CDT [facility] Comment:REFERENCE RANGE NOT ESTABLISHED OSMOLALITY (CALC) 289 MOSM/KG 018 9:38 AM T [facility] Comment:REFERENCE RANGE NOT ESTABLISHED EGFR NON-AFR. AMER. >90 >90 ML/MIN/1.7 3 M2 05/18/2018 9:38 AM CDT [facility] Comment: THE ESTIMATED GFR IS CALCULATED USING THE 2009 CKD-EPI EQUATION. THE FOLLOWING CATEGORIES FOR GRADING RENAL FUNCTION ARE RECOMMENDED BY THE INTERNATIONAL SOCIETY OF NEPHROLOGY (KDIGO 2012 CLINICAL PRACTICE GUIDELINE). G1,NORMAL OR HIGH: >89 ml/min/1.73 m2 G2,MILDLY DECREASED: 60-89 ml/min/1.73 m2 G3A,MILDLY TO MODERATELY DECREASED: 45-59 ml/min/1.73 m2 G3B,MODERATELY TO SEVERELY DECREASED: 30-44 ml/min/1.73 m2 G4,SEVERELY DECREASED: 15-29 ml/min/1.73 m2 G5,KIDNEY FAILURE: <15 ml/min/1.73 m2 EGFR AFR. AMER. >90 >90 ML/MIN/1.7 3 M2 05/18/2018 9:38 AM CDT [facility] Comment: THE ESTIMATED GFR IS CALCULATED USING THE 2009 CKD-EPI EQUATION. THE FOLLOWING CATEGORIES FOR GRADING RENAL FUNCTION ARE RECOMMENDED BY THE INTERNATIONAL SOCIETY OF NEPHROLOGY (KDIGO 2012 CLINICAL PRACTICE GUIDELINE). G1,NORMAL OR HIGH: >89 ml/min/1.73 m2 G2,MILDLY DECREASED: 60-89 ml/min/1.73 m2 G3A,MILDLY TO MODERATELY DECREASED: 45-59 ml/min/1.73 m2 G3B,MODERATELY TO SEVERELY DECREASED: 30-44 ml/min/1.73 m2 G4,SEVERELY DECREASED: 15-29 ml/min/1.73 m2 G5,KIDNEY FAILURE: <15 ml/min/1.73 m2 05/18/2018 9:04 AM CDT us Greg Carranza MD LABORATORY Final Result [facility] [address] [place] [phone], [id number] * (ABNORMAL) CBC W/DIFF AUTOMATED (05/18/2018 9:04 AM CDT) [facility] WBC 10.4 4.0 - 10.8 x10'3/uL 05/18/2018 9:23 AM CDT [facility] RBC 4.73 4.50 - 6.10 x10'6/uL 05/18/2018 9:23 AM CDT [facility] HGB 13.2 13.0 - 18.0 G/DL 05/18/2018 9:23 AM CDT [facility] HCT 40.8 37.0 - 52.0 % 05/18/2018 9:23 AM CDT [facility] MCV 86.3 78.0 - 100.0 FL 05/18/2018 9:23 AM CDT [facility] MCH 27.9 27.0 - 31.0 PG 05/18/2018 9:23 AM CDT [facility] MCHC 32.4(L) 33.0 - 36.0 G/DL 05/18/2018 9:23 AM CDT [facility] RDW 13.5 11.5 - 14.5 % 05/18/2018 9:23 AM CDT [facility] PLT 239 150 - 350 x10'3/uL 05/18/2018 9:23 AM CDT [facility] MPV 9.9 7.4 - 10.4 FL 05/18/2018 9:23 AM CDT [facility] ABS. NEUTROPHILS TOTAL 7.97 1.60 - 8.30 x10'3/uL 05/18/2018 9:23 AM CDT [facility] ABS. LYMPHOCYTES 1.30 0.80 - 4.70 x10'3/uL 05/18/2018 9:23 AM CDT [facility] ABS. MONOCYTES 0.76 0.00 - 1.50 x10'3/uL 05/18/2018 9:23 AM CDT [facility] ABS. EOSINOPHILS 0.27 0.00 - 0.40 x10'3/uL 05/18/2018 9:23 AM CDT [facility] ABS. BASOPHILS 0.04 0.00 - 0.20 x10'3/uL 05/18/2018 9:23 AM CDT [facility] ABS. IMMATURE GRANULOCYTES 0.04(H) 0.00 - 0.03 x10'3/uL 05/18/2018 9:23 AM CDT [facility] ABS. NUCLEATED RBC'S 0.00 0.0 x10'3/uL 05/18/2018 9:23 AM CDT [facility] 05/18/2018 9:04 AM CDT us Greg Carranza MD LABORATORY Final Result Performing Organization Address City/State/[facility] Co de Phone Number [facility] [address] [place] [address], [phone] documented in this encounter Visit Diagnoses Diagnosis Arthralgia of wrist- Primary Pain in joint, forearm Arthralgia of both ankles Sinusitis Unspecified sinusitis (chronic) documented in this encounter Administered Medications Inactive Administered Medications - up to 3 most recent administrations Medication Order MAR Action Action Date Dose Rate Site ibuprofen (MOTRIN) tablet 800 mg 800 mg, Oral, Once, 1 dose, On Wed05/18/18 at 0915 Given 05/18/2018 11:01 AM CDT 800 mg documented in this encounter Active and Recently Administered Medications Times are shown in CDT. Scheduled Medication Order 05/16/2018 05/17/2018 05/18/2018 ibuprofen (MOTRIN) tablet 800 mg (COMPLETED) 800 mg, Oral, Once, 1 dose, On Wed05/18/18 at 0915 1101 (Given - Provid er: Dieudonne Banegas RN) documented in this encounter Care Teams Interactive Project Manager Relationship Specialty Start Date End Date None, Provider, PCP - General 05/18/18 03/08/19 documented as of this encounter
--- OUTSIDE RECORDS SUMMARY | 2024-08-30 23:13 | XMS_ITS | Encounter Summary ---
Author Organization [facility] Address [facility] [place] [address] [place] [address] Care Team Providers Care Cook Mess Name Role Phone None, Provider MD Primary Care Provider Unavaila ble Reason for Referral * Sleep Lab (Routine) - Closed Specialty Diagnoses / Procedures Referred By Belinda lewis Referred To Contact Diagnoses Sleep disturbances Procedures Sleep Study ([id number]) POLYSOMNOGRAPHY W/CPAP Tanner Sanabria MD [address] [place] [phone] Phone: tel: fax: [facility] [address] [place] [address] Phone: tel: fax: Referral ID Status Reason Start Date Expiration Date Visits Re quested Visits Authorized [id number] Closed 06/27/2018 07/28/2019 1 1 ING SUPERVISOR Encounter Details Date Type Department Care Team (Late st Contact Info) Description 06/27/2018 Transcribe Orders [facility] Pre Access Team [address] [place] [address] Tanner Sanabria MD [address] [place] [phone] Social History Tobacco Use Types Packs/Day Years [...] on file documented as of this encounter Plan of Treatment Not on file documented as of this encounter Results * Sleep Study ([id number]) (07/19/2018 9:44 AM RIGGING SUPERVISOR) 07/19/2018 9:44 AM RIGGING SUPERVISOR Narrative ESCRIPTION - 07/26/2018 5:43 PM RIGGING SUPERVISOR REFERRED BY: ??Tanner Sanabria INTERPRETING PHYSICIAN: ??Jacob Cardenas MD STUDY PERFORMED: ??Nocturnal polysomnogram with CPAP titration. ??Patient is a 38-year-old male, height 5 feet 5 inches, weight 356 pounds, giving a BMI of 59 kg/sq m. The patient gives history of snoring, daytime fatigue. ??He is referred in evaluation of this. METHODS AND DEFINITIONS (Pediatric and Adult Sleep Studies): ??[facility] uses the 2007 [place] [employer] Manual for the scoring of sleep and associated events when performing sleep studies on [facility] patients per [facility] guidelines. ??All other patients are scored using the [place] [employer] 2015 scoring guidelines. ??This applies to visual rules, arousal rules, cardiac rules, movement rules, and respiratory rules for adult and pediatric studies. ??With respect to respiratory events, apneas and hypopneas are scored using the recommended rules. ??Respiratory effort related arousals are also scored. ??The apnea hypopnea index is the number of apneas and hypopneas per hour. ??The respiratory disturbance index is the number of apneas, hypopneas and respiratory effort related arousals per hour. SLEEP ARCHITECTURE: ??The patient had a total sleep time of 348 minutes. ?? Sleep onset was short at 1 minute. ??Sleep efficiency is normal at 90%. ?? 42% of sleep is in stage I, 36% stage II, 22% in stage REM. RESPIRATORY ANALYSIS: ??During the diagnostic portion of the study, total sleep time was 129 minutes, during which 30 obstructive apneas and 138 obstructive hypopneas were observed. ??This equal to a total apnea/hypopnea index of 78 per hour. ??Mean oxygen saturation was 90%, but did drop as low as 54%. ??Patient was then placed on CPAP therapy and titrated from pressures of 6 cm of water to 16 cm of water. ??As resolution of the sleep-disordered breathing was observed at a CPAP pressure setting of 16 cm of water. ??At this pressure setting, the residual apnea/hypopnea index was 2 and lowest oxygen saturation was 88% with a mean oxygen saturation of 96%. ??Titration occurred during REM sleep and with the patient in the supine position. ??PAP therapy was tolerated reasonably well with the use of a full facemask. CARDIOVASCULAR ANALYSIS: ??Patient remained in normal sinus rhythm prior to study. LEG MOVEMENT ANALYSIS: ??The patient does not demonstrate any significant periodic leg movements throughout the study. SUMMARY: ??The patient demonstrates severe obstructive sleep apnea with apnea/hypopnea index of 78 per hour. ??This was resolved while at a CPAP pressure setting of 16 cm of water and tolerated well with the use of a full face mask. D: ??07/19/2018 09:44 AM #[id number] T: ??07/19/2018 11:29 AM /NTS us Tanner Sanabria MD AMBULATORY ORDERABLE PRO C Final Result ESCRIPTION documented in this encounter Visit Diagnoses Diagnosis Sleep disturbances- Primary Sleep disturbance, unspecified Sleep disturbances Sleep disturbance, unspecified documented in this encounter Care Teams Cook Mess Relationship Specialty Start Date End Date None, Provider, PCP - General 05/18/18 03/08/19 documented as of this encounter
--- OUTSIDE RECORDS SUMMARY | 2024-08-30 23:13 | XMS_ITS | Encounter Summary ---
Author Organization [facility] Address [facility]. [place], [place] [address] [place] [id number] Care Team Providers Care Helper Animal Laboratory Name Role Phone None, Provider MD Primary Care Provider Unavaila ble Reason for Referral * Sleep Lab (Routine) - Closed Specialty Diagnoses / Procedures Referred By Belinda lewis Referred To Contact Diagnoses Sleep disturbances Procedures Sleep Study ([id number]) POLYSOMNOGRAPHY W/CPAP Tanner Sanabria MD [address] [place] [phone] Phone: tel: fax: [facility] [address] [place] [address] Phone: tel: fax: Referral ID Status Reason Start Date Expiration Date Visits Re quested Visits Authorized [id number] Closed 06/27/2018 07/28/2019 1 1 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 Reason for Visit * Sleep Lab (Routine) - Closed Specialty Diagnoses / Procedures Referred By Belinda lewis Referred To Contact Diagnoses Sleep disturbances Procedures Sleep Study ([id number]) POLYSOMNOGRAPHY W/CPAP Tanner Sanabria MD [address] [place] [phone] Phone: tel: fax: [facility] [address] [place] [address] Phone: tel: fax: Referral ID Status Reason Start Date Expiration Date Visits Re quested Visits Authorized [id number] Closed 06/27/2018 07/28/2019 1 1 Encounter Details Date Type Department Care Team (Late st Contact Info) Description 06/28/2018 9:05 PM 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 01/25/2019 lisinopril 20 MG tablet Take 20 mg by mouth daily. 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 ??Patient is a 38-year-old male, height 5 feet 5 inches, weight 356 pounds, giving a BMI of 59 kg/sq m. The patient gives history of snoring, daytime fatigue. ??He is referred in evaluation of this. METHODS AND DEFINITIONS (Pediatric and Adult Sleep Studies): ??[facility] uses the 2007 [place] [employer] Manual for the scoring of sleep and associated events when performing sleep studies on [facility] patients per [facility] guidelines. ??All other patients are scored using the [place] [employer] 2015 scoring guidelines. [...] full face mask. D: ??07/19/2018 09:44 AM #[id number] T: ??07/19/2018 11:29 AM /NTS Tanner Sanabria MD AMBULATORY ORDERABLE PRO C Final Result ESCRIPTION documented in this encounter Visit Diagnoses Diagnosis Sleep disturbances Sleep disturbance, unspecified documented in this encounter Care Teams Helper Animal Laboratory Relationship Specialty Start Date End Date None, Provider, PCP - General 05/18/18 03/08/19 documented as of this encounter
--- OUTSIDE RECORDS SUMMARY | 2024-08-30 23:13 | XMS_ITS | Encounter Summary ---
Author Organization [facility] Address [facility]. [place], [place] [id number] [place] [id number] Care Team Providers Care City Supervisor Name Role Phone Milli Baca MD Primary Care Provider [phone] Reason for Referral * (Routine) - Closed Specialty Diagnoses / Procedures Referred By Belinda t Referred To Contact Procedures INCISION AND DRAINAGE Catherine Wall NP Phone: tel: fax: Referral ID Status Reason Start Date Expiration Date Visits Re quested Visits Authorized [id number] Closed 05/16/2019 06/15/2020 1 1 Reason for Visit * Reason Comments Abscess Encounter Details Date Type Department Care Team (Late st Contact Info) Description 05/12/2019 1:00 PM CDT - 05/12/2019 2:36 PM CDT Emergency [facility] Emergency [address] [place] [address] Catherine Wall MANAGER CARDIOLOGY [address] [place], [place] [id number] Abscess Discharge Disposition: Home or Self Care (Routine [...] Sign Reading Time Taken Comments Blood Pressure 168/82 05/12/2019 12:06 PM CDT Pulse 88 05/12/2019 12:06 PM CDT Temperature 36.7 ??C (98.1 ??F) 05/12/2019 1 2:06 PM CDT Respiratory Rate 18 05/12/2019 12:0 6 PM CDT Oxygen Saturation 95% 05/12/2019 12: 06 PM CDT Inhaled Oxygen Concentration - - Weight 164.7 kg (363 lb 1.6 oz) 019 12:06 PM CDT Height 195.6 cm (6' 5 ) 05/12/2019 12:0 6 PM CDT Body Mass Index 43.06 05/12/2019 12:06 PM CDT documented in this encounter Functional Status * [...] 3:52 PM CDT Bailey Osman RN Active documented as of this encounter Mental Status * Because of a physical, mental, or emotional condition, do you have serious difficulty concentrating, remembering, or making decisions? Answer Entry Date Author Status No 03/09/2019 3:52 PM CDT Bailey Osman RN Active documented in this encounter Discharge Instructions * Discharge Instructions* Catherine Xander Lancaster APRN - 05/12/2019 2:24 PM CDT Thank you for choosing [facility] emergency department. We are happy to serve your healthcare needs. Follow-up with your primary care provider in 3 days. Call to set up an appointment. Warm compresses over affected area 3 times a day. Keep dresing clean, dry and intact. He will continue to have drainage over the next several days. For pain, inflammation, fever Ibuprofen as directed. 600 mg every 6 hours as needed for pain, inflammation, fever. Do Not take longer than 5 days in a row. Do not take if you have a history of kidney failure, heart disease, gastrointestinal bleeding or ulcers. Tylenol as directed. 500 mg to 1000 mg every 4-6 hours as needed for pain or fevers. Do not take more than 3500 mg in 24 hours. * Attachments The following attachments cannot be sent through Care Everywhere. * Abscess Incision and Drainage (Ivorian) documented in this encounter Medications at Time of Discharge amlodipine 5 MG tablet Take 1 tablet (5 mg total) by mouth daily. 30 tablet 03/11/2019 folic acid 1 MG tablet Take 1 mg by mouth daily. loratadine 10 MG tablet Take 10 mg by mouth daily. sulfamethoxazole- trimethoprim (BACTRIM DS) 800-160 MG tablet Take 1 tablet by mouth 2 (two) times daily for 10 days. 20 tablet 05/12/2019 05/22/2019 documented as of this encounter ED Notes * Catherine Lancaster APRN - 05/12/2019 1:08 PM CDTAssociated Order(s): Incision/Drainage Ramiro Emerson scribe, am personally taking down the notes in the presence of Catherine Lancaster APRN.?Take no action on this note until reviewed and authenticated??by the physician. Chief Complaint Chief Complaint Patient presents with ??? Abscess History of Present Illness History provided by: Patient Brennan Rivera is a 38-year-old male who presents to the emergency department seeking evaluation for an abscess x 4 days. Patient reports the abscess began as a bug bite below his left ear. Reported associated symptoms: drainage from abscess. Reported denials: fever, chills, SOB, chest pain, nausea, and vomiting. Reported medical history: HTN, and rheumatoid arthritis. He is allergic to codeine. No other medical, family, or social history provided at this time. Patient is otherwise at baseline of health. All other review of systems negative after full review. Medical History ALLERGIES: Allergies Allergen Reactions ??? Codeine Rash MEDICATIONS: Prior to Admission medications Medication Sig Start Date End Date Taking? Authorizing Provider sulfamethoxazole-trimethoprim (BACTRIM DS) 800-160 MG tablet Take 1 tablet by mouth 2 (two) times daily for 10 days. 05/12/19 05/22/19 Yes Catherine Lancaster APRN amlodipine 5 MG tablet Take 1 tablet (5 mg total) by mouth daily. 03/11/19 Meghana Deluca, folic acid 1 MG tablet Take 1 mg by mouth daily. Doc Abstract loratadine 10 MG tablet Take 10 mg by mouth daily. Doc Abstract PAST MEDICAL HISTORY: Past Medical History: Diagnosis Date ??? Arthritis ??? HTN (hypertension) 03/09/2019 ??? Hypertension ??? Rheumatoid arthritis (CMS/HCC) 03/09/2019 PAST SURGICAL HISTORY: No past surgical history on file. FAMILY HISTORY: Family History Problem Relation Name [...] Review of Systems Review of Systems Constitutional: Negative. Negative for chills and fever. HENT: Negative. Eyes: Negative. Respiratory: Negative. Negative for shortness of breath. Cardiovascular: Negative. Negative for chest pain. Gastrointestinal: Negative. Negative for nausea and vomiting. Genitourinary: Negative. Musculoskeletal: Negative. Skin: Positive for wound (abscess below left ear). Neurological: Negative. Physical Exam Filed Vitals: 05/12/19 1206 BP: 168/82 Pulse: 88 Resp: 18 Temp: 98.1 ??F (36.7 ??C) TempSrc: Oral SpO2: 95% Weight: (!) 164.7 kg (363 lb 1.6 oz) Height: 6' 5 (1.956 m) Physical Exam Nursing note and vitals reviewed. Generalized Appearance: No apparent distress. Well developed. Well nourished. Skin: 1 by 1 cm abscess with 2 cm of induration and drainage on left lateral upper neck. Eyes: Conjunctiva clear with no scleral icterus or jaundice. ENT: Oral mucosa is moist. Neck: Supple. Back: Normal ROM. Chest and Respiratory: Airway patent. Breath sounds equal. Lungs clear with auscultation. No stridor, wheezes, rales, or rhonchi. No accessory muscle use. No respiratory distress. Cardiovascular: Regular rate and rhythm. No murmur, rubs, or gallops. Musculoskeletal: Normal ROM. No deformity. Neurologic: Alert and oriented x 3. No gross motor deficits. Mental Status: Normal affect. Diagnostic Studies / Procedures ELECTROCARDIOGRAMS: No results found for this visit on 05/12/19. LABORATORY STUDIES: No results found for this visit on 05/12/19. IMAGING STUDIES No orders to display Incision/Drainage Date/Time: 05/16/2019 2:32 PM Performed by: Catherine Lancaster APRN Authorized by: Catherine Lancaster APRN Consent: Consent obtained: Verbal Consent given by: Patient Risks discussed: Incomplete drainage and pain Alternatives discussed: No treatment Location: Type: Abscess Location: Neck Neck location: L anterior Pre-procedure details: Skin preparation: Betadine and antiseptic wash Anesthesia (see MAR for exact dosages): Anesthesia method: Local infiltration Local anesthetic: Lidocaine 1% w/o epi Procedure type: Complexity: Simple Procedure details: Needle aspiration: yes Needle size: 18 G Incision types: Stab incision Incision depth: Dermal Scalpel blade: 11 Wound management: Probed and deloculated and irrigated with saline Drainage: Bloody and purulent Drainage amount: Scant Wound treatment: Wound left open Packing materials: None Post-procedure details: Patient tolerance of procedure: Tolerated well, no immediate complications ED Course / Medical Decision Making 38 y/o male with PMH sig. For HTN, smoking here with c/o left neck abscess. Pt. Is covered in dust (mortor saw dust). Pt. States he noted pimple like papule on neck which he tried to pop. Swelling became worse. I&D completed. Critical and common diagnoses were considered and discussed with the patient. the patient's history, physical exam, and ancillary studies were taken into consideration for the patient's treatment. After reviewing the information and discussing the potential outcomes / risks/ benefits, the patient'sdisposition was agreed upon. Co signing MD Dr. Carranza Clinical Impression Abscess of neck (Primary) Elevated blood pressure reading Medications lidocaine (PF) (XYLOCAINE) 1 % injection 10 mL (10 mLs Intradermal Given 05/12/19 1350) Discharge Medication List as of 05/12/2019 2:33 PM START taking these medications Details sulfamethoxazole-trimethoprim (BACTRIM DS) 800-160 MG tablet Take 1 tablet by mouth 2 (two) times daily for 10 days., Starting Wed05/12/2019, Until Wed05/22/2019, Eprescribe Class: Eprescribe Pharmacy: [facility] [address] (Ph #: [phone]) Milli Baca MD [address] [facility] [address] for further evaluation and managment Disposition: Discharge Ramiro Holloway, 05/12/19, 13:20. Provider Attestation: Portions of this note were transcribed by the scribe. I, Catherine Cortez, personally performed the history, physical exam and medical decision making; and confirmed the accuracy of the information and the transcribed note. Authenticated by: Catherine Lancaster [facility]- Catherine Lancaster APRN 05/16/19 1433 Cosigned by Greg Carranza MD at 05/18/2019 9:15 AM CDT * Vielak Washington RN - 05/12/2019 12:06 PM CDT PT STATES THAT HE HAS AN ABSCESS TO THE LEFT JAW ABOUT 4 DAYS--- STARTED A PIMPLE AND STATES THAT IT HAS GOTTEN BIGGER AND MORE PAINFUL=== documented in this encounter Plan of Treatment Not on file documented as of this encounter Procedures Procedure Name Priority Date/Time Associated Diagnosis Comments INCISION AND DRAINAGE Routine 05/12/2019 1:08 PM CDT documented in this encounter Results * Incision/Drainage (05/12/2019 1:08 PM CDT) Narrative Greg Carranza MD - 05/12/2019 1:08 PM CDT Catherine Lancaster APRN ? 05/16/2019 ??2:33 PM Incision/Drainage Date/Time: 05/16/2019 2:32 PM Performed by: Catherine Lancaster APRN Authorized by: Catherine Lancaster APRN Consent: ??Consent obtained: ??Verbal ??Consent given by: ??Patient ??Risks discussed: ??Incomplete drainage and pain ??Alternatives discussed: ??No treatment Location: ??Type: ??Abscess ??Location: ??Neck ??Neck location: ??L anterior Pre-procedure details: ??Skin preparation: ??Betadine and antiseptic wash Anesthesia (see MAR for exact dosages): ??Anesthesia method: ??Local infiltration ??Local anesthetic: ??Lidocaine 1% w/o epi Procedure type: ??Complexity: ??Simple Procedure details: ??Needle aspiration: yes ?Needle size: ??18 G ??Incision types: ??Stab incision ??Incision depth: ??Dermal ??Scalpel blade: ??11 ??Wound management: ??Probed and deloculated and irrigated with saline ??Drainage: ??Bloody and purulent ??Drainage amount: ??Scant ??Wound treatment: ??Wound left open ??Packing materials: ??None Post-procedure details: ??Patient tolerance of procedure: ??Tolerated well, no immediate complications Catherine Wall NP PROCEDURE/MINOR SURGICAL ORD ERABLES Final Result documented in this encounter Visit Diagnoses Diagnosis Abscess of neck- Primary Cellulitis and abscess of neck Elevated blood pressure reading Elevated blood pressure reading without diagnosis of hypertension documented in this encounter Administered Medications Inactive Administered Medications - up to 3 most recent administrations Medication Order MAR Action Action Date Dose Rate Site lidocaine (PF) (XYLOCAINE) 1 % injection 10 mL 10 mL, Intradermal, Once, 1 dose, On Wed05/12/19 at 1345 Given 05/12/2019 1:50 PM CDT 10 mLs Other documented in this encounter Active and Recently Administered Medications Times are shown in CDT. Scheduled Medication Order 05/10/2019 05/11/2019 05/12/2019 lidocaine (PF) (XYLOCAINE) 1 % injection 10 mL (COMPLETED) 10 mL, Intradermal, Once, 1 dose, On Wed05/12/19 at 1345 1350 (Given - Provid er: Ubaldo Kauffman RN) documented in this encounter Care Teams City Supervisor Relationship Specialty Start Date End Date Milli Baca MD PCP - General FAMILY PRACTICE 03/09/19 07/31/24 documented as of this encounter
--- OUTSIDE RECORDS SUMMARY | 2024-08-30 23:13 | XMS_ITS | Encounter Summary ---
Author Organization [facility] Address [address] [place] [address]. [place], [place] [id number] [place] [id number] Care Team Providers Care Assistant General Manager Name Role Phone None, Provider MD Primary Care Provider Unavaila ble Reason for Visit * Reason Comments Headache Chest Pain Shortness Of Breath Cough Encounter Details Date Type Department Care Team (Late st Contact Info) Description 03/01/2019 7:50 AM CDT - 03/01/2019 8:18 AM CDT Emergency [facility] Emergency [address] [place] [address] Stanton John MD [address] [place] [id number] Headache; Chest Pain; Shortness Of Breath ; Cough Discharge Disposition: Home or Self Care (Routine [...] Sign Reading Time Taken Comments Blood Pressure 133/54 03/01/2019 7:47 AM CDT Pulse 90 03/01/2019 7:47 AM CDT Temperature 36.6 ??C (97.9 ??F) 03/01/2019 7:47 AM CD T Respiratory Rate 22 03/01/2019 7:47 AM CDT Oxygen Saturation 96% 03/01/2019 7:47 AM CDT Inhaled Oxygen Concentration - - Weight 167.9 kg (370 lb 2.4 oz) 03/01/2019 7:47 AM CDT Height 195.6 cm (6' 5 ) 03/01/2019 7:47 AM CDT Body Mass Index 43.89 03/01/2019 7:47 AM CDT documented in this encounter Discharge Instructions * Discharge Instructions* Stanton John MD - 03/01/2019 7:58 AM CDT Follow with your doctor or doctor referral call for appointment to be seen as soon as possible. If prescribed meds, fill them and take as directed. return if change or worsen in condition or if new symptoms develop. We want to provide the highest level of care and hope you are happy with the service you receive. You will be mailed a patient satisfaction survey and hope that you will return it indicating that everything was very good: all 5's Thank you for selecting [facility] Emergency Department * Attachments The following attachments cannot be sent through Care Everywhere. * Acute Bronchitis (Azerbaijani) documented in this encounter Medications at Time of Discharge amlodipine 10 MG tablet Take 1 tablet (10 mg total) by mouth daily. 90 tablet 3 01/25/2019 03/09/2019 azithromycin (ZITHROMAX Z-EDSON) 250 MG tablet Take 2 tabs on day one Take 1 tab on days 2-5 6 tablet 03/01/2019 03/09/2019 benzonatate (TESSALON PERLES) 100 MG capsule Take 1 capsule (100 mg total) by mouth 3 (three) times daily as needed. 20 capsule 03/01/2019 03/08/2019 chlorthalidone 25 MG tablet Take 12.5 mg by mouth daily. 03/11/2019 lisinopril 40 MG tablet Take 1 tablet (40 mg total) by mouth daily. 30 tablet 01/27/2019 03/11/2019 naproxen 375 MG tablet Take 375 mg by mouth 4 (four) times daily as needed. 03/09/2019 predniSONE 20 MG tablet Take 20 mg by mouth. 20 MG PER DAY FOR 10 DAYS. 03/09/2019 documented as of this encounter ED Notes * Stanton John MD - 03/01/2019 7:58 AM CDT Chief Complaint Chief Complaint Patient presents with ??? Headache ??? Chest Pain ??? Shortness Of Breath ??? Cough History of Present Illness 38-year-old male presents the emergency department complaints of cough congestion which is been present for 2 weeks. The patient has been coughing up green sputum. Denies any fever chills nausea vomiting reports chest pain associated with the coughing. Positive sick contacts no recent antibiotics. Medical History ALLERGIES: Allergies Allergen Reactions ??? Codeine Rash MEDICATIONS: Prior to Admission medications Medication Sig Start Date End Date Taking? Authorizing Provider azithromycin (ZITHROMAX Z-EDSON) 250 MG tablet Take 2 tabs on day one Take 1 tab on days 2-5 03/01/19 Yes Stanton John MD benzonatate (TESSALON PERLES) 100 MG capsule Take 1 capsule (100 mg total) by mouth 3 (three) timesdaily as needed. 03/01/19 03/08/19 Yes Stanton John MD amlodipine 10 MG tablet Take 1 tablet (10 mg total) by mouth daily. 01/25/19 01/25/20 Ashok Caceres MD chlorthalidone 25 MG tablet Take 12.5 mg by mouth daily. Doc Abstract lisinopril 40 MG tablet Take 1 tablet (40 mg total) by mouth daily. 01/27/19 Penny Cedeño MD naproxen 375 MG tablet Take 375 mg by mouth 4 (four) times daily as needed. Doc Abstract predniSONE 20 MG tablet Take 20 mg by mouth. 20 MG PER DAY FOR 10 DAYS. Doc Abstract PAST MEDICAL HISTORY: Past Medical History: Diagnosis Date ??? Arthritis ??? Hypertension PAST SURGICAL HISTORY: No past [...] No Review of Systems Review of Systems A 10 point review of systems was obtained and negative or noncontributory to the patient's chief complaint Physical Exam Filed Vitals: 03/01/19 0747 BP: 133/54 Pulse: 90 Resp: 22 Temp: 97.9 ??F (36.6 ??C) TempSrc: Oral SpO2: 96% Weight: (!) 167.9 kg (370 lb 2.4 oz) Height: 6' 5 (1.956 m) Physical Exam Constitutional and psychiatric: Patient is well-nourished well-developed alert and nontoxic in appearance. Eyes: Inspection of conjunctivae and lids reveal no acute abnormality pupils are equal and reactiveextraocular muscles are intact. Neck: Supple no masses or tenderness are appreciated. Trachea is midline no JVD. Respiratory: Normal respiratory effort auscultation reveals normal breath sounds bilaterally. Cardiovascular: Regular rate and rhythm, no abnormal sounds or murmurs, no chest wall tenderness topalpation, normal carotid radial and pedal pulses, no acute abnormality of the abdominal aorta extremities reveal no nontraumatic edema. Gastrointestinal: Abdomen is soft and nondistended. No hepatosplenomegaly or hernias noted. Musculoskeletal: Patient has full range of motion, stability, muscle strength, and tone of upper and lower extremities. Skin: No acute rashes lesions or induration noted. Neurological: Cranial nerves II through XII are grossly intact. Normal sensation. Diagnostic Studies / Procedures ELECTROCARDIOGRAMS: No results found for this visit on 03/01/19. LABORATORY STUDIES: No results found for this visit on 03/01/19. IMAGING STUDIES No orders to display ED Course / Medical Decision Making Based on history physical examination diagnosis made of bronchitis patient will be discharged home. Medications - No data to display Clinical Impression Bronchitis (Primary) Disposition: Discharge Current Discharge Medication List START taking these medications Details azithromycin (ZITHROMAX Z-EDSON) 250 MG tablet Take 2 tabs on day one Take 1 tab on days 2-5 Qty: 6 tablet, Refills: 0 Class: Print Pharmacy: [facility] - [address] (Ph #: [phone]) benzonatate (TESSALON PERLES) 100 MG capsule Take 1 capsule (100 mg total) by mouth 3 (three) timesdaily as needed. Qty: 20 capsule, Refills: 0 Class: Print Pharmacy: [facility] - [address] (Ph #: [phone]) STANTON JOHN MD 03/01/2019 Stanton John MD 03/01/19 0801 * Candelaria Laguerre RN - 03/01/2019 7:44 AM CDT PT ARRIVES TO TRIAGE WITH C/O HEADACHE / SINUS CONGESTION / CHEST PAIN / PRODUCTIVE COUGH WITH GREEN SPUTUM AND SHORTNESS OF BREATH FOR THE LAST FEW WEEKS NO FEVERS. documented in this encounter Plan of Treatment Not on file documented as of this encounter Visit Diagnoses Diagnosis Bronchitis- Primary Bronchitis, not specified as acute or chronic documented in this encounter Care Teams Assistant General Manager Relationship Specialty Start Date End Date None, Provider, PCP - General 05/18/18 03/08/19 documented as of this encounter
--- OUTSIDE RECORDS SUMMARY | 2024-08-30 23:13 | XMS_ITS | Encounter Summary ---
Author Organization [facility] Address [facility] [place] [address] [place] [address] Care Team Providers Care Head Machinist Name Role Phone Betty Perez MD Primary Care Provider [phone] Reason for Referral * Imaging (Emergency) - Closed Specialty Diagnoses / Procedures Referred By Contac t Referred To Contact RADIOLOGY Procedures US RETROPERITONEAL COMP US RENAL Ashlee Prieto MD [address] [address] Phone: tel: fax: Referral ID Status Reason Start Date Expiration Date Visits Re quested Visits Authorized [id number] Closed 03/09/2019 04/09/2020 1 1 Reason for Visit * Reason Comments Chest Pain * Auth/Cert Specialty Diagnoses / Procedures Referred By Contac t Referred To Contact Diagnoses ARF (acute renal failure) ([facility]/HCC) MARYAN (acute kidney injury) ([facility]) Procedures GENERAL Referral ID Status Reason Start Date Expiration Date Visits Re quested Visits Authorized [id number] 1 1 Encounter Details Date Type Department Care Team (Latest Contact Info) Description 03/09/2019 11:02 AM CDT - 03/11/2019 9:32 AM CDT Hospital Encounter [facility] [address] [place] [address] Ashlee Prieto MD [address] [address] Meghana Mcdowell DO [address] [place] [address] Chest Pain Discharge Disposition: Home or Self Care [...] Sign Reading Time Taken Comments Blood Pressure 132/54 03/11/2019 4:52 AM CDT Pulse 58 03/11/2019 4:52 AM CDT Temperature 36.5 ??C (97.7 ??F) 03/11/2019 4:50 AM CD T Respiratory Rate 18 03/11/2019 4:50 AM CDT Oxygen Saturation 98% 03/11/2019 4:52 AM CDT Inhaled Oxygen Concentration - - Weight 172 kg (379 lb 3.1 oz) 03/10/2019 5:00 AM CDT Height 195.6 cm (6' 5 ) 03/09/2019 3:54 PM CDT Body Mass Index 44.97 03/09/2019 3:54 PM CDT documented in this encounter Functional Status * Question Answer Date of Assessment Author Status Do you have serious difficulty walking or climbing stairs? No 03/09/2019 3:52 PM CDT Margy Osman RN Activ e * Question Answer Date of Assessment Author Status Do you have difficulty dressing or bathing? No 03/09/2019 3:52 PM ALBAT Margy Osman RN A ctive Because of a physical, mental, or emotional condition, do you have difficulty doing errands alone such as visiting a doctor's office or shopping? No 03/09/2019 3:52 PM CDT Aria Osman RN Active * RETIRED Are you deaf or do [...] Author Status No 03/09/2019 3:52 PM CDT Margy Osman RN Active * Do you have difficulty dressing or bathing? Answer Date of Assessment Author Status No 03/09/2019 3:52 PM CDT Margy Osman RN Active * Because of a physical, mental, or emotional condition, do you have difficulty doing errands alone such as visiting a doctor's office or shopping? Answer Date of Assessment Author Status No 03/09/2019 3:52 PM CDT Margy Osman RN Active documented as of this encounter Mental Status * Question Answer Entry Date Author Status Because of a physical, mental, or emotional condition, do you have serious difficulty concentrating, remembering, or making decisions? No 03/09/2019 3:52 PM CDT Margy Osman RN A ctive * Because of a physical, mental, or emotional condition, do you have serious difficulty concentrating, remembering, or making decisions? Answer Entry Date Author Status No 03/09/2019 3:52 PM CDT Margy Osman R N Active documented in this encounter Discharge Summaries * Meghana Mcdowell, - 03/11/2019 7:29 AM CDT [place] Hospitalist Discharge Summary Yakov Doyle male 1980 IMPRESSION: Acute kidney injury ( Acute Renal Failure) Due to high heat index with prolonged heat exposure and dehydration. This patient however recently started therapy for rheumatoid arthritis with methotrexate in the setting of lisinopril use and meloxicam use as well as hydroxychloroquine . hypertension History of substance abuse..?Cocaine and treatment currently Rheumatoid arthritis Obesity History of a fall at 17 years of age necessitating a prolonged hospital stay with no surgeries ?? PLAN: Discharge back to [facility] treatment program Patient is to be provided with water at all times with exposure to the heat and should avoid prolonged heat exposure without adequate fluid intake Patient may return to work adequate fluids Follow-up with Dr. Ike Perez in 1 week at [facility]. Call [phone] for an appointment Follow-up with Dr. Aziza Whiting in 7 to 10 days at [facility]. [phone] for an appointment Patient has been instructed not to take lisinopril, meloxicam, methotrexate, Plaquenil, chlorthalidone but may continue his folic acid is been started on amlodipine 5 mg p.o. Daily He will need a follow-up BMP next week with Dr. Perez Admit Date: 03/09/2019 11:02 AM Discharge date and time: 03/11/2019 7:29 AM Primary Care Physician: BETTY PEREZ MD Discharge Physician: MEGHANA MCDOWELL DO Consultants: None Disposition: Discharge to [facility] ADMISSION DIAGNOSES: ARF (acute renal failure) ([facility]) [N17.9] DISCHARGE DIAGNOSES: Acute kidney injury likely related to dehydration and heat exposure however this patient is recently started therapy for rheumatoid arthritis with methotrexate in the setting of lisinopril use and meloxicam use as well as hydroxychloroquine we will check a urine for eosinophils hypertension History of substance abuse..?Cocaine and treatment currently Rheumatoid arthritis Obesity History of a fall at 17 years of age necessitating a prolonged hospital stay with no surgeries ?? Patient Instructions: Activity: Patient may resume work with continuous fluid during times of high heat and heavy work Diet: General diet with adequate fluids during work in the heat Wound care: None Therapies ordered: None Follow up within [address] Ike Perez in 1 week Follow-up with Dr. Aziza Whiting in 7 to 10 days Follow up Lab Orders: Follow-up BMP at the time of evaluation with Dr. Perez Discharge Medications: Medication List START taking these medications acetaminophen 325 MG tablet Commonly known as: TYLENOL Take 2 tablets (650 mg total) by mouth every 4 (four) hours as needed. amlodipine 5 MG tablet Commonly known as: NORVASC Take 1 tablet (5 mg total) by mouth daily. CONTINUE taking these medications folic acid 1 MG tablet Commonly known as: FOLVITE loratadine 10 MG tablet Commonly known as: CLARITIN STOP taking these medications chlorthalidone 25 MG tablet Commonly known as: HYGROTEN hydroxychloroquine 200 MG tablet Commonly known as: PLAQUENIL lisinopril 40 MG tablet Commonly known as: PRINIVIL,ZESTRIL meloxicam 15 MG tablet Commonly known as: MOBIC methotrexate 2.5 MG tablet Commonly known as: TREXALL Where to Get Your Medications These medications were sent to [facility] - [address] [address] ?? acetaminophen 325 MG tablet ?? amlodipine 5 MG tablet Significant Labs: On admission the patient's CBC was normal however his BMP revealed an elevated BUN at 46 and a creatinine of 2.75 with a baseline creatinine of 1.2. At discharge his serum sodium was 138, potassium 5, chloride 106, CO2 28, BUN 25 and creatinine 1.2 Significant Imaging: Chest x-ray was normal. Renal ultrasound including kidneys and urinary bladder were normal Significant Diagnostic Studies: As above Findings that require further workup: Urine for eosinophils is pending SUBJECTIVE: Patient denied complaints and wondered if he could go back to work when he returned to the [employer]. I counseled him that it was okay for him to go back to work but he needed to drink plenty offluids and take fluids with him to work and drink them constantly in the heat to replace his body fluids. PHYSICAL EXAM: Physical Exam Constitutional: He is oriented to person, place, and time. He appears well- developed and well-nourished. No distress. Obese HENT: Head: Normocephalic and atraumatic. Eyes: EOM are normal. Pupils are equal, round, and reactive to light. Neck: Normal range of motion. No JVD present. No thyromegaly present. Cardiovascular: Normal rate, regular rhythm, normal heart sounds and intact distal pulses. Exam reveals no gallop. No murmur heard. Pulmonary/Chest: Effort normal and breath sounds normal. No respiratory distress. He has no wheezes. He has no rales. Abdominal: Soft. Bowel sounds are normal. He exhibits no distension. There is no tenderness. There is no guarding. Musculoskeletal: He exhibits no edema or deformity. Neurological: He is alert and oriented to person, place, and time. No cranial nerve deficit. Skin: Skin is warm and dry. No rash noted. He is not diaphoretic. Psychiatric: He has a normal mood and affect. His behavior is normal. Judgment and thought content normal. Summary of Hospital Course: This pleasant 38-year-old male presented to the emergency room with chest pain and shortness of breath. 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 He originally completed the program in September but relapsed and rejoined January 21. 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 The day of admission he was working in temperatures between 90 and 100 degrees, felt dizzy and tired and began sleeping out of truck. He subsequently developed wobbly legs and chest pain and shortness of breath and was transported to the emergency room. His EKG and serial troponins were negative and acute renal failure. The heat and poor oral hydration were felt to contribute to this in the setting of a patient on new methotrexate, Plaquenil, and meloxicam, for rheumatoid arthritis, and on lisinopril and chlorthalidone for hypertension. His urine sediment had a few hyaline casts and a urine for eosinophils is pending. At the time of admission electronic notification of his admission was sent to Dr. Perez and I spoke with Dr. Whiting. All of his home medications except for folic acid were discontinued and Tylenol was added for pain control of his rheumatoidarthritis. He received aggressive fluid rehydration and his renal function normalized and he was deemed stable for discharge today. I recommend that he can go back to work on Wednesday and that he should have liberal fluids at all times in the heat. Time spent coordinating discharge plan 36 minutes Home Health / Patient Plan of Care statement: (Not needed) Code Status: Full Code Time spent on discharge: 30 to 74 minutes Signed MEGHANA MCDOWELL DO documented in this encounter Medications at Time of Discharge amlodipine 5 MG tablet Take 1 tablet (5 mg total) by mouth daily. 30 tablet 03/11/2019 folic acid 1 MG tablet Take 1 mg by mouth daily. loratadine 10 MG tablet Take 10 mg by mouth daily. acetaminophen 325 MG tablet Take 2 tablets (650 mg total) by mouth every 4 (four) hours as needed. 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 Patient was adm with MARYAN due to probably dehydration and heat exposure. Area is currently still under a Heat Warning. Patient is discharged and has no transport back to [facility] today. [facility] transport Van not operating on weekends. Cab Voucher issued for patient to return to [facility] in order to avoid unneccessary heat exposure. * Meghana Mcdowell, - 03/10/2019 9:56 AM CDT [place] Hospitalist Progress Note Yakov Doyle is a 38-year-old male patient. Impression: Acute kidney injury likely related to dehydration and heat exposure however this patient is recently started therapy for rheumatoid arthritis with methotrexate in the setting of lisinopril use and meloxicam use as well as hydroxychloroquine we will check a urine for eosinophils hypertension History of substance abuse.. Cocaine and treatment currently Rheumatoid arthritis Obesity History of a fall at 17 years of age necessitating a prolonged hospital stay with no surgeries Plan: Renal function improved Bmp in am UA has a few hyaline casts but otherwise no active sediment and no protein glucose Await urine for eosinophils Will not discharge patient on any previous blood pressure or rheumatoid arthritis meds Will decrease IV fluids to 75 cc/h Serial troponins are negative No need for renal consult at this time Add amlodipine 5 mg p.o. Daily Renal ultrasound negative Chest x-ray negative May be able to discharge tomorrow Urine tox screen negative We will have him follow-up with Dr. Perez next week with a follow-up BMP if discharged on Wednesday Follow up for: Above Subjective Patient is feeling much better and sometime late last night he noted that he started urinating a lot more frequently. He has no chest pain or shortness of breath and was delighted to hear that his renal function improved. Test night I spoke with Dr. Whiting who would like to see him in the office in 7 to 10 days prior to restarting any medications. Objective Active Problems: MARYAN (acute kidney injury) (CMS/HCC) SNOMED CT(R): ACUTE INJURY OF KIDNEY HTN (hypertension) SNOMED CT(R): HYPERTENSIVE DISORDER Rheumatoid arthritis (CMS/HCC) SNOMED CT(R): RHEUMATOID ARTHRITIS Current Facility-Administered Medications Medication Dose Route Frequency Provider Last Rate Last Dose ??? acetaminophen (TYLENOL) tablet 650 mg 650 mg Oral Q4H PRN Meghana Mcdowell, DO ??? amlodipine (NORVASC) tablet 5 mg 5 mg Oral Daily Meghana Mcdowell, DO ??? folic acid (FOLVITE) tablet 1 mg 1 mg Oral Daily Meghana Mcdowell, DO 1 mg at 03/10/19 0809 ??? heparin (porcine) injection 5,000 Units 5,000 Units Subcutaneous 2 times per day Meghana Mcdowell,DO ??? loratadine (CLARITIN) tablet 10 mg 10 mg Oral Daily Meghana Mcdowell, DO 10 mg at 03/10/19 0809 ??? sodium chloride 0.9% infusion Intravenous Continuous Meghana Mcdowell, DO 125 mL/hr at 03/10/19 0635 Review of Systems Constitutional: Negative for chills and fever. Eyes: Negative for blurred vision. Respiratory: Negative for cough, shortness of breath and wheezing. Cardiovascular: Negative for chest pain, palpitations, orthopnea, leg swelling and PND. Gastrointestinal: Negative for abdominal pain, constipation, diarrhea, heartburn, nausea and vomiting. Genitourinary: Negative. Musculoskeletal: Negative. Skin: Negative for rash. Neurological: Negative. Psychiatric/Behavioral: Negative for depression. Blood pressure 153/81, pulse 79, temperature 97.7 ??F (36.5 ??C), temperature source Oral, resp. rate 20, height 6' 5 (1.956 m), weight (!) 172 kg (379 lb 3.1 oz), SpO2 94 %. Physical Exam Constitutional: He is oriented to person, place, and time. He appears well- developed and well-nourished. HENT: Head: Normocephalic and atraumatic. Eyes: Pupils are equal, round, and reactive to light. Neck: Neck supple. Cardiovascular: Normal rate, regular rhythm and normal heart sounds. Pulmonary/Chest: Effort normal and breath sounds normal. Abdominal: Bowel sounds are normal. He exhibits no distension. Musculoskeletal: He exhibits no edema. Neurological: He is alert and oriented to person, place, and time. Skin: Skin is warm and dry. Psychiatric: He has a normal mood and affect. His behavior is normal. Recent Labs Lab 03/09/19 1205 03/10/19 0332 NA 139 140 K 4.9 5.1 CL 106 109* CO2 28.8 26.2 AGAP 4.2* 4.8* BUN 46* 40* CR 2.75* 1.59* GFRNON 28* 54* GFR 32* 62* GLU 81 107* CA 8.6 8.9 MAGNESIUM -- 2.4 WBC (x10'3/uL) Date Value 03/10/2019 6.9 03/09/2019 9.4 01/25/2019 9.1 HGB (G/DL) Date Value 03/10/2019 12.1 03/09/2019 12.2 01/25/2019 14.4 PLT (x10'3/uL) Date Value 03/10/2019 226 03/09/2019 232 01/25/2019 243 No results found for: INR Microbiology Results (last 14 days) No results found for the last 336 hours. No results for input(s): GLUCOSEPOC in the last 168 hours. MEGHANA MCDOWELL DO * Irene Vo - 03/10/2019 9:46 AM CDT Met with pt to discuss dc plan. Pt has been staying at [facility] for about a month. Pt originally was from [place]. No family/friends in this area but Pt feels the [facility] has made a positiveimpact on his life and [place] Pt does have a PCP through [place] and payor source is [place]. Pt may need transport van back to [facility] depending on dc date. Pt appreciative of 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 and denied further concerns at this time. Pt provided encouragement with completing [facility] program and findingsupport within the community. 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 left vm with [facility] to update possible dc 03/1103/10/19 4085 Referral Data Referral Source Self-referral Referral Reason Discharge Planning Source of Information Patient Patient Information Primary Caregiver Self Support System Community Baseline ADL's Functional Status Independent Assistive Device None Living Arrangements Alone Type of Residence Other (Comment) ([facility]) Ambulation Independent Bathing/Grooming Independent Dressing Independent Behavior Oriented Communication Talks Psychological Needs: Suspected Drug or Alcohol Abuse Yes Anticipated Discharge Needs Change in Living Arrangements No In-Home Care or Equipment No Vocational and/or Role Loss Yes Inability to Complete ADL's No Discharge Planning Assistance Needed Yes Discharge assistance Other (comment) Patient expects to be discharged to: Other 03/10/19 0945 Referral Data Referral Source Self-referral Referral Reason Discharge Planning Source of Information Patient Patient Information Primary Caregiver Self Support System Community Baseline ADL's Functional Status Independent Assistive Device None Living Arrangements Alone Type of Residence Other (Comment) ([facility]) Ambulation Independent Bathing/Grooming Independent Dressing Independent Behavior Oriented Communication Talks Psychological Needs: Suspected Drug or Alcohol Abuse Yes Anticipated Discharge Needs Change in Living Arrangements No In-Home Care or Equipment No Vocational and/or Role Loss Yes Inability to Complete ADL's No Discharge Planning Assistance Needed Yes Discharge assistance Other (comment) Patient expects to be discharged to: Other 03/10/19 0945 Referral Data Referral Source Self-referral Referral Reason Discharge Planning Source of Information Patient Patient Information Primary Caregiver Self Support System Community Baseline ADL's Functional Status Independent Assistive Device None Living Arrangements Alone Type of Residence Other (Comment) ([facility]) Ambulation Independent Bathing/Grooming Independent Dressing Independent Behavior Oriented Communication Talks Psychological Needs: Suspected Drug or Alcohol Abuse Yes Anticipated Discharge Needs Change in Living Arrangements No In-Home Care or Equipment No Vocational and/or Role Loss Yes Inability to Complete ADL's No Discharge Planning Assistance Needed Yes Discharge assistance Other (comment) Patient expects to be discharged to: Other documented in this encounter H&P Notes * Meghana Mcdowell DO - 03/09/2019 3:49 PM CDT [place] Hospitalist History & Physical Attending Provider: Meghana Mcdowell DO PCP: MD Binh VERGARAkal Doyle is an 38-year-old male. IMPRESSION: Acute kidney injury likely related to dehydration and heat exposure however this patient is recently started therapy for rheumatoid arthritis with methotrexate in the setting of lisinopril use and meloxicam use as well as hydroxychloroquine we will check a urine for eosinophils hypertension History of substance abuse.. Cocaine and treatment currently Rheumatoid arthritis Obesity History of a fall at 17 years of age necessitating a prolonged hospital stay with no surgeries PLAN: Admit to general medical floor with IV fluids, normal saline at 125 cc/h after receiving a 1500 cc bolus in the emergency room I requested a urinalysis which did not show significant active sediment CPK is negative Initial troponin is negative EKG is negative I have contacted his diversional therapist, Dr. Whiting and all of his medications have been held I would not resume any of his rheumatoid medications, his blood pressure medication or nonsteroidalanti-inflammatory drugs until he is reevaluated by Dr. Whiting and his primary care physician, Dr. Perez. Electronic notification of his admission sent to Dr. Perez If patient's renal function does not improve significantly in the a.m. we will consult [facility] nephrology Renal ultrasound does not show obstruction significant abnormalities Chief Complaint: Chest pain HPI: This pleasant 38-year-old male presented to the emergency room with chest pain and shortness of breath. According to the patient is in drug recovery through the [employer] and it completed his program in September but relapsed and subsequently rejoining the program and is been working the program since January 21. Presently is working the [employer] and temperatures of 90 to 95 degrees. Earlier this morning he felt dizzy and tired and began sweeping out a truck and he subsequently developed wobbly legs and then chest pain and shortness of breath. He was seen and evaluated in the emergency room with a negative EKG and negative Homans but he was noted to be in acute renal failure and I was contactedfor admission. He denies fevers chills or systemic symptoms but reports that he is recently begun treatment for rheumatoid arthritis and started methotrexate about 3 weeks ago. He is on meloxicam and uses lisinopril for his hypertension. Reason for Admission: Acute renal failure Allergies Allergen Reactions ??? Codeine Rash No current facility-administered medications on file prior to encounter. Current Outpatient Medications on File Prior to Encounter Medication Sig Dispense Refill ??? chlorthalidone 25 MG tablet Take 12.5 mg by mouth daily. ??? folic acid 1 MG tablet Take 1 mg by mouth daily. ??? hydroxychloroquine 200 MG tablet Take 200 mg by mouth 2 (two) times daily. ??? lisinopril 40 MG tablet Take 1 tablet (40 mg total) by mouth daily. 30 tablet 0 ??? loratadine 10 MG tablet Take 10 mg by mouth daily. ??? meloxicam 15 MG tablet Take 15 mg by mouth daily. ??? methotrexate 2.5 MG tablet Take 10 mg by mouth once a week. No current outpatient medications on file. Review of Systems Constitutional: Positive for malaise/fatigue. Negative for chills, fever and weight loss. HENT: Negative for hearing loss and sore throat. Patient has a history of allergic sinusitis Eyes: Negative for blurred vision and double vision. Respiratory: Negative for cough, hemoptysis, sputum production, shortness of breath and wheezing. Cardiovascular: Positive for chest pain. Negative for palpitations, orthopnea, leg swelling and PND. Chest pain is since resolved Gastrointestinal: Negative for abdominal pain, constipation, diarrhea, heartburn, nausea and vomiting. Genitourinary: Negative for dysuria, frequency, hematuria and urgency. Patient denies urinary symptoms however he admits that he has nocturia of 2 times per night Musculoskeletal: Negative for joint pain, myalgias and neck pain. Skin: Negative for itching and rash. Neurological: Positive for weakness. Negative for dizziness, tingling, tremors and headaches. Psychiatric/Behavioral: Positive for substance abuse. Negative for depression and suicidal ideas. Patient wanted to be sure that I knew that he was in drug treatment and did not want any type of narcotics or pain medication Past medical history: Rheumatoid arthritis, hypertension, substance abuse with cocaine addiction currently in a recovery program, Past Medical History: Diagnosis Date ??? Arthritis ??? Hypertension No past surgical history on file. Past surgical history: None SOCIAL HISTORY: Tobacco: This patient previously smoked about 1 pack of cigarettes per day for the last 21 years and is trying to cut down Alcohol: Denies Drugs: Cocaine abuse currently in recovery Marital: Denies Children: Denies Occupation: [employer] Living situation: Lives alone Mobility: Dependent FAMILY HISTORY: Mother: History unknown she is 59 years of age Father: History on Filed Vitals: 03/09/19 1117 BP: (!) 93/31 Pulse: 74 Resp: 20 Temp: 97.8 ??F (36.6 ??C) TempSrc: Oral SpO2: 95% Weight: (!) 167.8 kg (370 lb) Height: 6' 5 (1.956 m) Physical Exam Constitutional: He is oriented to person, place, and time. He appears well- developed and well-nourished. obese HENT: Head: Normocephalic. Eyes: Conjunctivae are normal. Pupils are equal, round, and reactive to light. Neck: Neck supple. Cardiovascular: Normal rate, regular rhythm and normal heart sounds. Pulmonary/Chest: Effort normal and breath sounds normal. No respiratory distress. He has no wheezes. He has no rales. Abdominal: Soft. Bowel sounds are normal. He exhibits no distension. There is no tenderness. There is no rebound. Musculoskeletal: He exhibits no edema or deformity. Neurological: He is alert and oriented to person, place, and time. Skin: Skin is warm and dry. Psychiatric: He has a normal mood and affect. His behavior is normal. Results for orders placed or performed during the hospital encounter of 03/09/19 CBC W/DIFF AUTOMATED Result Value Ref Range WBC 9.4 4.0 - 10.8 x10'3/uL RBC 4.25 (L) 4.50 - 6.10 x10'6/uL HGB 12.2 (L) 13.0 - 18.0 G/DL HCT 37.1 37.0 - 52.0 % MCV 87.3 78.0 - 100.0 FL MCH 28.7 27.0 - 31.0 PG MCHC 32.9 (L) 33.0 - 36.0 G/DL RDW 15.0 (H) 11.5 - 14.5 % PLT 232 150 - 350 x10'3/uL MPV 9.7 7.4 - 10.4 FL ABS. NEUTROPHILS TOTAL 5.99 1.60 - 8.30 x10'3/uL ABS. LYMPHOCYTES 2.14 0.80 - 4.70 x10'3/uL ABS. MONOCYTES 0.90 0.00 - 1.50 x10'3/uL ABS. EOSINOPHILS 0.34 0.00 - 0.40 x10'3/uL ABS. BASOPHILS 0.03 0.00 - 0.20 x10'3/uL ABS. IMMATURE GRANULOCYTES 0.03 0.00 - 0.03 x10'3/uL ABS. NUCLEATED RBC'S 0.00 0.0 x10'3/uL COMPREHENSIVE METABOLIC PANEL Result Value Ref Range SODIUM 139 136 - 145 MMOL/L POTASSIUM 4.9 3.5 - 5.1 MMOL/L CHLORIDE 106 98 - 107 MMOL/L CO2 28.8 21.0 - 32.0 MMOL/L GLUCOSE 81 74 - 106 MG/DL BUN 46 (H) 7 - 18 MG/DL CREATININE 2.75 (H) 0.70 - 1.30 MG/DL CALCIUM 8.6 8.5 - 10.1 MG/DL TOTAL BILIRUBIN 0.4 0.2 - 1.0 MG/DL ALK PHOS 75 45 - 115 U/L AST 11 (L) 15 - 37 U/L ALT 33 16 - 61 U/L TOTAL PROTEIN 6.9 6.4 - 8.2 G/DL ALBUMIN 3.6 3.4 - 5.0 G/DL ANION GAP 4.2 (L) 5.0 - 15.0 MMOL/L OSMOLALITY (CALC) 299 MOSM/KG eGFR Non-Afr. Amer. 28 (L) >90 ML/MIN/1.73 M2 eGFR Afr. Amer. 32 (L) >90 ML/MIN/1.73 M2 GFR NOTES THE ESTIMATED GFR IS CALCULATED USING THE 2009 CKD-EPI EQUATION. THE FOLLOWING CATEGORIES FOR GRADING RENAL FUNCTION ARE RECOMMENDED BY THE INTERNATIONAL SOCIETY OF NEPHROLOGY (KDIGO 2012 CLINICAL PRACTICE GUIDELINE). TROPONIN, QUANT Result Value Ref Range TROPONIN I <0.015 <0.045 ng/mL. PRO-BRAIN NATRIURETIC PEPTIDE Result Value Ref Range Pro-B TYPE NATRIURETIC PEPTIDE 63 <125 PG/ML CK (CPK) Result Value Ref Range CPK 78 39 - 308 U/L URINALYSIS Result Value Ref Range COLOR YELLOW TRANSPARENCY HAZY Specific Adrian (U) 1.016 1.002 - 1.035 U PH 5.0 5 - 8 PROTEIN, URINE NEGATIVE NEGATIVE URINE GLUCOSE NEGATIVE NEGATIVE MG/DL U KETONES NEGATIVE NEGATIVE Urine Bilirubin NEGATIVE NEGATIVE BLOOD NEGATIVE NEGATIVE NITRITES NEGATIVE NEGATIVE UROBILINOGEN NORMAL 0 - 1 EU/DL LEUKOCYTE ESTERASE NEGATIVE NEGATIVE RBC/HPF <1 0 - 3 /HPF WBC/HPF 1 0 - 6 /HPF BACTERIA (URINE) NONE /HPF SQUAMOUS EPITHELIALS <1 HYALINE CASTS 3 CREATININE URINE RANDOM Result Value Ref Range CREAT,URINE 235.0 MG/DL SODIUM URINE RANDOM Result Value Ref Range NA,RANDOM URINE 57 MMOL/L TROPONIN, QUANT Result Value Ref Range TROPONIN I <0.015 <0.045 ng/mL. Diagnostic Imaging: Chest x-ray negative for acute infiltrates. Renal and bladder ultrasound unremarkable with no hydronephrosis REVIEW OF OUTSIDE RECORDS: Patient records suggest a serum creatinine of 1.2 on February 10, 2019 Patient reports his TB skin test in the last month was nonreactive MEGHANA MCDOWELL DO 03/09/2019 documented in this encounter ED Notes * Vielka Washington RN - 03/09/2019 3:22 PM CDT REPORT CALLED TO MARGY ZUÑIGA--- AIME ZUÑIGA MADE AWARE AND THE PT TO THE FLOOR RM [id number] * Margy Beltran RN - 03/09/2019 1:52 PM CDT Meal tray ordered at this time * Adalid Javier - 03/09/2019 1:15 PM CDT Urinal given to pt, pt advised he needs to provide urine speciman. * Ashlee Prieto MD - 03/09/2019 11:32 AM CDT I Hermilo Harding am personally taking down the notes in the presence of Provider Ashlee Prieto MD.??Take no action on this note until reviewed and authenticated??by the physician. Chief Complaint Chief Complaint Patient presents with ??? Chest Pain History of Present Illness History provided by: Patient Context: Yakov Doyle is a 38-year-old male w/ PMH HTN, smoker who p/w chest pain x 30 minutes, arriving via EMS. Patient states the pain is located to the right side of his chest. He reports laying down as an alleviating factor. Patient notes before onset, he was sweeping a dock outside in the heat. He reports associated visual disterbance (seeing spots), light-headedness, cough, and SOB. Patient denies hemoptysis, fatigue, fever, congestion, sore throat, eye redness, leg swelling, palpitations, abdominal pain, blood in stool, N/V/D, dysuria, hematuria, back travis, neck pain, dizziness, [place], numbness, seizures, syncope, rash and weakness. He also denies being on oxygen at home. Patient r eports no recent surgery, travel, or long periods of immobility. Patient denies history of DVT, active cancers, or heart disease. He reports taking blood No other positive complaints were reported upon review of systems. Duration: 30 minutes Timing: Constant Location: Right-sided chest Modifiers: laying down alleviating factor. Associated symptoms: visual disterbances (seeing spots), lightheadedness, cough, SOB, and leg weakness. Severity: Moderate Medical History ALLERGIES: Allergies Allergen Reactions ??? Codeine Rash MEDICATIONS: Prior to Admission medications Medication Sig Start Date End Date Taking? Authorizing Provider amlodipine 10 MG tablet Take 1 tablet (10 mg total) by mouth daily. 01/25/19 01/25/20 Yes Ashok Caceres MD chlorthalidone 25 MG tablet Take 12.5 mg by mouth daily. Yes Doc Abstract lisinopril 40 MG tablet Take 1 tablet (40 mg total) by mouth daily. 01/27/19 Yes Penny Cedeño MD PAST MEDICAL HISTORY: Past Medical History: [...] Constitutional: Negative for fatigue and fever. HENT: Negative for congestion and sore throat. Eyes: Positive for visual disturbance (Seeing spots). Negative for redness. Respiratory: Positive for cough and shortness of breath. Denies: hemoptysis Cardiovascular: Positive for chest pain. Negative for palpitations and leg swelling. Gastrointestinal: Negative for abdominal pain, blood in stool, diarrhea, nausea and vomiting. Genitourinary: Negative for dysuria and hematuria. Musculoskeletal: Negative for back pain and neck pain. Skin: Negative for rash. Neurological: Positive for light-headedness. Negative for dizziness, seizures, syncope, weakness, numbness and headaches. All other systems reviewed and are negative. Physical Exam Filed Vitals: 03/09/19 1117 BP: (!) 93/31 Pulse: 74 Resp: 20 Temp: 97.8 ??F (36.6 ??C) TempSrc: Oral SpO2: 95% Weight: (!) 167.8 kg (370 lb) Height: 6' 5 (1.956 m) Physical Exam Constitutional: He is oriented to person, place, and time. He appears well- developed and well-nourished. No distress. HENT: Head: Normocephalic and atraumatic. Mouth/Throat: Oropharynx is clear and moist. Eyes: Conjunctivae and EOM are normal. Pupils are equal, round, and reactive to light. Neck: Normal range of motion. Neck supple. No tracheal deviation present. Cardiovascular: Normal rate, regular rhythm, normal heart sounds and intact distal pulses. Exam reveals no gallop and no friction rub. No murmur heard. Pulmonary/Chest: Effort normal and breath sounds normal. No respiratory distress. He has no wheezes. He has no rales. Abdominal: Soft. He exhibits no distension. There is no tenderness. There is no rebound and no guarding. Musculoskeletal: Normal range of motion. He exhibits no edema or deformity. No pitting edema to BLE Neurological: He is alert and oriented to person, place, and time. Skin: Skin is warm and dry. He is not diaphoretic. Psychiatric: He has a normal mood and affect. Nursing note and vitals reviewed. Diagnostic Studies / Procedures ELECTROCARDIOGRAMS: Results for orders placed or performed during the hospital encounter of 03/09/19 ECG 12 lead Narrative SJS-ED Test Date: 2019-03-09 Pat Name: YAKOV DOYLE Department: Room: EXAM CC Gender: Male Stubber: KATHY : 1980 Requested By: ASHLEE PRIETO Order Number: [id number] Reading MD: Measurements Intervals Ronan Rate: 81 P: 1 SC: 172 QRS: -5 QRSD: 101 T: 68 QT: 354 QTc: 412 Interpretive Statements SINUS RHYTHM ECG: personally viewed by me and my impression is: NSR at [address] elevations or depressions. No TWI. Normal intervals LABORATORY STUDIES: Results for orders placed or performed during the hospital encounter of 03/09/19 CBC W/DIFF AUTOMATED Result Value Ref Range WBC 9.4 4.0 - 10.8 x10'3/uL RBC 4.25 (L) 4.50 - 6.10 x10'6/uL HGB 12.2 (L) 13.0 - 18.0 G/DL HCT 37.1 37.0 - 52.0 % MCV 87.3 78.0 - 100.0 FL MCH 28.7 27.0 - 31.0 PG MCHC 32.9 (L) 33.0 - 36.0 G/DL RDW 15.0 (H) 11.5 - 14.5 % PLT 232 150 - 350 x10'3/uL MPV 9.7 7.4 - 10.4 FL ABS. NEUTROPHILS TOTAL 5.99 1.60 - 8.30 x10'3/uL ABS. LYMPHOCYTES 2.14 0.80 - 4.70 x10'3/uL ABS. MONOCYTES 0.90 0.00 - 1.50 x10'3/uL ABS. EOSINOPHILS 0.34 0.00 - 0.40 x10'3/uL ABS. BASOPHILS 0.03 0.00 - 0.20 x10'3/uL ABS. IMMATURE GRANULOCYTES 0.03 0.00 - 0.03 x10'3/uL ABS. NUCLEATED RBC'S 0.00 0.0 x10'3/uL COMPREHENSIVE METABOLIC PANEL Result Value Ref Range SODIUM 139 136 - 145 MMOL/L POTASSIUM 4.9 3.5 - 5.1 MMOL/L CHLORIDE 106 98 - 107 MMOL/L CO2 28.8 21.0 - 32.0 MMOL/L GLUCOSE 81 74 - 106 MG/DL BUN 46 (H) 7 - 18 MG/DL CREATININE 2.75 (H) 0.70 - 1.30 MG/DL CALCIUM 8.6 8.5 - 10.1 MG/DL TOTAL BILIRUBIN 0.4 0.2 - 1.0 MG/DL ALK PHOS 75 45 - 115 U/L AST 11 (L) 15 - 37 U/L ALT 33 16 - 61 U/L TOTAL PROTEIN 6.9 6.4 - 8.2 G/DL ALBUMIN 3.6 3.4 - 5.0 G/DL ANION GAP 4.2 (L) 5.0 - 15.0 MMOL/L OSMOLALITY (CALC) 299 MOSM/KG eGFR Non-Afr. Amer. 28 (L) >90 ML/MIN/1.73 M2 eGFR Afr. Amer. 32 (L) >90 ML/MIN/1.73 M2 GFR NOTES THE ESTIMATED GFR IS CALCULATED USING THE 2009 CKD-EPI EQUATION. THE FOLLOWING CATEGORIES FOR GRADING RENAL FUNCTION ARE RECOMMENDED BY THE INTERNATIONAL SOCIETY OF NEPHROLOGY (KDIGO 2012 CLINICAL PRACTICE GUIDELINE). TROPONIN, QUANT Result Value Ref Range TROPONIN I <0.015 <0.045 ng/mL. PRO-BRAIN NATRIURETIC PEPTIDE Result Value Ref Range Pro-B TYPE NATRIURETIC PEPTIDE 63 <125 PG/ML CK (CPK) Result Value Ref Range CPK 78 39 - 308 U/L IMAGING STUDIES XR CHEST PORTABLE Final Result by User, [id number] (03/09 5719) Exam description: Chest 1 view Exam Time : 1159 hours Comparison Film : 06/03/2018 Indications: Chest pain. Findings: 2 upright AP films obtained. Heart and mediastinum are normal. Lungs clear of active disease. No consolidation,CHF or effusions. No pneumothorax. . No acute bony abnormality. IMPRESSION: no active disease Interpreted By: Wild John MD, 03/09/2019 12:27 PM ED Course / Medical Decision Making Yakov Doyle is a 38-year-old male w/ PMH HTN, smoker who p/w chest pain x 30 minutes, arriving via EMS. Patient states the pain is located to the right side of his chest. He reports laying down as an alleviating factor. Patient notes before onset, he was sweeping a dock outside in the heat. He reports associated visual disterbance (seeing spots), light-headedness, cough, and SOB. DDx: dehydration, ARF, electrolyte abnormality, rhabdomyolysis, ACS, PTX, PNA. No Hx of DVT/PE. No hemoptysis. No malignancy with treatment in past 6 months or palliative. No trauma, immobilization x3 days or more, or surgery in previous 4 weeks. Not on exogenous estrogen. No unilateral leg swelling. Low risk by Well's Criteria. PERC negative. Low probability of PE. Workup and medications as below for differential above Orders Placed This Encounter ??? XR CHEST PORTABLE ??? CBC W/DIFF AUTOMATED ??? COMPREHENSIVE METABOLIC PANEL ??? TROPONIN, QUANT ??? PRO-BRAIN NATRIURETIC PEPTIDE ??? CK (CPK) ??? URINALYSIS ??? CREATININE URINE RANDOM ??? SODIUM URINE RANDOM ??? ED Cardiac Monitoring ??? Continuous Pulse Oximetry ??? Insert Peripheral IV ??? aspirin chewable tablet 162 mg ??? sodium chloride 0.9% bolus infusion SOLN 1,000 mL ??? sodium chloride 0.9% infusion ??? ECG 12 lead ??? ECG 12 lead 13:00 The patient, Yakov Doyle, was reassessed at this time and pertinent findings include Cr 2.75from a baseline of 1 consistent with acute renal failure, IVF ordered for pt in addition to 500mL NS bolus received from EMS. Labs otherwise unremarkable, urine studies ordered. Will d/w hospitalist and admit for ARF. Yakov Doyle's most recent vitals include: Blood pressure (!) 93/31, pulse 74, temperature 97.8 ??F (36.6 ??C), temperature source Oral, resp.rate 20, height 6' 5 (1.956 m), weight (!) 167.8 kg (370 lb), SpO2 95 %. The most recent labs were reviewed and include: Labs Reviewed CBC W/DIFF AUTOMATED - Abnormal; Notable for the following components: Result Value RBC 4.25 (*) HGB 12.2 (*) MCHC 32.9 (*) RDW 15.0 (*) All other components within normal limits COMPREHENSIVE METABOLIC PANEL - Abnormal; Notable for the following components: BUN 46 (*) CREATININE 2.75 (*) AST 11 (*) ANION GAP 4.2 (*) eGFR Non-Afr. Amer. 28 (*) eGFR Afr. Amer. 32 (*) All other components within normal limits TROPONIN, QUANT PRO-BRAIN NATRIURETIC PEPTIDE CK (CPK) TROPONIN, QUANT TROPONIN, QUANT URINALYSIS CREATININE URINE RANDOM SODIUM URINE RANDOM Radiology findings include: Xr Chest Portable Result Date: 03/09/2019 Exam description: Chest 1 view Exam Time : 1159 hours Comparison Film : 06/03/2018 Indications: Chest pain. Findings: 2 upright AP films obtained. Heart and mediastinum are normal. Lungs clear of active disease. No consolidation,CHF or effusions. No pneumothorax. . No acute bony abnormality. IMPRESSION: no active disease Interpreted By: Wild John MD, 03/09/2019 12:27 PM The patient's medical record was reviewed. Clinical Impression ARF (acute renal failure) (CMS/HCC) (Primary) Disposition: Data Unavailable Joaquina Reaves, 03/09/19, 11:59. Provider Attestation: I, ASHLEE PRIETO MD, personally performed the services described in this documentation. All medical record entries made by the scribe were at my direction and in my presence. I have reviewed the chart and agree that the record reflects my personal performance and is accurate and complete. ASHLEE PRIETO MD. 03/09/19 12:59 Ashlee Prieto MD 03/09/19 1304 * Margy Beltran RN - 03/09/2019 11:05 AM CDT Per ems. Pt arrives with c/o cp and sob with inspiration. * Margy Beltran RN - 03/09/2019 11:04 AM CDT Bed: C Expected date: 03/09/19 Expected time: 10:58 AM Means of arrival: Comments: [id number]/sob documented in this encounter Plan of Treatment Not on file documented as of this encounter Procedures Procedure Name Priority Date/Time Associated Diagnosis Comments BASIC METABOLIC PANEL Routine 03/11/2019 6:15 AM CDT COMPREHENSIVE METABOLIC PANEL Routine 03/10/2019 3:32 AM CDT MAGNESIUM Routine 03/10/2019 3:32 AM CDT CBC W/DIFF AUTOMATED Routine 03/10/2019 3:31 AM CDT TROPONIN, QUANT TIMED 03/09/2019 8:03 PM CDT EOSINOPHIL COUNT, URINE Nurse Collected Priority 03/09/2019 6:13 PM CDT DRUG SCREEN RAPID Nurse Collected Priority 03/09/2019 6:13 PM CDT TROPONIN, QUANT TIMED 03/09/2019 5:51 PM CDT SODIUM URINE RANDOM Nurse Collected Priority 03/09/2019 3:16 PM CDT CREATININE URINE RANDOM Nurse Collected Priority 03/09/2019 3:16 PM CDT URINALYSIS Nurse Collected Priority 03/09/2019 3:16 PM CDT US RETROPERITONEAL COMP STAT 03/09/2019 2:26 PM CDT TROPONIN, QUANT TIMED 03/09/2019 1:38 PM CDT PRO-BRAIN NATRIURETIC PEPTIDE STAT 03/09/2019 12:05 PM CDT COMPREHENSIVE METABOLIC PANEL STAT 03/09/2019 12:05 PM CDT CBC W/DIFF AUTOMATED STAT 03/09/2019 12:05 PM CDT TROPONIN, QUANT TIMED 03/09/2019 12:05 PM CDT CK (CPK) STAT 03/09/2019 12:05 PM CDT XR CHEST PORTABLE STAT 03/09/2019 12:00 PM CDT ECG 12-LEAD STAT 03/09/2019 11:06 AM CDT documented in this encounter Results * (ABNORMAL) BASIC METABOLIC PANEL (03/11/2019 6:15 AM CDT) SODIUM S/P/B 138 136 - 145 MMOL/L 03/11/2019 6:58 AM CDT [facility] POTASSIUM S/P/B 5.0 3.5 - 5.1 MMOL/L 03/11/2019 6:58 AM CDT [facility] CHLORIDE S/P/B 106 98 - 107 MMOL/L 03/11/2019 6:58 AM CDT [facility] CO2 28.3 21.0 - 32.0 MMOL/L 03/11/2019 6:58 AM CDT [facility] GLUCOSE 99 74 - 106 MG/DL 03/11/2019 6:58 AM CDT [facility] BUN 25(H) 7 - 18 MG/DL 03/11/2019 6:58 AM CDT [facility] CREATININE S/P/B 1.20 0.70 - 1.30 MG/DL 03/11/2019 6:58 AM CDT [facility] CALCIUM S/P/B 9.2 8.5 - 10.1 MG/DL 03/11/2019 6:58 AM CDT [facility] ANION GAP 3.7(L) 5.0 - 15.0 MMOL/L 03/11/2019 6:58 AM CDT [facility] Comment:REFERENCE RANGE NOT ESTABLISHED OSMOLALITY (CALC) 290 MOSM/KG 03/11/2019 6:58 AM CDT [facility] Comment:REFERENCE RANGE NOT ESTABLISHED EGFR NON-AFR. AMER. 76(L) >90 ML/MIN/1 .73 M2 03/11/2019 6:58 AM CDT [facility] EGFR AFR. AMER. 88(L) >90 ML/MIN/1 .73 M2 03/11/2019 6:58 AM CDT [facility] GFR NOTES THE ESTIMATED GFR IS CALCULATED USING THE 2009 CKD-EPI EQUATION. THE FOLLOWING CATEGORIES FOR GRADING RENAL FUNCTION ARE RECOMMENDED BY THE INTERNATIONAL SOCIETY OF NEPHROLOGY (KDIGO 2012 CLINICAL PRACTICE GUIDELINE). 03/11/2019 6:58 AM CDT [facility] Comment: G1,NORMAL OR HIGH: >89 ml/min/1.73 m2 G2,MILDLY DECREASED: 60-89 ml/min/1.73 m2 G3A,MILDLY TO MODERATELY DECREASED: 45-59 ml/min/1.73 m2 G3B,MODERATELY TO SEVERELY DECREASED: 30-44 ml/min/1.73 m2 G4,SEVERELY DECREASED: 15-29 ml/min/1.73 m2 G5,KIDNEY FAILURE: <15 ml/min/1.73 m2 03/11/2019 6:15 AM CDT us Meghana Mcdowell DO LABORATORY Final Result Performing Organization Address [facility] de Phone Number [facility] [address] [place] [address], [phone] * MAGNESIUM (03/10/2019 3:32 AM CDT) MAGNESIUM 2.4 1.6 - 2.6 MG/DL 03/10/2019 5:12 AM CDT [facility] 03/10/2019 3:32 AM CDT us Meghana Mcdowell DO LABORATORY Final Result Performing Organization Address [facility] de Phone Number [facility] [address] [place] [address], [phone] * (ABNORMAL) COMPREHENSIVE METABOLIC PANEL (03/10/2019 3:32 AM CDT) SODIUM S/P/B 140 136 - 145 MMOL/L 03/10/2019 5:12 AM CDT [facility] POTASSIUM S/P/B 5.1 3.5 - 5.1 MMOL/L 03/10/2019 5:12 AM CDT [facility] CHLORIDE S/P/B 109(H) 98 - 107 MMOL/L 03/10/2019 5:12 AM T [facility] CO2 26.2 21.0 - 32.0 MMOL/L 03/10/2019 5:12 AM [facility] GLUCOSE 107(H) 74 - 106 MG/DL 03/10/2019 5:12 AM [facility] BUN 40(H) 7 - 18 MG/DL 03/10/2019 5:12 AM T [facility] CREATININE S/P/B 1.59(H) 0.70 - 1.30 MG/DL 03/10/2019 5:12 AM T [facility] CALCIUM S/P/B 8.9 8.5 - 10.1 MG/DL 03/10/2019 5:12 AM [facility] BILIRUBIN TOTAL S/P/B 0.2 0.2 - 1.0 MG/DL 03/10/2019 5:12 AM [facility] ALKALINE PHOSPHATASE S/P/B 77 45 - 115 U/L 03/10/2019 5:12 AM [facility] AST 10(L) 15 - 37 U/L 03/10/2019 5:12 AM [facility] ALT 29 16 - 61 U/L 03/10/2019 5:12 AM [facility] TOTAL PROTEIN S/P/B 6.6 6.4 - 8.2 G/DL 03/10/2019 5:12 AM T [facility] ALBUMIN S/P/B 3.1(L) 3.4 - 5.0 G/DL 03/10/2019 5:12 AM [facility] ANION GAP 4.8(L) 5.0 - 15.0 MMOL/L 03/10/2019 5:12 AM [facility] Comment:REFERENCE RANGE NOT ESTABLISHED OSMOLALITY (CALC) 300 MOSM/KG 03/10/2019 5:12 AM T [facility] Comment:REFERENCE RANGE NOT ESTABLISHED EGFR NON-AFR. AMER. 54(L) >90 ML/MIN/1 .73 M2 03/10/2019 5:12 AM CDT [facility] EGFR AFR. AMER. 62(L) >90 ML/MIN/1 .73 M2 03/10/2019 5:12 AM CDT [facility] GFR NOTES THE ESTIMATED GFR IS CALCULATED USING THE 2009 CKD-EPI EQUATION. THE FOLLOWING CATEGORIES FOR GRADING RENAL FUNCTION ARE RECOMMENDED BY THE INTERNATIONAL SOCIETY OF NEPHROLOGY (KDIGO 2012 CLINICAL PRACTICE GUIDELINE). 03/10/2019 5:12 AM CDT [facility] Comment: G1,NORMAL OR HIGH: >89 ml/min/1.73 m2 G2,MILDLY DECREASED: 60-89 ml/min/1.73 m2 G3A,MILDLY TO MODERATELY DECREASED: 45-59 ml/min/1.73 m2 G3B,MODERATELY TO SEVERELY DECREASED: 30-44 ml/min/1.73 m2 G4,SEVERELY DECREASED: 15-29 ml/min/1.73 m2 G5,KIDNEY FAILURE: <15 ml/min/1.73 m2 03/10/2019 3:32 AM CDT Meghana Mcdowell DO LABORATORY Final Result [facility] [address] [place] [address], [phone] * (ABNORMAL) CBC W/DIFF AUTOMATED (03/10/2019 3:31 AM CDT) WBC 6.9 4.0 - 10.8 x10'3/uL 03/10/2019 4:30 AM CDT [facility] RBC 4.32(L) 4.50 - 6.10 x10'6/uL 03/10/2019 4:30 AM CDT [facility] HGB 12.1(L) 13.0 - 18.0 G/DL 03/10/2019 4:30 AM CDT [facility] HCT 38.1 37.0 - 52.0 % 03/10/2019 4:30 AM CDT [facility] MCV 88.2 78.0 - 100.0 FL 03/10/2019 4:30 AM CDT [facility] MCH 28.0 27.0 - 31.0 PG 03/10/2019 4:30 AM CDT [facility] MCHC 31.8(L) 33.0 - 36.0 G/DL 03/10/2019 4:30 AM CDT [facility] RDW 14.7(H) 11.5 - 14.5 % 03/10/2019 4:30 AM CDT [facility] PLT 226 150 - 350 x10'3/uL 03/10/2019 4:30 AM CDT [facility] MPV 10.3 7.4 - 10.4 FL 03/10/2019 4:30 AM CDT [facility] ABS. NEUTROPHILS TOTAL 4.02 1.60 - 8.30 x10'3/uL 03/10/2019 4:30 AM CDT [facility] ABS. LYMPHOCYTES 1.60 0.80 - 4.70 x10'3/uL 03/10/2019 4:30 AM CDT [facility] ABS. MONOCYTES 0.86 0.00 - 1.50 x10'3/uL 03/10/2019 4:30 AM CDT [facility] ABS. EOSINOPHILS 0.41(H) 0.00 - 0.40 x10'3/uL 03/10/2019 4:30 AM CDT [facility] ABS. BASOPHILS 0.03 0.00 - 0.20 x10'3/uL 03/10/2019 4:30 AM CDT [facility] ABS. IMMATURE GRANULOCYTES 0.02 0.00 - 0.03 x10'3/uL 03/10/2019 4:30 AM T [facility] ABS. NUCLEATED RBC'S 0.00 0.0 x10'3/uL 03/10/2019 4:30 AM T [facility] 03/10/2019 3:31 AM CDT us Meghana Mcdowell LABORATORY Final Result Performing Organization Address [facility] Co de Phone Number [facility] [address] [place] [address], [phone] * TROPONIN, QUANT (03/09/2019 8:03 PM CDT) TROPONIN I <0.015 <0.045 ng/mL. 03/09/2019 8:43 PM CDT [facility] 03/09/2019 8:03 PM CDT Meghanabrijesh Sommeral LABORATORY Final Result Performing Organization Address [facility] de Phone Number [facility] [address] [place] [address], [phone] * URINE DRUG SCREEN (TOXICOLOGY) (03/09/2019 6:13 PM CDT) PHENCYCLIDINE PCP (U) NEGATIVE NEGATIVE 03/09/2019 7:51 PM CDT [facility] BENZODIAZEPINES SCREEN (U) NEGATIVE NEGATIVE 03/09/2019 7:51 PM CDT [facility] COCAINE METABOLITES (U) NEGATIVE NEGATIVE 03/09/2019 7:51 PM CDT [facility] AMPHETAMINE (U) NEGATIVE NEGATIVE 9 7:51 PM CDT [facility] CANNABINOIDS SCREEN (U) NEGATIVE NEGATIVE 03/09/2019 7:51 PM CDT [facility] OPIATE SCREEN (U) NEGATIVE NEGATIVE 019 7:51 PM CDT [facility] BARBITURATES SCREEN (U) NEGATIVE NEGATIVE 03/09/2019 7:51 PM CDT [facility] URINE TOX COMMENT Unconfirmed screening results are to be used only for medical purposes. 03/09/2019 6:11 PM CDT [facility] CUTOFF CONCENTRATION (U) Cut-off Concentration for a positive result 03/09/2019 6:11 PM CDT [facility] Comment: Phencyclidine ? 25 ng/mL Benzodiazepines ? 200 ng/mL Cocaine ? 300 ng/mL Amphetamine ? 1000 ng/mL Cannabinoids ?50 ng/mL Opiates ? 300 ng/mL Barbiturates ?200 ng/mL Urine specimen (specimen) URINE SPECIMEN / Unknown 03/09/2019 6:13 PM CDT Meghana Mcdowell DO URINE ORDERABLES Final Result Performing Organization Address [facility] de Phone Number [facility] [address] [place] [address], [id number] * EOSINOPHIL COUNT, URINE (03/09/2019 6:13 PM CDT) SPEC DESCRIPTION URINE, UNSPECIFIED 03/09/2019 6:11 PM CDT [facility] SPECIAL REQUESTS NO SPECIAL REQUEST 03/09/2019 6:11 PM CDT [facility] EOSINOPHILS NO EOSINOPHILS SEEN 03/10/2019 7:52 AM CDT [facility] URINE SPECIMEN / Unknown 03/09/2019 6:13 PM CDT 03/09/2019 7:10 PM CDT Meghana Mcdowell DO URINE ORDERABLES Final Result Performing Organization Address [facility] de Phone Number [facility] [address] [place] [address], [id number] * TROPONIN, QUANT (03/09/2019 5:51 PM CDT) TROPONIN I <0.015 <0.045 ng/mL. 03/09/2019 6:22 PM CDT [facility] 03/09/2019 5:51 PM CDT us Ashlee Prieto MD LABORATORY Final Result Performing Organization Address [facility] Co de Phone Number [facility] [address] [place] [address], [id number] * SODIUM URINE RANDOM (03/09/2019 3:16 PM CDT) NA RANDOM (U) 57 MMOL/L 03/09/2019 3:40 PM CDT [facility] Comment:REFERENCE RANGE NOT ESTABLISHED URINE SPECIMEN / Unknown 03/09/2019 3:16 PM CDT us Ashlee Prieto MD URINE ORDERABLES Final Result Performing Organization Address [facility] de Phone Number [facility] [address] [place] [address], [id number] * CREATININE URINE RANDOM (03/09/2019 3:16 PM CDT) CREATININE (U) 235.0 MG/DL 03/09/2019 3:40 PM CDT [facility] Comment:REFERENCE RANGE NOT ESTABLISHED URINE SPECIMEN / Unknown 03/09/2019 3:16 PM CDT us Ashlee Prieto MD URINE ORDERABLES Final Result Performing Organization Address [facility] de Phone Number [facility] [address] [place] [address], [id number] * URINALYSIS (03/09/2019 3:16 PM CDT) COLOR (U) YELLOW 03/09/2019 3:32 PM CDT [facility] TRANSPARENCY HAZY 03/09/2019 3:32 PM CDT [facility] SPECIFIC GRAVITY (U) 1.016 1.002 - 1.035 03/09/2019 3:32 PM CDT [facility] U PH 5.0 5 - 8 03/09/2019 3:32 PM CDT [facility] PROTEIN (U) NEGATIVE NEGATIVE 03/09/2019 3:32 PM CDT [facility] URINE GLUCOSE NEGATIVE NEGATIVE MG/DL 03/09/2019 3:32 PM CDT [facility] KETONES MG/DL (U) NEGATIVE NEGATIVE 03/09/2019 3:32 PM CDT [facility] BILIRUBIN (U) NEGATIVE NEGATIVE 03/09/2019 3:32 PM CDT [facility] BLOOD (U) NEGATIVE NEGATIVE 03/09/2019 3:32 PM CDT [facility] NITRITES NEGATIVE NEGATIVE 03/09/2019 3:32 PM CDT [facility] UROBILINOGEN NORMAL 0 - 1 EU/DL 03/09/2019 3:32 PM CDT [facility] LEUKOCYTES (U) NEGATIVE NEGATIVE 03/09/2019 3:32 PM CDT [facility] RBC/HPF <1 0 - 3 /HPF 03/09/2019 3:32 PM CDT [facility] WBC/HPF 1 0 - 6 /HPF 03/09/2019 3:32 PM CDT [facility] BACTERIA (U) NONE /HPF 03/09/2019 3:32 PM CDT [facility] SQUAMOUS EPITHELIALS <1 03/09/2019 3:32 PM CDT [facility] HYALINE CASTS 3 03/09/2019 3:32 PM CDT [facility] URINE SPECIMEN OBTAINED BY CLEAN CATCH PROCEDURE / Unknown 03/09/2019 3:16 PM CDT Ashlee Prieto MD URINE ORDERABLES Final Result [facility] [address] [place] [address], [id number] * US RETROPERITONEAL COMP (03/09/2019 2:26 PM CDT) Anatomical Region Laterality Modality Abdomen Ultrasound 03/09/2019 2:28 PM CDT Impressions 03/09/2019 2:31 PM CDT IMPRESSION: Normal ultrasound of the kidneys and urinary bladder. Interpreted By: Ernie Boucher MD, 03/09/2019 2:28 PM Narrative 03/09/2019 2:31 PM CDT 03/09/2019, 1357 hours. HISTORY: Renal failure. Elevated BUN and creatinine. EXAM: Ultrasound imaging of the kidneys and urinary bladder was performed utilizing grayscale and color Doppler spectral analysis imaging techniques. No comparison. FINDINGS: The right kidney measures 12.5 x 5.8 x 6.2 cm. The left kidney measures 10.3 x 5.4 x 6.2 cm. No renal parenchymal mass or cyst in either kidney. No dilatation of the intrarenal collecting system of either kidney and no evidence of renal hydronephrosis nor obstructive uropathy. Blood flow seen to both kidneys on Doppler color imaging. No perinephric fluid collection. No localized cortical thinning in either kidney. The urinary bladder has a smooth wall. The wall thickness of the urinary bladder is estimated to be 0.4 mm. The estimated volume of urine in the urinary bladder prior to voiding is 208 mL. Post void imaging was not performed. Ureteral jets are demonstrated bilaterally. Procedure Note Ernie Boucher MD - 03/09/2019 03/09/2019, 1357 hours. HISTORY: Renal failure. Elevated BUN and creatinine. EXAM: Ultrasound imaging of the kidneys and urinary bladder wasperformed utilizing grayscale and color Doppler spectral analysis imagingtechniques. No comparison. FINDINGS: The right kidney measures 12.5 x 5.8 x 6.2 cm. The left kidney measures 10.3 x 5.4 x 6.2 cm. No renal parenchymal mass or cyst ineither kidney. No dilatation of the intrarenal collecting system of eitherkidney and no evidence of renal hydronephrosis nor obstructive uropathy. Blood flow seen to both kidneys on Doppler color imaging. No perinephric fluid collection. No localized cortical thinning in either kidney. The urinary bladder has a smooth wall. The wall thickness of the urinary bladder is estimated to be 0.4 mm. The estimated volume of urine in the urinary bladder prior to voiding is 208 mL. Post void imaging was not performed. Ureteral jets are demonstrated bilaterally. IMPRESSION: Normal ultrasound of the kidneys and urinary bladder. Interpreted By: Ernie Boucher MD, 03/09/2019 2:28 PM us Ashlee Prieto MD ULTRASOUND Final Result * TROPONIN, QUANT (03/09/2019 1:38 PM CDT) TROPONIN I <0.015 <0.045 ng/mL. 03/09/2019 2:18 PM CDT [facility] 03/09/2019 1:38 PM CDT us Meghana Mcdowell DO LABORATORY Final Result Performing Organization Address [facility] Co de Phone Number [facility] [address] [place] [address], [id number] * TROPONIN, QUANT (03/09/2019 12:05 PM CDT) TROPONIN I <0.015 <0.045 ng/mL. 03/09/2019 12:42 PM CDT [facility] 03/09/2019 12:0 5 PM CDT us Ashlee Prieto MD LABORATORY Final Result Performing Organization Address [facility] Co de Phone Number [facility] [address] [place] [address], [id number] * CK (CPK) (03/09/2019 12:05 PM CDT) CPK 78 39 - 308 U/L 03/09/2019 12:42 PM CDT [facility] 03/09/2019 12:0 5 PM CDT us Ashlee Prieto MD LABORATORY Final Result Performing Organization Address [facility] Co de Phone Number [facility] [address] [place] [address], [id number] * PRO-BRAIN NATRIURETIC PEPTIDE (03/09/2019 12:05 PM CDT) PRO-B TYPE NATRIURETIC PEPTIDE 63 <125 PG/ML 03/09/2019 12:42 PM CDT [facility] Comment: AGE INDEPENDENT: <300 PG/ML [...] OF 89% AND 72% FOR ACUTE CHF. 03/09/2019 12:0 5 PM CDT us Ashlee Prieto MD LABORATORY Final Result Performing Organization Address [facility] Co de Phone Number [facility] [address] [place] [address], [id number] * (ABNORMAL) COMPREHENSIVE METABOLIC PANEL (03/09/2019 12:05 PM CDT) SODIUM S/P/B 139 136 - 145 MMOL/L 03/09/2019 12:42 PM CDT [facility] POTASSIUM S/P/B 4.9 3.5 - 5.1 MMOL/L 03/09/2019 12:42 PM CDT [facility] CHLORIDE S/P/B 106 98 - 107 MMOL/L 03/09/2019 12:42 PM [facility] CO2 28.8 21.0 - 32.0 MMOL/L 03/09/2019 12:42 PM T [facility] GLUCOSE 81 74 - 106 MG/DL 03/09/2019 12:42 PM [facility] BUN 46(H) 7 - 18 MG/DL 03/09/2019 12:42 PM [facility] CREATININE S/P/B 2.75(H) 0.70 - 1.30 MG/DL 03/09/2019 12:42 PM T [facility] CALCIUM S/P/B 8.6 8.5 - 10.1 MG/DL 03/09/2019 12:42 PM [facility] BILIRUBIN TOTAL S/P/B 0.4 0.2 - 1.0 MG/DL 03/09/2019 12:42 PM [facility] ALKALINE PHOSPHATASE S/P/B 75 45 - 115 U/L 03/09/2019 12:42 PM [facility] AST 11(L) 15 - 37 U/L 03/09/2019 12:42 PM T [facility] ALT 33 16 - 61 U/L 03/09/2019 12:42 PM [facility] TOTAL PROTEIN S/P/B 6.9 6.4 - 8.2 G/DL 03/09/2019 12:42 PM [facility] ALBUMIN S/P/B 3.6 3.4 - 5.0 G/DL 03/09/2019 12:42 PM [facility] ANION GAP 4.2(L) 5.0 - 15.0 MMOL/L 03/09/2019 12:42 PM [facility] Comment:REFERENCE RANGE NOT ESTABLISHED OSMOLALITY (CALC) 299 MOSM/KG 03/09/2019 12:42 PM [facility] Comment:REFERENCE RANGE NOT ESTABLISHED EGFR NON-AFR. AMER. 28(L) >90 ML/MIN/1 .73 M2 03/09/2019 12:42 PM CDT [facility] EGFR AFR. AMER. 32(L) >90 ML/MIN/1 .73 M2 03/09/2019 12:42 PM CDT [facility] GFR NOTES THE ESTIMATED GFR IS CALCULATED USING THE 2009 CKD-EPI EQUATION. THE FOLLOWING CATEGORIES FOR GRADING RENAL FUNCTION ARE RECOMMENDED BY THE [employer] OF NEPHROLOG[employer] (KDIGO 2012 CLINICAL PRACTICE GUIDELINE). 03/09/2019 12:42 PM CDT [facility] Comment: G1,NORMAL OR HIGH: >89 ml/min/1.73 m2 G2,MILDLY DECREASED: 60-89 ml/min/1.73 m2 G3A,MILDLY TO MODERATELY DECREASED: 45-59 ml/min/1.73 m2 G3B,MODERATELY TO SEVERELY DECREASED: 30-44 ml/min/1.73 m2 G4,SEVERELY DECREASED: 15-29 ml/min/1.73 m2 G5,KIDNEY FAILURE: <15 ml/min/1.73 m2 03/09/2019 12:0 5 PM CDT us Ashlee Prieto MD LABORATORY Final Result [facility] [address] [place] [address], [id number] * (ABNORMAL) CBC W/DIFF AUTOMATED (03/09/2019 12:05 PM CDT) WBC 9.4 4.0 - 10.8 x10'3/uL 03/09/2019 12:14 PM CDT [facility] RBC 4.25(L) 4.50 - 6.10 x10'6/uL 03/09/2019 12:14 PM CDT [facility] HGB 12.2(L) 13.0 - 18.0 G/DL 03/09/2019 12:14 PM CDT [facility] HCT 37.1 37.0 - 52.0 % 03/09/2019 12:14 PM CDT [facility] MCV 87.3 78.0 - 100.0 FL 03/09/2019 12:14 PM CDT [facility] MCH 28.7 27.0 - 31.0 PG 03/09/2019 12:14 PM CDT [facility] MCHC 32.9(L) 33.0 - 36.0 G/DL 03/09/2019 12:14 PM CDT [facility] RDW 15.0(H) 11.5 - 14.5 % 03/09/2019 12:14 PM CDT [facility] PLT 232 150 - 350 x10'3/uL 03/09/2019 12:14 PM CDT [facility] MPV 9.7 7.4 - 10.4 FL 03/09/2019 12:14 PM CDT [facility] ABS. NEUTROPHILS TOTAL 5.99 1.60 - 8.30 x10'3/uL 03/09/2019 12:14 PM CDT [facility] ABS. LYMPHOCYTES 2.14 0.80 - 4.70 x10'3/uL 03/09/2019 12:14 PM CDT [facility] ABS. MONOCYTES 0.90 0.00 - 1.50 x10'3/uL 03/09/2019 12:14 PM CDT [facility] ABS. EOSINOPHILS 0.34 0.00 - 0.40 x10'3/uL 03/09/2019 12:14 PM CDT [facility] ABS. BASOPHILS 0.03 0.00 - 0.20 x10'3/uL 03/09/2019 12:14 PM CDT [facility] ABS. IMMATURE GRANULOCYTES 0.03 0.00 - 0.03 x10'3/uL 03/09/2019 12:14 PM CDT [facility] ABS. NUCLEATED RBC'S 0.00 0.0 x10'3/uL 03/09/2019 12:14 PM CDT [facility] 03/09/2019 12:0 5 PM CDT us Ashlee Prieto MD LABORATORY Final Result [facility] [address] [place] [address], [id number] * XR CHEST PORTABLE (03/09/2019 12:00 PM CDT) Anatomical Region Laterality Modality Chest Radiographic Martha ging 03/09/2019 12:2 7 PM CDT Impressions 03/09/2019 12:29 PM CDT IMPRESSION: no active disease Interpreted By: Wild John MD, 03/09/2019 12:27 PM Narrative 03/09/2019 12:29 PM CDT Exam description: Chest 1 view Exam Time : 1159 hours Comparison Film : 06/03/2018 Indications: Chest pain. Findings: 2 upright AP films obtained. ??Heart and mediastinum are normal. ??Lungs clear of active disease. No consolidation,CHF or effusions. No pneumothorax. ? . No acute bony abnormality. Procedure Note Wild John MD - 03/09/2019 Exam description: Chest 1 view Exam Time : 1159 hours Comparison Film : 06/03/2018 Indications: Chest pain. Findings: 2 upright AP films obtained. Heart and mediastinum are normal. Lungs clear of active disease. No consolidation,CHF or effusions. No pneumothorax. . No acute bony abnormality. IMPRESSION: no active disease Interpreted By: Wild John MD, 03/09/2019 12:27 PM us Ashlee Prieto MD GENERAL IMAGING Final Result * ECG 12 lead (03/09/2019 11:06 AM CDT) 03/09/2019 11:0 6 AM CDT Narrative [facility] - 03/09/2019 5:48 PM CDT ?SJS-ED ? Test Date: ?2019-03-09 Pat Name: ? YAKOV DOYLE ? Department: ? Room: ? 304 Gender: ? Male ? Stubber: ?? SWIN : ?1980 ? Requested By: ASHLEE FIELD Order Number: [id number] ? Reading MD: ?? Chicho Adame ? Measurements Intervals ?Ronan ? Rate: ? 81 ? P: ?1 SC: ? 172 ?QRS: ?-5 QRSD: ? 101 ?T: ?68 QT: ? 354 ? QTc: ?412 ? Interpretive Statements SINUS RHYTHM Procedure Note Chicho Adame MD - 03/09/2019 SJS-ED Test Date: 2019-03-09 Pat Name: YAKOV DOYLE Department: Room: 304 Gender: Male Stubber: KATHY : 1980 Requested By: ASHLEE PRIETO Order Number: [id number] Drew MD: Chicho Adame Measurements Intervals Ronan Rate: 81 P: 1 SC: 172 QRS: -5 QRSD: 101 T: 68 QT: 354 QTc: 412 Interpretive Statements SINUS RHYTHM us Ashlee Prieto MD ECG ORDERABLES Final Result Performing Organization Address City/State/[facility] de Phone Number [facility] documented in this encounter Visit Diagnoses Diagnosis ARF (acute renal failure) ([facility])- Primary Acute kidney failure, unspecified MARYAN (acute kidney injury) ([facility]) Acute kidney failure, unspecified HTN (hypertension) Unspecified essential hypertension Rheumatoid arthritis ([facility]) documented in this encounter Administered Medications Inactive Administered Medications - up to 3 most recent administrations Medication Order MAR Action Action Date Dose Rate Site acetaminophen (TYLENOL) tablet 650 mg 650 mg, Oral, Every 4 hours PRN, Mild pain (Scale 1 - 3), Starting on Radha 03/09/19 at 1321, Until 03/11/19 at 1132, Maximum dose of acetaminophen is 4000 mg from all sources in 24 hours. Given 03/11/2019 4:58 AM CDT 650 mg amlodipine (NORVASC) tablet 5 mg 5 mg, Oral, Daily, First dose on Wed03/10/19 at 1100, Until Discontinued Given 03/11/2019 8:03 AM CDT 5 mg Given 03/10/2019 12:09 PM CDT 5 mg aspirin chewable tablet 162 mg 162 mg, Oral, Once, 1 dose, On Wed03/09/19 at 1200 Given 03/09/2019 11:59 AM CDT 162 mg folic acid (FOLVITE) tablet 1 mg 1 mg, Oral, Daily, First dose (after last reorder) on Wed03/10/19 at 0900, Until Discontinued Given 03/11/2019 8:03 AM CDT 1 mg Given 03/10/2019 8:09 AM CDT 1 mg heparin (porcine) injection 5,000 Units 5,000 Units, Subcutaneous, Every 12 hours scheduled (2 times per day), First dose on Wed03/09/19 at 2100, Until Discontinued loratadine (CLARITIN) tablet 10 mg 10 mg, Oral, Daily, First dose on Wed03/09/19 at 1630, Until Discontinued Given 03/11/2019 8:03 AM CDT 10 mg Given 03/10/2019 8:09 AM CDT 10 mg Given 03/09/2019 4:38 PM CDT 10 mg sodium chloride 0.9% bolus infusion SOLN 1,000 mL 1,000 mL, Intravenous, Administer over 15 Minutes, Once, 1 dose, On Wed03/09/19 at 1200 New Bag 03/09/2019 11:59 AM CDT 1,000 mLs sodium chloride 0.9% infusion at 125 mL/hr, Intravenous, Continuous, Starting on Wed03/09/19 at 1300, Until Wed03/09/19 at 1542 New Bag 03/09/2019 1:39 PM CDT 125 mL/hr sodium chloride 0.9% infusion at 75 mL/hr, Intravenous, Continuous, Starting on Wed03/09/19 at 1330, Until 03/11/19 at 0718 New Bag 03/11/2019 5:01 AM CDT 75 mL/hr New Bag 03/10/2019 5:05 PM CDT 75 mL/hr Rate/Dose Change 03/10/2019 10:29 AM CDT 75 mL/ hr documented in this encounter Active and Recently Administered Medications Times are shown in CDT. Scheduled Medication Order 03/09/2019 03/10/2019 03/11/2019 amlodipine (NORVASC) tablet 5 mg 5 mg, Oral, Daily, First dose on Wed03/10/19 at 1100, Until Discontinued 1209 (Given - Provider: Irene Alicea RN) 0803 (Given - Provider: Enriqueta Soni, ZARA) aspirin chewable tablet 162 mg (COMPLETED) 162 mg, Oral, Once, 1 dose, On Wed03/09/19 at 1200 1159 (Given - Provider: Vielka Washington, ZARA) folic acid (FOLVITE) tablet 1 mg 1 mg, Oral, Daily, First dose (after last reorder) on Wed03/10/19 at 0900, Until Discontinued 0809 (Given - Provider: Irene Alicea RN) 0803 (Given - Provider: Enriqueta Soni RN) heparin (porcine) injection 5,000 Units(Linked Group 1) 5,000 Units, Subcutaneous, Every 12 hours scheduled (2 times per day), First dose on Wed03/09/19 at 2100, Until Discontinued 2202 (Not Given - Provider: Iwona Oliver RN - Reason: Patient/family declined) 0810 (Not Given - Provider: Irene Alicea RN - Reason: Patient/family declined)2057 (Not Given - Provider: Iwona Oliver RN - Reason: Patient/family declined) 0804 (Not Given - Provider: Enriqueta Soni RN - Reason: Patient/family declined) loratadine (CLARITIN) tablet 10 mg 10 mg, Oral, Daily, First dose on Wed03/09/19 at 1630, Until Discontinued 1638 (Given - Provider: Margy Garvin RN) 0809 (Given - Provider: Irene Alicea RN) 0803 (Given - Provider: Enriqueta Soni RN) sodium chloride 0.9% bolus infusion SOLN 1,000 mL (COMPLETED) 1,000 mL, Intravenous, Administer over 15 Minutes, Once, 1 dose, On Wed03/09/19 at 1200 1159 (New Bag - Provider: Vielka Washington, ZARA)1240 (Infusion Stop Time - Provider: Vielka Washington RN) Continuous Medication Order 03/09/2019 03/10/2019 03/11/2019 sodium chloride 0.9% infusion (CANCELED) at 125 mL/hr, Intravenous, Continuous, Starting on Radha 03/09/19 at 1300, Until Radha 03/09/19 at 1542 1339 (New Bag - Provider: Margy Beltran, ZARA)1603 (Infusion Stop Time - Provider: Margy Garvin RN) sodium chloride 0.9% infusion (CANCELED) at 75 mL/hr, Intravenous, Continuous, Starting on Radha 03/09/19 at 1330, Until 03/11/19 at 0718 1503 (New Bag - Provider: Margy Garvin, ZARA)2222 (New Bag - Provider: Iwona Oliver RN) 0635 (New Bag - Provider: Iwona Oliver RN)1029 (Rate/Dose Change - Provider: Irene Alicea RN)1705 (New Bag - Provider: Irene Alicea RN) 0501 (New Bag - Provider: Iwona Oliver RN) PRN Medication Order 03/09/2019 03/10/2019 03/11/2019 acetaminophen (TYLENOL) tablet 650 mg 650 mg, Oral, Every 4 hours PRN, Mild pain (Scale 1 - 3), Starting on Radha 03/09/19 at 1321, Until 03/11/19 at 1132, Maximum dose of acetaminophen is 4000 mg from all sources in 24 hours. 0458 (Given - Provid er: Iwona Oliver RN) Linked Groups Order Group 1: heparin (porcine) injection 5,000 UnitsJump to med 5,000 Units, Subcutaneous, Every 12 hours scheduled (2 times per day), First dose on Radha 03/09/19 at 2100, Until Discontinued And Place sequential compression device (CANCELED) Routine, Once, On Radha 03/09/19 at 1322, For 1 occurrence And Intermittent Pneumatic Compression Device Applied (COMPLETED) And Assess Sequential Compression Device (Assess skin at a minimum of every shift) (CANCELED) Routine, Every shift, First occurrence on Radha 03/09/19 at 1322 And Maintain Sequential Compression Device (COMPLETED) Routine, Daily, First occurrence on Wed03/10/19 at 0600 And High Risk for VTE (COMPLETED) documented in this encounter Care Teams Head Machinist Relationship Specialty Start Date End Date Betty Perez MD PCP - General FAMILY PRACTICE 03/09/19 07/31/24 documented as of this encounter
--- OUTSIDE RECORDS SUMMARY | 2024-08-30 23:13 | XMS_ITS | Encounter Summary ---
Author Organization [facility] Address [address] [place] [address]. [place], [place] [id number] [place] [id number] Care Team Providers Care Color Checker Roving Or Yarn Name Role Phone None, Provider Primary Care Provider Rambo guillaume Encounter Details Date Type Department Care Team (Latest Contact Info) Description 06/21/2018 8:43 AM CDT - 06/21/2018 11:59 PM CDT Hospital Encounter [facility] Diagnostic Imaging [address] [place] [address] [place] [address] [place] [id number] Discharge Disposition: Home or Self Care (Routine [...] Name Priority Date/Time Associated Diagnosis Comments XR HAND RT 3V Routine 06/21/2018 9:20 AM CDT Joint pain XR HAND LT 3V Routine 06/21/2018 9:20 AM CDT Joint pain XR FOOT RT 3V Routine 06/21/2018 9:20 AM CDT Joint pain XR FOOT LT 3V Routine 06/21/2018 9:20 AM CDT Joint pain documented in this encounter Results * XR HAND LT 3V (06/21/2018 9:20 AM CDT) Anatomical Region Laterality Modality Hand Radiographic Martha ging 06/21/2018 5:20 PM CDT Impressions 06/21/2018 5:22 PM CDT IMPRESSION: 1) Small metallic foreign body in the soft tissues along the radial aspect of the second proximal phalanx. 2. No acute osseous abnormality. Interpreted By: Jules Felder MD, 06/21/2018 5:20 PM Narrative 06/21/2018 5:22 PM CDT Examination: XR HAND RT 3V, XR HAND LT 3V Exam time: 06/21/2018 9:00 AM Clinical history: Pain and swelling both hands for approximately 2 months Comparison: None Technique: AP, lateral and oblique views of both hands Findings: Right hand: The images demonstrate a metallic foreign body in the soft tissues along the radial aspect of the second proximal phalanx. No other soft tissue abnormality is demonstrated. No evidence of acute fracture or dislocation. There is no evidence of periarticular osteopenia nor erosion. Joint spaces are well-maintained. Left hand: No significant soft tissue abnormality. No evidence of fracture or dislocation. No evidence of periarticular osteopenia nor erosion. Joint spaces are well-maintained. Procedure Note Jules Felder MD - 06/21/2018 Examination: XR HAND RT 3V, XR HAND LT 3V Exam time: 06/21/2018 9:00 AM Clinical history: Pain and swelling both hands for approximately 2 months Comparison: None Technique: AP, lateral and oblique views of both hands Findings: Right hand: The images demonstrate a metallic foreign body in the soft tissues along the radial aspect of the second proximal phalanx. No other soft tissue abnormality is demonstrated. No evidence of acute fractureor dislocation. There is no evidence of periarticular osteopenia norerosion. Joint spaces are well-maintained. Left hand: No significant soft tissue abnormality. No evidence offracture or dislocation. No evidence of periarticular osteopenia nor erosion.Joint spaces are well-maintained. IMPRESSION: 1) Small metallic foreign body in the soft tissues along the radialaspect of the second proximal phalanx. 2. No acute osseous abnormality. Interpreted By: Jules Felder MD, 06/21/2018 5:20 PM us Milli Baca MD GENERAL IMAGING Final Result * XR HAND RT 3V (06/21/2018 9:20 AM CDT) Anatomical Region Laterality Modality Hand Radiographic Martha ging 06/21/2018 5:20 PM CDT Impressions 06/21/2018 5:22 PM CDT IMPRESSION: 1) Small metallic foreign body in the soft tissues along the radial aspect of the second proximal phalanx. 2. No acute osseous abnormality. Interpreted By: Jules Felder MD, 06/21/2018 5:20 PM Narrative 06/21/2018 5:22 PM CDT Examination: XR HAND RT 3V, XR HAND LT 3V Exam time: 06/21/2018 9:00 AM Clinical history: Pain and swelling both hands for approximately 2 months Comparison: None Technique: AP, lateral and oblique views of both hands Findings: Right hand: The images demonstrate a metallic foreign body in the soft tissues along the radial aspect of the second proximal phalanx. No other soft tissue abnormality is demonstrated. No evidence of acute fracture or dislocation. There is no evidence of periarticular osteopenia nor erosion. Joint spaces are well-maintained. Left hand: No significant soft tissue abnormality. No evidence of fracture or dislocation. No evidence of periarticular osteopenia nor erosion. Joint spaces are well-maintained. Procedure Note Jules Felder MD - 10/30/2018 Examination: XR HAND RT 3V, XR HAND LT 3V Exam time: 06/21/2018 9:00 AM Clinical history: Pain and swelling both hands for approximately 2 months Comparison: None Technique: AP, lateral and oblique views of both hands Findings: Right hand: The images demonstrate a metallic foreign body in the soft tissues along the radial aspect of the second proximal phalanx. No other soft tissue abnormality is demonstrated. No evidence of acute fractureor dislocation. There is no evidence of periarticular osteopenia norerosion. Joint spaces are well-maintained. Left hand: No significant soft tissue abnormality. No evidence offracture or dislocation. No evidence of periarticular osteopenia nor erosion.Joint spaces are well-maintained. IMPRESSION: 1) Small metallic foreign body in the soft tissues along the radialaspect of the second proximal phalanx. 2. No acute osseous abnormality. Interpreted By: Jules Felder MD, 06/21/2018 5:20 PM Milli Baca MD GENERAL IMAGING Final Result * XR FOOT RT 3V (06/21/2018 9:20 AM CDT) Anatomical Region Laterality Modality Foot Radiographic Martha ging 06/21/2018 5:23 PM CDT Impressions 06/21/2018 5:25 PM CDT IMPRESSION: 1) No significant radiographic abnormality. Interpreted By: Jules Felder MD, 06/21/2018 5:23 PM Narrative 06/21/2018 5:25 PM CDT Examination: XR FOOT LT 3V, XR FOOT RT 3V Exam time: 06/21/2018 9:00 AM Clinical history: Pain and swelling both feet for approximately 2 months, no history of acute trauma. Comparison: None Technique: AP, lateral and oblique views of both feet Findings: Left foot: No significant soft tissue abnormality. No evidence of acute fracture or dislocation. No evidence of periarticular osteopenia nor erosion. Joint spaces are well-maintained. Right foot:No significant soft tissue abnormality. No evidence of acute fracture or dislocation. No evidence of periarticular osteopenia nor erosion. Joint spaces are well-maintained. Procedure Note Jules Felder MD - 06/21/2018 Examination: XR FOOT LT 3V, XR FOOT RT 3V Exam time: 06/21/2018 9:00 AM Clinical history: Pain and swelling both feet for approximately 2months, no history of acute trauma. Comparison: None Technique: AP, lateral and oblique views of both feet Findings: Left foot: No significant soft tissue abnormality. No evidence of acute fracture or dislocation. No evidence of periarticular osteopenia nor erosion. Joint spaces are well-maintained. Right foot:No significant soft tissue abnormality. No evidence of acute fracture or dislocation. No evidence of periarticular osteopenia nor erosion. Joint spaces are well-maintained. IMPRESSION: 1) No significant radiographic abnormality. Interpreted By: Jules Felder MD, 06/21/2018 5:23 PM Milli Baca MD GENERAL IMAGING Final Result * XR FOOT LT 3V (06/21/2018 9:20 AM CDT) Anatomical Region Laterality Modality Foot Radiographic Martha ging 06/21/2018 5:23 PM CDT Impressions 06/21/2018 5:25 PM CDT IMPRESSION: 1) No significant radiographic abnormality. Interpreted By: Jules Felder MD, 06/21/2018 5:23 PM Narrative 06/21/2018 5:25 PM CDT Examination: XR FOOT LT 3V, XR FOOT RT 3V Exam time: 06/21/2018 9:00 AM Clinical history: Pain and swelling both feet for approximately 2 months, no history of acute trauma. Comparison: None Technique: AP, lateral and oblique views of both feet Findings: Left foot: No significant soft tissue abnormality. No evidence of acute fracture or dislocation. No evidence of periarticular osteopenia nor erosion. Joint spaces are well-maintained. Right foot:No significant soft tissue abnormality. No evidence of acute fracture or dislocation. No evidence of periarticular osteopenia nor erosion. Joint spaces are well-maintained. Procedure Note Jules Felder MD - 06/21/2018 Examination: XR FOOT LT 3V, XR FOOT RT 3V Exam time: 06/21/2018 9:00 AM Clinical history: Pain and swelling both feet for approximately 2months, no history of acute trauma. Comparison: None Technique: AP, lateral and oblique views of both feet Findings: Left foot: No significant soft tissue abnormality. No evidence of acute fracture or dislocation. No evidence of periarticular osteopenia nor erosion. Joint spaces are well-maintained. Right foot:No significant soft tissue abnormality. No evidence of acute fracture or dislocation. No evidence of periarticular osteopenia nor erosion. Joint spaces are well-maintained. IMPRESSION: 1) No significant radiographic abnormality. Interpreted By: Jules Felder MD, 06/21/2018 5:23 PM Milli Baca MD GENERAL IMAGING Final Result documented in this encounter Visit Diagnoses Diagnosis Joint pain Pain in joint, site unspecified documented in this encounter Care Teams Color Checker Roving Or Yarn Relationship Specialty Start Date End Date None, Provider, PCP - General 05/18/18 03/08/19 documented as of this encounter
--- OUTSIDE RECORDS SUMMARY | 2024-08-30 23:13 | XMS_ITS | Encounter Summary ---
Author Organization [facility] Address [facility] [facility]. [place], [place] [address] [place] [id number] Care Team Providers Care Inspector Air Carrier Name Role Phone None, Provider MD Primary Care Provider Unavaila ble Reason for Visit * Reason Comments Hypertension Encounter Details Date Type Department Care Team (Late st Contact Info) Description 01/27/2019 9:06 AM CDT - 01/27/2019 11:32 AM CDT Emergency [facility] Emergency [address] [place] [address] Penny Cedeño MD [address] [place] [address] Hypertension Discharge Disposition: Home or Self Care (Routine [...] Sign Reading Time Taken Comments Blood Pressure 157/76 01/27/2019 11:19 AM CDT Pulse 79 01/27/2019 11:19 AM CDT Temperature 36.6 ??C (97.8 ??F) 01/27/2019 8:59 AM CD T Respiratory Rate 18 01/27/2019 11:19 AM CDT Oxygen Saturation 97% 01/27/2019 8:59 AM CDT Inhaled Oxygen Concentration - - Weight 173 kg (381 lb 6.3 oz) 01/27/2019 8:59 AM CDT Height 195.6 cm (6' 5 ) 01/27/2019 8:59 AM CDT Body Mass Index 45.23 01/27/2019 8:59 AM CDT documented in this encounter Discharge Instructions * Discharge Instructions* Penny Cedeño MD - 01/27/2019 11:09 AM CDT Hypertension 1. Continue your medications as prescribed. Increase your lisinopril to 40mg a day 2. Follow up closely for outpatient reevaluation 3. Return to ER for worsening headache, weakness, visual changes or other concerns. * Attachments The following attachments cannot be sent through Care Everywhere. * High Blood Pressure Discharge Instructions (Guatemalan) documented in this encounter Medications at Time of Discharge amlodipine 10 MG tablet Take 1 tablet (10 mg total) by mouth daily. 90 tablet 3 01/25/2019 03/09/2019 chlorthalidone 25 MG tablet Take 12.5 mg [...] as of this encounter ED Notes * Penny Cedeño MD - 01/27/2019 9:15 AM CDT IMargaret scribe, am personally taking down the notes in the presence of Penny Cedeño MD.?Take no action on this note until reviewed and authenticated??by the physician. Chief Complaint Chief Complaint Patient presents with ??? 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 Patient reports associated fatigue, weakness in his legs, and spots in his vision. He notes that he sees the spots when he has been on his feetand begins feeling tired. Patient reports that his vision is sometimes blurry but otherwise unchanged. He states he has been seen in the ED a couple of times in this week for similar symptoms. Patient says he was given a new HTN medication, and takes an anti-diuretic and a pain pill daily. He noteshe smokes about 1/2 PPD. He states a history of rheumatoid arthritis. Patient denies alcohol or drug use, blindness, and loss of vision. Patient denies CP, SOB, headache, congestion, fever, chills, nausea, emesis, change in PO intake, diarrhea, constipation, hematochezia, hematuria, dysuria, frequency, urgency, and flank pain. Patient is otherwise at baseline state of health and reports no other positive complaints. Medical History ALLERGIES: Allergies Allergen Reactions ??? Codeine Rash MEDICATIONS: Prior to Admission medications Medication Sig Start Date End Date Taking? Authorizing Provider chlorthalidone 25 MG tablet Take 12.5 mg by mouth daily. Yes Doc Abstract lisinopril 40 MG tablet Take 1 tablet (40 mg total) by mouth daily. 01/27/19 Yes Penny Cedeño MD naproxen 375 MG tablet Take 375 mg by mouth 4 (four) times daily as needed. Yes Doc Abstract predniSONE 20 MG tablet Take 20 mg by mouth. 20 MG PER DAY FOR 10 DAYS. Yes Doc Abstract amlodipine 10 MG tablet Take 1 tablet (10 mg total) by mouth daily. 01/25/19 01/25/20 Ashok Caceres MD PAST MEDICAL HISTORY: Past Medical History: Diagnosis Date ??? Arthritis ??? Hypertension Rheumatoid arthritis PAST SURGICAL HISTORY: No past surgical history on file. Denies FAMILY HISTORY: Family History Problem Relation Name Age of Onset ??? Heart Disease Mother ??? Hypertension Mother ??? Diabetes Mother SOCIAL HISTORY: Social History Tobacco Use ??? Smoking status: Current Every Day Smoker Packs/day: 0.50 Years: 10.00 Pack years: 5.00 Types: Cigarettes ??? Smokeless tobacco: Never Used Substance Use Topics ??? Alcohol use: No Frequency: Never ??? Drug use: No staying at [facility] Review of Systems Review of Systems Constitutional: Positive for fatigue. Negative for appetite change, chills and fever. HENT: Negative. Negative for congestion. Eyes: Positive for visual disturbance. Pt denies loss of vision and blindness Respiratory: Negative. Negative for shortness of breath. Cardiovascular: Negative. Negative for chest pain. Pt reports high blood pressure Gastrointestinal: Negative. Negative for blood in stool, constipation, diarrhea, nausea and vomiting. Endocrine: Negative. Genitourinary: Negative. Negative for dysuria, flank pain, frequency, hematuria and urgency. Musculoskeletal: Negative. Skin: Negative. Allergic/Immunologic: Negative. Neurological: Positive for weakness. Negative for headaches. Hematological: Negative. Psychiatric/Behavioral: Negative. Physical Exam Filed Vitals: 01/27/19 0859 01/27/19 1023 BP: (!) 208/104 147/68 Pulse: 84 Resp: 26 Temp: 97.8 ??F (36.6 ??C) TempSrc: Oral SpO2: 97% Weight: (!) 173 kg (381 lb 6.3 oz) Height: 6' 5 (1.956 m) vss except for hypertension Physical Exam Nursing note and vitals reviewed. Generalized Appearance: No apparent distress. Obese. Well developed. Well nourished. Skin: Warm and dry. No rash. Head: Normocephalic and atraumatic Eyes: Conjunctiva clear with no scleral icterus or jaundice. PERRL/EOMI ENT: Oral mucosa is moist. Uvula is midline and nonedematous. Tonsils are normal size and symmetricwith no erythema present. Oropharynx is clear. Neck: Supple. Chest and Respiratory: Intermittent scattered expiratory wheezes. Airway patent. Breath sounds equal. No accessory muscle use. No respiratory distress. Cardiovascular: Regular rate and rhythm. No murmur, rubs, or gallops. Vascular: Brisk capillary refill. Radial pulses 2+ bilaterally. No edema to BLE. Musculoskeletal: Normal ROM. No deformity. Neurologic: Alert and oriented x 3. No gross motor deficits. Mental Status: Normal affect. Diagnostic Studies / Procedures ELECTROCARDIOGRAMS: Results for orders placed or performed during the hospital encounter of 01/27/19 ECG 12 lead Narrative SJS-ED Test Date: 2019-01-27 Pat Name: BRENNAN DOYLE Department: Room: EXAM QQ Gender: Male Senior Credit Analyst: LYNN : 1980 Requested By: PENNY CEDEÑO Order Number: [id number] Reading MD: Measurements Intervals [place] Rate: 75 P: 16 NC: 173 QRS: 29 QRSD: 98 T: 100 QT: 355 QTc: 398 Interpretive Statements SINUS RHYTHM NONSPECIFIC T-WAVE ABNORMALITY LABORATORY STUDIES: Results for orders placed or performed during the hospital encounter of 01/27/19 URINALYSIS Result Value Ref Range COLOR YELLOW TRANSPARENCY CLEAR Specific [place] (U) 1.023 1.002 - 1.035 U PH 6.0 5 - 8 PROTEIN, URINE NEGATIVE NEGATIVE URINE GLUCOSE 150 (A) NEGATIVE MG/DL U KETONES NEGATIVE NEGATIVE Urine Bilirubin NEGATIVE NEGATIVE BLOOD NEGATIVE NEGATIVE NITRITES NEGATIVE NEGATIVE UROBILINOGEN NORMAL 0 - 1 EU/DL LEUKOCYTE ESTERASE NEGATIVE NEGATIVE RBC/HPF <1 0 - 3 /HPF WBC/HPF 1 0 - 6 /HPF BACTERIA (URINE) NONE /HPF IMAGING STUDIES No orders to display ED Course / Medical Decision Making ED Course as of Jan 27 110WedJan 27, 2019 0954 EKG is normal sinus rhythm with no acute ST elevation. This is unchanged from previous. Labs were performed on previous ER visit 2 days ago. Labs were unremarkable including CBC, chemistry and troponin. Patient has a history of medication noncompliance although he states he did get them filled. He states he took his lisinopril and amlodipine this morning along with a diuretic. Patient will be given a second dose of lisinopril here. No changes on EKG. [MA] 1020 UA is negative. [MA] 1105 Patient was given a second dose of lisinopril. Repeat blood pressure is 147/68. Patient is resting comfortably and is asleep in the room. Discussed with him that we will increase his lisinopril dose to 40 mg a day. Follow-up closely for blood pressure recheck. Return for worsening problems or concerns. Patient agrees with plan. [MA] ED Course User Index [MA] Penny Cedeño MD Clinical Impression Hypertension (Primary) Medications lisinopril (PRINIVIL,ZESTRIL) tablet 20 mg (20 mg Oral Given 01/27/19 0951) Current Discharge Medication List Milli Baca MD [address] [facility] [place] [address] In 3 days call for follow up appointment Disposition: Discharge Margaret Chan, 01/27/19, 09:22. Provider Attestation: Portions of this note were transcribed by the scribe. I, PENNY CEDEÑO MD, personally performed the history, physical exam and medical decision making; and confirmed the accuracy of the information in the transcribed note. Authenticated by PENNY CEDEÑO MD on 01/27/2019 Penny Cedeño MD 01/27/19 1109 * Vielka Washington RN - 01/27/2019 9:00 AM CDT PT STATES THAT HE STARTED A NEW HTN MED THIS WEEK AND HAS BEEN MORE WEAK THAN NORMAL--- PT STATES THAT HE IS SEEING SPOTS AT TIMES AND SOB --- NO DISTRESS AT THIS TIME--- DENIES CP documented in this encounter Plan of Treatment Not on file documented as of this encounter Procedures Procedure Name Priority Date/Time Associated Diagnosis Comments URINALYSIS Nurse Collected Priority 01/27/2019 9:59 AM CDT ECG 12-LEAD STAT 01/27/2019 9:32 AM CDT documented in this encounter Results * (ABNORMAL) URINALYSIS (01/27/2019 9:59 AM CDT) COLOR (U) YELLOW 01/27/2019 10:14 AM CDT [facility] TRANSPARENCY CLEAR 01/27/2019 10:14 AM CDT [facility] SPECIFIC GRAVITY (U) 1.023 1.002 - 1.035 01/27/2019 10:14 AM CDT [facility] U PH 6.0 5 - 8 01/27/2019 10:14 AM CDT [facility] PROTEIN (U) NEGATIVE NEGATIVE 01/27/2019 10:14 AM CDT [facility] URINE GLUCOSE 150(A) NEGATIVE MG/DL 01/27/2019 10:14 AM CDT [facility] KETONES MG/DL (U) NEGATIVE NEGATIVE 01/27/2019 10:14 AM CDT [facility] BILIRUBIN (U) NEGATIVE NEGATIVE 01/27/2019 10:14 AM CDT [facility] BLOOD (U) NEGATIVE NEGATIVE 01/27/2019 10:14 AM CDT [facility] NITRITES NEGATIVE NEGATIVE 01/27/2019 10:14 AM CDT [facility] UROBILINOGEN NORMAL 0 - 1 EU/DL 01/27/2019 10:14 AM CDT [facility] LEUKOCYTES (U) NEGATIVE NEGATIVE 01/27/2019 10:14 AM CDT [facility] RBC/HPF <1 0 - 3 /HPF 01/27/2019 10:14 AM CDT [facility] WBC/HPF 1 0 - 6 /HPF 01/27/2019 10:14 AM CDT [facility] BACTERIA (U) NONE /HPF 01/27/2019 10:14 AM CDT [facility] URINE SPECIMEN OBTAINED BY CLEAN CATCH PROCEDURE / Unknown 01/27/2019 9:59 AM CDT Penny Cedeño MD URINE ORDERABLES Final Resu lt Performing Organization Address City/State/[facility] Co de Phone Number [facility] [address] [place] [address], [id number] * ECG 12 lead (01/27/2019 9:32 AM CDT) 01/27/2019 9:32 AM CDT Narrative [facility] - 01/27/2019 4:34 PM CDT ?SJS-ED ? Test Date: ?2019-01-27 Pat Name: ? BRENNAN DOYLE ? Department: ? Room: ? EXAM QQ Gender: ? Male ? Senior Credit Analyst: ?? SBEA : ?1980 ? Requested By: PENNY ALEPRA Order Number: [id number] ? Reading MD: ?? Chicho Adame ? Measurements Intervals ?[place] ? Rate: ? 75 ? P: ?16 NC: ? 173 ?QRS: ?29 QRSD: ? 98 ? T: ?100 QT: ? 355 ? QTc: ?398 ? Interpretive Statements SINUS RHYTHM NONSPECIFIC T-WAVE ABNORMALITY Procedure Note Chicho Adame MD - 01/27/2019 [facility]-ED Test Date: 2019-01-27 Pat Name: BRENNAN DOYLE Department: Room: EXAM Gender: Male Senior Credit Analyst: LYNN : 1980 Requested By: PENNY CEDEÑO Order Number: [id number] Reading MD: Chicho Adame Measurements Intervals [place] Rate: 75 P: 16 NC: 173 QRS: 29 QRSD: 98 T: 100 QT: 355 QTc: 398 Interpretive Statements SINUS RHYTHM NONSPECIFIC T-WAVE ABNORMALITY us Penny Cedeño MD ECG ORDERABLES Final Resul t [facility] documented in this encounter Visit Diagnoses Diagnosis Hypertension- Primary Unspecified essential hypertension documented in this encounter Administered Medications Inactive Administered Medications - up to 3 most recent administrations Medication Order MAR Action Action Date Dose Rate Site lisinopril (PRINIVIL,ZESTRIL) tablet 20 mg 20 mg, Oral, Once, 1 dose, On Wed01/27/19 at 0930 Given 01/27/2019 9:51 AM CDT 20 mg documented in this encounter Active and Recently Administered Medications Times are shown in CDT. Scheduled Medication Order 01/25/2019 01/26/2019 01/27/2019 lisinopril (PRINIVIL,ZESTRIL) tablet 20 mg (COMPLETED) 20 mg, Oral, Once, 1 dose, On Wed01/27/19 at 0930 0951 (Given - Provid er: Krupa Hernandez RN) documented in this encounter Care Teams Inspector Air Carrier Relationship Specialty Start Date End Date None, Provider, PCP - General 05/18/18 03/08/19 documented as of this encounter
--- OUTSIDE RECORDS SUMMARY | 2024-08-30 23:13 | XMS_ITS | Encounter Summary ---
Author Organization [facility] Address [facility], [id number] [facility]. [place], [place] [address] [place] [address] Care Team Providers Care Tier Lift Operator Name Role Phone None, Provider Primary Care Provider Rambo guillaume Encounter Details Date Type Department Care Team (Latest Contact Info) Description 08/01/2024 Travel Social History Tobacco Use Types Packs/Day Years [...] on file documented as of this encounter Functional Status * RETIRED Are [...] 3:52 PM ALBAT Bailey Osman RN Active * Because of a physical, mental, or emotional condition, do you have difficulty doing errands alone such as visiting a doctor's office or shopping? Answer Date of Assessment Author Status No 03/09/2019 3:52 PM Bailey Gonzalez RN Active documented as of this encounter Mental Status * Because of a physical, mental, or emotional condition, do you have serious difficulty concentrating, remembering, or making decisions? Answer Entry Date Author Status No 03/09/2019 3:52 PM Bailey Gonzalez RN Active documented in this encounter Plan of Treatment Not on file documented as of this encounter Visit Diagnoses Not on filedocumented in this encounter Care Teams Tier Lift Operator Relationship Specialty Start Date End Date None, Provider, PCP - General UNKNOWN PHYSICIAN SPECIALTY 08/01/24 documented as of this encounter
--- OUTSIDE RECORDS SUMMARY | 2024-08-30 23:14 | XMS_ITS | Encounter Summary ---
Author Organization [facility] Address [facility]. [place], [place] [id number] [place] [id number] Care Team Providers Care Administrative Assistant Receptionist Name Role Phone Unavailable Primary Care Provider Unavailabl e Encounter Details Date Type Department Care Team (Late st Contact Info) Description 05/24/2004 Emergency [facility] [place] [address] Otilia Alexander MD Social History Tobacco Use Types Packs/Day Years Used Date Smoking Tobacco: Never Assessed Sex and Gender Information Value Date Recorded Sex Assigned at Not on file Legal Sex Male 8:33 PM CDT Gender Identity Not on file Sexual Orientation Not on file documented as of this encounter Plan of Treatment Not on file documented as of this encounter Visit Diagnoses Not on filedocumented in this encounter
--- OUTSIDE RECORDS SUMMARY | 2024-08-30 23:14 | XMS_ITS | Encounter Summary ---
Author Organization [facility] Address [facility]. [place], [place] [id number] [place] [id number] Care Team Providers Care Strategy Consultant Name Role Phone Unavailable Primary Care Provider Unavailabl e Encounter Details Date Type Department Care Team (Late st Contact Info) Description 12/24/2007 Abstract [place] [address] , Generic Conversion, Social History Tobacco Use Types Packs/Day Years [...]
--- OUTSIDE RECORDS SUMMARY | 2024-08-30 23:14 | XMS_ITS | Encounter Summary ---
Author Organization [facility] Address [facility]6 [facility]. [place], [place] [id number] [place] [id number] Care Team Providers Care Negative Restorer Name Role Phone Unavailable Primary Care Provider Unavailabl e Reason for Referral * Imaging (Emergency) - Closed Specialty Diagnoses / Procedures Referred By Belinda lewis Referred To Contact Procedures CT HEAD WO CON Bryanna Nciole FNP [address] [address] Phone: tel: fax: Referral ID Status Reason Start Date Expiration Date Visits Re quested Visits Authorized [id number] Closed 04/05/2018 05/06/2019 1 1 Reason for Visit * Reason Comments Blood Pressure Changes Encounter Details Date Type Department Care Team (Late st Contact Info) Description 04/05/2018 1:31 PM CDT - 04/05/2018 3:30 PM CDT Emergency [facility] Emergency [address] [place] [address] Bryanna Nicole FNP [address] [id number] Blood Pressure Changes Discharge Disposition: Home or Self Care (Routine [...] Sign Reading Time Taken Comments Blood Pressure 166/90 04/05/2018 2:47 PM CDT Pulse 104 04/05/2018 2:45 PM CDT Temperature 36.9 ??C (98.4 ??F) 04/05/2018 1:26 PM CD T Respiratory Rate 16 04/05/2018 1:26 PM CDT Oxygen Saturation 95% 04/05/2018 1:26 PM CDT Inhaled Oxygen Concentration - - Weight 148.7 kg (327 lb 13.2 oz) 04/05/2018 1:26 PM CDT Height 195.6 cm (6' 5 ) 04/05/2018 1:26 PM CDT Body Mass Index 38.87 04/05/2018 1:26 PM CDT documented in this encounter Discharge Instructions * Discharge Instructions* Bryanna Nicole, [employer] AP[employer]AISER - 04/05/2018 2:58 PM CDT Images from the original note were not included. Take all medication as prescribed Slow position changes Increase fluids to at least 64 ounces per day Thank you for choosing [facility]. I am glad to care for you and be part of your health care team. I encourage follow up with a primary care doctor. As discussed, it is important that you followup with your health care provider for further questions and examination as well as possible further testing and therapy if this is needed. If you have any new symptoms or increase in symptoms, return to the Emergency Department or see your primary care physician. If you receive a survey please take the time to fill it out if you were pleased with your services today. Patient Education High Blood Pressure Discharge Instructions About this topic High blood pressure happens when your heart is working harder than normal to pump blood to the body. Most people have no known cause or reason for high blood pressure. High blood pressure cannot be cured. You must control it with drugs and lifestyle changes. If high blood pressure is not controlled, it can lead to heart attack, stroke, and kidney problems. What care is needed at home? ?? Ask your doctor what you need to do when you go home. Make sure you ask questions if you do not understand what the doctor says. This way you will know what you need to do. ?? Learn to take and write down your blood pressure at home. ?? Avoid stress. What follow-up care is needed? Your doctor may ask you to make visits to the office to check on your progress. Be sure to keep these visits. What drugs may be needed? The doctor may order drugs to help control your high blood pressure. Take your drugs as ordered. Donot take other prescription drugs or tcdh-eys-fddbkfa (OTC) drugs without talking to your doctor first. Will physical activity be limited? Talk to your doctor about the right amount of activity for you. Exercise may help you lose weight and lower your blood pressure. What changes to diet are needed? ?? Do not use salt on your food. Use herbs to improve the taste. ?? Do not eat more than 2.4 grams of sodium a day. Read food labels to see how much sodium is in a food. ?? Limit coffee, tea, and soda to 2 cups (480 mL) a day. ?? Limit beer, wine, and mixed drinks (alcohol) to 1 drink a day for women and 2 drinks a day for men. ?? Eat lots of fruits, vegetables, and low-fat dairy products. ?? Avoid fatty foods like fried foods or chips. ?? Talk with your dietitian about the diet changes you need and the number of calories you should eat each day. What problems could happen? ?? Heart attack, heart failure, or other heart problems ?? Stroke ?? Swelling of blood vessels ?? Kidney failure ?? Loss of eyesight ?? Memory problems ?? Fluid in the lungs What can be done to prevent this health problem? ?? Exercise regularly. ?? Avoid weight gain. ?? Stop smoking. Your doctor can tell you about stop smoking programs. ?? Learn to lower stress. When do I need to call the doctor? Activate the emergency medical system right away if you have signs of a heart attack or stroke. Call 911 in the [place] or [place]. The sooner treatment begins, the better your chances for recovery. Call for emergency help right away if you have: ?? Signs of heart attack: ?? Chest pain ?? Trouble breathing ?? Fast heartbeat ?? Feeling dizzy ?? Signs of stroke: ?? Sudden numbness or weakness of the face, arm, or leg, especially on one side of the body ?? Sudden confusion, trouble speaking or understanding ?? Sudden trouble seeing in one or both eyes ?? Sudden trouble walking, dizziness, loss of balance or coordination ?? Sudden severe headache with no known cause ?? Face droops on one side Call your doctor if you have: ?? Blood pressure that is 20 points higher than your normal top or bottom number ?? Blood pressure that is higher than 220/120 ?? Very bad headache ?? Confusion ?? Sudden change in hearing or eyesight ?? Nosebleed ?? You are not feeling better in 2 to 3 days or you are feeling worse Teach Back: Helping You Understand The Teach Back Method helps you understand the information we are giving you. The idea is simple. After talking with the staff, tell them in your own words what you were just told. This helps to makesure the staff has covered each thing clearly. It also helps to explain things that may have been abit confusing. Before going home, make sure you are able to do these: ?? I can tell you about my condition. ?? I can tell you what numbers are too high for my blood pressure. ?? I can tell you what I will do if I have signs of a heart attack or stroke. Where can I learn more? [employer] http://www.heart.org/HEARTORG/Conditions/HighBloodPressure/AboutHighBloodPressur e/Nxxid-Koga-Nmngs-Pressure_UC_002050_Article.jsp#.V0aM7YocX4q [place] Stroke Association http://www.strokeassociation.org/STROKEORG/WarningSigns/Pcjhaw-Ucpamkp-Bghuo-and -Symptoms_UC_308528_SubHomePage.jsp Better Health Channel http://www.betterhealth.starr.gov.au/bhcv2/bhcarticles.nsf/pages/Hypertension_mean s_high_blood_pressure National Heart Lung and Blood [place] http://www.nhlbi.nih.gov/health/health-topics/topics/hbp/ National [place] of Health ? Senior Health http://nihseniorhealth.gov/highbloodpressure/whatishighbp/01.html NHS Choices http://www.nhs.uk/conditions/blood-pressure-(high)/pages/introduction.aspx Last Reviewed Date 2016-05-01 Consumer Information Use and Disclaimer This information is not specific medical advice and does not replace information you receive from your health care provider. This is only a brief summary of general information. It does NOT include all information about conditions, illnesses, injuries, tests, procedures, treatments, therapies, discharge instructions or life-style choices that may apply to you. You must talk with your health care provider for complete information about your health and treatment options. This information should not be used to decide whether or not to accept your health care provider???s advice, instructions or recommendations. Only your health care provider has the knowledge and training to provide advice that is right for you. Copyright Copyright ?? 2018 [employer]. and its affiliates and/or licensors. All rights reserved. * Attachments The following attachments cannot be sent through Care Everywhere. * SINUSITIS DISCHARGE INSTRUCTIONS, ADULT (LAO) documented in this encounter Medications at Time of Discharge amoxicillin 875 MG tablet Take 1 tablet (875 mg total) by mouth 2 (two) times daily for 10 days. 20 tablet 04/05/2018 04/15/2018 fluticasone propionate (FLONASE) 50 MCG/ACT nasal spray 1 spray by Nasal route daily for 30 days. 0.01 g 04/05/2018 05/05/2018 documented as of this encounter ED Notes * SUDHIR Bernard - 04/05/2018 2:02 PM CDT IRamiro Scribe, am personally taking down the notes in the presence of SUDHIR Bernard.?Take no action on this note until reviewed and authenticated??by the physician. Chief Complaint Chief Complaint Patient presents with ??? Blood Pressure Changes History of Present Illness History provided by: Patient Patient is a 37 year old male who presents to the emergency department seeking evaluation for dizziness onset prior to arrival. Patient states he was seen at [facility] earlier and his blood pressure was 170/118 and they prescribed him hypertension medication. He states he is unable to fill the prescription until tomorrow. He states today he bent down and he became lightheaded. Patient wants some medication to last him until he can fill the prescription. He reports he has a history of hypertension. Patient states dizziness is a new symptom. According to paperwork he had, patient has a history of cocaine abuse. Patient is otherwise at baseline of health. All other review of systems negative after full review. Medical History ALLERGIES: Allergies Allergen Reactions ??? Codeine Rash MEDICATIONS: Prior to Admission medications Medication Sig Start Date End Date Taking? Authorizing Provider amoxicillin 875 MG tablet Take 1 tablet (875 mg total) by mouth 2 (two) times daily for 10 days. 04/05/18 04/15/18 Yes SUDHIR Bernard fluticasone propionate (FLONASE) 50 MCG/ACT nasal spray 1 spray by Nasal route daily for 30 days. 04/05/18 05/05/18 Yes SUDHIR Bernard PAST MEDICAL HISTORY: No past medical history on file. PAST SURGICAL HISTORY: No past surgical history on file. FAMILY HISTORY: No family history on file. SOCIAL HISTORY: Social History Substance Use Topics ??? Smoking status: Not on file ??? Smokeless tobacco: Not on file ??? Alcohol use Not on file Review of Systems Review of Systems Constitutional: Negative. HENT: Negative. Eyes: Negative. Respiratory: Negative. Cardiovascular: Negative. Gastrointestinal: Negative. Endocrine: Negative. Genitourinary: Negative. Musculoskeletal: Negative. Skin: Negative. Allergic/Immunologic: Negative. Neurological: Positive for dizziness. Hematological: Negative. Psychiatric/Behavioral: Negative. All other systems reviewed and are negative. Physical Exam Filed Vitals: 04/05/18 1326 04/05/18 1442 04/05/18 1445 04/05/18 1447 BP: 169/88 163/76 163/87 166/90 Pulse: 95 96 104 Resp: 16 Temp: 98.4 ??F (36.9 ??C) TempSrc: Oral SpO2: 95% Weight: (!) 148.7 kg (327 lb 13.2 oz) Height: 6' 5 (1.956 m) Physical Exam Nursing note and vitals reviewed. General Appearance: No apparent distress. Well developed. Well nourished. Skin: Warm, pink, and dry. No rash. Head: Normocephalic and atraumatic. Eyes: Conjunctiva clear with no scleral icterus or jaundice. ENT: Oral mucosa is moist. Chest and Respiratory: Airway patent. Breath sounds equal. Lungs clear to auscultation. No stridor,wheezes, rales, or rhonchi. No accessory muscle use. No respiratory distress. Cardiovascular: Regular rate and rhythm. No murmur, rubs, or gallops. Musculoskeletal: Normal ROM. No deformity Neurologic: Alert and oriented x 3. No gross motor deficits. Mental Status: Normal affect. Genital-Rectal male: Deferred. Diagnostic Studies / Procedures ELECTROCARDIOGRAMS: Results for orders placed or performed during the hospital encounter of 04/05/18 ECG 12 lead Narrative SJS-ED Test Date: 2018-04-05 Pat Name: YAKOV DOYLE Department: 70 Room: [facility] Gender: Male Medical Esthetician: ROGERS : 1980 Requested By: BRYANNA NICOLE Order Number: [id number] Reading MD: David Farmer Measurements Intervals [place] Rate: 86 P: 17 SD: 185 QRS: 2 QRSD: 98 T: 91 QT: 374 QTc: 450 Interpretive Statements SINUS RHYTHM NONSPECIFIC T-WAVE ABNORMALITY LABORATORY STUDIES: Results for orders placed or performed during the hospital encounter of 04/05/18 CBC W/DIFF AUTOMATED Result Value Ref Range WBC 7.9 4.0 - 10.8 x10'3/uL RBC 4.67 4.50 - 6.10 x10'6/uL HGB 13.3 13.0 - 18.0 G/DL HCT 39.7 37.0 - 52.0 % MCV 85.0 78.0 - 100.0 FL MCH 28.5 27.0 - 31.0 PG MCHC 33.5 33.0 - 36.0 G/DL RDW 14.1 11.5 - 14.5 % PLT 232 150 - 350 x10'3/uL MPV 9.7 7.4 - 10.4 FL ABS. NEUTROPHILS TOTAL 5.01 1.60 - 8.30 x10'3/uL ABS. LYMPHOCYTES 1.86 0.80 - 4.70 x10'3/uL ABS. MONOCYTES 0.68 0.00 - 1.50 x10'3/uL ABS. EOSINOPHILS 0.32 0.00 - 0.40 x10'3/uL ABS. BASOPHILS 0.04 0.00 - 0.20 x10'3/uL ABS. IMMATURE GRANULOCYTES 0.02 0.00 - 0.03 x10'3/uL ABS. NUCLEATED RBC'S 0.00 0.0 x10'3/uL COMPREHENSIVE METABOLIC PANEL Result Value Ref Range SODIUM 143 136 - 145 MMOL/L POTASSIUM 3.9 3.5 - 5.1 MMOL/L CHLORIDE 108 (H) 98 - 107 MMOL/L CO2 29.0 21.0 - 32.0 MMOL/L GLUCOSE 132 (H) 74 - 106 MG/DL BUN 14 7 - 18 MG/DL CREATININE 0.96 0.70 - 1.30 MG/DL CALCIUM 8.7 8.4 - 10.5 MG/DL TOTAL BILIRUBIN 0.2 0.2 - 1.0 MG/DL ALK PHOS 84 45 - 115 U/L AST 19 15 - 37 U/L ALT 39 16 - 61 U/L TOTAL PROTEIN 6.5 6.4 - 8.2 G/DL ALBUMIN 3.2 (L) 3.4 - 5.0 G/DL ANION GAP 6.0 MMOL/L OSMOLALITY (CALC) 298 MOSM/KG eGFR Non-Afr. Amer. >90 >90 ML/MIN/1.73 M2 eGFR Afr. Amer. >90 >90 ML/MIN/1.73 M2 HEMOGLOBIN, GLYCOSYLATED Result Value Ref Range HGB A1C 5.7 4.2 - 6.3 % ESTIMATED AVERAGE GLUCOSE 117 (H) 74 - 106 MG/DL IMAGING STUDIES CT HEAD WO CON Final Result by User, [email or web address] (04/05 1437) Date: 04/05/2018 2:29 PM Exam: CT HEAD WO CON Comparison: No comparisons. Technique: Thin section images were obtained from the skull base through the vertex without IV contrast infusion. A dose lowering technique was used for this procedure, which may include, but is not limited to, dose reduction technique, automated exposure control, the use of iterative reconstruction, and ALARA (As Low As Reasonably Achievable)/ Image gently techniques. History: Dizziness. Findings: There is no atrophy nor white matter disease. There is no intracranial hemorrhage. The cancino white matter differentiation is preserved. There is no hyperdense arterial sign. There is no vascular distribution infarct. There are no masses nor mass effect. The basilar cisterns are preserved. There is travis paranasal sinus disease with near complete opacification of the left maxillary sinus. The mastoid air cells are clear. What is visualized of the middle ear cavities appear normal. The calvarium is intact. Impression: 1. No acute intracranial abnormality. 2. Travis paranasal sinus disease. Interpreted By: Charlie Johnson, 04/05/2018 2:32 PM Order Doctor: BRYANNA NICOLE ED Course / Medical Decision Making Patient is a 37 y/o male who is currently residing at the [facility]. Today while bending over working he developed dizziness and had a near syncopal episode. AT that time his blood pressure was found to be 170/118 He was seen at [facility] and was prescribed BP meds but he doesn't have the money to fill them today, but will have tomorrow. He states that he just needs medication until then to lower his blood pressure. Denies dizziness except when bending over and with position change. I have seen the patient. They have received a medical screening exam. I found that they are stable for discharge as evidenced by???. We discussed strict return precautions. Patient was eating and drinking prior to discharge. Patient was ambulatory. Patient was displaying no symptoms of distress, with an improved pain level Discharge plan was discussed with patient the patient thanked me and agreed with the plan. The patient was given prescriptions for... And was advised no driving, drinking of alcoholic beverages, or operating machinery. Chart to be signed by: . Comment By Time Findings: There is no atrophy nor white matter disease. There is no intracranial hemorrhage. The cancino white matter differentiation is preserved. There is no hyperdense arterial sign. There is no vascular distribution infarct. There are no masses nor mass effect. The basilar cisterns are preserved. There is travis paranasal sinus disease with near complete opacification of the left maxillary sinus. The mastoid air cells are clear. What is visualized of the middle ear cavities appear normal. The calvarium is intact. ? Impression ?? Impression: 1. No acute intracranial abnormality. 2. Travis paranasal sinus disease. ?? Interpreted By: Charlie Johnson, 04/05/2018 2:32 PM Bryanna Nicole, [facility] 04/05 8341 Patient denies personal history of elevated blood sugar. States that mother is a diabetic Bryanna Nicole, [facility] 04/05 1520 Clinical Impression Hypertension (Primary) Sinusitis, acute maxillary Medications cloNIDine (CATAPRES) tablet 0.2 mg (0.2 mg Oral Given 04/05/18 1439) Discharge Medication List as of 04/05/2018 3:23 PM START taking these medications Details amoxicillin 875 MG tablet Take 1 tablet (875 mg total) by mouth 2 (two) times daily for 10 days., Starting 04/05/2018, Until Wed04/15/18, Eprescribe Class: Eprescribe Pharmacy: [facility]/pharmacy #[id number] - [place] [address] [address] [facility] (Ph #: [phone]) fluticasone propionate (FLONASE) 50 MCG/ACT nasal spray 1 spray by Nasal route daily for 30 days., Starting 04/05/2018, Until Radha 05/05/18, Eprescribe Class: Eprescribe Pharmacy: [facility]/pharmacy #[id number] [place] [address] [address] [facility] (Ph #: [phone]) [facility] [address] [facility] [address] Schedule an appointment as soon as possible for a visit in 1 week If symptoms worsen Disposition: Discharge Ramiro Holloway, 04/05/18, 14:36. SUDHIR Bernard 04/05/182013 Cosigned by John Harris MD at 04/08/2018 9:07 AM CDT * Vielka Washington RN - 04/05/2018 1:23 PM CDT PT STATES THAT HE IS STAYING AT THE [employer] AND WAS WORKING, FELT DIZZY AND WAS TOLD THAT HIS BP WAS ELEVATED--- PT STATES THAT HE IS NOT ON BP MEDS AND CAME HERE FOR POSSIBLE MEDS documented in this encounter Plan of Treatment Not on file documented as of this encounter Procedures Procedure Name Priority Date/Time Associated Diagnosis Comments ECG 12-LEAD STAT 04/05/2018 2:[address] HEAD WO CON STAT 04/05/2018 2:30 PM CDT COMPREHENSIVE METABOLIC PANEL STAT 04/05/2018 2:28 PM CDT HEMOGLOBIN, GLYCOSYLATED STAT 04/05/2018 2:27 PM CDT CBC W/DIFF AUTOMATED STAT 04/05/2018 2:27 PM CDT documented in this encounter Results * ECG 12 lead (04/05/2018 2:45 PM CDT) 04/05/2018 2:45 PM CDT Narrative [facility] - 04/05/2018 4:28 PM CDT ?SJS-ED ? Test Date: ?2018-04-05 Pat Name: ? YAKOV DOYLE ? Department: ?? 70 ? Room: ? [id number] Gender: ? Male ? Medical Esthetician: ?? OW : ?1980 ? Requested By: BRYANNA NICOLE Order Number: [id number] ? Reading MD: ?? David Farmer ? Measurements Intervals ?[place] ? Rate: ? 86 ? P: ?17 SD: ? 185 ?QRS: ?2 QRSD: ? 98 ? T: ?91 QT: ? 374 ? QTc: ?450 ? Interpretive Statements SINUS RHYTHM NONSPECIFIC T-WAVE ABNORMALITY Procedure Note David Farmer MD - 04/05/2018 SJS-ED Test Date: 2018-04-05 Pat Name: YAKOV DOYLE Department: 70 Room: [id number] Gender: Male Medical Esthetician: OW : 1980 Requested By: BRYANNA NICOLE Order Number: [id number] Drew MD: David Farmer Measurements Intervals [place] Rate: 86 P: 17 SD: 185 QRS: 2 QRSD: 98 T: 91 QT: 374 QTc: 450 Interpretive Statements SINUS RHYTHM NONSPECIFIC T-WAVE ABNORMALITY us Bryanna Nicole [employer] APPRAISER ECG ORDERABLES Final Result [facility] * CT HEAD WO CON (04/05/2018 2:30 PM CDT) Anatomical Region Laterality Modality Head Computed Tomogra phy 04/05/2018 2:32 PM CDT Impressions 04/05/2018 2:36 PM CDT Impression: 1. No acute intracranial abnormality. 2. Travis paranasal sinus disease. Interpreted By: Charlie Johnson, 04/05/2018 2:32 PM Order Doctor: BRYANNA NICOLE Narrative 04/05/2018 2:36 PM CDT Date: 04/05/2018 2:29 PM Exam: CT HEAD WO CON Comparison: No comparisons. Technique: Thin section images were obtained from the skull base through the vertex without IV contrast infusion. A dose lowering technique was used for this procedure, which may include, but is not limited to, dose reduction technique, automated exposure control, the use of iterative reconstruction, and ALARA (As Low As Reasonably Achievable)/ Image gently techniques. History: Dizziness. Findings: There is no atrophy nor white matter disease. There is no intracranial hemorrhage. The cancino white matter differentiation is preserved. There is no hyperdense arterial sign. There is no vascular distribution infarct. There are no masses nor mass effect. The basilar cisterns are preserved. There is travis paranasal sinus disease with near complete opacification of the left maxillary sinus. The mastoid air cells are clear. What is visualized of the middle ear cavities appear normal. The calvarium is intact. Procedure Note Charlie Johnson MD - 04/05/2018 Date: 04/05/2018 2:29 PM Exam: CT HEAD WO CON Comparison: No comparisons. Technique: Thin section images were obtained from the skull base through the vertex without IV contrast infusion. A dose lowering technique wasused for this procedure, which may include, but is not limited to, dose reduction technique, automated exposure control, the use of iterative reconstruction, and ALARA (As Low As Reasonably Achievable)/ Imagegently techniques. History: Dizziness. Findings: There is no atrophy nor white matter disease. There is no intracranial hemorrhage. The cancino white matter differentiation is preserved. There is no hyperdense arterial sign. There is no vascular distribution infarct. There are no masses nor mass effect. The basilar cisterns are preserved. There is travis paranasal sinus disease with near complete opacification of the left maxillary sinus. The mastoid aircells are clear. What is visualized of the middle ear cavities appear normal.The calvarium is intact. Impression: 1. No acute intracranial abnormality. 2. Travis paranasal sinus disease. Interpreted By: Charlie Johnson, 04/05/2018 2:32 PM Order Doctor: BRYANNA NICOLE Bryanna Nicole [employer] APPRAISER CT Final Result * (ABNORMAL) COMPREHENSIVE METABOLIC PANEL (04/05/2018 2:28 PM CDT) SODIUM S/P/B 143 136 - 145 MMOL/L 04/05/2018 3:05 PM CDT [facility] POTASSIUM S/P/B 3.9 3.5 - 5.1 MMOL/L 04/05/2018 3:05 PM CDT [facility] CHLORIDE S/P/B 108(H) 98 - 107 MMOL/L 04/05/2018 3:05 PM CDT [facility] CO2 29.0 21.0 - 32.0 MMOL/L 04/05/2018 3:05 PM CDT [facility] GLUCOSE 132(H) 74 - 106 MG/DL 04/05/2018 3:05 PM CDT [facility] BUN 14 7 - 18 MG/DL 04/05/2018 3:05 PM CDT [facility] CREATININE S/P/B 0.96 0.70 - 1.30 MG/DL 04/05/2018 3:05 PM CDT [facility] CALCIUM S/P/B 8.7 8.4 - 10.5 MG/DL 04/05/2018 3:05 PM CDT [facility] BILIRUBIN TOTAL S/P/B 0.2 0.2 - 1.0 MG/DL 04/05/2018 3:05 PM T [facility] ALKALINE PHOSPHATASE S/P/B 84 45 - 115 U/L 04/05/2018 3:05 PM [facility] AST 19 15 - 37 U/L 04/05/2018 3:05 PM [facility] ALT 39 16 - 61 U/L 04/05/2018 3:05 PM [facility] TOTAL PROTEIN S/P/B 6.5 6.4 - 8.2 G/DL 04/05/2018 3:05 PM [facility] ALBUMIN S/P/B 3.2(L) 3.4 - 5.0 G/DL 04/05/2018 3:05 PM [facility] ANION GAP 6.0 MMOL/L 04/05/2018 3:05 PM [facility] Comment:REFERENCE RANGE NOT ESTABLISHED OSMOLALITY (CALC) 298 MOSM/KG 018 3:05 PM [facility] Comment:REFERENCE RANGE NOT ESTABLISHED EGFR NON-AFR. AMER. >90 >90 ML/MIN/1.7 3 M2 04/05/2018 3:05 PM [facility] LAB Comment: THE ESTIMATED GFR IS [...] AFR. AMER. >90 >90 ML/MIN/1.7 3 M2 04/05/2018 3:05 PM CDT [facility] Comment: THE ESTIMATED GFR IS CALCULATED [...] ml/min/1.73 m2 G5,KIDNEY FAILURE: <15 ml/min/1.73 m2 04/05/2018 2:28 PM CDT [facility] Final Result Performing Organization Address [facility] de Phone Number [facility] [address] [place] [address], [phone] * (ABNORMAL) HEMOGLOBIN, GLYCOSYLATED (04/05/2018 2:27 PM CDT) HGB A1C 5.7 4.2 - 6.3 % 04/05/2018 5:46 PM CDT [facility] ESTIMATED AVG GLUCOSE 117(H) 74 - 106 MG/DL 04/05/2018 5:46 PM CDT [facility] 04/05/2018 2:27 PM CDT [facility] Final Result Performing Organization Address [facility] de Phone Number [facility] [address] [place] [address], [id number] * CBC W/DIFF AUTOMATED (04/05/2018 2:27 PM CDT) WBC 7.9 4.0 - 10.8 x10'3/uL 04/05/2018 2:38 PM CDT [facility] RBC 4.67 4.50 - 6.10 x10'6/uL 04/05/2018 2:38 PM CDT [facility] HGB 13.3 13.0 - 18.0 G/DL 04/05/2018 2:38 PM CDT [facility] HCT 39.7 37.0 - 52.0 % 04/05/2018 2:38 PM CDT [facility] MCV 85.0 78.0 - 100.0 FL 04/05/2018 2:38 PM CDT [facility] MCH 28.5 27.0 - 31.0 PG 04/05/2018 2:38 PM CDT [facility] MCHC 33.5 33.0 - 36.0 G/DL 04/05/2018 2:38 PM CDT [facility] RDW 14.1 11.5 - 14.5 % 04/05/2018 2:38 PM CDT [facility] PLT 232 150 - 350 x10'3/uL 04/05/2018 2:38 PM CDT [facility] MPV 9.7 7.4 - 10.4 FL 04/05/2018 2:38 PM CDT [facility] ABS. NEUTROPHILS TOTAL 5.01 1.60 - 8.30 x10'3/uL 04/05/2018 2:38 PM CDT [facility] ABS. LYMPHOCYTES 1.86 0.80 - 4.70 x10'3/uL 04/05/2018 2:38 PM CDT [facility] ABS. MONOCYTES 0.68 0.00 - 1.50 x10'3/uL 04/05/2018 2:38 PM CDT [facility] ABS. EOSINOPHILS 0.32 0.00 - 0.40 x10'3/uL 04/05/2018 2:38 PM CDT [facility] ABS. BASOPHILS 0.04 0.00 - 0.20 x10'3/uL 04/05/2018 2:38 PM CDT [facility] ABS. IMMATURE GRANULOCYTES 0.02 0.00 - 0.03 x10'3/uL 04/05/2018 2:38 PM CDT [facility] ABS. NUCLEATED RBC'S 0.00 0.0 x10'3/uL 04/05/2018 2:38 PM CDT [facility] 04/05/2018 2:27 PM CDT [facility] LAB[facility] Final Result [facility] [address] [place] [address], [id number] documented in this encounter Visit Diagnoses Diagnosis Hypertension- Primary Unspecified essential hypertension Sinusitis, acute maxillary Acute maxillary sinusitis documented in this encounter Administered Medications Inactive Administered Medications - up to 3 most recent administrations Medication Order MAR Action Action Date Dose Rate Site cloNIDine (CATAPRES) tablet 0.2 mg 0.2 mg, Oral, Once, 1 dose, On Wed04/05/18 at 1430 Given 04/05/2018 2:39 PM CDT 0.2 mg documented in this encounter Active and Recently Administered Medications Times are shown in CDT. Scheduled Medication Order 04/03/2018 04/04/2018 04/05/2018 cloNIDine (CATAPRES) tablet 0.2 mg (COMPLETED) 0.2 mg, Oral, Once, 1 dose, On Wed04/05/18 at 1430 1439 (Given - Provid er: Lorri Zafar RN) documented in this encounter
--- OUTSIDE RECORDS SUMMARY | 2024-08-30 23:17 | XMS_ITS | Encounter Summary ---
Author Organization [facility] Healthcare Address [address] [place] [address] Care Team Providers Care Shirt Marker Name Role Phone Milli Baca MD Primary Care Provider Encounter Details Date Type Department Care Team (Late st Contact Info) Description 10/21/[address] [id number] Mabel Granger RN Social History Tobacco Use Types Packs/Day Years Used Date Smoking Tobacco: Unknown Sex and Gender Information Value Date Recorded Sex Assigned at Not on file Legal Sex Male 6:38 PM PATIENT ATTENDANT Gender Identity Not on file Sexual Orientation Not on file documented as of this encounter ED Notes * Mabel Granger RN - 10/21/2022 12:56 PM CST This RN spoke briefly with the pt as an AMA follow up before he hung up on this RN. Mabel Granger RN 10/21/22 1257 ENT ATTENDANT documented in this encounter Plan of Treatment Not on file documented as of this encounter Visit Diagnoses Not on filedocumented in this encounter Care Teams Shirt Marker Relationship Specialty Start Date End Date Milli Baca MD PCP - General 01/21/19 documented as of this encounter
--- OUTSIDE RECORDS SUMMARY | 2024-08-30 23:17 | XMS_ITS | Encounter Summary ---
Author Organization [facility] Healthcare Address [address] [place] [id number] Care Team Providers Care Data Entry Email Processor Name Role Phone Milli Baca MD Primary Care Provider Reason for Visit * Reason Onset Date Comments Test Results 10/24/2022 Encounter Details Date Type Department Care Team (Late st Contact Info) Description 10/24/2022 Telephone [facility] HealthCare/ Physicians [facility] [place] [address] Trish Corrigan RN Test Results Social History Tobacco Use Types Packs/Day Years Used Date Smoking Tobacco: Unknown Sex and Gender Information Value Date Recorded Sex Assigned at Not on file Legal Sex Male 6:38 PM NURSING PROGRAM CHAIR Gender Identity Not on file Sexual Orientation Not on file documented as of this encounter Ordered Prescriptions Prescription Sig Dispense Quantity Refills Last Filled Start Date End Date doxycycline (VIBRAMYCIN) 100 mg capsuleIndications: Skin/Soft Tissue Infection Take 1 tablet/caps ule (100 mg total) by mouth 2 (two) times a day for 7 days 14 tablet/capsule 10/24/2022 10/31/2022 documented in this encounter Miscellaneous Notes * Telephone Encounter - Trish Corrigan RN - 10/24/2022 1:56 PM NURSING PROGRAM CHAIR Spoke w pt and reviewed test results and medication. Sent script to preferred pharmacy. Let pt knowto f/u w PCP ING PROGRAM CHAIR * Telephone Encounter - Trish Corrigan RN - 10/24/2022 1:45 PM NURSING PROGRAM CHAIR ----- Message from LUCIUS Back sent at 10/23/2022 4:28 PM NURSING PROGRAM CHAIR ----- Please call the patient regarding his abnormal result. Patient with MSSA abscess. 100mg doxycyclineBID x 7 days. Please follow up with primary care doctor ING PROGRAM CHAIR documented in this encounter Plan of Treatment Not on file documented as of this encounter Visit Diagnoses Diagnosis MSSA (methicillin susceptible Staphylococcus aureus) infection- Primary Methicillin susceptible Staphylococcus aureus in conditions classified elsewhere and of unspecified site documented in this encounter Care Teams Data Entry Email Processor Relationship Specialty Start Date End Date Milli Baca MD PCP - General 01/21/19 documented as of this encounter
--- OUTSIDE RECORDS SUMMARY | 2024-08-30 23:17 | XMS_ITS | Clinical Summary ---
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 Gender Identity Not on file Sexual Orientation Not on file Obstetrics History Last Filed Vital Signs Vital Sign Reading Time Taken Comments Blood Pressure 190/113 10/20/2022 10:50 AM BLOWER INSTALLER Pulse 70 10/20/2022 10:50 AM BLOWER INSTALLER Temperature 36.8 ??C (98.3 ??F) 10/20/2022 8:56 AM CS T Respiratory Rate 18 10/20/2022 10:5 0 AM BLOWER INSTALLER Oxygen Saturation 96% 10/20/2022 10: 50 AM BLOWER INSTALLER Inhaled Oxygen Concentration - - Weight 156.4 kg (344 lb 12.8 oz) 10/20/2022 8:56 AM BLOWER INSTALLER Height 195.6 cm (6' 5 ) 10/20/2022 8:56 AM BLOWER INSTALLER Body Mass Index 40.89 10/20/2022 8:56 AM BLOWER INSTALLER Plan of Treatment Health Maintenance Due Date Last Done Comments Colon Cancer Screening-Colonoscopy 1979 Depression Screening 1979 Hepatitis C Screening 1979 DTaP/Tdap/Td Vaccine (1 - Tdap) 1990 Hepatitis B Screening 1997 Regular Well Visit/Exam 18-64 1997 Influenza Vaccine (#1) 2024 HPV Vaccines Aged Out No longer eligi ble based on patient's age to complete this topic Pneumococcal vaccine <65 Aged Out No longer eligible based on patient's age to complete this topic Insurance [address] [address] Care Teams Physical Therapy Asst Relationship Specialty Start Date End Date Milli Baca MD PCP - General 01/21/19
--- OUTSIDE RECORDS SUMMARY | 2024-08-30 23:17 | XMS_ITS | Encounter Summary ---
Author Organization [facility] Healthcare Address [address] [place] [address] Care Team Providers Care Laundry Aide Name Role Phone Milli Baca MD Primary Care Provider Encounter Details Date Type Department Care Team (Late st Contact Info) Description 01/21/2019 11:57 AM CDT - 01/21/2019 3:44 PM CDT Hospital Encounter [address] [address] Unknown, Neel Landry MD [address] [place] [address] Discharge Disposition: Discharge to home or self care Social History Tobacco Use Types Packs/Day Years Used Date Smoking Tobacco: Never Assessed Sex and Gender Information Value Date Recorded Sex Assigned at Not on file Legal 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 Male 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 Gender Identity Not on file Sexual Orientation Not on file documented as of this encounter Last Filed Vital Signs Vital Sign Reading Time Taken Comments Blood Pressure 173/102 01/21/2019 12:14 PM CDT Pulse 75 01/21/2019 12:14 PM CDT Temperature 36.3 ??C (97.3 ??F) 01/21/2019 12:14 PM C DT Respiratory Rate - - Oxygen Saturation 96% 01/21/2019 12:14 PM CDT Inhaled Oxygen Concentration - - Weight 168 kg (370 lb 6 oz) 01/21/2019 12:14 PM CDT Height 195.6 cm (6' 5 ) 01/21/2019 12:14 PM CDT Body Mass Index 43.92 01/21/2019 12:14 PM CDT documented in this encounter Discharge Disposition Disposition Code Departure Means Destination Discharge to home or self care documented in this encounter Plan of Treatment Not on file documented as of this encounter Visit Diagnoses Not on filedocumented in this encounter Care Teams Laundry Aide Relationship Specialty Start Date End Date Milli Baca MD PCP - General 01/21/19 documented as of this encounter
--- OUTSIDE RECORDS SUMMARY | 2024-08-30 23:17 | XMS_ITS | Referral Summary ---
Author Organization [facility] Address [address] [place] [phone] Care Team Providers Care Specialist Field Engineer Name Role Phone Milli Baca MD Primary Care Provider Allergies Active Allergy Reactions Criticality Noted Date Comments Codeine Itching Low 10/20/2022 Social History Tobacco Use Types Packs/Day Years Used Date Smoking Tobacco: Unknown Tobacco Cessation:Counseling Given: Not Answered Sex and Gender Information Value Date Recorded Sex Assigned at Not on file Legal Sex Male 6:38 PM AD COMPOSITOR Gender Identity Not on file Sexual Orientation Not on file Last Filed Vital Signs Vital Sign Reading Time Taken Comments Blood Pressure 190/113 10/20/2022 10:50 AM AD COMPOSITOR Pulse 70 10/20/2022 10:50 AM AD COMPOSITOR Temperature 36.8 ??C (98.3 ??F) 10/20/2022 8:56 AM CS T Respiratory Rate 18 10/20/2022 10:5 0 AM AD COMPOSITOR Oxygen Saturation 96% 10/20/2022 10: 50 AM AD COMPOSITOR Inhaled Oxygen Concentration - - Weight 156.4 kg (344 lb 12.8 oz) 10/20/2022 8:56 AM AD COMPOSITOR Height 195.6 cm (6' 5 ) 10/20/2022 8:56 AM AD COMPOSITOR Body Mass Index 40.89 10/20/2022 8:56 AM AD COMPOSITOR Plan of Treatment Not on [place] [address] [place] [id number] [facility] Care Teams Specialist Field Engineer Relationship Specialty Start Date End Date Milli Baca MD PCP - General 01/21/19
--- OUTSIDE RECORDS SUMMARY | 2024-08-30 23:17 | XMS_ITS | Encounter Summary ---
Author Organization [facility] Healthcare Address [address] [place] [address] Care Team Providers Care Flat Knitter Name Role Phone Milli Baca MD Primary Care Provider Encounter Details Date Type Department Care Team (Late st Contact Info) Description 01/21/2019 8:46 AM CDT - 01/21/2019 10:08 AM CDT Hospital Encounter [address] [address] Unknown, Notinfile Discharge Disposition: Left without being seen Social History Tobacco Use Types Packs/Day Years Used Date Smoking Tobacco: Never Assessed Sex and Gender Information Value Date Recorded Sex Assigned at Not on file Legal Sex Male 6:38 PM LOCKER ROOM SUPERVISOR Gender Identity Not on file Sexual Orientation Not on file documented as of this encounter Last Filed Vital Signs Vital Sign Reading Time Taken Comments Blood Pressure 164/105 01/21/2019 8:53 AM CDT Pulse 85 01/21/2019 8:53 AM CDT Temperature 36.7 ??C (98.1 ??F) 01/21/2019 8:53 AM CD T Respiratory Rate - - Oxygen Saturation 95% 01/21/2019 8:53 AM CDT Inhaled Oxygen Concentration - - Weight 167.5 kg (369 lb 4.4 oz) 01/21/2019 8:53 AM CDT Height 195.6 cm (6' 5 ) 01/21/2019 8:53 AM CDT Body Mass Index 43.79 01/21/2019 8:53 AM CDT documented in this encounter Discharge Disposition Disposition Code Departure Means Destination Left without being seen documented in this encounter Plan of Treatment Not on file documented as of this encounter Visit Diagnoses Not on filedocumented in this encounter Care Teams Flat Knitter Relationship Specialty Start Date End Date Milli Baca MD PCP - General 01/21/19 documented as of this encounter
--- OUTSIDE RECORDS SUMMARY | 2024-08-30 23:17 | XMS_ITS | Encounter Summary ---
Author Organization [facility] Healthcare Address [address] [place] [id number] Care Team Providers Care Library Media Assistant Name Role Phone Milli Baca MD Primary Care Provider Reason for Visit * Reason Comments Wound Check Encounter Details Date Type Department Care Team (Late st Contact Info) Description 10/20/2022 10:48 AM LEGAL LIBRARIAN - 10/20/2022 12:46 PM LEGAL LIBRARIAN Emergency [address] [address] Ulcer of toe of right foot, unspecified ulcer stage (HCC) (Primary Dx); Elevated blood pressure reading; Left against medical advice Discharge Disposition: Left Against Medical Advice Social History Tobacco Use Types Packs/Day Years Used Date Smoking Tobacco: Unknown Tobacco Cessation:Counseling Given: Not Answered Sex and Gender Information Value Date Recorded Sex Assigned at Not on file Legal Sex Male 6:38 PM LEGAL LIBRARIAN Gender Identity Not on file Sexual Orientation Not on file documented as of this encounter Last Filed Vital Signs Vital Sign Reading Time Taken Comments Blood Pressure 190/113 10/20/2022 10:50 AM LEGAL LIBRARIAN Pulse 70 10/20/2022 10:50 AM LEGAL LIBRARIAN Temperature 36.8 ??C (98.3 ??F) 10/20/2022 8:56 AM CS T Respiratory Rate 18 10/20/2022 10:5 0 AM LEGAL LIBRARIAN Oxygen Saturation 96% 10/20/2022 10: 50 AM LEGAL LIBRARIAN Inhaled Oxygen Concentration - - Weight 156.4 kg (344 lb 12.8 oz) 10/20/2022 8:56 AM LEGAL LIBRARIAN Height 195.6 cm (6' 5 ) 10/20/2022 8:56 AM LEGAL LIBRARIAN Body Mass Index 40.89 10/20/2022 8:56 AM LEGAL LIBRARIAN documented in this encounter Discharge Disposition Disposition Code Departure Means Destination Comment s Left Against Medical Advice documented in this encounter ED Notes * Aleta Pena PA - 10/20/2022 9:16 AM CST CHIEF COMPLAINT: Chief Complaint Patient presents with Wound Check HPI 4:46 PM Brennan Rivera is a 42 y.o. male presenting to the ED c/o a hole on the bottom of his right toe x 6 months. Pt states it oozes with pus off and on. He also states that it seems like it gets better at times and then goes back to looking like it is not healing. Pt states because of movingas well as it looking like it's getting better he has not went to a doctor. States he also works a lot on his feet which may be contributing. Denies DM, and fever. History provided by pt PCP: Milli Baca MD PAST MEDICAL HISTORY History reviewed. No pertinent past medical history. PAST SURGICAL HISTORY History reviewed. No pertinent surgical history. FAMILY HISTORY History reviewed. No pertinent family history. MEDICATIONS GIVEN IN THE ED Medications - No data to display CURRENT HOME MEDICATIONS No current facility-administered medications for this encounter. No current outpatient medications on file. ALLERGIES Allergies Allergen Reactions Codeine Itching SOCIAL HISTORY Social History Tobacco Use Smoking status: Unknown Smokeless tobacco: None Substance and Sexual Activity Drug use: None Sexual activity: None Alcohol Use: Not on file PHYSICAL EXAM TRIAGE VITAL SIGNS: ED Triage Vitals [10/20/22 0856] Temp Pulse Resp BP SpO2 36.8 ??C (98.3 ??F) 86 18 (!) 192/96 94 % Temp src Heart Rate Source Patient Position BP Location FiO2 (%) Oral Pulse Oximetry -- Left arm -- Height Height Method Weight Weight Method 1.956 m (6' 5 ) Stated (!) 156.4 kg (344 lb 12.8 oz) -- Physical Exam LABS Labs Reviewed AEROBIC AND ANAEROBIC CULTURE AND GRAM STAIN - Abnormal Result Value Direct Specimen Exam (*) Value: Stain: Rare polymorphonuclear leukocytes seen. Moderate Gram Positive Cocci Few Gram Negative Bacilli Few Gram Positive Bacilli Narrative: Specimen received on an ESwab. Testing performed by [facility] ([phone]) Specimens submitted from normally sterile body sites will have all bacterial morphotypes identified. Specimens that contain grossly mixed marck and/or are from body sites that are not normally sterile will be examined for Staphylococcus aureus, Pseudomonas aeruginosa, beta-hemolytic strep, vancomycin-resistant Enterococcus, Bacteroides, Parabacteroides, Clostridium perfringens and fungus. If any of these are isolated, the organism will be reported. Current interpretive data was last revised on 2019. HEMOGLOBIN A1C - Abnormal Hgb A1C 5.7 (*) Estimated Average Glucose 117 DIFFERENTIAL AUTO - Abnormal Neutrophil abs 5.9 Imm gran abs 0.0 Lymphocyte abs 2.0 Monocyte abs 0.9 (*) Eosinophil abs 0.3 Basophil abs 0.0 Neutrophil pct 65.2 Imm gran pct 0.3 Lymphocyte pct 21.6 Monocyte pct 9.6 Eosinophil pct 3.0 Basophil pct 0.3 CRP (ACUTE PHASE) - Abnormal CRP 27.9 (*) COMPREHENSIVE METABOLIC PANEL Sodium 140 Potassium, pl 4.5 Chloride 103 CO2 29 Anion gap 8 BUN 17 Creatinine 1.10 Glucose 133 Calcium 9.4 Bilirubin, total 0.4 Protein, pl 7.5 Albumin 4.1 Alk phos 88 ALT 23 AST 14 CBC WITH AUTO DIFFERENTIAL WBC 9.1 Hgb 16.5 Hct 49.7 Plt 281 MPV 10.1 RBC 5.73 MCV 86.7 MCH 28.8 MCHC 33.2 RDW CV 14.4 RDW SD 45.4 NRBC abs 0.00 EGFR eGFR 85 CRP (ACUTE PHASE) RADIOLOGY No results found. EKG EKG: ED COURSE/MEDICAL DECISION MAKING ED Course as of 10/20/22 1646 Time: 10/20 0951 Value: XR Toe Great Right Minimum 2 Views Comment: (Reviewed) By: Aleta Pena PA Time: 10/20 1003 Comment: The patient has been informed that they may have pre-hypertension or Hypertension based andrés blood pressure reading in the Emergency Department. I recommend that the patient call the primarycare provider listed on their discharge instructions or a physician of their choice this week to arrange follow up for further evaluation of possible Hypertension. By: Aleta Pena PA Time: 10/20 1238 Comment: Pt became upset when reviewing treatment plan. Estella NICOLE, RN chased pt down hallman to removeIV By: Aleta Pena PA Time: 10/20 1244 Comment: Refused AMA paperwork By: Aleta Pena PA Procedures FINAL IMPRESSION Ulcer of toe of right foot, unspecified ulcer stage (HCC) Elevated blood pressure reading Left against medical advice DISPOSITION: Home All findings were discussed with patient. Pt agreeable with plan. Non toxic appearing, vitals stable. Patient stable for discharge home. Given return to ER precautions Close outpatient follow-up with a low threshold to return has been mandated , concerning symptoms have been emphasized in detail, and this patient expresses understanding PATIENT INSTRUCTED TO FOLLOW UP No follow-up provider specified. DISCHARGE MEDICATIONS Your medication list as of October 20, 2022 12:46 PM You have not been prescribed any medications. This examination was transcribed using the Fab voice recognition system without human chisel worker. In an effort to expedite patient care, this report has not been adjusted for typographical, grammatical, and syntax by a trained medical data entry clerk. Aleta Pena PA 10/20/22 1646 Cosigned by Getachew Stephens DO at 10/22/2022 9:46 PM LEGAL LIBRARIAN L LIBRARIAN L LIBRARIAN * Meenakshi Gregory, ZARA - 10/20/2022 9:01 AM CST Pt states I have a hole in the bottom of my toe. Its been there about 6 months. I went to the doctor and I was supposed to follow up with someone. Its got pus in it. Alert and oriented. Denies having diabetes, infected wound to right great toe. L LIBRARIAN documented in this encounter Plan of Treatment Pending Results Name Type Priority Associated Diagnoses Date /Time CRP (acute phase) Lab STAT 023 9:09 AM LEGAL LIBRARIAN Scheduled Orders Name Type Priority Associated Diagnoses Orde r Schedule CRP (acute phase) Lab STAT Once fo r 1 Occurrences starting 10/20/2022 until 10/20/2022 documented as of this encounter Procedures Procedure Name Priority Date/Time Associated Diagnosis Comments XR TOE GREAT RIGHT ED 10/20/2022 9: 30 AM LEGAL LIBRARIAN AEROBIC AND ANAEROBIC CULTURE AND GRAM STAIN STAT 10/20/2022 9:11 AM LEGAL LIBRARIAN EGFR STAT 10/20/2022 9:09 AM LEGAL LIBRARIAN DIFFERENTIAL AUTO STAT 10/20/2022 9:0 9 AM LEGAL LIBRARIAN CBC WITH AUTO DIFFERENTIAL STAT 10/20/2022 9:09 AM LEGAL LIBRARIAN CRP (ACUTE PHASE) STAT 10/20/2022 9:0 9 AM LEGAL LIBRARIAN HEMOGLOBIN A1C STAT 10/20/2022 9:09 AM LEGAL LIBRARIAN COMPREHENSIVE METABOLIC PANEL STAT 10/20/2022 9:09 AM LEGAL LIBRARIAN documented in this encounter Results * XR Toe Great Right Minimum 2 Views (10/20/2022 9:30 AM LEGAL LIBRARIAN) Anatomical Region Laterality Modality Lower Extremities, Foot, Toes Right Co mputed Radiography 10/20/2022 9:44 AM LEGAL LIBRARIAN Narrative 10/20/2022 9:46 AM LEGAL LIBRARIAN EXAM DESCRIPTION: ?? XR TOE ??GREAT RIGHT MINIMUM 2 VIEWS REASON FOR STUDY: ?? Wound on the plantar surface of the great toe. ?? Progressing for 6 days. TECHNIQUE: ?AP, lateral, and oblique ??images acquired of the right ??1st digit. COMPARISON: ?? None FINDINGS: BONES/JOINTS: ?? There is a soft tissue ulcer measuring 1.6 x 1.5 x 0.6 cm along the medial plantar surface of the 1st digit. ??No acute osseous abnormality. ?Joint spaces are maintained. SOFT TISSUES: ?? As above. ??Soft tissue swelling surrounding the 1st digit. OTHER: ?? No other significant finding. IMPRESSION: ?? 1. ?? No acute osseous abnormality. 2. ?? Soft tissue ulcer along the plantar surface of the 1st digit with associated soft tissue swelling. THIS IS AN ELECTRONICALLY VERIFIED FINAL REPORT 10/20/2022 9:46 AM - Electronically signed by ??Froylan Fabian M.D. D: ??10/20/2022 9:46 AM T: Report ID: [id number] Reading Location: ??[id number] Procedure Note Froylan Fabian MD - 10/20/2022 EXAM DESCRIPTION: XR TOE GREAT RIGHT MINIMUM 2 VIEWS REASON FOR STUDY: Wound on the plantar surface of the great toe. Progressing for 6 days. TECHNIQUE: AP, lateral, and oblique images acquired of the right 1st digit. COMPARISON: None FINDINGS: BONES/JOINTS: There is a soft tissue ulcer measuring 1.6 x 1.5x 0.6 cm along the medial plantar surface of the 1st digit. No acuteosseous abnormality. Joint spaces are maintained. SOFT TISSUES: As above. Soft tissue swelling surrounding the 1st digit. OTHER: No other significant finding. IMPRESSION: 1. No acute osseous abnormality. 2. Soft tissue ulcer along the plantar surface of the 1st digit with associated soft tissue swelling. THIS IS AN ELECTRONICALLY VERIFIED FINAL REPORT 10/20/2022 9:46 AM - Electronically signed by Froylan Fabian M.D. T: Report ID: [id number] Reading Location: [place] [address] Aleta KAN IMG XR PROCEDURES Final Resul t * (ABNORMAL) Aerobic and anaerobic culture and gram stain Abscess Toe, great, right (10/20/2022 9:11 AM LEGAL LIBRARIAN) Direct Specimen Exam Stain: Rare polymorphonuclear leukocytes seen. Moderate Gram Positive Cocci Few Gram Negative Bacilli Few Gram Positive Bacilli MEET Comment:Testing performed by : [facility], [address] [place]., [address] Report Final Report: Moderate Mixed aerobic and anaerobic microorganisms Includes the following: Moderate Staphylococcus aureus Methicillin susceptible (MSSA) by penicillin binding protein 2a (PBP2a) testing. Few Bacteroides uniformis (.) MEET Comment:Testing performed by : [facility], [address] [place] [address]., [id number] Organism STAPHYLOCOCCUS AUREUS MEET Organism MIXED AEROBIC AND ANAEROBIC MICROORGANISMS MEET Organism BACTEROIDES UNIFORMIS MEET Abscess (Toe, great, right) 10/20/2022 9:11 AM LEGAL LIBRARIAN 10/20/2022 12:29 PM LEGAL LIBRARIAN Narrative MEET - 10/26/2022 2:24 PM LEGAL LIBRARIAN Specimen received on an ESwab. Testing performed by [facility] ([phone]) Specimens submitted from normally sterile body sites will have all bacterial morphotypes identified. Specimens that contain grossly mixed marck and/or are from body sites that are not normally sterile will be examined for Staphylococcus aureus, Pseudomonas aeruginosa, beta-hemolytic strep, vancomycin-resistant Enterococcus, Bacteroides, Parabacteroides, Clostridium perfringens and fungus. If any of these are isolated, the organism will be reported. Current interpretive data was last revised on 2019. Organism Antibiotic Method Susceptibility Staphylococcus aureus Vancomycin INTERPRETATION Susceptible Staphylococcus aureus Trimethoprim with Sulfamethoxazole INTERPRETATION Susceptible Staphylococcus aureus Linezolid INTERPRETATION Susceptible Staphylococcus aureus Doxycycline INTERPRETATION Susceptible Staphylococcus aureus Clindamycin INTERPRETATION Susceptible Staphylococcus aureus Erythromycin INTERPRETATION Susceptible Staphylococcus aureus Oxacillin INTERPRETATION Susceptible Staphylococcus aureus Cefazolin INTERPRETATION Susceptible Staphylococcus aureus Ceftriaxone INTERPRETATION Susceptible Aleta KAN LAB MICROBIOLOGY - GENERAL OR DERABLES Final Result Performing Organization Address [facility] de Phone Number [address] [place] [address] * (ABNORMAL) CRP (acute phase) (10/20/2022 9:09 AM LEGAL LIBRARIAN) CRP 27.9(H) <=10.0 mg/L MEET Blood 10/20/2022 9:09 AM LEGAL LIBRARIAN 10/20/2022 9:14 AM LEGAL LIBRARIAN Aleta KAN LAB BLOOD ORDERABLES Final Re sult Performing Organization Address [facility] de Phone Number [address] [place] [address] * eGFR (10/20/2022 9:09 AM LEGAL LIBRARIAN) eGFR 85 mL/min/1. 73 m2 [facility] Comment: Interpretive Data Reference Interval Normal ?>/= 90 mL/min/1.73m2 Mildly decreased* ? 60 - 89 mL/min/1.73m2 Mildly to moderately decreased ?45 - 59 mL/min/1.73m2 Moderately to severely decreased ??30 - 44 mL/min/1.73m2 Severely decreased ?15 - 29 mL/min/1.73m2 Kidney Failure ?< 15 ??mL/min/1.73m2 *Relative to young adult level Estimated glomerular filtration rate is determined by the 2020 CKD-EPI equation recommended by the National Kidney Foundation (A Unifying Approach to GFR Estimation: Recommendations of the NKF-ASK Task Force on Reassessing the Inclusion of Race in Diagnosing Kidney Disease, JASN 2020). The CKD-EPI equation should not be used for patients with unstable renal function and has not been validated in children and those over 70. Current interpretive data was last reviewed 2021. Blood 10/20/2022 9:09 AM LEGAL LIBRARIAN 10/20/2022 9:14 AM LEGAL LIBRARIAN us Aleta KAN LAB BLOOD ORDERABLES Final Re sult [facility] [address] [facility] Department [place] [address] * (ABNORMAL) Differential, auto (10/20/2022 9:09 AM LEGAL LIBRARIAN) Neutrophil abs 5.9 1.7 - 6.5 K/cumm [facility] Imm gran abs 0.0 0.0 - 0.1 K/cumm [facility] Lymphocyte abs 2.0 0.8 - 3.3 K/cumm [facility] Monocyte abs 0.9(H) 0.2 - 0.8 K/cumm [facility] Eosinophil abs 0.3 0.0 - 0.5 K/cumm [facility] Basophil abs 0.0 0.0 - 0.1 K/cumm [facility] Neutrophil pct 65.2 % [facility] Comment: Interpretive Data Percent cell count reference ranges are not reported, since discordance with absolute values may lead to misinterpretation of CBC data. Current Interpretive Data was last revised on 2017. Imm gran pct 0.3 % [facility] Comment: Interpretive Data Percent cell count reference ranges are not reported, since discordance with absolute values may lead to misinterpretation of CBC data. Current Interpretive Data was last revised on 2017. Lymphocyte pct 21.6 % [facility] Comment: Interpretive Data Percent cell count reference ranges are not reported, since discordance with absolute values may lead to misinterpretation of CBC data. Current Interpretive Data was last revised on 2017. Monocyte pct 9.6 % [facility] Comment: Interpretive Data Percent cell count reference ranges are not reported, since discordance with absolute values may lead to misinterpretation of CBC data. Current Interpretive Data was last revised on 2017. Eosinophil pct 3.0 % [facility] Comment: Interpretive Data Percent cell count reference ranges are not reported, since discordance with absolute values may lead to misinterpretation of CBC data. Current Interpretive Data was last revised on 2017. Basophil pct 0.3 % [facility] Comment: Interpretive Data Percent cell count reference ranges are not reported, since discordance with absolute values may lead to misinterpretation of CBC data. Current Interpretive Data was last revised on 2017. Blood 10/20/2022 9:09 AM LEGAL LIBRARIAN 10/20/2022 9:18 AM LEGAL LIBRARIAN us Aleta KNA LAB BLOOD ORDERABLES Final Re sult [place] [address] [facility] Department [place] [address] * (ABNORMAL) Hemoglobin A1c (10/20/2022 9:09 AM LEGAL LIBRARIAN) Hgb A1C 5.7(H) 4.0 - 5.6 % [facility] Estimated Average Glucose 117 mg/dL [facility] Comment: The ADA recommends reporting an estimated Average Glucose (eAG) with all Hemoglobin A1c results using the equation derived from a study of 507 normal and diabetic adults. ??Minority populations were underrepresented and children were not included. ?? (Diabetes Care 31:5800-0425, 2008). ??The eAG is not equivalent to a fasting glucose. Blood 10/20/2022 9:09 AM LEGAL LIBRARIAN 10/20/2022 9:14 AM LEGAL LIBRARIAN Aleta KAN LAB BLOOD ORDERABLES Final Re sult Performing Organization Address City/[facility]/ZIP Co de Phone Number [place] [address] [facility] [place] [address] * CBC with auto differential (10/20/2022 9:09 AM LEGAL LIBRARIAN) [facility] WBC 9.1 3.8 - 9.9 K/cumm [facility] Hgb 16.5 13.0 - 17.5 g/dL [facility] Hct 49.7 38.9 - 50.3 % [facility] Plt 281 150 - 400 K/cumm [facility] MPV 10.1 9.1 - 12.3 fL [facility] RBC 5.73 4.30 - 5.80 M/cumm [facility] MCV 86.7 81.3 - 96.4 fL [facility] MCH 28.8 27.1 - 33.3 pg [facility] MCHC 33.2 32.3 - 35.7 g/dL [facility] RDW CV 14.4 11.1 - 14.9 % [facility] RDW SD 45.4 35.7 - 48.1 fL [facility] NRBC abs 0.00 0.00 - 0.01 K/cumm [facility] Blood 10/20/2022 9:09 AM LEGAL LIBRARIAN 10/20/2022 9:18 AM LEGAL LIBRARIAN Aleta KAN LAB BLOOD ORDERABLES Final Re sult Performing Organization Address [facility] Co de Phone Number [place] [address] [facility] [place] [address] * Comprehensive metabolic panel (10/20/2022 9:09 AM LEGAL LIBRARIAN) [facility] Sodium 140 135 - 145 mmol/L [facility] Potassium, pl 4.5 3.3 - 4.9 mmol/L [facility] Chloride 103 97 - 110 mmol/L [facility] CO2 29 22 - 32 mmol/L [facility] Anion gap 8 2 - 15 mmol/L [facility] BUN 17 8 - 25 mg/dL [facility] Creatinine 1.10 0.80 - 1.30 mg/dL [facility] Glucose 133 70 - 199 mg/dL [facility] Comment: Interpretive Data Fasting glucose >/= 126 mg/dl is diagnostic for diabetes. ?? Fasting is defined as no caloric intake for at least 8 hours. Fasting glucose between 100 mg/dl to 125 mg/dl is diagnostic of prediabetes. In a patient with classic symptoms of hyperglycemia or hyperglycemic crisis, a random glucose >/= 200 mg/dl is diagnostic for diabetes. In the absence of unequivocal hyperglycemia, results should be confirmed by repeat testing. The classification and Diagnosis of Diabetes Diabetes Care 2021; 46: S19-S40. Current interpretive data was last revised 2022. Calcium 9.4 8.5 - 10.3 mg/dL [facility] Bilirubin, total 0.4 0.1 - 1.2 mg/dL [facility] Protein, pl 7.5 6.5 - 8.5 g/dL [facility] Albumin 4.1 3.5 - 5.0 g/dL [facility] Alk phos 88 40 - 130 Units/L [facility] ALT 23 7 - 55 Units/L [facility] AST 14 10 - 50 Units/L [facility] Blood 10/20/2022 9:09 AM LEGAL LIBRARIAN 10/20/2022 9:14 AM LEGAL LIBRARIAN us Aleta KAN LAB BLOOD ORDERABLES Final Re sult [facility] [address] [facility] Department [place] [address] documented in this encounter Visit Diagnoses Diagnosis Ulcer of toe of right foot, unspecified ulcer stage (HCC)- Primary Elevated blood pressure reading Elevated blood pressure reading without diagnosis of hypertension Left against medical advice documented in this encounter Care Teams Library Media Assistant Relationship Specialty Start Date End Date Milli Baca MD PCP - General 01/21/19 documented as of this encounter
--- OUTSIDE RECORDS SUMMARY | 2024-08-31 06:03 | XMS_ITS | Encounter Summary ---
Author Organization [facility] Address [address] [place] [address]. [place], [place] [address] [place] [address] Care Team Providers Care Mule Spinner Name Role Phone None, Provider MD Primary Care Provider Unavaila ble Reason for Visit * Reason Comments Headache Chest Pain Shortness Of Breath Cough Encounter Details Date Type Department Care Team (Late st Contact Info) Description 03/01/2019 7:50 AM CDT - 03/01/2019 8:18 AM CDT Emergency [facility] [address] [place] [address] Stanton John MD [address] [place] [id number] Headache; Chest Pain; Shortness Of Breath [...] good: all 5's Thank you for selecting [facility] * Attachments The following attachments cannot be sent through Care Everywhere. * Acute Bronchitis (Peruvian) documented in this encounter Medications at Time [...] 6 tablet, Refills: 0 Class: Print Pharmacy: [facility] - [address] (Ph #: [phone]) benzonatate (TESSALON PERLES) 100 MG capsule Take 1 capsule (100 mg total) by mouth 3 (three) timesdaily as needed. Qty: 20 capsule, Refills: 0 Class: Print Pharmacy: [facility] - [address] (Ph #: [phone]) STANTON JOHN MD 03/01/2019 Stanton John MD [...] chronic documented in this encounter Care Teams Mule Spinner Relationship Specialty Start Date End Date None, Provider, PCP - General 05/18/18 03/08/19 documented as of this encounter
--- OUTSIDE RECORDS SUMMARY | 2024-08-31 06:03 | XMS_ITS | Encounter Summary ---
Author Organization [facility] Address [facility] [facility]. [place], [place] [address] [place] [address] Care Team Providers Care Desktop Publishing Operator Name Role Phone None, Provider Primary [...] on filedocumented in this encounter Care Teams Desktop Publishing Operator Relationship Specialty Start Date End Date None, Provider, PCP - General UNKNOWN PHYSICIAN SPECIALTY 08/01/24 documented as of this encounter
--- OUTSIDE RECORDS SUMMARY | 2024-08-31 06:03 | XMS_ITS | Encounter Summary ---
Author Organization [facility] Address [address] [place] [address]. [place], [place] [address] [place] [address] Care Team Providers Care Production Engine Repairer Name Role Phone None, Provider Primary Care Provider Rambo guillaume Encounter Details Date Type Department Care Team (Latest Contact Info) Description 06/21/2018 8:43 AM CDT - 06/21/2018 11:59 PM CDT Hospital Encounter [facility] [address] [place] [address] [place] [address] [place] [address] Discharge Disposition: Home or Self Care (Routine [...] No acute osseous abnormality. Interpreted By: Jules Fedler MD, 06/21/2018 5:20 PM Milli Baca MD [...] unspecified documented in this encounter Care Teams Production Engine Repairer Relationship Specialty Start Date End Date None, Provider, PCP - General 05/18/18 03/08/19 documented as of this encounter
--- OUTSIDE RECORDS SUMMARY | 2024-08-31 06:03 | XMS_ITS | Encounter Summary ---
Author Organization [facility] Address [facility] Formerly [facility]. [place], [place] [address] [place] [address] Care Team Providers Care Programming Development Project Manager Name Role Phone Unavailable Primary Care Provider Unavailabl e Encounter Details Date Type Department Care Team (Late st Contact Info) Description 05/24/2004 Emergency [facility] [place] [address] Otilia Alexander MD Social History Tobacco Use [...]
--- OUTSIDE RECORDS SUMMARY | 2024-08-31 06:03 | XMS_ITS | Encounter Summary ---
Author Organization [facility] Address [facility]6 [facility]. [place], [place] [address] [place] [address] Care Team Providers Care Patient Service Specialist Name Role Phone Milli Baca MD Primary Care Provider [phone] Reason for Referral * (Routine) - Closed Specialty Diagnoses / Procedures Referred By Belinda t Referred To Contact Procedures INCISION AND DRAINAGE Catherine Wall NP Phone: tel: fax: Referral ID Status Reason Start Date Expiration Date Visits Re quested Visits Authorized [id number] Closed 05/16/2019 06/15/2020 1 1 Reason for Visit * Reason Comments Abscess Encounter Details Date Type Department Care Team (Late st Contact Info) Description 05/12/2019 1:00 PM CDT - 05/12/2019 2:36 PM CDT Emergency [facility] Emergency [address] [place] [address] Catherine Wall HEALTH SERVICE WORKER [address] [place], [place] [id number] Abscess Discharge Disposition: Home or Self Care [...] 2:24 PM CDT Thank you for choosing [facility] emergency department. We are happy to serve [...] Care Everywhere. * Abscess Incision and Drainage (Bhutanese) documented in this encounter Medications at Time [...] Wed05/12/2019, Until Wed05/22/2019, Eprescribe Class: Eprescribe Pharmacy: [facility] [address] (Ph #: [phone]) Milli Baca MD [address] [facility] [address] for further evaluation and managment Disposition: Discharge Ramiro Holloway, 05/12/19, 13:20. Provider Attestation: Portions of this note were transcribed by the scribe. I, Catherine Cortez, personally performed the history, physical exam and medical decision making; and confirmed the accuracy of the information and the transcribed note. Authenticated by: Catherine Lancaster [facility]- Catherine Lancaster APRN 05/16/19 1433 Cosigned by Greg Carranza MD at 05/18/2019 9:15 AM CDT * Vielka Washington RN - 05/12/2019 12:06 PM CDT [...] RN) documented in this encounter Care Teams Patient Service Specialist Relationship Specialty Start Date End Date Milli Bcaa MD PCP - General FAMILY PRACTICE 03/09/19 07/31/24 documented as of this encounter
--- OUTSIDE RECORDS SUMMARY | 2024-08-31 06:03 | XMS_ITS | Encounter Summary ---
Author Organization [facility] Address [facility] access hospital6 [facility]. [place], [place] [address] [place] [address] Care Team Providers Care Accounts Receivable Processor Name Role Phone None, Provider MD Primary Care Provider Unavaila ble Reason for Visit * Reason Comments Knee Pain YIMI knee pain Cold Ear Problem Ear ache Hand Pain swelling in hands Swelling swelling in ankles a nd feet Encounter Details Date Type Department Care Team (Late st Contact Info) Description 05/18/2018 8:01 AM CDT - 05/18/2018 12:51 PM CDT Emergency [facility] Emergency [address] [place] [address] Greg Carranza MD [address] [place] [address] Knee Pain (YIMI knee pain ); [...] the physician listed. Thank you for choosing [facility]. It has been a privilege to care for you. * Attachments The following attachments cannot be sent through Care Everywhere. * SINUSITIS IN ADULTS (LIBYAN) * JOINT PAIN (LIBYAN) documented in this encounter Medications at Time [...] Ref Range COLOR YELLOW TRANSPARENCY CLEAR Specific [place] (U) 1.017 1.002 - 1.035 U PH [...] primary care doctor. I will have our [facility] liaison come talk with him about [...] Wed05/18/2018, Until 05/28/2018, Print Class: Print Pharmacy: [address] (Ph #: [phone]) meloxicam (MOBIC) 15 MG tablet Take 1 tablet (15 mg total) by mouth daily for 15 days. PRN pain, Starting Wed05/18/2018, Until Radha 06/02/2018, Print Class: Print Pharmacy: [address] (Ph #: [phone]) Disposition: Discharge Follow-Up: [facility] [address] [facility] [address] In 3 days GREG CARRANZA MD [...] COLOR (U) YELLOW 05/18/2018 11:38 AM CDT [facility] TRANSPARENCY CLEAR 05/18/2018 11:38 AM CDT [facility] SPECIFIC GRAVITY (U) 1.017 1.002 - 1.035 05/18/2018 11:38 AM CDT [facility] U PH 7.0 5 - 8 05/18/2018 11:38 AM CDT [facility] PROTEIN (U) NEGATIVE NEGATIVE 05/18/2018 11:38 AM CDT [facility] URINE GLUCOSE NEGATIVE NEGATIVE MG/DL 05/18/2018 11:38 AM CDT [facility] KETONES MG/DL (U) NEGATIVE NEGATIVE 05/18/2018 11:38 AM CDT [facility] BILIRUBIN (U) NEGATIVE NEGATIVE 05/18/2018 11:38 AM CDT [facility] BLOOD (U) NEGATIVE NEGATIVE 05/18/2018 11:38 AM CDT [facility] NITRITES NEGATIVE NEGATIVE 05/18/2018 11:38 AM CDT [facility] UROBILINOGEN NORMAL 0 - 1 EU/DL 05/18/2018 11:38 AM CDT [facility] LEUKOCYTES (U) NEGATIVE NEGATIVE 05/18/2018 11:38 AM CDT [facility] RBC/HPF <1 0 - 3 /HPF 05/18/2018 11:38 AM CDT [facility] WBC/HPF <1 0 - 6 /HPF 05/18/2018 11:38 AM CDT [facility] BACTERIA (U) NONE /HPF 05/18/2018 11:38 AM CDT [facility] HYALINE CASTS 3 05/18/2018 11:38 AM CDT [facility] URINE SPECIMEN OBTAINED BY CLEAN CATCH PROCEDURE / Unknown 05/18/2018 10:52 AM CDT us Greg Carranza MD URINE ORDERABLES Final Result [facility] [address] [place] [address], [id number] * (ABNORMAL) HEPATIC FUNCTION PANEL (05/18/2018 9:04 AM CDT) BILIRUBIN TOTAL S/P/B 0.3 0.2 - 1.0 MG/DL 05/18/2018 9:38 AM CDT [facility] BILIRUBIN DIRECT S/P/B 0.1 0.0 - 0.2 MG/DL 05/18/2018 9:38 AM CDT [facility] ALKALINE PHOSPHATASE S/P/B 89 45 - 115 U/L 05/18/2018 9:38 AM CDT [facility] AST 14(L) 15 - 37 U/L 05/18/2018 9:38 AM CDT [facility] ALT 29 16 - 61 U/L 05/18/2018 9:38 AM CDT [facility] TOTAL PROTEIN S/P/B 6.8 6.4 - 8.2 G/DL 05/18/2018 9:38 AM CDT [facility] ALBUMIN S/P/B 3.3(L) 3.4 - 5.0 G/DL 05/18/2018 9:38 AM CDT [facility] 05/18/2018 9:04 AM CDT us Greg Carranza MD LABORATORY Final Result [facility] [address] [place] [address], [id number] * (ABNORMAL) BASIC METABOLIC PANEL (05/18/2018 9:04 AM CDT) SODIUM S/P/B 137 136 - 145 MMOL/L 05/18/2018 9:38 AM CDT [facility] POTASSIUM S/P/B 3.9 3.5 - 5.1 MMOL/L 05/18/2018 9:38 AM CDT [facility] CHLORIDE S/P/B 103 98 - 107 MMOL/L 05/18/2018 9:38 AM CDT [facility] CO2 25.8 21.0 - 32.0 MMOL/L 05/18/2018 9:38 AM CDT [facility] GLUCOSE 175(H) 74 - 106 MG/DL 05/18/2018 9:38 AM CDT [facility] BUN 14 7 - 18 MG/DL 05/18/2018 9:38 AM CDT [facility] CREATININE S/P/B 0.78 0.70 - 1.30 MG/DL 05/18/2018 9:38 AM CDT [facility] CALCIUM S/P/B 8.6 8.4 - 10.5 MG/DL 05/18/2018 9:38 AM CDT [facility] ANION GAP 8.2 MMOL/L 05/18/2018 9:38 AM CDT [facility] Comment:REFERENCE RANGE NOT ESTABLISHED OSMOLALITY (CALC) 289 MOSM/KG 018 9:38 AM T [facility] Comment:REFERENCE RANGE NOT ESTABLISHED EGFR NON-AFR. AMER. >90 >90 ML/MIN/1.7 3 M2 05/18/2018 9:38 AM CDT [facility] Comment: THE ESTIMATED GFR IS CALCULATED [...] ML/MIN/1.7 3 M2 05/18/2018 9:38 AM CDT [facility] Comment: THE ESTIMATED GFR IS CALCULATED [...] us Greg Carranza MD LABORATORY Final Result [facility] [address] [place] [phone], [id number] * (ABNORMAL) CBC W/DIFF AUTOMATED (05/18/2018 9:04 AM CDT) [facility] WBC 10.4 4.0 - 10.8 x10'3/uL 05/18/2018 9:23 AM CDT [facility] RBC 4.73 4.50 - 6.10 x10'6/uL 05/18/2018 9:23 AM CDT [facility] HGB 13.2 13.0 - 18.0 G/DL 05/18/2018 9:23 AM CDT [facility] HCT 40.8 37.0 - 52.0 % 05/18/2018 9:23 AM CDT [facility] MCV 86.3 78.0 - 100.0 FL 05/18/2018 9:23 AM CDT [facility] MCH 27.9 27.0 - 31.0 PG 05/18/2018 9:23 AM CDT [facility] MCHC 32.4(L) 33.0 - 36.0 G/DL 05/18/2018 9:23 AM CDT [facility] RDW 13.5 11.5 - 14.5 % 05/18/2018 9:23 AM CDT [facility] PLT 239 150 - 350 x10'3/uL 05/18/2018 9:23 AM CDT [facility] MPV 9.9 7.4 - 10.4 FL 05/18/2018 9:23 AM CDT [facility] ABS. NEUTROPHILS TOTAL 7.97 1.60 - 8.30 x10'3/uL 05/18/2018 9:23 AM CDT [facility] ABS. LYMPHOCYTES 1.30 0.80 - 4.70 x10'3/uL 05/18/2018 9:23 AM CDT [facility] ABS. MONOCYTES 0.76 0.00 - 1.50 x10'3/uL 05/18/2018 9:23 AM CDT [facility] ABS. EOSINOPHILS 0.27 0.00 - 0.40 x10'3/uL 05/18/2018 9:23 AM CDT [facility] ABS. BASOPHILS 0.04 0.00 - 0.20 x10'3/uL 05/18/2018 9:23 AM CDT [facility] ABS. IMMATURE GRANULOCYTES 0.04(H) 0.00 - 0.03 x10'3/uL 05/18/2018 9:23 AM CDT [facility] ABS. NUCLEATED RBC'S 0.00 0.0 x10'3/uL 05/18/2018 9:23 AM CDT [facility] 05/18/2018 9:04 AM CDT us Greg Carranza MD LABORATORY Final Result Performing Organization Address City/State/[facility] Co de Phone Number [facility] [address] [place] [address], [phone] documented in this encounter Visit Diagnoses Diagnosis [...] RN) documented in this encounter Care Teams Accounts Receivable Processor Relationship Specialty Start Date End Date None, Provider, PCP - General 05/18/18 03/08/19 documented as of this encounter
--- OUTSIDE RECORDS SUMMARY | 2024-08-31 06:03 | XMS_ITS | Encounter Summary ---
Author Organization [facility] Address [address] [place] [address]. [place], [place] [address] [place] [address] Care Team Providers Care Assistant Gm Of Content & Delivery Name Role Phone None, Provider MD Primary Care Provider Unavaila ble Reason for Visit * Reason Comments Foot Pain Toe Pain Encounter Details Date Type Department Care Team (Late st Contact Info) Description 08/01/2024 9:47 AM OUTSIDE CUTTER - 08/01/2024 10:41 AM OUTSIDE CUTTER Emergency [facility] [place] [address] Hipolito Adan, ANAND [address] [place] [phone] Foot Pain; Toe Pain Discharge Disposition: Left [...] Comments Blood Pressure 169/99 08/01/2024 9:02 AM OUTSIDE CUTTER Pulse 104 08/01/2024 9:02 AM OUTSIDE CUTTER Temperature 37.1 ??C (98.7 ??F) 08/01/2024 9:02 AM CS T Respiratory Rate 18 08/01/2024 9:02 AM OUTSIDE CUTTER Oxygen Saturation 94% 08/01/2024 9:02 AM OUTSIDE CUTTER Inhaled Oxygen Concentration - - Weight 157.4 kg (347 lb 0.1 oz) 08/01/2024 9:02 AM OUTSIDE CUTTER Height 195.6 cm (6' 5 ) 08/01/2024 9:02 AM OUTSIDE CUTTER Body Mass Index 41.15 08/01/2024 9:02 AM OUTSIDE CUTTER documented in this encounter Functional Status * [...] Arthritis HTN (hypertension) 03/09/2019 Hypertension Rheumatoid arthritis ([facility]) 03/09/2019 PAST SURGICAL HISTORY: History reviewed. No [...] XR CHEST PORTABLE Final Result by User, [id number] (08/01 1018) [address] [address] Examination: Chest x-ray 1 view Exam date/time: [...] FOOT RT 3V Final Result by User, [id number] (08/01 1023) [facility] [address] [place], [place] [address] EXAMINATION: Right foot 2views EXAM DATE/TIME: 08/01/2024 [...] By: Michael Brooks MD, 08/01/2024 10:15 AM ED Course [...] Anju Sheikh MD at 08/02/2024 6:09 AM OUTSIDE CUTTER IDE CUTTER IDE CUTTER * Chilango Guerra RN - 08/01/2024 10:21 AM CST Pt seen walking in the ED parking lot away from building. IDE CUTTER * Chilango Guerra RN - 08/01/2024 10:20 AM CST Pt walked out of room to go speak with his son in the waiting room. IDE CUTTER * Chilango Guerra RN - 08/01/2024 10:16 AM CST Pt found in the parking lot. Pt stated that he was at his car and had to smoke a cigarette. Pt educated on not leaving the building and that there is no smoking on hospital property. IDE CUTTER * Isabella Grant RN - 08/01/2024 9:02 AM CST Pt presents to the ER with c/o whole in right big toe, under toe. Pt stated has a hx of this before. IDE CUTTER documented in this encounter Plan of Treatment Not on file documented as of this encounter Procedures Procedure Name Priority Date/Time Associated Diagnosis Comments XR CHEST PORTABLE STAT 08/01/2024 10: 05 AM OUTSIDE CUTTER XR FOOT RT 3V STAT 08/01/2024 10:05 AM OUTSIDE CUTTER documented in this encounter Results * XR CHEST PORTABLE (08/01/2024 10:05 AM OUTSIDE CUTTER) Anatomical Region Laterality Modality Chest Radiographic Martha ging 08/01/2024 10:1 5 AM OUTSIDE CUTTER Impressions 08/01/2024 10:17 AM OUTSIDE CUTTER IMPRESSION: 1. Findings which may represent early congestive heart failure, fluid overload in the appropriate clinical setting, with mild cardiomegaly, central pulmonary vascular enlargement and vascular venous congestion. 2. Equivocal small layering effusions versus a overlapping soft tissue prominence. Ordered By: HIPOLITO ADAN Interpreted By: Lesli Nascimento MD, 08/01/2024 10:15 AM Narrative 08/01/2024 10:17 AM OUTSIDE CUTTER [address] [address] Examination: Chest x-ray 1 view Exam date/time: [...] Procedure Note Lesli Nascimento MD - 08/01/2024 [facility] [address] [place], [place] [address] Examination: Chest x-ray 1 view Exam date/time: [...] MD, 08/01/2024 10:15 AM us Hipolito Adan AERONAUTICAL ENGINEER GENERAL IMAGING Final Result * XR FOOT RT 3V (08/01/2024 10:05 AM OUTSIDE CUTTER) Anatomical Region Laterality Modality Foot Radiographic Martha ging 08/01/2024 10:1 5 AM OUTSIDE CUTTER Impressions 08/01/2024 10:22 AM OUTSIDE CUTTER =====IMPRESSION:===== ?? Cortical destruction of the proximal and distal phalanges of the great toe about the interphalangeal joint in close proximity to suspected wound. Findings are highly suspicious for osteomyelitis. Correlate clinically. Ordered By: HIPOLITO ADAN Interpreted By: Michael Brooks MD, 08/01/2024 10:15 AM Narrative 08/01/2024 10:22 AM OUTSIDE CUTTER [address] [address] EXAMINATION: Right foot 2views EXAM DATE/TIME: 08/01/2024 [...] Procedure Note Michael Brooks MD - 08/01/[address] [address] EXAMINATION: Right foot 2views EXAM DATE/TIME: 08/01/2024 [...] MD, 08/01/2024 10:15 AM us Hipolito Adan AERONAUTICAL ENGINEER GENERAL IMAGING Final Result documented in this encounter Visit Diagnoses Not on filedocumented in this encounter Care Teams Assistant Gm Of Content & Delivery Relationship Specialty Start Date End Date None, Provider, PCP - General UNKNOWN PHYSICIAN SPECIALTY 08/01/24 documented as of this encounter
--- OUTSIDE RECORDS SUMMARY | 2024-08-31 06:03 | XMS_ITS | Encounter Summary ---
Author Organization [facility] Address [facility]. [place], [place] [address] [place] [address] Care Team Providers Care Superintendent Communications Name Role Phone Unavailable Primary Care Provider Unavailabl e Reason for Referral * Imaging (Emergency) - Closed Specialty Diagnoses / Procedures Referred By Belinda lewis Referred To Contact Procedures CT HEAD WO CON Bryanna Nicole FNP [address] [address] Phone: tel: fax: Referral ID Status Reason Start Date Expiration Date Visits Re quested Visits Authorized [id number] Closed 04/05/2018 05/06/2019 1 1 Reason for Visit * Reason Comments Blood Pressure Changes Encounter Details Date Type Department Care Team (Late st Contact Info) Description 04/05/2018 1:31 PM CDT - 04/05/2018 3:30 PM CDT Emergency [facility] Emergency [address] [place] [address] Bryanna Nicole FNP [address] [phone] Blood Pressure Changes Discharge Disposition: Home or [...] Discharge Instructions * Discharge Instructions* Bryanna Nicole, REHEAT FURNACE OPERATOR - 04/05/2018 2:58 PM CDT Images from the original note were not included. Take all medication as prescribed Slow position changes Increase fluids to at least 64 ounces per day Thank you for choosing [facility]. I am glad to care [...] ordered. Donot take other prescription drugs or ftmr-lrn-woizqly (OTC) drugs without talking to your doctor [...] or stroke. Where can I learn more? [place] [employer] http://www.heart.org/HEARTORG/Conditions/HighBloodPressure/AboutHighBloodPressur e/Twlwm-Mfnj-Cwdhy-Pressure_UC_002050_Article.jsp#.W2tI6CqgW5w [place] Stroke Association http://www.strokeassociation.org/STROKEORG/WarningSigns/Modhir-Nafated-Kzfoe-and -Symptoms_UC_308528_SubHomePage.jsp Better Health Channel http://www.betterhealth.starr.gov.au/bhcv2/bhcarticles.nsf/pages/Hypertension_mean s_high_blood_pressure National Heart Lung and Blood [place] http://www.nhlbi.nih.gov/health/health-topics/topics/hbp/ National [place] of Health ? Senior Health http://nihseniorhealth.gov/highbloodpressure/whatishighbp/01.html NHS [...] right for you. Copyright Copyright ?? 2018 [employer]. and its affiliates and/or licensors. All rights reserved. * Attachments The following attachments cannot be sent through Care Everywhere. * SINUSITIS DISCHARGE INSTRUCTIONS, ADULT (KAZAKH) documented in this encounter Medications at Time [...] arrival. Patient states he was seen at [facility] earlier and his blood pressure was 170/118 [...] Pat Name: YAKOV DOYLE Department: 70 Room: [facility] Gender: Male Seo Coordinator: ROGERS : 1980 Requested By: BRYANNA NICOLE Order Number: [id number] Reading MD: David Farmer Measurements Intervals [place] Rate: 86 P: 17 IN: 185 QRS: 2 QRSD: 98 T: 91 [...] HEAD WO CON Final Result by User, [email or web address] (04/05 1437) Date: 04/05/2018 2:29 PM Exam: [...] male who is currently residing at the [facility]. Today while bending over working he developed dizziness and had a near syncopal episode. AT that time his blood pressure was found to be 170/118 He was seen at [facility] and was prescribed BP meds but he [...] Charlie Johnson, 04/05/2018 2:32 PM Bryanna Nicole, [facility] 04/05 0334 Patient denies personal history of elevated blood sugar. States that mother is a diabetic Bryanna Nicole, [facility] 04/05 1520 Clinical Impression Hypertension (Primary) Sinusitis, acute maxillary Medications cloNIDine (CATAPRES) tablet 0.2 mg (0.2 mg Oral Given 04/05/18 1439) Discharge Medication List as of 04/05/2018 3:23 PM START taking these medications Details amoxicillin 875 MG tablet Take 1 tablet (875 mg total) by mouth 2 (two) times daily for 10 days., Starting 04/05/2018, Until Wed04/15/18, Eprescribe Class: Eprescribe Pharmacy: [facility]/pharmacy #[id number] - [place] [address] [address] [facility] (Ph #: [phone]) fluticasone propionate (FLONASE) 50 MCG/ACT nasal spray 1 spray by Nasal route daily for 30 days., Starting 04/05/2018, Until Radha 05/05/18, Eprescribe Class: Eprescribe Pharmacy: [facility]/pharmacy #[id number] [place] [address] [address] [facility] (Ph #: [phone]) [facility] [address] [facility] [address] Schedule an appointment as soon as possible for a visit in 1 week If symptoms worsen Disposition: Discharge Ramiro Holloway, 04/05/18, 14:36. SUDHIR Bernard 04/05/182013 Cosigned by John Harris MD at 04/08/2018 9:07 AM CDT * Vielka Washington RN - 04/05/2018 1:23 PM CDT PT STATES THAT HE IS STAYING AT THE [employer] AND WAS WORKING, FELT DIZZY AND WAS [...] PM CDT) 04/05/2018 2:45 PM CDT Narrative [facility] - 04/05/2018 4:28 PM CDT ?SJS-ED ? Test Date: ?2018-04-05 Pat Name: ? YAKOV DOYLE ? Department: ?? 70 ? Room: ? [id number] Gender: ? Male ? Seo Coordinator: ?? OW : ?1980 ? Requested By: BRYANNA NICOLE Order Number: [id number] ? Reading MD: ?? David Farmer ? Measurements Intervals ?[place] ? Rate: ? 86 ? P: ?17 IN: ? 185 ?QRS: ?2 QRSD: ? 98 ? T: ?91 QT: ? 374 ? QTc: ?450 ? Interpretive Statements SINUS RHYTHM NONSPECIFIC T-WAVE ABNORMALITY Procedure Note David Farmer MD - 04/05/2018 SJS-ED Test Date: 2018-04-05 Pat Name: YAKOV DOYLE Department: 70 Room: [id number] Gender: Male Seo Coordinator: OW : 1980 Requested By: BRYANNA NICOLE Order Number: [id number] Drew MD: David Farmer Measurements Intervals [place] Rate: 86 P: 17 IN: 185 QRS: 2 QRSD: 98 T: 91 QT: 374 QTc: 450 Interpretive Statements SINUS RHYTHM NONSPECIFIC T-WAVE ABNORMALITY us Bryanna Nicole REHEAT FURNACE OPERATOR ECG ORDERABLES Final Result [facility] * CT HEAD WO CON (04/05/2018 [...] PM Order Doctor: BRYANNA NICOLE Bryanna Nicole REHEAT FURNACE OPERATOR CT Final Result * (ABNORMAL) COMPREHENSIVE METABOLIC PANEL (04/05/2018 2:28 PM CDT) SODIUM S/P/B 143 136 - 145 MMOL/L 04/05/2018 3:05 PM CDT [facility] POTASSIUM S/P/B 3.9 3.5 - 5.1 MMOL/L 04/05/2018 3:05 PM CDT [facility] CHLORIDE S/P/B 108(H) 98 - 107 MMOL/L 04/05/2018 3:05 PM CDT [facility] CO2 29.0 21.0 - 32.0 MMOL/L 04/05/2018 3:05 PM CDT [facility] GLUCOSE 132(H) 74 - 106 MG/DL 04/05/2018 3:05 PM CDT [facility] BUN 14 7 - 18 MG/DL 04/05/2018 3:05 PM CDT [facility] CREATININE S/P/B 0.96 0.70 - 1.30 MG/DL 04/05/2018 3:05 PM CDT [facility] CALCIUM S/P/B 8.7 8.4 - 10.5 MG/DL 04/05/2018 3:05 PM CDT [facility] BILIRUBIN TOTAL S/P/B 0.2 0.2 - 1.0 MG/DL 04/05/2018 3:05 PM T [facility] ALKALINE PHOSPHATASE S/P/B 84 45 - 115 U/L 04/05/2018 3:05 PM [facility] AST 19 15 - 37 U/L 04/05/2018 3:05 PM [facility] ALT 39 16 - 61 U/L 04/05/2018 3:05 PM [facility] TOTAL PROTEIN S/P/B 6.5 6.4 - 8.2 G/DL 04/05/2018 3:05 PM [facility] ALBUMIN S/P/B 3.2(L) 3.4 - 5.0 G/DL 04/05/2018 3:05 PM [facility] ANION GAP 6.0 MMOL/L 04/05/2018 3:05 PM [facility] Comment:REFERENCE RANGE NOT ESTABLISHED OSMOLALITY (CALC) 298 MOSM/KG 018 3:05 PM [facility] Comment:REFERENCE RANGE NOT ESTABLISHED EGFR NON-AFR. AMER. >90 >90 ML/MIN/1.7 3 M2 04/05/2018 3:05 PM [facility] Comment: THE ESTIMATED GFR IS [...] ML/MIN/1.7 3 M2 04/05/2018 3:05 PM CDT [facility] Comment: THE ESTIMATED GFR IS [...] ml/min/1.73 m2 04/05/2018 2:28 PM CDT [facility] Final Result Performing Organization Address [facility] de Phone Number [facility] [address] [place] [address], [phone] * (ABNORMAL) HEMOGLOBIN, GLYCOSYLATED (04/05/2018 2:27 PM CDT) HGB A1C 5.7 4.2 - 6.3 % 04/05/2018 5:46 PM CDT [facility] ESTIMATED AVG GLUCOSE 117(H) 74 - 106 MG/DL 04/05/2018 5:46 PM CDT [facility] 04/05/2018 2:27 PM CDT [facility] Final Result Performing Organization Address [facility] de Phone Number [facility] [address] [place] [address], [phone] * CBC W/DIFF AUTOMATED (04/05/2018 2:27 PM CDT) WBC 7.9 4.0 - 10.8 x10'3/uL 04/05/2018 2:38 PM CDT [facility] RBC 4.67 4.50 - 6.10 x10'6/uL 04/05/2018 2:38 PM CDT [facility] HGB 13.3 13.0 - 18.0 G/DL 04/05/2018 2:38 PM CDT [facility] HCT 39.7 37.0 - 52.0 % 04/05/2018 2:38 PM CDT [facility] MCV 85.0 78.0 - 100.0 FL 04/05/2018 2:38 PM CDT [facility] MCH 28.5 27.0 - 31.0 PG 04/05/2018 2:38 PM CDT [facility] MCHC 33.5 33.0 - 36.0 G/DL 04/05/2018 2:38 PM CDT [facility] RDW 14.1 11.5 - 14.5 % 04/05/2018 2:38 PM CDT [facility] PLT 232 150 - 350 x10'3/uL 04/05/2018 2:38 PM CDT [facility] MPV 9.7 7.4 - 10.4 FL 04/05/2018 2:38 PM CDT [facility] ABS. NEUTROPHILS TOTAL 5.01 1.60 - 8.30 x10'3/uL 04/05/2018 2:38 PM CDT [facility] ABS. LYMPHOCYTES 1.86 0.80 - 4.70 x10'3/uL 04/05/2018 2:38 PM CDT [facility] ABS. MONOCYTES 0.68 0.00 - 1.50 x10'3/uL 04/05/2018 2:38 PM CDT [facility] ABS. EOSINOPHILS 0.32 0.00 - 0.40 x10'3/uL 04/05/2018 2:38 PM CDT [facility] ABS. BASOPHILS 0.04 0.00 - 0.20 x10'3/uL 04/05/2018 2:38 PM CDT [facility] ABS. IMMATURE GRANULOCYTES 0.02 0.00 - 0.03 x10'3/uL 04/05/2018 2:38 PM CDT [facility] ABS. NUCLEATED RBC'S 0.00 0.0 x10'3/uL 04/05/2018 2:38 PM CDT [facility] 04/05/2018 2:27 PM CDT Bryanna TAVARESP LABORATORY Final Result [facility] [address] [place] [address], [phone] documented in this encounter Visit Diagnoses Diagnosis [...]
--- OUTSIDE RECORDS SUMMARY | 2024-08-31 06:03 | XMS_ITS | Encounter Summary ---
Author Organization [facility] Address [facility]. [place], [place] [address] [place] [address] Care Team Providers Care Derrick Car Operator Name Role Phone Unavailable Primary Care Provider Unavailabl e Encounter Details Date Type Department Care Team (Late st Contact Info) Description 12/24/2007 [place] [address] , Generic Conversion, Social History Tobacco Use [...]
--- OUTSIDE RECORDS SUMMARY | 2024-08-31 06:03 | XMS_ITS | Encounter Summary ---
Author Organization [facility] Address [facility] [place] [address] [place] [address] Care Team Providers Care Education Liaison Name Role Phone None, Provider MD Primary Care Provider Unavaila ble Reason for Referral * Sleep Lab (Routine) - Closed Specialty Diagnoses / Procedures Referred By Belinda lewis Referred To Contact Diagnoses Sleep disturbances Procedures Sleep Study ([id number]) POLYSOMNOGRAPHY W/CPAP Tanner Sanabria MD [address] [place] [phone] Phone: tel: fax: [facility] [address] [place] [address] Phone: tel: fax: Referral ID Status Reason Start Date Expiration Date Visits Re quested Visits Authorized [id number] Closed 06/27/2018 07/28/2019 1 1 ICAL ENGINEER Encounter Details Date Type Department Care Team (Late st Contact Info) Description 06/27/2018 Transcribe Orders [facility] Pre Access Team [address] [place] [address] Tanner Sanabria MD [address] [place] [phone] Social History Tobacco Use Types Packs/Day [...] of this encounter Results * Sleep Study ([id number]) (07/19/2018 9:44 AM CHEMICAL ENGINEER) 07/19/2018 9:44 AM CHEMICAL ENGINEER Narrative ESCRIPTION - 07/26/2018 5:43 PM CHEMICAL ENGINEER REFERRED BY: ??Tanner Sanabria INTERPRETING PHYSICIAN: ??Jacob Cardenas MD STUDY PERFORMED: ??Nocturnal polysomnogram with CPAP titration. ??Patient is a 38-year-old male, height 5 feet 5 inches, weight 356 pounds, giving a BMI of 59 kg/sq m. The patient gives history of snoring, daytime fatigue. ??He is referred in evaluation of this. METHODS AND DEFINITIONS (Pediatric and Adult Sleep Studies): ??[facility] uses the 2007 [place] [employer] Manual for the scoring of sleep and associated events when performing [facility] per [facility] guidelines. ??All other patients are scored using the [place] Academy of [employer] Medicine 2015 scoring guidelines. [...] full face mask. D: ??07/19/2018 09:44 AM #[id number] T: ??07/19/2018 11:29 AM /NTS us Tanner Sanabria MD AMBULATORY ORDERABLE PRO C Final Result ESCRIPTION documented in this encounter Visit Diagnoses Diagnosis Sleep disturbances- Primary Sleep disturbance, unspecified Sleep disturbances Sleep disturbance, unspecified documented in this encounter Care Teams Education Liaison Relationship Specialty Start Date End Date None, Provider, PCP - General 05/18/18 03/08/19 documented as of this encounter
--- OUTSIDE RECORDS SUMMARY | 2024-08-31 06:03 | XMS_ITS | Encounter Summary ---
Author Organization [facility] Address [address] [place] [address]. [place], [place] [address] [place] [address] Care Team Providers Care Catch Basin Cleaner Name Role Phone None, Provider MD Primary Care Provider Unavaila ble Reason for Visit * Reason Comments Blood Pressure Check Encounter Details Date Type Department Care Team (Late st Contact Info) Description 01/25/2019 8:01 AM CDT - 01/25/2019 10:10 AM CDT Emergency [facility] Emergency [address] [place] [address] John Harris MD [address] [place] [phone] Blood Pressure Check Discharge Disposition: Home or [...] Everywhere. * High Blood Pressure Discharge Instructions (Malaysian) documented in this encounter Medications at Time [...] 2019-01-25 Pat Name: YAKOV DOYLE Department: Room: [place] [address] Gender: Male Racket Stringer: ANSON : 1980 Requested By: ASHOK CACERES Order Number: [id number] Reading MD: Measurements Intervals [place] Rate: 78 P: 12 ND: 164 QRS: 51 QRSD: 106 T: 95 [...] 90 tablet, Refills: 3 Class: Print Pharmacy: [address] (Ph #: [phone]) lisinopril 20 MG tablet Take 1 tablet (20 mg total) by mouth daily. Qty: 90 tablet, Refills: 3 Class: Print Pharmacy: [address] (Ph #: [phone]) Disposition: Discharge Follow-Up: Michael Hurtado MD [address] [place] [phone] For HTN follow up Ashok Caceres [...] AM CDT) 01/25/2019 8:40 AM CDT Narrative [facility] - 01/25/2019 3:07 PM CDT ?SJS-ED ? Test Date: ?2019-01-25 Pat Name: ? YAKOV WYKOFF ? Department: ? Room: ? [id number] Gender: ? Male ? Racket Stringer: ?? AMR : ?1980 ? Requested By: ASHOK PINGEL Order Number: [id number] ? Reading MD: ?? Chicho Adame ? Measurements Intervals ?[place] ? Rate: ? 78 ? P: ?12 ND: ? 164 ?QRS: ?51 QRSD: ? 106 ?T: ?95 QT: ? 355 ? QTc: ?405 ? Interpretive Statements SINUS RHYTHM PROBABLE INFERIOR MYOCARDIAL INFARCTION , OF INDETERMINATE AGE [35 ms Q WAVE IN II/aVF] Procedure Note Chicho Adame MD - 01/25/2019 SJS-ED Test Date: 2019-01-25 Pat Name: YAKOV DOYLE Department: Room: [place] [address] Gender: Male Racket Stringer: ANSON : 1980 Requested By: ASHOK CACERES Order Number: [id number] Reading MD: Chicho Adame Measurements Intervals [place] Rate: 78 P: 12 ND: 164 QRS: 51 QRSD: 106 T: 95 QT: 355 QTc: 405 Interpretive Statements SINUS RHYTHM PROBABLE INFERIOR MYOCARDIAL INFARCTION , OF INDETERMINATE AGE [35 ms QWAVE IN II/aVF] Ashok Caceres MD ECG ORDERABLES Final Result Performing Organization Address City/[facility] Co de Phone Number [facility] * TROPONIN, QUANT (01/25/2019 8:28 AM CDT) TROPONIN I 0.033 <0.045 ng/mL. 01/25/2019 9:05 AM CDT [facility] 01/25/2019 8:28 AM CDT Ashok Caceres MD LABORATORY Final Result Performing Organization Address [facility] Co de Phone Number [facility] [address] [place] [address], [phone] * (ABNORMAL) CBC W/DIFF AUTOMATED (01/25/2019 8:28 AM CDT) WBC 9.1 4.0 - 10.8 x10'3/uL 01/25/2019 8:38 AM CDT [facility] RBC 5.15 4.50 - 6.10 x10'6/uL 01/25/2019 8:38 AM CDT [facility] HGB 14.4 13.0 - 18.0 G/DL 01/25/2019 8:38 AM CDT [facility] HCT 44.6 37.0 - 52.0 % 01/25/2019 8:38 AM CDT [facility] MCV 86.6 78.0 - 100.0 FL 01/25/2019 8:38 AM CDT [facility] MCH 28.0 27.0 - 31.0 PG 01/25/2019 8:38 AM CDT [facility] MCHC 32.3(L) 33.0 - 36.0 G/DL 01/25/2019 8:38 AM CDT [facility] RDW 14.7(H) 11.5 - 14.5 % 01/25/2019 8:38 AM CDT [facility] PLT 243 150 - 350 x10'3/uL 01/25/2019 8:38 AM CDT [facility] MPV 9.9 7.4 - 10.4 FL 01/25/2019 8:38 AM CDT [facility] ABS. NEUTROPHILS TOTAL 6.03 1.60 - 8.30 x10'3/uL 01/25/2019 8:38 AM CDT [facility] ABS. LYMPHOCYTES 1.98 0.80 - 4.70 x10'3/uL 01/25/2019 8:38 AM CDT [facility] ABS. MONOCYTES 0.66 0.00 - 1.50 x10'3/uL 01/25/2019 8:38 AM CDT [facility] ABS. EOSINOPHILS 0.38 0.00 - 0.40 x10'3/uL 01/25/2019 8:38 AM CDT [facility] ABS. BASOPHILS 0.05 0.00 - 0.20 x10'3/uL 01/25/2019 8:38 AM CDT [facility] ABS. IMMATURE GRANULOCYTES 0.02 0.00 - 0.03 x10'3/uL 01/25/2019 8:38 AM CDT [facility] ABS. NUCLEATED RBC'S 0.00 0.0 x10'3/uL 01/25/2019 8:38 AM CDT [facility] 01/25/2019 8:28 AM CDT Ashok Caceres MD LABORATORY Final Result [facility] [address] [place] [address], [phone] * (ABNORMAL) BASIC METABOLIC PANEL (01/25/2019 8:28 AM CDT) SODIUM S/P/B 141 136 - 145 MMOL/L 01/25/2019 9:05 AM CDT [facility] POTASSIUM S/P/B 3.8 3.5 - 5.1 MMOL/L 01/25/2019 9:05 AM CDT [facility] CHLORIDE S/P/B 109(H) 98 - 107 MMOL/L 01/25/2019 9:05 AM T [facility] CO2 27.6 21.0 - 32.0 MMOL/L 01/25/2019 9:05 AM T [facility] GLUCOSE 156(H) 74 - 106 MG/DL 01/25/2019 9:05 AM CDT [facility] BUN 13 7 - 18 MG/DL 01/25/2019 9:05 AM CDT [facility] CREATININE S/P/B 1.09 0.70 - 1.30 MG/DL 01/25/2019 9:05 AM CDT [facility] CALCIUM S/P/B 8.3(L) 8.5 - 10.1 MG/DL 01/25/2019 9:05 AM T [facility] ANION GAP 4.4(L) 5.0 - 15.0 MMOL/L 01/25/2019 9:05 AM T [facility] Comment:REFERENCE RANGE NOT ESTABLISHED OSMOLALITY (CALC) 295 MOSM/KG 01/25/2019 9:05 AM CDT [facility] Comment:REFERENCE RANGE NOT ESTABLISHED EGFR NON-AFR. AMER. 85(L) >90 ML/MIN/1 .73 M2 01/25/2019 9:05 AM CDT [facility] EGFR AFR. AMER. >90 >90 ML/MIN/1 .73 M2 01/25/2019 9:05 AM CDT [facility] GFR NOTES THE ESTIMATED GFR IS CALCULATED USING THE 2009 CKD-EPI EQUATION. THE FOLLOWING CATEGORIES FOR GRADING RENAL FUNCTION ARE RECOMMENDED BY THE INTERNATIONAL SOCIETY OF NEPHROLOGY (KDIGO 2012 CLINICAL PRACTICE GUIDELINE). 01/25/2019 9:05 AM CDT [facility] Comment: G1,NORMAL OR HIGH: >89 ml/min/1.73 m2 G2,MILDLY DECREASED: 60-89 ml/min/1.73 m2 G3A,MILDLY TO MODERATELY DECREASED: 45-59 ml/min/1.73 m2 G3B,MODERATELY TO SEVERELY DECREASED: 30-44 ml/min/1.73 m2 G4,SEVERELY DECREASED: 15-29 ml/min/1.73 m2 G5,KIDNEY FAILURE: <15 ml/min/1.73 m2 01/25/2019 8:28 AM CDT Ashok Caceres MD LABORATORY Final Result [facility] [address] [place] [address], [phone] documented in this encounter Visit Diagnoses Diagnosis [...] RN) documented in this encounter Care Teams Catch Basin Cleaner Relationship Specialty Start Date End Date None, Provider, PCP - General 05/18/18 03/08/19 documented as of this encounter
--- OUTSIDE RECORDS SUMMARY | 2024-08-31 06:03 | XMS_ITS | Encounter Summary ---
Author Organization [facility] Address [facility]. [place], [place] [address] [place] [id number] Care Team Providers Care Mooner Name Role Phone None, Provider MD Primary Care Provider Unavaila ble Reason for Visit * Reason Comments Hypertension Encounter Details Date Type Department Care Team (Late st Contact Info) Description 01/27/2019 9:06 AM CDT - 01/27/2019 11:32 AM CDT Emergency [facility] [address] [place] [address] Penny Cedeño MD [address] [place] [id number] Hypertension Discharge Disposition: Home or Self [...] Everywhere. 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 Drug use: No staying at [facility] Review of Systems Review of Systems Constitutional: [...] DOYLE Department: Room: EXAM QQ Gender: Male Field Adjuster: LYNN : 1980 Requested By: PENNY CEDEÑO Order Number: [id number] Reading MD: Measurements Intervals [place] Rate: 75 P: 16 MN: 173 QRS: 29 QRSD: 98 T: 100 QT: 355 QTc: 398 Interpretive Statements SINUS RHYTHM NONSPECIFIC T-WAVE ABNORMALITY LABORATORY STUDIES: Results for orders placed or performed during the hospital encounter of 01/27/19 URINALYSIS Result Value Ref Range COLOR YELLOW TRANSPARENCY CLEAR Specific [place] (U) 1.023 1.002 - 1.035 U PH [...] [MA] ED Course User Index [MA] Penny Ceedño MD Clinical Impression Hypertension (Primary) Medications lisinopril (PRINIVIL,ZESTRIL) tablet 20 mg (20 mg Oral Given 01/27/19 0951) Current Discharge Medication List Milli Baca MD [address] [facility] [address] In 3 days call for follow up [...] COLOR (U) YELLOW 01/27/2019 10:14 AM CDT [facility] TRANSPARENCY CLEAR 01/27/2019 10:14 AM CDT [facility] SPECIFIC GRAVITY (U) 1.023 1.002 - 1.035 01/27/2019 10:14 AM CDT [facility] U PH 6.0 5 - 8 01/27/2019 10:14 AM CDT [facility] PROTEIN (U) NEGATIVE NEGATIVE 01/27/2019 10:14 AM CDT [facility] URINE GLUCOSE 150(A) NEGATIVE MG/DL 01/27/2019 10:14 AM CDT [facility] KETONES MG/DL (U) NEGATIVE NEGATIVE 01/27/2019 10:14 AM CDT [facility] BILIRUBIN (U) NEGATIVE NEGATIVE 01/27/2019 10:14 AM CDT [facility] BLOOD (U) NEGATIVE NEGATIVE 01/27/2019 10:14 AM CDT [facility] NITRITES NEGATIVE NEGATIVE 01/27/2019 10:14 AM CDT [facility] UROBILINOGEN NORMAL 0 - 1 EU/DL 01/27/2019 10:14 AM CDT [facility] LEUKOCYTES (U) NEGATIVE NEGATIVE 01/27/2019 10:14 AM CDT [facility] RBC/HPF <1 0 - 3 /HPF 01/27/2019 10:14 AM CDT [facility] WBC/HPF 1 0 - 6 /HPF 01/27/2019 10:14 AM CDT [facility] BACTERIA (U) NONE /HPF 01/27/2019 10:14 AM CDT [facility] URINE SPECIMEN OBTAINED BY CLEAN CATCH PROCEDURE / Unknown 01/27/2019 9:59 AM CDT Penny Cedeño MD URINE ORDERABLES Final Resu lt Performing Organization Address City/State/[facility] Co de Phone Number [facility] [address] [place] [address], [phone] * ECG 12 lead (01/27/2019 9:32 AM CDT) 01/27/2019 9:32 AM CDT Narrative [facility] - 01/27/2019 4:34 PM CDT ?SJS-ED ? Test Date: ?2019-01-27 Pat Name: ? BRENNAN DOYLE ? Department: ? Room: ? EXAM QQ Gender: ? Male ? Field Adjuster: ?? SBEA : ?1980 ? Requested By: PENNY ALEPRA Order Number: [id number] ? Reading MD: ?? Chicho Adame ? Measurements Intervals ?[place] ? Rate: ? 75 ? P: ?16 MN: ? 173 ?QRS: ?29 QRSD: ? 98 ? T: ?100 QT: ? 355 ? QTc: ?398 ? Interpretive Statements SINUS RHYTHM NONSPECIFIC T-WAVE ABNORMALITY Procedure Note Chicho Adame MD - 01/27/2019 SJS-ED Test Date: 2019-01-27 Pat Name: BRENNAN DOYLE Department: Room: EXAM Gender: Male Field Adjuster: LYNN : 1980 Requested By: PENNY CEDEÑO Order Number: [id number] Reading MD: Chicho Adame Measurements Intervals [place] Rate: 75 P: 16 MN: 173 QRS: 29 QRSD: 98 T: 100 QT: 355 QTc: 398 Interpretive Statements SINUS RHYTHM NONSPECIFIC T-WAVE ABNORMALITY us Penny Cedeño MD ECG ORDERABLES Final Resul t [facility] documented in this encounter Visit Diagnoses [...] RN) documented in this encounter Care Teams Mooner Relationship Specialty Start Date End Date None, Provider, PCP - General 05/18/18 03/08/19 documented as of this encounter
--- OUTSIDE RECORDS SUMMARY | 2024-08-31 06:03 | XMS_ITS | Clinical Summary ---
Author Organization [facility] Address [facility] [facility] [place] [address] [place] [address] Care Team Providers Care Food And Nutrition Professor Name Role Phone None, Provider MD Primary [...] injury) 03/09/2019 HTN (hypertension) 03/09/2019 Rheumatoid arthritis ([facility] 9 Encounters Date Type Department Care Team Description 08/01/2024 9:47 AM RN INVASIVE - 08/01/2024 10:41 AM [facility] [place] [address] Hipolito Adan NP Foot Pain; Toe Pain [...] Comments Blood Pressure 169/99 08/01/2024 9:02 AM RN INVASIVE Pulse 104 08/01/2024 9:02 AM RN INVASIVE Temperature 37.1 ??C (98.7 ??F) 08/01/2024 9:02 AM CS T Respiratory Rate 18 08/01/2024 9:02 AM RN INVASIVE Oxygen Saturation 94% 08/01/2024 9:02 AM RN INVASIVE Inhaled Oxygen Concentration - - Weight 157.4 kg (347 lb 0.1 oz) 08/01/2024 9:02 AM RN INVASIVE Height 195.6 cm (6' 5 ) 08/01/2024 9:02 AM RN INVASIVE Body Mass Index 41.15 08/01/2024 9:02 AM RN INVASIVE Plan of Treatment Health Maintenance Due Date [...] CHEST PORTABLE STAT 08/01/2024 10: 05 AM RN INVASIVE XR FOOT RT 3V STAT 08/01/2024 10:05 AM RN INVASIVE from Last 3 Months Results * XR CHEST PORTABLE (08/01/2024 10:05 AM RN INVASIVE) Anatomical Region Laterality Modality Chest Radiographic Martha ging 08/01/2024 10:1 5 AM RN INVASIVE Impressions 08/01/2024 10:17 AM RN INVASIVE IMPRESSION: 1. Findings which may represent early congestive heart failure, fluid overload in the appropriate clinical setting, with mild cardiomegaly, central pulmonary vascular enlargement and vascular venous congestion. 2. Equivocal small layering effusions versus a overlapping soft tissue prominence. Ordered By: HIPOLITO ADAN Interpreted By: Lesli Nascimento MD, 08/01/2024 10:15 AM Narrative 08/01/2024 10:17 AM RN INVASIVE [address] [address] Examination: Chest x-ray 1 view Exam date/time: [...] Procedure Note Lesli Nascimento MD - 08/01/[address] [address] Examination: Chest x-ray 1 view Exam date/time: [...] MD, 08/01/2024 10:15 AM us Hipolito Adan TRANSLATOR AND INTERPRETER GENERAL IMAGING Final Result * XR FOOT RT 3V (08/01/2024 10:05 AM RN INVASIVE) Anatomical Region Laterality Modality Foot Radiographic Martha ging 08/01/2024 10:1 5 AM RN INVASIVE Impressions 08/01/2024 10:22 AM RN INVASIVE =====IMPRESSION:===== ?? Cortical destruction of the proximal and distal phalanges of the great toe about the interphalangeal joint in close proximity to suspected wound. Findings are highly suspicious for osteomyelitis. Correlate clinically. Ordered By: HIPOLITO ADAN Interpreted By: Michael Brooks MD, 08/01/2024 10:15 AM Narrative 08/01/2024 10:22 AM RN INVASIVE [address] [address] EXAMINATION: Right foot 2views EXAM DATE/TIME: 08/01/2024 [...] Procedure Note Michael Brooks MD - 08/01/[address] [address] EXAMINATION: Right foot 2views EXAM DATE/TIME: 08/01/2024 [...] Brooks MD, 08/01/2024 10:15 AM Hipolito Adan TRANSLATOR AND INTERPRETER GENERAL IMAGING Final Result from Last 3 Months Insurance [employer] Advance Directives * Full Code (Latest Code Status on File) Date Activated Date Inactivated Comments 03/09/2019 1:22 PM 03/11/2019 11:37 AM Care Teams Food And Nutrition Professor Relationship Specialty Start Date End Date None, Provider, MD PCP - General UNKNOWN PHYSICIAN SPECIALTY 08/01/24
--- OUTSIDE RECORDS SUMMARY | 2024-08-31 06:03 | XMS_ITS | Encounter Summary ---
Author Organization [facility] Address [facility] [place] [address] [place] [address] Care Team Providers Care Director Of Scout Work Name Role Phone Betty Perez MD Primary Care Provider [phone] Reason for Referral * Imaging (Emergency) - Closed Specialty Diagnoses / Procedures Referred By Contac t Referred To Contact RADIOLOGY Procedures US RETROPERITONEAL COMP US RENAL Ashlee Prieto MD [address] [address] Phone: tel: fax: Referral ID Status Reason Start Date Expiration Date Visits Re quested Visits Authorized [id number] Closed 03/09/2019 04/09/2020 1 1 Reason for Visit * Reason Comments Chest Pain * Auth/Cert Specialty Diagnoses / Procedures Referred By Contac t Referred To Contact Diagnoses ARF (acute renal failure) ([facility]/HCC) MARYAN (acute kidney injury) ([facility]) Procedures GENERAL Referral ID Status Reason Start Date Expiration Date Visits Re quested Visits Authorized [id number] 1 1 Encounter Details Date Type Department Care Team (Latest Contact Info) Description 03/09/2019 11:02 AM CDT - 03/11/2019 9:32 AM CDT Hospital Encounter [facility] [address] [place] [address] Ashlee Prieto MD [address] [address] Meghana Mcdowell DO [address] [place] [address] Chest Pain Discharge Disposition: Home or Self [...] Meghana Mcdowell, - 03/11/2019 7:29 AM CDT [place] Hospitalist Discharge Summary Yakov Doyle male 1980 [...] no surgeries ?? PLAN: Discharge back to [facility] treatment program Patient is to be provided with water at all times with exposure to the heat and should avoid prolonged heat exposure without adequate fluid intake Patient may return to work adequate fluids Follow-up with Dr. Ike Perez in 1 week at [facility]. Call [phone] for an appointment Follow-up with Dr. Aziza Whiting in 7 to 10 days at [facility]. [phone] for an appointment Patient has been instructed [...] MCDOWELL DO Consultants: None Disposition: Discharge to [facility] treatment [facility] ADMISSION DIAGNOSES: ARF (acute renal failure) ([facility]) [N17.9] DISCHARGE DIAGNOSES: Acute kidney injury likely [...] Your Medications These medications were sent to [facility] - [address] [address] ?? acetaminophen 325 MG tablet ?? amlodipine [...] to work when he returned to the [employer]. 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 He originally completed the [...] 9:25 AM CDT Nurse for patient calls scenario writer. Patient was adm with MARYAN due to probably dehydration and heat exposure. Area is currently still under a Heat Warning. Patient is discharged and has no transport back to [facility] today. [facility] transport Van not operating on weekends. Cab Voucher issued for patient to return to [facility] in order to avoid unneccessary heat exposure. * Meghana Mcdowell, - 03/10/2019 9:56 AM CDT [place] Hospitalist Progress Note Yakov Doyle is a [...] dc plan. Pt has been staying at [facility] for about a month. Pt originally was from [place]. No family/friends in this area but Pt feels the [facility] has made a positiveimpact on his life [place]. Pt [place] have a PCP through [place] and payor source is [place]. Pt may need transport van back to [facility] depending on dc date. Pt appreciative of [employer] and denied further concerns at this time. Pt provided encouragement with completing [facility] program and findingsupport within the community. [employer] left vm with [facility] to update possible dc 03/1103/10/19 7099 Referral Data Referral Source Self-referral Referral Reason Discharge Planning Source of Information Patient Patient Information Primary Caregiver Self Support System Community Baseline ADL's Functional Status Independent Assistive Device None Living Arrangements Alone Type of Residence Other (Comment) ([facility]) Ambulation Independent Bathing/Grooming Independent Dressing Independent [...] Mcdowell DO - 03/09/2019 3:49 PM CDT [place] Hospitalist History & Physical Attending Provider: Meghana [...] EKG is negative I have contacted his stitcher tape controlled machine, Dr. Whiting and all of his medications have been held I would not resume any of his rheumatoid medications, his blood pressure medication or nonsteroidalanti-inflammatory drugs until he is reevaluated by Dr. Whiting and his primary care physician, Dr. Perez. Electronic notification of his admission sent to Dr. Perez If patient's renal function does not improve significantly in the a.m. we will consult [facility] nephrology Renal ultrasound does not show obstruction significant abnormalities Chief Complaint: Chest pain HPI: This pleasant 38-year-old male presented to the emergency room with chest pain and shortness of breath. According to the patient is in drug recovery through the [employer] and it completed his program in September but relapsed and subsequently rejoining the program and is been working the program since January 21. Presently is working the [employer] and temperatures of 90 to 95 degrees. [...] Ref Range COLOR YELLOW TRANSPARENCY HAZY Specific [place] (U) 1.016 1.002 - 1.035 U PH [...] DOYLE Department: Room: EXAM CC Gender: Male Sales Associate: KATHY : 1980 Requested By: ASHLEE PRIETO Order Number: [id number] Reading MD: Measurements Intervals Secretary Rate: 81 P: 1 AK: 172 QRS: -5 QRSD: 101 T: 68 [...] XR CHEST PORTABLE Final Result by User, [id number] (03/09 7199) Exam description: Chest 1 view Exam Time [...] - 145 MMOL/L 03/11/2019 6:58 AM CDT [facility] POTASSIUM S/P/B 5.0 3.5 - 5.1 MMOL/L 03/11/2019 6:58 AM CDT [facility] CHLORIDE S/P/B 106 98 - 107 MMOL/L 03/11/2019 6:58 AM CDT [facility] CO2 28.3 21.0 - 32.0 MMOL/L 03/11/2019 6:58 AM CDT [facility] GLUCOSE 99 74 - 106 MG/DL 03/11/2019 6:58 AM CDT [facility] BUN 25(H) 7 - 18 MG/DL 03/11/2019 6:58 AM CDT [facility] CREATININE S/P/B 1.20 0.70 - 1.30 MG/DL 03/11/2019 6:58 AM CDT [facility] CALCIUM S/P/B 9.2 8.5 - 10.1 MG/DL 03/11/2019 6:58 AM CDT [facility] ANION GAP 3.7(L) 5.0 - 15.0 MMOL/L 03/11/2019 6:58 AM CDT [facility] Comment:REFERENCE RANGE NOT ESTABLISHED OSMOLALITY (CALC) 290 MOSM/KG 03/11/2019 6:58 AM CDT [facility] Comment:REFERENCE RANGE NOT ESTABLISHED EGFR NON-AFR. AMER. 76(L) >90 ML/MIN/1 .73 M2 03/11/2019 6:58 AM CDT [facility] EGFR AFR. AMER. 88(L) >90 ML/MIN/1 .73 M2 03/11/2019 6:58 AM CDT [facility] GFR NOTES THE ESTIMATED GFR IS CALCULATED USING THE 2009 CKD-EPI EQUATION. THE FOLLOWING CATEGORIES FOR GRADING RENAL FUNCTION ARE RECOMMENDED BY THE INTERNATIONAL SOCIETY OF NEPHROLOGY (KDIGO 2012 CLINICAL PRACTICE GUIDELINE). 03/11/2019 6:58 AM CDT [facility] Comment: G1,NORMAL OR HIGH: >89 ml/min/1.73 m2 G2,MILDLY DECREASED: 60-89 ml/min/1.73 m2 G3A,MILDLY TO MODERATELY DECREASED: 45-59 ml/min/1.73 m2 G3B,MODERATELY TO SEVERELY DECREASED: 30-44 ml/min/1.73 m2 G4,SEVERELY DECREASED: 15-29 ml/min/1.73 m2 G5,KIDNEY FAILURE: <15 ml/min/1.73 m2 03/11/2019 6:15 AM CDT us Meghana Mcdowell DO LABORATORY Final Result Performing Organization Address [facility] de Phone Number [facility] [address] [place] [address], [id number] * MAGNESIUM (03/10/2019 3:32 AM CDT) MAGNESIUM 2.4 1.6 - 2.6 MG/DL 03/10/2019 5:12 AM CDT [facility] 03/10/2019 3:32 AM CDT us Meghana Mcdowell DO LABORATORY Final Result Performing Organization Address [facility] de Phone Number [facility] [address] [place] [address], [id number] * (ABNORMAL) COMPREHENSIVE METABOLIC PANEL (03/10/2019 3:32 AM CDT) SODIUM S/P/B 140 136 - 145 MMOL/L 03/10/2019 5:12 AM CDT [facility] POTASSIUM S/P/B 5.1 3.5 - 5.1 MMOL/L 03/10/2019 5:12 AM CDT [facility] CHLORIDE S/P/B 109(H) 98 - 107 MMOL/L 03/10/2019 5:12 AM T [facility] CO2 26.2 21.0 - 32.0 MMOL/L 03/10/2019 5:[address] [facility] GLUCOSE 107(H) 74 - 106 MG/DL 03/10/2019 5:[address] [facility] BUN 40(H) 7 - 18 MG/DL 03/10/2019 5:12 AM T [facility] CREATININE S/P/B 1.59(H) 0.70 - 1.30 MG/DL 03/10/2019 5:12 AM T [facility] CALCIUM S/P/B 8.9 8.5 - 10.1 MG/DL 03/10/2019 5:[address] [facility] BILIRUBIN TOTAL S/P/B 0.2 0.2 - 1.0 MG/DL 03/10/2019 5:[address] [facility] ALKALINE PHOSPHATASE S/P/B 77 45 - 115 U/L 03/10/2019 5:[address] [facility] AST 10(L) 15 - 37 U/L 03/10/2019 5:[address] [facility] ALT 29 16 - 61 U/L 03/10/2019 5:[address] [facility] TOTAL PROTEIN S/P/B 6.6 6.4 - 8.2 G/DL 03/10/2019 5:12 AM T [facility] ALBUMIN S/P/B 3.1(L) 3.4 - 5.0 G/DL 03/10/2019 5:[address] [facility] ANION GAP 4.8(L) 5.0 - 15.0 MMOL/L 03/10/2019 5:[address] [facility] Comment:REFERENCE RANGE NOT ESTABLISHED OSMOLALITY (CALC) 300 MOSM/KG 03/10/2019 5:12 AM T [facility] Comment:REFERENCE RANGE NOT ESTABLISHED EGFR NON-AFR. AMER. 54(L) >90 ML/MIN/1 .73 M2 03/10/2019 5:12 AM CDT [facility] EGFR AFR. AMER. 62(L) >90 ML/MIN/1 .73 M2 03/10/2019 5:12 AM CDT [facility] GFR NOTES THE ESTIMATED GFR IS CALCULATED USING THE 2009 CKD-EPI EQUATION. THE FOLLOWING CATEGORIES FOR GRADING RENAL FUNCTION ARE RECOMMENDED BY THE INTERNATIONAL SOCIETY OF NEPHROLOGY (KDIGO 2012 CLINICAL PRACTICE GUIDELINE). 03/10/2019 5:12 AM CDT [facility] Comment: G1,NORMAL OR HIGH: >89 ml/min/1.73 m2 G2,MILDLY DECREASED: 60-89 ml/min/1.73 m2 G3A,MILDLY TO MODERATELY DECREASED: 45-59 ml/min/1.73 m2 G3B,MODERATELY TO SEVERELY DECREASED: 30-44 ml/min/1.73 m2 G4,SEVERELY DECREASED: 15-29 ml/min/1.73 m2 G5,KIDNEY FAILURE: <15 ml/min/1.73 m2 03/10/2019 3:32 AM CDT Meghana Mcdowell DO LABORATORY Final Result [facility] [address] [place] [address], [id number] * (ABNORMAL) CBC W/DIFF AUTOMATED (03/10/2019 3:31 AM CDT) WBC 6.9 4.0 - 10.8 x10'3/uL 03/10/2019 4:30 AM CDT [facility] RBC 4.32(L) 4.50 - 6.10 x10'6/uL 03/10/2019 4:30 AM CDT [facility] HGB 12.1(L) 13.0 - 18.0 G/DL 03/10/2019 4:30 AM CDT [facility] HCT 38.1 37.0 - 52.0 % 03/10/2019 4:30 AM CDT [facility] MCV 88.2 78.0 - 100.0 FL 03/10/2019 4:30 AM CDT [facility] MCH 28.0 27.0 - 31.0 PG 03/10/2019 4:30 AM CDT [facility] MCHC 31.8(L) 33.0 - 36.0 G/DL 03/10/2019 4:30 AM CDT [facility] RDW 14.7(H) 11.5 - 14.5 % 03/10/2019 4:30 AM CDT [facility] PLT 226 150 - 350 x10'3/uL 03/10/2019 4:30 AM CDT [facility] MPV 10.3 7.4 - 10.4 FL 03/10/2019 4:30 AM CDT [facility] ABS. NEUTROPHILS TOTAL 4.02 1.60 - 8.30 x10'3/uL 03/10/2019 4:30 AM CDT [facility] ABS. LYMPHOCYTES 1.60 0.80 - 4.70 x10'3/uL 03/10/2019 4:30 AM CDT [facility] ABS. MONOCYTES 0.86 0.00 - 1.50 x10'3/uL 03/10/2019 4:30 AM CDT [facility] ABS. EOSINOPHILS 0.41(H) 0.00 - 0.40 x10'3/uL 03/10/2019 4:30 AM CDT [facility] ABS. BASOPHILS 0.03 0.00 - 0.20 x10'3/uL 03/10/2019 4:30 AM CDT [facility] ABS. IMMATURE GRANULOCYTES 0.02 0.00 - 0.03 x10'3/uL 03/10/2019 4:30 AM T [facility] ABS. NUCLEATED RBC'S 0.00 0.0 x10'3/uL 03/10/2019 4:30 AM T [facility] 03/10/2019 3:31 AM CDT us Meghana Mcdowell LABORATORY Final Result Performing Organization Address [facility] Co de Phone Number [facility] [address] [place] [address], [id number] * TROPONIN, QUANT (03/09/2019 8:03 PM CDT) TROPONIN I <0.015 <0.045 ng/mL. 03/09/2019 8:43 PM CDT [facility] 03/09/2019 8:03 PM CDT Meghanabrijesh Sommeral LABORATORY Final Result Performing Organization Address [facility] de Phone Number [facility] [address] [place] [address], [id number] * URINE DRUG SCREEN (TOXICOLOGY) (03/09/2019 6:13 PM CDT) PHENCYCLIDINE PCP (U) NEGATIVE NEGATIVE 03/09/2019 7:51 PM CDT [facility] BENZODIAZEPINES SCREEN (U) NEGATIVE NEGATIVE 03/09/2019 7:51 PM CDT [facility] COCAINE METABOLITES (U) NEGATIVE NEGATIVE 03/09/2019 7:51 PM CDT [facility] AMPHETAMINE (U) NEGATIVE NEGATIVE 9 7:51 PM CDT [facility] CANNABINOIDS SCREEN (U) NEGATIVE NEGATIVE 03/09/2019 7:51 PM CDT [facility] OPIATE SCREEN (U) NEGATIVE NEGATIVE 019 7:51 PM CDT [facility] BARBITURATES SCREEN (U) NEGATIVE NEGATIVE 03/09/2019 7:51 PM CDT [facility] URINE TOX COMMENT Unconfirmed screening results are to be used only for medical purposes. 03/09/2019 6:11 PM CDT [facility] CUTOFF CONCENTRATION (U) Cut-off Concentration for a positive result 03/09/2019 6:11 PM CDT [facility] Comment: Phencyclidine ? 25 ng/mL Benzodiazepines ? 200 ng/mL Cocaine ? 300 ng/mL Amphetamine ? 1000 ng/mL Cannabinoids ?50 ng/mL Opiates ? 300 ng/mL Barbiturates ?200 ng/mL Urine specimen (specimen) URINE SPECIMEN / Unknown 03/09/2019 6:13 PM CDT Meghana Mcdowell DO URINE ORDERABLES Final Result Performing Organization Address [facility] de Phone Number [facility] [address] [place] [address], [id number] * EOSINOPHIL COUNT, URINE (03/09/2019 6:13 PM CDT) SPEC DESCRIPTION URINE, UNSPECIFIED 03/09/2019 6:11 PM CDT [facility] SPECIAL REQUESTS NO SPECIAL REQUEST 03/09/2019 6:11 PM CDT [facility] EOSINOPHILS NO EOSINOPHILS SEEN 03/10/2019 7:52 AM CDT [facility] URINE SPECIMEN / Unknown 03/09/2019 6:13 PM CDT 03/09/2019 7:10 PM CDT Meghana Mcdowell DO URINE ORDERABLES Final Result Performing Organization Address [facility] de Phone Number [facility] [address] [place] [address], [id number] * TROPONIN, QUANT (03/09/2019 5:51 PM CDT) TROPONIN I <0.015 <0.045 ng/mL. 03/09/2019 6:22 PM CDT [facility] 03/09/2019 5:51 PM CDT us Ashlee Prieto MD LABORATORY Final Result Performing Organization Address [facility] Co de Phone Number [facility] [address] [place] [address], [id number] * SODIUM URINE RANDOM (03/09/2019 3:16 PM CDT) NA RANDOM (U) 57 MMOL/L 03/09/2019 3:40 PM CDT [facility] Comment:REFERENCE RANGE NOT ESTABLISHED URINE SPECIMEN / Unknown 03/09/2019 3:16 PM CDT us Ashlee Prieto MD URINE ORDERABLES Final Result Performing Organization Address [facility] de Phone Number [facility] [address] [place] [address], [id number] * CREATININE URINE RANDOM (03/09/2019 3:16 PM CDT) CREATININE (U) 235.0 MG/DL 03/09/2019 3:40 PM CDT [facility] Comment:REFERENCE RANGE NOT ESTABLISHED URINE SPECIMEN / Unknown 03/09/2019 3:16 PM CDT us Ashlee Prieto MD URINE ORDERABLES Final Result Performing Organization Address [facility] de Phone Number [facility] [address] [place] [address], [id number] * URINALYSIS (03/09/2019 3:16 PM CDT) COLOR (U) YELLOW 03/09/2019 3:32 PM CDT [facility] TRANSPARENCY HAZY 03/09/2019 3:32 PM CDT [facility] SPECIFIC GRAVITY (U) 1.016 1.002 - 1.035 03/09/2019 3:32 PM CDT [facility] U PH 5.0 5 - 8 03/09/2019 3:32 PM CDT [facility] PROTEIN (U) NEGATIVE NEGATIVE 03/09/2019 3:32 PM CDT [facility] URINE GLUCOSE NEGATIVE NEGATIVE MG/DL 03/09/2019 3:32 PM CDT [facility] KETONES MG/DL (U) NEGATIVE NEGATIVE 03/09/2019 3:32 PM CDT [facility] BILIRUBIN (U) NEGATIVE NEGATIVE 03/09/2019 3:32 PM CDT [facility] BLOOD (U) NEGATIVE NEGATIVE 03/09/2019 3:32 PM CDT [facility] NITRITES NEGATIVE NEGATIVE 03/09/2019 3:32 PM CDT [facility] UROBILINOGEN NORMAL 0 - 1 EU/DL 03/09/2019 3:32 PM CDT [facility] LEUKOCYTES (U) NEGATIVE NEGATIVE 03/09/2019 3:32 PM CDT [facility] RBC/HPF <1 0 - 3 /HPF 03/09/2019 3:32 PM CDT [facility] WBC/HPF 1 0 - 6 /HPF 03/09/2019 3:32 PM CDT [facility] BACTERIA (U) NONE /HPF 03/09/2019 3:32 PM CDT [facility] SQUAMOUS EPITHELIALS <1 03/09/2019 3:32 PM CDT [facility] HYALINE CASTS 3 03/09/2019 3:32 PM CDT [facility] URINE SPECIMEN OBTAINED BY CLEAN CATCH PROCEDURE / Unknown 03/09/2019 3:16 PM CDT Ashlee Prieto MD URINE ORDERABLES Final Result [facility] [address] [place] [address], [id number] * US RETROPERITONEAL COMP (03/09/2019 2:26 PM [...] <0.015 <0.045 ng/mL. 03/09/2019 2:18 PM CDT [facility] 03/09/2019 1:38 PM CDT us Meghana Mcdowell DO LABORATORY Final Result Performing Organization Address [facility] Co de Phone Number [facility] [address] [place] [address], [id number] * TROPONIN, QUANT (03/09/2019 12:05 PM CDT) TROPONIN I <0.015 <0.045 ng/mL. 03/09/2019 12:42 PM CDT [facility] 03/09/2019 12:0 5 PM CDT us Ashlee Prieto MD LABORATORY Final Result Performing Organization Address [facility] Co de Phone Number [facility] [address] [place] [address], [id number] * CK (CPK) (03/09/2019 12:05 PM CDT) CPK 78 39 - 308 U/L 03/09/2019 12:42 PM CDT [facility] 03/09/2019 12:0 5 PM CDT us Ashlee Prieto MD LABORATORY Final Result Performing Organization Address [facility] Co de Phone Number [facility] [address] [place] [address], [id number] * PRO-BRAIN NATRIURETIC PEPTIDE (03/09/2019 12:05 PM CDT) PRO-B TYPE NATRIURETIC PEPTIDE 63 <125 PG/ML 03/09/2019 12:42 PM CDT [facility] Comment: AGE INDEPENDENT: <300 PG/ML HAS [...] MD LABORATORY Final Result Performing Organization Address [facility] Co de Phone Number [facility] [address] [place] [address], [phone] * (ABNORMAL) COMPREHENSIVE METABOLIC PANEL (03/09/2019 12:05 PM CDT) SODIUM S/P/B 139 136 - 145 MMOL/L 03/09/2019 12:42 PM CDT [facility] POTASSIUM S/P/B 4.9 3.5 - 5.1 MMOL/L 03/09/2019 12:42 PM CDT [facility] CHLORIDE S/P/B 106 98 - 107 MMOL/L 03/09/2019 12:[address] [facility] CO2 28.8 21.0 - 32.0 MMOL/L 03/09/2019 12:42 PM T [facility] GLUCOSE 81 74 - 106 MG/DL 03/09/2019 12:[address] [facility] BUN 46(H) 7 - 18 MG/DL 03/09/2019 12:[address] [facility] CREATININE S/P/B 2.75(H) 0.70 - 1.30 MG/DL 03/09/2019 12:42 PM T [facility] CALCIUM S/P/B 8.6 8.5 - 10.1 MG/DL 03/09/2019 12:[address] [facility] BILIRUBIN TOTAL S/P/B 0.4 0.2 - 1.0 MG/DL 03/09/2019 12:[address] [facility] ALKALINE PHOSPHATASE S/P/B 75 45 - 115 U/L 03/09/2019 12:[address] [facility] AST 11(L) 15 - 37 U/L 03/09/2019 12:42 PM T [facility] ALT 33 16 - 61 U/L 03/09/2019 12:[address] [facility] TOTAL PROTEIN S/P/B 6.9 6.4 - 8.2 G/DL 03/09/2019 12:[address] [facility] ALBUMIN S/P/B 3.6 3.4 - 5.0 G/DL 03/09/2019 12:[address] [facility] ANION GAP 4.2(L) 5.0 - 15.0 MMOL/L 03/09/2019 12:[address] [facility] Comment:REFERENCE RANGE NOT ESTABLISHED OSMOLALITY (CALC) 299 MOSM/KG 03/09/2019 12:[address] [facility] Comment:REFERENCE RANGE NOT ESTABLISHED EGFR NON-AFR. AMER. 28(L) >90 ML/MIN/1 .73 M2 03/09/2019 12:42 PM CDT [facility] EGFR AFR. AMER. 32(L) >90 ML/MIN/1 .73 M2 03/09/2019 12:42 PM CDT [facility] GFR NOTES THE ESTIMATED GFR IS CALCULATED USING THE 2009 CKD-EPI EQUATION. THE FOLLOWING CATEGORIES FOR GRADING RENAL FUNCTION ARE RECOMMENDED BY THE INTERNATIONAL SOCIETY OF NEPHROLOGY (KDIGO 2012 CLINICAL PRACTICE GUIDELINE). 03/09/2019 12:42 PM CDT [facility] Comment: G1,NORMAL OR HIGH: >89 ml/min/1.73 m2 G2,MILDLY DECREASED: 60-89 ml/min/1.73 m2 G3A,MILDLY TO MODERATELY DECREASED: 45-59 ml/min/1.73 m2 G3B,MODERATELY TO SEVERELY DECREASED: 30-44 ml/min/1.73 m2 G4,SEVERELY DECREASED: 15-29 ml/min/1.73 m2 G5,KIDNEY FAILURE: <15 ml/min/1.73 m2 03/09/2019 12:0 5 PM CDT us Ashlee Prieto MD LABORATORY Final Result [facility] [address] [place] [address], [id number] * (ABNORMAL) CBC W/DIFF AUTOMATED (03/09/2019 12:05 PM CDT) WBC 9.4 4.0 - 10.8 x10'3/uL 03/09/2019 12:14 PM CDT [facility] RBC 4.25(L) 4.50 - 6.10 x10'6/uL 03/09/2019 12:14 PM CDT [facility] HGB 12.2(L) 13.0 - 18.0 G/DL 03/09/2019 12:14 PM CDT [facility] HCT 37.1 37.0 - 52.0 % 03/09/2019 12:14 PM CDT [facility] MCV 87.3 78.0 - 100.0 FL 03/09/2019 12:14 PM CDT [facility] MCH 28.7 27.0 - 31.0 PG 03/09/2019 12:14 PM CDT [facility] MCHC 32.9(L) 33.0 - 36.0 G/DL 03/09/2019 12:14 PM CDT [facility] RDW 15.0(H) 11.5 - 14.5 % 03/09/2019 12:14 PM CDT [facility] PLT 232 150 - 350 x10'3/uL 03/09/2019 12:14 PM CDT [facility] MPV 9.7 7.4 - 10.4 FL 03/09/2019 12:14 PM CDT [facility] ABS. NEUTROPHILS TOTAL 5.99 1.60 - 8.30 x10'3/uL 03/09/2019 12:14 PM CDT [facility] ABS. LYMPHOCYTES 2.14 0.80 - 4.70 x10'3/uL 03/09/2019 12:14 PM CDT [facility] ABS. MONOCYTES 0.90 0.00 - 1.50 x10'3/uL 03/09/2019 12:14 PM CDT [facility] ABS. EOSINOPHILS 0.34 0.00 - 0.40 x10'3/uL 03/09/2019 12:14 PM CDT [facility] ABS. BASOPHILS 0.03 0.00 - 0.20 x10'3/uL 03/09/2019 12:14 PM CDT [facility] ABS. IMMATURE GRANULOCYTES 0.03 0.00 - 0.03 x10'3/uL 03/09/2019 12:14 PM CDT [facility] ABS. NUCLEATED RBC'S 0.00 0.0 x10'3/uL 03/09/2019 12:14 PM CDT [facility] 03/09/2019 12:0 5 PM CDT us Ashlee Prieto MD LABORATORY Final Result [facility] [address] [place] [address], [id number] * XR CHEST PORTABLE (03/09/2019 12:00 PM CDT) Anatomical Region Laterality Modality Chest Radiographic Martha ging 03/09/2019 12:2 7 PM CDT Impressions 03/09/2019 12:29 PM CDT IMPRESSION: no active disease Interpreted By: iWld John MD, 03/09/2019 12:27 PM Narrative 03/09/2019 [...] CDT) 03/09/2019 11:0 6 AM CDT Narrative [facility] - 03/09/2019 5:48 PM CDT ?[facility]-ED ? Test Date: ?2019-03-09 Pat Name: ? YAKOV DOYLE ? Department: ? Room: ? 304 Gender: ? Male ? Sales Associate: ?? SWIN : ?1980 ? Requested By: ASHLEE FIELD Order Number: [id number] ? Reading MD: ?? Chicho Adame ? Measurements Intervals ?Secretary ? Rate: ? 81 ? P: ?1 AK: ? 172 ?QRS: ?-5 QRSD: ? 101 ?T: ?68 QT: ? 354 ? QTc: ?412 ? Interpretive Statements SINUS RHYTHM Procedure Note Chicho Adame MD - 03/09/2019 [facility] Test Date: 2019-03-09 Pat Name: YAKOV DOYLE Department: Room: 304 Gender: Male Sales Associate: KATHY : 1980 Requested By: ASHLEE PRIETO Order Number: [id number] Drew MD: Chicho Adame Measurements Intervals Secretary Rate: 81 P: 1 AK: 172 QRS: -5 QRSD: 101 T: 68 QT: 354 QTc: 412 Interpretive Statements SINUS RHYTHM us Ashlee Prieto MD ECG ORDERABLES Final Result Performing Organization Address City/State/[facility] de Phone Number [facility] documented in this encounter Visit Diagnoses Diagnosis ARF (acute renal failure) ([facility])- Primary Acute kidney failure, unspecified MARYAN (acute kidney injury) ([facility]) Acute kidney failure, unspecified HTN (hypertension) Unspecified essential hypertension Rheumatoid arthritis ([facility]) documented in this encounter Administered Medications Inactive [...] (COMPLETED) documented in this encounter Care Teams Director Of Scout Work Relationship Specialty Start Date End Date Betty Perez MD PCP - General FAMILY PRACTICE 03/09/19 07/31/24 documented as of this encounter
--- OUTSIDE RECORDS SUMMARY | 2024-08-31 06:03 | XMS_ITS | Encounter Summary ---
Author Organization [facility] Address [address] [place] [address]. [place], [place] [id number] [place] [address] Care Team Providers Care Safety And Security Officer Name Role Phone None, Provider MD Primary Care Provider Unavaila ble Reason for Visit * Reason Comments Chest Pain Leg Swelling Knee Pain Hip Pain Encounter Details Date Type Department Care Team (Late st Contact Info) Description 06/03/2018 9:29 PM CDT - 06/03/2018 11:43 PM CDT Emergency [facility] Emergency [address] [place] [address] Lorri Sánchez, DO [address] [place], [place] [id number] Chest Pain; Leg Swelling; Knee Pain; Hip [...] NOT CAUSED BY THE HEART DISCHARGE INSTRUCTIONS (BULGARIAN) * DEPENDENT EDEMA DISCHARGE INSTRUCTIONS (BULGARIAN) documented in this encounter Medications at Time [...] XR CHEST PA+LAT Final Result by User, [email or web address] (06/03 2201) EXAMINATION: CHEST X-RAY TWO VIEWS [...] night. Will use lidocaine patches here and [id number] lidocaine patches at home for additional pain relief. Patient requests no narcotics. Modified [place] Heart Score History: Chest discomfort 0-1 symptoms [...] Discharge Medication List Disposition: Discharge Follow up: [facility] [address] [facility] [address] Please follow up here if you are unable to get into Dr. Baca's office. Milli Baca MD [address] [address] Call in 3 days Please follow up [...] <0.015 <0.045 ng/mL. 06/03/2018 10:48 PM CDT [facility] 06/03/2018 10:1 1 PM CDT us Kirstin Tom MD LABORATORY Final Result [facility] [address] [place] [address], [id number] * PRO-BRAIN NATRIURETIC PEPTIDE (06/03/2018 10:11 PM CDT) PRO-B TYPE NATRIURETIC PEPTIDE 74 <125 PG/ML 06/03/2018 10:48 PM CDT [facility] Comment: AGE INDEPENDENT: <300 PG/ML [...] us Kirstin Tom MD LABORATORY Final Result [facility] [address] [place] [address], [id number] * COMPREHENSIVE METABOLIC PANEL (06/03/2018 10:11 PM CDT) Pathologist [facility] SODIUM S/P/B 140 136 - 145 MMOL/L 06/03/2018 10:48 PM CDT [facility] POTASSIUM S/P/B 4.5 3.5 - 5.1 MMOL/L 06/03/2018 10:48 PM CDT [facility] CHLORIDE S/P/B 105 98 - 107 MMOL/L 06/03/2018 10:48 PM CDT [facility] CO2 29.0 21.0 - 32.0 MMOL/L 06/03/2018 10:48 PM CDT [facility] GLUCOSE 86 74 - 106 MG/DL 06/03/2018 10:48 PM CDT [facility] BUN 17 7 - 18 MG/DL 06/03/2018 10:48 PM CDT [facility] CREATININE S/P/B 0.88 0.70 - 1.30 MG/DL 06/03/2018 10:48 PM CDT [facility] CALCIUM S/P/B 9.2 8.4 - 10.5 MG/DL 06/03/2018 10:48 PM T [facility] BILIRUBIN TOTAL S/P/B 0.4 0.2 - 1.0 MG/DL 06/03/2018 10:48 PM T [facility] ALKALINE PHOSPHATASE S/P/B 93 45 - 115 U/L 06/03/2018 10:48 PM CDT [facility] AST 16 15 - 37 U/L 06/03/2018 10:48 PM T [facility] ALT 37 16 - 61 U/L 06/03/2018 10:48 PM T [facility] TOTAL PROTEIN S/P/B 7.4 6.4 - 8.2 G/DL 06/03/2018 10:48 PM T [facility] ALBUMIN S/P/B 3.7 3.4 - 5.0 G/DL 06/03/2018 10:48 PM T [facility] ANION GAP 6.0 MMOL/L 06/03/2018 10:48 PM T [facility] Comment:REFERENCE RANGE NOT ESTABLISHED OSMOLALITY (CALC) 291 MOSM/KG 06/03/2018 10:48 PM [facility] Comment:REFERENCE RANGE NOT ESTABLISHED EGFR NON-AFR. AMER. >90 >90 ML/MIN/1 .73 M2 06/03/2018 10:48 PM T [facility] EGFR AFR. AMER. >90 >90 ML/MIN/1 .73 M2 06/03/2018 10:48 PM [facility] GFR NOTES THE ESTIMATED GFR IS CALCULATED USING THE 2009 CKD-EPI EQUATION. THE FOLLOWING CATEGORIES FOR GRADING RENAL FUNCTION ARE RECOMMENDED BY THE INTERNATIONAL SOCIETY OF NEPHROLOGY (KDIGO 2012 CLINICAL PRACTICE GUIDELINE). 06/03/2018 10:48 PM T [facility] Comment: G1,NORMAL OR HIGH: >89 ml/min/1.73 m2 G2,MILDLY DECREASED: 60-89 ml/min/1.73 m2 G3A,MILDLY TO MODERATELY DECREASED: 45-59 ml/min/1.73 m2 G3B,MODERATELY TO SEVERELY DECREASED: 30-44 ml/min/1.73 m2 G4,SEVERELY DECREASED: 15-29 ml/min/1.73 m2 G5,KIDNEY FAILURE: <15 ml/min/1.73 m2 06/03/2018 10:1 1 PM CDT us Kirstin Tom MD LABORATORY Final Result [facility] [address] [place] [address], [place] [phone] [id number] * CBC W/DIFF AUTOMATED (06/03/2018 10:11 PM CDT) WBC 10.7 4.0 - 10.8 x10'3/uL 06/03/2018 10:20 PM CDT [facility] RBC 4.75 4.50 - 6.10 x10'6/uL 06/03/2018 10:20 PM CDT [facility] HGB 13.5 13.0 - 18.0 G/DL 06/03/2018 10:20 PM CDT [facility] HCT 40.7 37.0 - 52.0 % 06/03/2018 10:20 PM CDT [facility] MCV 85.7 78.0 - 100.0 FL 06/03/2018 10:20 PM CDT [facility] MCH 28.4 27.0 - 31.0 PG 06/03/2018 10:20 PM CDT [facility] MCHC 33.2 33.0 - 36.0 G/DL 06/03/2018 10:20 PM CDT [facility] RDW 13.7 11.5 - 14.5 % 06/03/2018 10:20 PM CDT [facility] PLT 294 150 - 350 x10'3/uL 06/03/2018 10:20 PM CDT [facility] MPV 9.5 7.4 - 10.4 FL 06/03/2018 10:20 PM CDT [facility] ABS. NEUTROPHILS TOTAL 6.78 1.60 - 8.30 x10'3/uL 06/03/2018 10:20 PM CDT [facility] ABS. LYMPHOCYTES 2.31 0.80 - 4.70 x10'3/uL 06/03/2018 10:20 PM CDT [facility] ABS. MONOCYTES 1.20 0.00 - 1.50 x10'3/uL 06/03/2018 10:20 PM CDT [facility] ABS. EOSINOPHILS 0.34 0.00 - 0.40 x10'3/uL 06/03/2018 10:20 PM CDT [facility] ABS. BASOPHILS 0.04 0.00 - 0.20 x10'3/uL 06/03/2018 10:20 PM CDT [facility] ABS. IMMATURE GRANULOCYTES 0.02 0.00 - 0.03 x10'3/uL 06/03/2018 10:20 PM CDT [facility] ABS. NUCLEATED RBC'S 0.00 0.0 x10'3/uL 06/03/2018 10:20 PM CDT [facility] 06/03/2018 10:1 1 PM CDT Kirstin Tom MD LABORATORY Final Result Performing Organization Address City/State/[facility] Co de Phone Number [facility] [address] [place] [address], [phone] * ECG 12 lead (06/03/2018 10:07 PM CDT) 06/03/2018 10:0 7 PM CDT Narrative [facility] - 06/04/2018 8:50 PM CDT ?SJS-ED ? Test Date: ?2018-06-03 Pat Name: ? YAKOV DOYLE ? Department: ?? 70 ? Room: ? EXAM AA Gender: ? Male ? 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 APEDEN : ?1980 ? Requested By: KIRSTIN TOM Order Number: [id number] ? Reading MD: ?? Kolton Olivier ? Measurements Intervals ?[place] ? Rate: ? 90 ? P: ?22 RI: ? 175 ?QRS: ?35 QRSD: ? 107 ?T: ?77 QT: ? 350 ? QTc: ?429 ? 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: BONI : 1980 Requested By: KIRSTIN TOM Order Number: [id number] Reading MD: Kolton Olivier Measurements Intervals [place] Rate: 90 P: 22 RI: 175 QRS: 35 QRSD: 107 T: 77 QT: 350 QTc: 429 Interpretive Statements SINUS RHYTHM POSSIBLE INFERIOR MYOCARDIAL INFARCTION , PROBABLY OLD [30 ms Q WAVE IN II/aVF] us Kirstin Tom MD ECG ORDERABLES Final Result [facility] * XR CHEST PA+LAT (06/03/2018 [...] By: Ketty Burton MD, 06/03/2018 9:59 PM Kirsitn Tom MD GENERAL IMAGING Final Result documented [...] discontinued) documented in this encounter Care Teams Safety And Security Officer Relationship Specialty Start Date End Date None, Provider, PCP - General 05/18/18 03/08/19 documented as of this encounter
--- OUTSIDE RECORDS SUMMARY | 2024-08-31 06:03 | XMS_ITS | Encounter Summary ---
Author Organization [facility] Address [facility]ly [facility]. [place], [place] [address] [place] [address] Care Team Providers Care Etl Manager Name Role Phone None, Provider MD Primary Care Provider Unavaila ble Reason for Referral * Sleep Lab (Routine) - Closed Specialty Diagnoses / Procedures Referred By Belinda lewis Referred To Contact Diagnoses Sleep disturbances Procedures Sleep Study ([id number]) POLYSOMNOGRAPHY W/CPAP Tanner Sanabria MD [address] [place] [phone] Phone: tel: fax: [facility] [address] [place] [address] Phone: tel: fax: Referral ID Status Reason Start Date Expiration Date Visits Re quested Visits Authorized [id number] Closed 06/27/2018 07/28/2019 1 1 ANICAL PRESS 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 Reason for Visit * Sleep Lab (Routine) - Closed Specialty Diagnoses / Procedures Referred By Belinda lewis Referred To Contact Diagnoses Sleep disturbances Procedures Sleep Study ([id number]) POLYSOMNOGRAPHY W/CPAP Tanner Sanabria MD [address] [place] [phone] Phone: tel: fax: [facility] [address] [place] [address] Phone: tel: fax: Referral ID Status Reason Start Date Expiration Date Visits Re quested Visits Authorized [id number] Closed 06/27/2018 07/28/2019 1 1 Encounter Details Date Type Department Care Team (Late st Contact Info) Description 06/28/2018 9:05 PM MECHANICAL PRESS OPERATOR - 06/28/2018 11:59 PM MECHANICAL PRESS OPERATOR Hospital Encounter [facility] - [address] [place] [address] Tanner Sanabria MD [address] [place] [phone] Discharge Disposition: Home or Self Care (Routine [...] Comments SLEEP STUDY Routine 07/19/2018 9:44 AM MECHANICAL PRESS OPERATOR Sleep disturbances documented in this encounter Results * Sleep Study ([id number]) (07/19/2018 9:44 AM MECHANICAL PRESS OPERATOR) 07/19/2018 9:44 AM MECHANICAL PRESS OPERATOR Narrative ESCRIPTION - 07/26/2018 5:43 PM MECHANICAL PRESS OPERATOR REFERRED BY: ??Tanner Sanabria INTERPRETING PHYSICIAN: ??Jacob Cardenas MD STUDY PERFORMED: ??Nocturnal polysomnogram with CPAP titration. ??Patient is a 38-year-old male, height 5 feet 5 inches, weight 356 pounds, giving a BMI of 59 kg/sq m. The patient gives history of snoring, daytime fatigue. ??He is referred in evaluation of this. METHODS AND DEFINITIONS (Pediatric and Adult Sleep Studies): ??[facility] uses the 2007 [place] [employer] Manual for the scoring of sleep and associated events when performing sleep studies on [facility] patients per [facility] guidelines. ??All other patients are scored using the [place] [employer] 2015 scoring guidelines. [...] full face mask. D: ??07/19/2018 09:44 AM #[id number] T: ??07/19/2018 11:29 AM /NTS Tanner Sanabria MD AMBULATORY ORDERABLE PRO C Final Result ESCRIPTION documented in this encounter Visit Diagnoses Diagnosis Sleep disturbances Sleep disturbance, unspecified documented in this encounter Care Teams Etl Manager Relationship Specialty Start Date End Date None, Provider, PCP - General 05/18/18 03/08/19 documented as of this encounter
== END 2024-08-28 22:00 | disposition left against medical advice (07) | DRG 710 ==
LOC: ANHED 07:56 → ANHIMU 13:30 → ANH3MEDSUR 08-26 15:28 → ANHICU 08-28 17:05 → ANH3MEDSUR 08-30 09:32 → ANHICU 08-30 09:32
PROVIDERS: General Practice; Nurse Practitioner Acute Care; Nurse Practitioner Family; Surgery; Admitting Provider Internal Medicine; Emergency Provider Student in an Organized Health Care Education/Training Program; Visit Provider Internal Medicine
PROC: 0Y6P0Z1 Detachment at Right 1st Toe, High, Open Approach (ICD-10-PCS; principal; 2024-08-25 14:00)
DX: A41.9 Sepsis, unspecified organism (principal); M86.171 Other acute osteomyelitis, right ankle and foot; M00.071 Staphylococcal arthritis, right ankle and foot; M19.071 Primary osteoarthritis, right ankle and foot; B95.1 Streptococcus, group B, as the cause of diseases classified elsewhere; B96.5 Pseudomonas (aeruginosa) (mallei) (pseudomallei) as the cause of diseases classified elsewhere; E04.1 Nontoxic single thyroid nodule; I13.0 Hypertensive heart and chronic kidney disease with heart failure and stage 1 through stage 4 chronic kidney disease, or unspecified chronic kidney disease; E11.22 Type 2 diabetes mellitus with diabetic chronic kidney disease; F17.210 Nicotine dependence, cigarettes, uncomplicated; M06.9 Rheumatoid arthritis, unspecified; J18.9 Pneumonia, unspecified organism; G47.33 Obstructive sleep apnea (adult) (pediatric); N17.9 Acute kidney failure, unspecified; N18.30 Chronic kidney disease, stage 3 unspecified; I24.89 Other forms of acute ischemic heart disease; F41.9 Anxiety disorder, unspecified; J44.9 Chronic obstructive pulmonary disease, unspecified; E66.01 Morbid (severe) obesity due to excess calories; I50.23 Acute on chronic systolic (congestive) heart failure; J96.01 Acute respiratory failure with hypoxia; Z53.29 Procedure and treatment not carried out because of patient's decision for other reasons; Z68.41 Body mass index [BMI] 40.0-44.9, adult; Z91.148 Patient's other noncompliance with medication regimen for other reason
CPT/HCPCS: 36415; 36600; 70450; 71045; 71046; 71275; 73660; 74174; 80048; 80053; 80061; 80202; 82077; 82805; 82948; 83036; 83605; 83735; 83880; 84439; 84443; 84480; 84484; 84550; 85018; 85025; 85380; 85652; 86140; 87040; 87070; 87075; 87181; 87186; 87205; 87637; 88305; 88311; 93005; 94002; 94003; 96365; 96367; 96375; 96376; 97161; 97165; 99212; 99285; A9270; C8929; G0379; G0463; J0360; J0690; J0692; J0696; J1650; J1815; J1940; J2003; J2060; J2250; J2270; J2371; J2405; J2704; J3010; J3370; J7120; Q9957; Q9967